=== PATIENT | male | born 1955 | race Caucasian/White ===

== ENCOUNTER 2017-07-19 09:36 | Outpatient (RCR) | payer BC, SELFPAY ==
[2017-07-19 10:11] LABS: Prothrombin Time Fingerstick 30.3 SEC (11.9-14.4)
== END 2017-07-19 09:45 | disposition home or self-care (01) ==
LOC: LAB 09:36
PROVIDERS: Family Provider Family Medicine; PCP Family Medicine; Visit Provider Family Medicine
DX: Z86.718 Personal history of other venous thrombosis and embolism (principal)
CPT/HCPCS: 36416; 85610

== ENCOUNTER 2017-09-06 07:31 | Outpatient (RCR) | payer BC, SELFPAY ==
[2017-09-06 07:56] LABS: Prothrombin Time Fingerstick 32.8 SEC (11.9-14.4)
== END 2017-09-06 15:00 | disposition home or self-care (01) ==
LOC: LAB 07:31
PROVIDERS: Family Provider Family Medicine; PCP Family Medicine; Visit Provider Family Medicine
DX: Z86.718 Personal history of other venous thrombosis and embolism (principal)
CPT/HCPCS: 36416; 85610

== ENCOUNTER 2017-10-18 07:33 | Outpatient (RCR) | payer BC, SELFPAY ==
[2017-10-18 07:46] LABS: Prothrombin Time Fingerstick 30.8 SEC (11.9-14.4)
== END 2017-10-18 08:00 | disposition home or self-care (01) ==
LOC: LAB 07:33
PROVIDERS: Family Provider Family Medicine; PCP Family Medicine; Visit Provider Family Medicine
DX: Z86.718 Personal history of other venous thrombosis and embolism (principal)
CPT/HCPCS: 36416; 85610

== ENCOUNTER → 2017-11-06 08:28 | Outpatient (CLI) | payer BC, SELFPAY ==
[2017-11-06 11:04] LABS: Anion Gap 7 (5-15); BUN 14 mg/dL (7-18); BUN/Creat Ratio 14.5 RATIO (10-20); Calcium,Total 9.1 mg/dL (8.5-10.1); Chloride 102 mmol/L (98-107); Cholesterol 176 mg/dL (200); Creatinine, Serum 0.96 mg/dL (0.70-1.30); EST Glomerular Filtration Rate 83 mL/min (>60); Est Glom Filt Rate - Afr Amer 101 mL/min (>60); Glucose 131 mg/dL (74-106); High Density Lipoprotein 34 mg/dL; Sodium Level 138 mmol/L (136-145); Triglycerides 256 mg/dL; Very Low Density Lipoprotein 51 mg/dL (5-40)
== END ==
PROVIDERS: Family Provider Family Medicine; PCP Family Medicine; Visit Provider Family Medicine
DX: I10 Essential (primary) hypertension (principal)
CPT/HCPCS: 36415; 80048; 80061

== ENCOUNTER 2017-11-15 07:27 | Outpatient (RCR) | payer BC, SELFPAY ==
[2017-11-15 07:50] LABS: Prothrombin Time Fingerstick 32.7 SEC (11.9-14.4)
== END 2017-11-15 08:00 | disposition home or self-care (01) ==
LOC: LAB 07:27
PROVIDERS: Family Provider Family Medicine; PCP Family Medicine; Visit Provider Family Medicine
DX: Z86.718 Personal history of other venous thrombosis and embolism (principal)
CPT/HCPCS: 36416; 85610

== ENCOUNTER 2017-12-13 07:22 | Outpatient (RCR) | payer BC, SELFPAY ==
[2017-12-13 07:45] LABS: Prothrombin Time Fingerstick 30.3 SEC (11.9-14.4)
== END 2017-12-13 08:00 | disposition home or self-care (01) ==
LOC: LAB 07:22
PROVIDERS: Family Provider Family Medicine; PCP Family Medicine; Visit Provider Family Medicine
DX: Z86.718 Personal history of other venous thrombosis and embolism (principal)
CPT/HCPCS: 36416; 85610

== ENCOUNTER 2018-01-09 16:43 | Outpatient (RCR) | payer BC, SELFPAY ==
[2018-01-09 17:01] LABS: Prothrombin Time Fingerstick 25.5 SEC (11.9-14.4)
== END 2018-01-09 17:30 | disposition home or self-care (01) ==
LOC: LAB 16:43
PROVIDERS: Family Provider Family Medicine; PCP Family Medicine; Visit Provider Family Medicine
DX: Z86.718 Personal history of other venous thrombosis and embolism (principal)
CPT/HCPCS: 36416; 85610

== ENCOUNTER 2018-02-21 07:26 | Outpatient (RCR) | payer MEDICARE, OTHER, SELFPAY | END 2018-02-21 09:00 | disposition home or self-care (01) | LOC: LAB 07:26 | PROVIDERS: Family Provider Family Medicine; PCP Family Medicine; Visit Provider Family Medicine | DX: Z86.718 Personal history of other venous thrombosis and embolism (principal) | CPT/HCPCS: 36416; 85610 ==

== ENCOUNTER → 2018-03-14 07:19 | Outpatient (CLI) | payer MEDICARE, OTHER, SELFPAY ==
[2018-03-14 07:51] LABS: Prothrombin Time Fingerstick 32.9 SEC (11.9-14.4)
== END ==
PROVIDERS: Family Provider Family Medicine; PCP Family Medicine; Visit Provider Family Medicine
DX: Z86.718 Personal history of other venous thrombosis and embolism (principal)
CPT/HCPCS: 36416; 85610

== ENCOUNTER 2018-04-11 07:59 | Outpatient (RCR) | payer MEDICARE, OTHER, SELFPAY | END 2018-04-11 09:00 | disposition home or self-care (01) | LOC: LAB 07:59 | PROVIDERS: Family Provider Family Medicine; PCP Family Medicine; Visit Provider Family Medicine | DX: Z86.718 Personal history of other venous thrombosis and embolism (principal) | CPT/HCPCS: 36416; 85610 ==

== ENCOUNTER 2018-04-27 02:42 | Emergency (ER) | payer MEDICARE, OTHER, SELFPAY ==
[2018-04-27 02:43] VITALS: BP 160/87; BP 185/85; PULSE 85; PULSE 95; RESP 16; TEMP 37.2; O2SAT 96; BMI 43.9
[2018-04-27 03:45] LABS: International Normalized Ratio 2.9; Prothrombin Time (Protime)PT. 30.8 SECONDS (11.7-14.9)
--- NOTE | 2018-04-27 03:56 | ED.VIS.GEN ---
History of Present Illness Chief Complaint: Male Pain/Injury Informant: Patient Onset: Hours - 1 Context: Sudden Onset - after shower. no injury. Timing: Continuous Quality: oozing blood Location: scrotum Current Severity: Mild Maximum Severity: Mild Worsened by: nothing Relieved by: nothing Associated Symptoms: none. no pain. Narrative: Takes warfarin for DVT. No recent illnesses. - Past Medical History (1) DVT (deep venous thrombosis) Status: Chronic Past Medical History - Allergies and Home Meds Allergies/Adverse Reactions: Allergies No Known Allergies Allergy (Verified 04/27/18 02:43) Primary Care Physician: Otis Pruett MD [Primary Care Provider] - As Needed Smoking Status: Never smoker Review of Systems General: Denies: Chills, Fever Gastrointestinal: Denies: Abdominal pain, Nausea, Vomiting Genitourinary: Reports: - - scrotal bleeding. no scrotal/testicular pain.. Denies: Dysuria, Hematuria, Frequency Musculoskeletal: Denies: Back pain, Swelling, Extremity Pain Hematologic: Reports: Easy bruising, Easy bleeding Physical Exam Vital Signs/Narrative: Vital Signs Temp Pulse Resp BP Pulse Ox 04/27/18 02:43 99.0 F 85 16 160/87 H 96 Inital Vital Signs reviewed: Yes General: Well nourished, Well developed, Obese Head: Normocephalic, Atraumatic : minor oozing of venous blood from hair follicle mid-anterior scrotum. NT. Skin: Normal color, No rash Neurological: Alert, Oriented x3, Cranial nerves II-XII grossly intact, Normal Strength, Normal Sensation Psychological: Normal affect Diagnostic/Tx/Re-eval Laboratory Tests 04/27/18 Range/Units 03:17 PT 30.8 H (11.7-14.9) SECONDS INR 2.9 - Medical Decision Making INR is 2.9, therapeutic. We placed a dressing over his scrotum with the Gelfoam against the skin, bleeding was well controlled. Advised to leave it on overnight, may use more as needed, this is likely simply a hair that was removed from this area during his shower, as it appears to be coming from a hair follicle. Supportive care advised. ED Disposition - Plan for ED Patient: Disposition: Home or Assisted Living Chief Complaint: Male Pain/Injury Diagnosis: Abrasion of scrotum Instructions: ED Abrasion Referrals: Otis Pruett MD [Primary Care Provider] - As Needed
[2018-04-27 04:13] VITALS: PULSE 95; RESP 16; O2SAT 96
== END 2018-04-27 04:14 | disposition home or self-care (01) ==
PROVIDERS: Emergency Provider Emergency Medicine; Family Provider Family Medicine; PCP Family Medicine
DX: S30.813A Abrasion of scrotum and testes, initial encounter (principal); X58.XXXA Exposure to other specified factors, initial encounter; Y93.9 Activity, unspecified; Y92.9 Unspecified place or not applicable; Y99.9 Unspecified external cause status; E66.9 Obesity, unspecified; Z79.01 Long term (current) use of anticoagulants; Z79.899 Other long term (current) drug therapy; Z86.718 Personal history of other venous thrombosis and embolism
CPT/HCPCS: 85610; 99283

== ENCOUNTER 2018-05-30 07:36 | Outpatient (RCR) | payer MEDICARE, OTHER, SELFPAY ==
[2018-05-30 07:51] LABS: Prothrombin Time Fingerstick 29.8 SEC (11.9-14.4)
== END 2018-06-12 11:30 | disposition home or self-care (01) ==
LOC: LAB 07:36
PROVIDERS: Family Provider Family Medicine; PCP Family Medicine; Referring Provider Family Medicine; Visit Provider Family Medicine
DX: Z86.718 Personal history of other venous thrombosis and embolism (principal)
CPT/HCPCS: 36416; 85610

== ENCOUNTER 2018-06-20 07:05 | Outpatient (RCR) | payer MEDICARE, OTHER, SELFPAY ==
[2018-06-20 08:44] LABS: Anion Gap 7 (5-15); BUN 14 mg/dL (7-18); Calcium,Total 8.8 mg/dL (8.5-10.1); Chloride 103 mmol/L (98-107); Cholesterol 176 mg/dL (200); EST Glomerular Filtration Rate 80 mL/min (>60); Est Glom Filt Rate - Afr Amer 96 mL/min (>60); Glucose 129 mg/dL (74-106); High Density Lipoprotein 35 mg/dL; Potassium 4.3 mmol/L (3.5-5.1); Sodium Level 139 mmol/L (136-145); Triglycerides 175 mg/dL; Very Low Density Lipoprotein 35 mg/dL (5-40)
[2018-06-20 08:56] LABS: International Normalized Ratio 2.4; Prothrombin Time (Protime)PT. 26.4 SECONDS (11.7-14.9)
== END 2018-06-20 08:00 | disposition home or self-care (01) ==
LOC: LAB 07:05
PROVIDERS: Family Provider Family Medicine; PCP Family Medicine; Referring Provider Family Medicine; Visit Provider Family Medicine
DX: I10 Essential (primary) hypertension (principal); Z86.718 Personal history of other venous thrombosis and embolism
CPT/HCPCS: 36415; 80048; 80061; 85610

== ENCOUNTER → 2018-06-27 10:45 | Outpatient (CLI) | payer MEDICARE, OTHER, SELFPAY ==
[2018-06-27 12:02] LABS: Hemoglobin A1c 7.4 % (4.2-6.3)
--- OUTSIDE RECORDS SUMMARY | 2018-09-30 09:51 | XMS RPT_ITS ---
:1955 Author Organization OHIP Support Name Relationship Address Phone ASSET MANAGEMENT Unavailable [address] + [place] [address] JUNE, LUIS Unavailable [address] + [place] [address] ASSET MANAGEMENT Unavailable [address] + [place] [address] JUNE, LUIS Unavailable [address] + [place] [address] ASSET MANAGEMENT Unavailable [address] + [place] [address] JUNEYAMILE COPELANDNE Unavailable [address] + [place] [address] ASSET MANAGEMENT Unavailable [address] + [place] [address] JUNE, LUIS Unavailable [address] + [place] [address] ASSET MANAGEMENT Unavailable [address] + [place] [address] JUNE, LUIS Unavailable [address] + [place] [address] ASSET MNG Unavailable . + [place] [address] JUNE, LUIS Unavailable [address] + [place] [address] ASSET MNG Unavailable . + [place] [address] JNUE, LUIS Unavailable [address] + [place] [address] JUNE, LUIS Unavailable [address] + [place] [address] S Unavailable Unavailable Unavailable LUIS WATKINS Unavailable [address] + [place] [address] S Unavailable Unavailable Unavailable JUNE LUIS Unavailable [address] + [place] [address] S Unavailable Unavailable Unavailable JUNE, LUIS Unavailable [address] + [place] [address] S Unavailable Unavailable Unavailable JUNE, LUIS Unavailable [address] + [place] [address] S Unavailable Unavailable Unavailable JUNE, LUIS Unavailable [address] + [place] [address] S Unavailable Unavailable Unavailable JUNE, LUIS Unavailable [address] + [place] [address] S Unavailable Unavailable Unavailable Care Team Providers Name Role Otis Self Attending Unavailable Pruett, Otis Primary Care Unavailable Pruett, Otis Referring Unavailable Pruett, Otis Attending Unavailable Pruett, Otis Referring Unavailable Pruett, Otis Primary Care Unavailable Pruett, Otis Attending Unavailable Pruett, Otis Referring Unavailable Pruett, Otis Primary Care Unavailable Pruett, Otis Attending Unavailable Pruett, Otis Referring Unavailable Pruett, Otis Primary Care Unavailable Pruett, Otis Attending Unavailable Pruett, Otis Referring Unavailable Pruett, Otis Primary Care Unavailable Pruett, Otis Primary Care Unavailable DYLON LAKHANI Attending Unavailable Pruett, Otis Attending Unavailable Pruett, Otis Referring Unavailable Pruett, Otis Primary Care Unavailable Pruett, Otis Attending Unavailable Pruett, Otis Referring Unavailable Pruett, Otis Primary Care Unavailable Pruett, Otis Attending Unavailable Pruett, Otis Referring Unavailable Pruett, Otis Primary Care Unavailable Pruett, Otis Attending Unavailable Pruett, Otis Referring Unavailable Pruett, Otis Primary Care Unavailable Pruett, Otis Attending Unavailable Pruett, Otis Referring Unavailable Pruett, Otis Primary Care Unavailable Pruett, Otis Attending Unavailable Pruett, Otis Primary Care Unavailable Pruett, Otis Attending Unavailable Pruett, Otis Referring Unavailable Pruett, Otis Primary Care Unavailable Pruett, Otis Attending Unavailable Pruett, Otis Referring Unavailable Pruett, Otis Primary Care Unavailable PROBLEMS PROBLEMS DATE TYPE CONDITION / CODE ATTENDING STATUS SOURCE 07/13/2018 Unknown Z86.718 - Personal Otis Pruett history of other Community venous thrombosis Hospital and embolism / Repository Z86.718(ICD-10) 07/13/2018 Unknown I10 - Essential Otis Pruett (primary) Community hypertension / Hospital I10(ICD-10) Repository PROCEDURES PROCEDURES No Procedure Records FoundRESULTS RESULTS PROTIME W/INR Collected: 07/25/2018 Status: F Source: [place] 7:28 [place] [facility] [place] TYPE CODE TESTS RESULT OUT OF REFERENCE UNITS RANGE LAB L9200.1001 11.9-14.4 SEC High PROTIME ISTAT 29.6 Result Comment: Reference Range 11.9 - 14.4 LAB L9200.2000 Normal INR ISTAT 2.60 Result Comment: Critical Value > 3.5 Performed By: #### L9200.0000 #### [facility] Point of Care [address] [place] [address] HEMOGLOBIN A1C Collected: 06/27/2018 Status: F Source: [place] 11:02 AM [facility] [place] TYPE CODE TESTS RESULT OUT OF RANGE REFERENCE UNITS LAB L501.9985 4.2-6.3 % High HGB A1C 7.4 Performed By: #### L501.9985 #### [facility] [address] [facility] [place], [address] BASIC METABOLIC Collected: 06/20/2018 Status: F Source: [place] PROFILE (BMP) 7:10 AM [facility] [place] TYPE CODE TESTS RESULT OUT OF RANGE REFERENCE UNITS LAB L501.0100 74-106 mg/dL High GLU 129 Result Comment: Fasting Glucose result greater than or equal to 126 mg/dL suggests DIABETES MELLITUS per A.D.A. criteria. Please note revised GLUCOSE reference range effective 2017. LAB L501.1000 7-18 mg/dL Normal BUN 14 LAB L501.1100 0.70-1.30 mg/dL Normal CREAT,SERUM 1.00 Result Comment: The validity of the calculated GFR AND GFRAA in patients over 70 years has not been determined. Clinical correlation is essential. LAB L501.1110 >60 mL/min Normal EST GFR 80 Result Comment: Non- GFR Calc LAB L501.1115 >60 mL/min Normal EST GFR - AA 96 Result Comment: GFR Calc LAB L501.1300 10-20 RATIO Normal BUN/CRE 14.0 LAB L501.2200 8.5-10.1 mg/dL CA Normal 8.8 LAB L501.5300 136-145 mmol/L NA Normal 139 LAB L501.5600 3.5-5.1 mmol/L K Normal 4.3 Result Comment: Slight Hemolysis, Result may be falsely increased. LAB L501.5900 98-107 mmol/L Normal CL 103 LAB L501.6100 21.0-32.0 mmol/L Normal CO2 29.0 LAB L501.6200 5-15 Normal 7 GAP Performed By: #### L500.2500, L500.4100 #### [facility] [address] [place], [place], [address] LIPID PROFILE Collected: 06/20/2018 Status: F Source: [place] 7:10 AM [facility] [place] TYPE CODE TESTS RESULT OUT OF RANGE REFERENCE UNITS LAB L501.4900 200 mg/dL Normal CHOL 176 Result Comment: <200 mg/dL Desirable 200-240 mg/dL Borderline >240 mg/dL High Risk LAB L501.5000 mg/dL Normal TRIG 175 Result Comment: The drugs N-Acetylcysteine and Metamizole may falsely depress this assay. Serum Triglycerides Reference Interval Normal <150 mg/dL Borderline high 150 - 199 mg/dL High 200 - 499 mg/dL Very High > or = 500 mg/dL LAB L501.6400 mg/dL Low HDL 35 Result Comment: The drugs N-Acetylcysteine and Metamizole may falsely depress this assay. Reference Range HDL <40 mg/dL Low HDL Cholesterol HDL >or= 60 mg/dL High HDL Cholesterol LAB L501.6500 0-130 mg/dL Normal LDL 106 LAB L501.6600 5-40 mg/dL Normal VLDL 35 Performed By: #### L500.2500, L500.4100 #### [facility] [address] [place], [place], [address] PROTHROMBIN TIME W/INR Collected: 06/20/2018 Status: F Source: [place] 7:10 AM [facility] [place] TYPE CODE TESTS RESULT OUT OF RANGE REFERENCE UNITS LAB L300.4150 11.7-14.9 SECONDS High PROTIME 26.4 LAB L300.4200 Normal INR 2.4 Performed By: #### L300.3900 #### [facility] [address] [facility] [place], [address] PROTIME W/INR Collected: 05/30/2018 Status: F Source: [place] FINGER[place]ICK 7:47 AM [facility] [place] TYPE CODE TESTS RESULT OUT OF REFERENCE UNITS RANGE LAB L9200.1001 11.9-14.4 SEC High PROTIME ISTAT 29.8 Result Comment: Reference Range 11.9 - 14.4 LAB L9200.2000 Normal INR ISTAT 2.60 Result Comment: Critical Value > 3.5 Performed By: #### L9200.0000 #### [facility] Point of Care [address] [place] [address] EMERGENCY DEPARTMENT Observed: 04/27/2018 Status: F Source: [place] SUMMARY 4:01 AM [facility] [place] [facility] Medical Records Department [address] [facility] [place] [address] Emergency Department Summary 04/27/18 0356 MR#: [id number] Acct: [id number] Name: JOHNATHON WATKINS Rep #: [id number] : 1955 63 From: Dylon Lakhani MD PCP: Otis Pruett MD Status: REG ER History of Present Illness Chief Complaint: Male Pain/Injury Informant: Patient Onset: Hours - 1 Context: Sudden Onset - after shower. no injury. Timing: Continuous Quality: oozing blood Location: scrotum Current Severity: Mild Maximum Severity: Mild Worsened by: nothing Relieved by: nothing Associated Symptoms: none. no pain. Narrative: Takes warfarin for DVT. No recent illnesses. - Past Medical History (1) DVT (deep venous thrombosis) Status: Chronic Past Medical History - Allergies and Home Meds Allergies/Adverse Reactions: Allergies No Known Allergies Allergy (Verified 04/27/18 02:43) Primary Care Physician: Otis Pruett MD [Primary Care Provider] - As Needed Smoking Status: Never smoker Review of Systems General: Denies: Chills, Fever Gastrointestinal: Denies: Abdominal pain, Nausea, Vomiting Genitourinary: Reports: - - scrotal bleeding. no scrotal/testicular pain.. Denies: Dysuria, Hematuria, Frequency Musculoskeletal: Denies: Back pain, Swelling, Extremity Pain Hematologic: Reports: Easy bruising, Easy bleeding Physical Exam Vital Signs/Narrative: Vital Signs 04/27/18 02:43 99.0 F 85 16 160/87 H 96 Inital Vital Signs reviewed: Yes General: Well nourished, Well developed, Obese Head: Normocephalic, Atraumatic : minor oozing of venous blood from hair follicle mid-anterior scrotum. NT. Skin: Normal color, No rash Neurological: Alert, Oriented x3, Cranial nerves II-XII grossly intact, Normal Strength, Normal Sensation Psychological: Normal affect Diagnostic/Tx/Re-eval Laboratory Tests PT 30.8 H (11.7-14.9) SECONDS INR 2.9 - Medical Decision Making INR is 2.9, therapeutic. We placed a dressing over his scrotum with the Gelfoam against the skin, bleeding was well controlled. Advised to leave it on overnight, may use more as needed, this is likely simply a hair that was removed from this area during his shower, as it appears to be coming from a hair follicle. Supportive care advised. ED Disposition - Plan for ED Patient: Disposition: Home or Assisted Living Chief Complaint: Male Pain/Injury Diagnosis: Abrasion of scrotum Instructions: ED Abrasion Referrals: Otis Pruett MD [Primary Care Provider] - As Needed What to do if you have Problems For any increased pain, shortness of breath, bleeding, nausea or vomiting, chest pain, or any unexpected problems, contact your Primary Care Provider. Call [facility] ([phone]) or report to the closest Emergency Room. Call 911 if necessary. 04/27/18 0401 <Electronically signed by Dylon Lakhani MD> Date Dylon Lakhani MD Cosigner Signature (If Indicated): Date CC: Otis Pruett MD PROTHROMBIN TIME W/INR Collected: 04/27/2018 Status: F Source: [place] 3:17 AM [facility] [place] TYPE CODE TESTS RESULT OUT OF RANGE REFERENCE UNITS LAB L300.4150 11.7-14.9 SECONDS High PROTIME 30.8 LAB L300.4200 Normal INR 2.9 Performed By: #### L300.3900 #### [facility] [address] [place], [address] PROTIME W/INR Collected: 04/11/2018 Status: F Source: [place] 8:08 AM [facility] [place] TYPE CODE TESTS RESULT OUT OF REFERENCE UNITS RANGE LAB L9200.1001 11.9-14.4 SEC High PROTIME ISTAT 29.0 Result Comment: Reference Range 11.9 - 14.4 LAB L9200.2000 Normal INR ISTAT 2.50 Result Comment: Critical Value > 3.5 Performed By: #### L9200.0000 #### [facility] Point of Care [address] [place] [address] PROTIME W/INR Collected: 03/14/2018 Status: F Source: [place] 7:45 AM [facility] [place] TYPE CODE TESTS RESULT OUT OF REFERENCE UNITS RANGE LAB L9200.1001 11.9-14.4 SEC High PROTIME ISTAT 32.9 Result Comment: Reference Range 11.9 - 14.4 LAB L9200.2000 Normal INR ISTAT 2.90 Result Comment: Critical Value > 3.5 Performed By: #### L9200.0000 #### [facility] Point of Care [address] [place] [address] PROTIME W/INR Collected: 02/21/2018 Status: F Source: [place] 7:43 AM [facility] [place] TYPE CODE TESTS RESULT OUT OF REFERENCE UNITS RANGE LAB L9200.1001 11.9-14.4 SEC High PROTIME ISTAT 32.0 Result Comment: Reference Range 11.9 - 14.4 LAB L9200.2000 Normal INR ISTAT 2.80 Result Comment: Critical Value > 3.5 Performed By: #### L9200.0000 #### [facility] Point of Care [address] [place] [address] PROTIME W/INR Collected: 01/09/2018 Status: F Source: [place] 4:57 PM [facility] [place] TYPE CODE TESTS RESULT OUT OF REFERENCE UNITS RANGE LAB L9200.1001 11.9-14.4 SEC High PROTIME ISTAT 25.5 Result Comment: Reference Range 11.9 - 14.4 LAB L9200.2000 Normal INR ISTAT 2.20 Result Comment: Critical Value > 3.5 Performed By: #### L9200.0000 #### [facility] Point of Care [address] [place] [address] PROTIME W/INR Collected: 12/13/2017 Status: F Source: [place] 7:39 AM [facility] [place] TYPE CODE TESTS RESULT OUT OF REFERENCE UNITS RANGE LAB L9200.1001 11.9-14.4 SEC High PROTIME ISTAT 30.3 Result Comment: Reference Range 11.9 - 14.4 LAB L9200.2000 Normal INR ISTAT 2.60 Result Comment: Critical Value > 3.5 Performed By: #### L9200.0000 #### [facility] Point of Care [address] [place] [address] PROTIME W/INR Collected: 11/15/2017 Status: F Source: [place] 7:43 AM [facility] [place] TYPE CODE TESTS RESULT OUT OF REFERENCE UNITS RANGE LAB L9200.1001 11.9-14.4 SEC High PROTIME ISTAT 32.7 Result Comment: Reference Range 11.9 - 14.4 LAB L9200.2000 Normal INR ISTAT 2.90 Result Comment: Critical Value > 3.5 Performed By: #### L9200.0000 #### [facility] Point of Care [address] [place] [address] BASIC METABOLIC Collected: 11/06/2017 Status: F Source: [place] PROFILE (BMP) 8:29 AM [facility] [place] TYPE CODE TESTS RESULT OUT OF RANGE REFERENCE UNITS LAB L501.0100 74-106 mg/dL High GLU 131 Result Comment: Fasting Glucose result greater than or equal to 126 mg/dL suggests DIABETES MELLITUS per A.D.A. criteria. Please note revised GLUCOSE reference range effective 2017. LAB L501.1000 7-18 mg/dL Normal BUN 14 LAB L501.1100 0.70-1.30 mg/dL Normal CREAT,SERUM 0.96 Result Comment: The validity of the calculated GFR AND GFRAA in patients over 70 years has not been determined. Clinical correlation is essential. LAB L501.1110 >60 mL/min Normal EST GFR 83 Result Comment: Non- GFR Calc LAB L501.1115 >60 mL/min Normal EST GFR - AA 101 Result Comment: GFR Calc LAB L501.1300 10-20 RATIO Normal BUN/CRE 14.5 LAB L501.2200 8.5-10.1 mg/dL CA Normal 9.1 LAB L501.5300 136-145 mmol/L NA Normal 138 LAB L501.5600 3.5-5.1 mmol/L K Normal 4.0 LAB L501.5900 98-107 mmol/L CL Normal 102 LAB L501.6100 21.0-32.0 mmol/L Normal CO2 29.0 LAB L501.6200 5-15 Normal GAP 7 Performed By: #### L500.2500, L500.4100 #### [facility] [address] [place], [address] LIPID PROFILE Collected: 11/06/2017 Status: F Source: [place] 8:29 AM [facility] [place] TYPE CODE TESTS RESULT OUT OF RANGE REFERENCE UNITS LAB L501.4900 200 mg/dL Normal CHOL 176 Result Comment: <200 mg/dL Desirable 200-240 mg/dL Borderline >240 mg/dL High Risk LAB L501.5000 mg/dL High TRIG 256 Result Comment: The drugs N-Acetylcysteine and Metamizole may falsely depress this assay. Serum Triglycerides Reference Interval Normal <150 mg/dL Borderline high 150 - 199 mg/dL High 200 - 499 mg/dL Very High > or = 500 mg/dL LAB L501.6400 mg/dL Low HDL 34 Result Comment: The drugs N-Acetylcysteine and Metamizole may falsely depress this assay. Reference Range HDL <40 mg/dL Low HDL Cholesterol HDL >or= 60 mg/dL High HDL Cholesterol LAB L501.6500 0-130 mg/dL Normal LDL 91 LAB L501.6600 5-40 mg/dL High VLDL 51 Performed By: #### L500.2500, L500.4100 #### [facility] [address] [place], [address] PROTIME W/INR Collected: 10/18/2017 Status: F Source: [place] 7:40 AM [facility] [place] TYPE CODE TESTS RESULT OUT OF REFERENCE UNITS RANGE LAB L9200.1001 11.9-14.4 SEC High PROTIME ISTAT 30.8 Result Comment: Reference Range 11.9 - 14.4 LAB L9200.2000 Normal INR ISTAT 2.70 Result Comment: Critical Value > 3.5 Performed By: #### L9200.0000 #### [facility] Point of Care [address] [place] [address] PROTIME W/INR Collected: 09/06/2017 Status: F Source: [place] 7:48 AM [facility] [place] TYPE CODE TESTS RESULT OUT OF REFERENCE UNITS RANGE LAB L9200.1001 11.9-14.4 SEC High PROTIME ISTAT 32.8 Result Comment: Reference Range 11.9 - 14.4 LAB L9200.2000 Normal INR ISTAT 2.90 Result Comment: Critical Value > 3.5 Performed By: #### L9200.0000 #### [facility] Point of Care [address] [place] [address] ALLERGIES ALLERGIES DATE TYPE / CODE NAME / CODE REACTION SEVERITY SOURCE 04/27/2018 Drug No Known Unknown [facility] Allergy/4160 Allergies/F00 [facility] 85380(SNOMED 8339780(RXNOR Repository CT) M) ENCOUNTERS ENCOUNTERS ADMIT/DISCHARGE ACCOUNT ADMITTING ENCOUNTER LOCATION SOURCE NUMBER CLASS 07/25/2018 [id number] Ambulatory [place] 3 [facility] ing:LAB Repository 06/27/2018 [id number] Ambulatory [place] 1 [facility] ing:LAB.FUTUR Repository E 06/20/2018/ [id number] [place] 0 [facility] ing:LAB Repository 05/30/2018/ [id number] Ambulatory [place] 4 [facility] ing:LAB Repository 04/27/2018/ [id number] [place] 6 [facility] ing:ED Repository 04/11/2018/ [id number] Ambulatory [place] 8 7 [facility] ing:LAB Repository 03/14/2018 [id number] Ambulatory [place] 2 [facility] ing:LAB Repository 02/21/2018/ [id number] Ambulatory [place] 8 4 [facility] ing:LAB Repository 01/09/2018/ [id number] Ambulatory [place] 8 0 [facility] ing:LAB Repository 12/13/2017/ [id number] Ambulatory [place] 8 7 [facility] ing:LAB Repository 11/15/2017/ [id number] Ambulatory [place] 6 [facility] ing:LAB Repository 11/06/2017 [id number] Ambulatory [place] 4 [facility] ing:MFPLAB Repository 10/18/2017/ [id number] Ambulatory [place] 8 7 [facility] ing:LAB Repository 09/06/2017/ [id number] Ambulatory [place] 8 6 [facility] ing:LAB Repository PAYERS PAYERS ENCOUNTER GUARANTOR PAYER SUBSCRIBER SOURCE 07/25/2018 JOHNATHON R Primary JOHNATHON R [place] [id number] S Insurance:MEDICARE ROBISONDOB: [facility] [id number] Number[place] Repository [address]Omh: [phone] [id number] [phone] () Date:2018-02-21 07/25/2018 Secondary JOHNATHON R [place] Insurance:MEDICAL ROBISONDOB: [facility] [id number] Hospital Number: Repository [id number] Date:[id number] [address]RV: 07/25/2018 Tertiary NOT GIVENUNK [place] Insurance:SELF PAY [facility] Number: Effective Repository Date:2018-07-13 06/27/2018 JOHNATHON R Primary JOHNATHON [place] [id number] S Insurance:MEDICARE ROBISONDOB: [address] Number: Repository [id number]: 330 [id number] [phone] (HP) Date:2018-06-24 06/27/2018 Secondary JOHNATHON Galaviz [place] Insurance:MEDICAL ROBISONDOB: [facility] [id number] Hospital Number: Repository [id number] Date:[id number] [address] [address]NT: 06/27/2018 Tertiary NOT GIVENUNK [place] Insurance:SELF PAY [facility] Number: Effective Repository Date:2018-06-24 06/20/2018 JOHNATHON R Primary JOHNATHON [place] [id number] S Insurance:MEDICARE ROBISONDOB: [facility] [id number] [place] [address] Number: Repository [id number]: 330 [id number] [phone] (HP) Date:2018-02-21 06/20/2018 Secondary JOHNATHON [place] Insurance:MEDICAL ROBISONDOB: [place] [id number] Hospital Number: Repository [id number] Date:2301-26-78YX [address] [address]YF: 06/20/2018 Tertiary NOT GIVENUNK [place] Insurance:SELF PAY [facility] Number: Effective Repository Date:2018-06-15 05/30/2018 JOHNATHON R Primary JOHNATHON [place] [id number] S Insurance:MEDICARE ROBISONDOB: [facility] [id number] [place] [address] Number: Repository [id number]: 330 [id number] [phone] (HP) Date:2018-02-21 05/30/2018 Secondary JOHNATHON R [place] Insurance:MEDICAL ROBISONDOB: [place] [id number] Hospital Number: Repository [id number] Date:8875-21-77ID[address] [address]OS: 05/30/2018 Tertiary NOT GIVENUNK [place] Insurance:SELF PAY [facility] Number: Effective Repository Date:2018-04-15 04/27/2018 JOHNATHON R Primary JOHNATHON [place] [id number] S Insurance:MEDICARE ROBISONDOB: [facility] [id number] Number: Repository [address]Dnj: 330 [id number] [phone] (HP) Date:2018-04-27 04/27/2018 Secondary JOHNATHON R [place] Insurance:MEDICAL ROBISONDOB: [facility] [id number] Hospital Number: Repository [id number] Date:4100-41-85IN[address] [address]EL: 04/27/2018 Tertiary NOT GIVENUNK [place] Insurance:SELF PAY [facility] Number: Effective Repository Date:2018-04-27 04/11/2018 JOHNATHON R Primary JOHNATHON [place] [id number] S Insurance:MEDICARE ROBISONDOB: [facility] [id number] Number: Repository [id number]: 330 [id number] [phone] (HP) Date:2018-02-21 04/11/2018 Secondary JOHNATHON R [place] Insurance:MEDICAL ROBISONDOB: [facility] [id number] Hospital Number: Repository [id number] Date:7146-29-13MN[address] [address]KJ: 04/11/2018 Tertiary NOT GIVENUNK [place] Insurance:SELF PAY [facility] Number: Effective Repository Date:2018-03-17 03/14/2018 JOHNATHON R Primary JOHNATHON [place] [id number] S Insurance:MEDICARE ROBISONDOB: [facility] [id number] Number: Repository [id number]: 330 [id number] [phone] (HP) Date:2018-03-14 03/14/2018 Secondary JOHNATHON R [place] Insurance:MEDICAL ROBISONDOB: [facility] [id number] Hospital Number: Repository [id number] Date:8472-98-48ME[address] [address]AG: 03/14/2018 Tertiary NOT GIVENUNK [place] Insurance:SELF PAY [facility] Number: Effective Repository Date:2018-03-14 02/21/2018 JOHNATHON R Primary JOHNATHON [place] [id number] S Insurance:MEDICARE ROBISONDOB: [facility] CORI PART A [facility] [id number] [place] [address] Number: Repository [id number]: 330 [id number] [phone] () Date:2018-02-21 02/21/2018 Secondary JOHNATHON R [place] Insurance:MEDICAL ROBISONDOB: [facility] [id number] Hospital Number: Repository [id number] Date:[id number] [address]BU: 02/21/2018 Tertiary NOT GIVENUNK [place] Insurance:SELF PAY [facility] Number: Effective Repository Date:2018-02-21 01/09/2018 Johnathon R Primary Johnathon [place] [id number] S Insurance:ANTHEMPolic RobisonDOB: [facility] Cori y Number: [id number] [place] [id number] Repository [phone]: 330) Date:7402-21-66[phone] () [address]87[place]GKUKWBW, [place] [address]MJ: 01/09/2018 Secondary NOT GIVENUNK [place] Insurance:SELF PAY [facility] Number: Effective Repository Date:2018-01-09 12/13/2017 Johnathon R Primary Johnathon [place] [id number] S Insurance:ANTHEMPolic RobisonDOB: [facility] Cori y Number: [id number] [place], [place] [id number] Repository [id number]: ([phone]) Date:1950-84-81PJ [phone] () [id number] MENDENHALL [id number]: 12/13/2017 Secondary NOT GIVENUNK [place] Insurance:SELF PAY [facility] Number: Effective Repository Date:2017-12-11 11/15/2017 Johnathon R Primary Johnathon R [place] [id number] S Insurance:ANTHEMPolic RobisonDOB: [facility] Cori y Number: [id number] [place], [place] [id number] Repository [address]Yao: ([phone]) Date:5707-05-94VF [phone] () [id number], [place] [address]NO: 11/15/2017 Secondary NOT GIVENUNK [place] Insurance:SELF PAY [facility] Number: Effective Repository Date:2017-11-11 11/06/2017 Johnathon R Primary Johnathon R [place] [id number] S Insurance:ANTHEMPolic RobisonDOB: [facility] [place] y Number: [id number] [place] [id number] Repository [address]Aai: ([phone]) Date:1863-24-96LZ [phone] () [id number], [place] [address]QV: 11/06/2017 Secondary NOT GIVENUNK [place] Insurance:SELF PAY [facility] Number: Effective Repository Date:2017-11-06 10/18/2017 Johnathon R Primary Johnathon R [place] [id number] S Insurance:ANTHEMPolic RobisonDOB: [facility] [place] y Number: [id number] [place] [id number] Repository [address]Bdq: ([phone]) Date:1483-65-10QK [phone] () [id number], [place] [address]IL: 10/18/2017 Secondary NOT GIVENUNK [place] Insurance:SELF PAY [facility] Number: Effective Repository Date:2017-09-12 09/06/2017 Johnathon R Primary Johnathon De [place] [id number] S Insurance:ANTHEMPolic RobisonDOB: [facility] Number: [id number] [place] [id number] Repository [address]Qco: [phone]) Date:[id number] [phone] () [id number], [place] [address]KO: 09/06/2017 Secondary NOT GIVENUNK [place] Insurance:SELF PAY [facility] Number: Effective Repository Date:2017-08-15
== END ==
PROVIDERS: Family Provider Family Medicine; PCP Family Medicine; Referring Provider Family Medicine; Visit Provider Family Medicine
DX: E66.9 Obesity, unspecified (principal); R73.09 Other abnormal glucose
CPT/HCPCS: 36415; 83036

== ENCOUNTER 2018-07-25 07:17 | Outpatient (RCR) | payer MEDICARE, OTHER, SELFPAY ==
[2018-07-25 07:35] LABS: Prothrombin Time Fingerstick 29.6 SEC (11.9-14.4)
== END 2018-07-25 08:18 | disposition home or self-care (01) ==
LOC: LAB 07:17
PROVIDERS: Family Provider Family Medicine; PCP Family Medicine; Referring Provider Family Medicine; Visit Provider Family Medicine
DX: I10 Essential (primary) hypertension (principal); Z86.718 Personal history of other venous thrombosis and embolism
CPT/HCPCS: 36416; 85610

== ENCOUNTER 2018-09-04 07:03 | Outpatient (RCR) | payer MEDICARE, OTHER, SELFPAY ==
[2018-09-04 07:25] LABS: Prothrombin Time Fingerstick 29.4 SEC (11.9-14.4)
== END 2018-09-10 14:32 | disposition home or self-care (01) ==
LOC: LAB 07:03
PROVIDERS: Family Provider Family Medicine; PCP Family Medicine; Referring Provider Family Medicine; Visit Provider Family Medicine
DX: Z86.718 Personal history of other venous thrombosis and embolism (principal)
CPT/HCPCS: 36416; 85610

== ENCOUNTER 2018-09-26 07:21 | Outpatient (RCR) | payer MEDICARE, OTHER, SELFPAY ==
[2018-09-26 07:40] LABS: Prothrombin Time Fingerstick 31.4 SEC (11.9-14.4)
== END 2018-09-26 08:21 | disposition home or self-care (01) ==
LOC: LAB 07:21
PROVIDERS: Family Provider Family Medicine; PCP Family Medicine; Referring Provider Family Medicine; Visit Provider Family Medicine
DX: I10 Essential (primary) hypertension (principal); Z86.718 Personal history of other venous thrombosis and embolism
CPT/HCPCS: 36416; 85610

== ENCOUNTER → 2018-10-01 08:34 | Outpatient (CLI) | payer MEDICARE, OTHER, SELFPAY ==
[2018-10-01 10:28] LABS: Cholesterol 181 mg/dL (200); High Density Lipoprotein 37 mg/dL; Triglycerides 176 mg/dL; Very Low Density Lipoprotein 35 mg/dL (5-40)
== END ==
PROVIDERS: Family Provider Family Medicine; PCP Family Medicine; Referring Provider Family Medicine; Visit Provider Family Medicine
DX: E11.9 Type 2 diabetes mellitus without complications (principal)
CPT/HCPCS: 36415; 80061

== ENCOUNTER 2018-10-24 07:14 | Outpatient (RCR) | payer MEDICARE, OTHER, SELFPAY ==
[2018-10-24 07:35] LABS: Prothrombin Time Fingerstick 33.4 SEC (11.9-14.4)
== END 2018-11-10 16:00 | disposition home or self-care (01) ==
LOC: LAB 07:14
PROVIDERS: Family Provider Family Medicine; PCP Family Medicine; Referring Provider Family Medicine; Visit Provider Family Medicine
DX: Z86.718 Personal history of other venous thrombosis and embolism (principal)
CPT/HCPCS: 36416; 85610

== ENCOUNTER → 2018-10-29 07:40 | Outpatient (CLI) | payer MEDICARE, OTHER, SELFPAY ==
--- NOTE | 2018-10-29 07:44 | VDLE_ITS ---
Reason For Study: venous insufficiency, hx DVT RIGHT LEFT CFV is compressible, spontaneous, phasic, CFV is compressible, spontaneous, phasic, competent and demonstrates normal competent, and demonstrates normal augmentation. augmentation. FV is compressible, spontaneous, phasic, FV is compressible, spontaneous, phasic, competent and demonstrates normal competent and demonstrates normal augmentation. augmentation. POP V is compressible, spontaneous, phasic, POP V is compressible, spontaneous, phasic, competent and demonstrates normal competent and demonstrates normal augmentation. augmentation. T/P Trunk is compressible. T/P Trunk is compressible. PTV is compressible. PTV is compressible. RT PerV is compressible. LT PerV is compressible. S-F Junction is competent. S-F Junction is competent. GSV is competent. GSV is competent above the knee, but SSV is competent. incompetent below the knee for greater Procedure than .5 seconds. GSV measures .48 x .51 cm. Exam performed in department. SSV is competent. The exam was diagnostic. Interpretation Summary Deep veins of the lower extremities are bilaterally patent and compressible segmentally. There is no evidence of deep vein thrombosis on either side. Valvular competence appears intact within the proximal deep venous systems bilaterally. The greater saphenous veins appear bilaterally patent and compressible segmentally. Sapheno-femoral junctions are bilaterally competent . The right greater saphenous vein appears segmentally competent. The left greater saphenous vein appears competent above the knee. The left greater saphenous vein appears incompetent below the knee. Small saphenous veins are patent and competent bilaterally. Ordering Physician: Josse Peralta Performed By: Hany Silva RVT
== END ==
PROVIDERS: Family Provider Family Medicine; PCP Family Medicine; Referring Provider Podiatrist; Visit Provider Podiatrist
DX: I87.2 Venous insufficiency (chronic) (peripheral) (principal); R60.0 Localized edema; Z86.718 Personal history of other venous thrombosis and embolism
CPT/HCPCS: 93970

== ENCOUNTER 2018-11-26 16:52 | Outpatient (RCR) | payer MEDICARE, OTHER, SELFPAY ==
[2018-11-26 17:05] LABS: Prothrombin Time Fingerstick 26.9 SEC (11.9-14.4)
== END 2018-11-26 17:52 | disposition home or self-care (01) ==
LOC: LAB 16:52
PROVIDERS: Family Provider Family Medicine; PCP Family Medicine; Referring Provider Family Medicine; Visit Provider Family Medicine
DX: Z86.718 Personal history of other venous thrombosis and embolism (principal)
CPT/HCPCS: 36416; 85610

== ENCOUNTER 2018-12-29 16:23 | Outpatient (RCR) | payer MEDICARE, OTHER, SELFPAY ==
[2018-12-29 16:36] LABS: Prothrombin Time Fingerstick 30.5 SEC (11.9-14.4)
== END 2019-01-10 12:00 | disposition home or self-care (01) ==
LOC: LAB 16:23
PROVIDERS: Family Provider Family Medicine; PCP Family Medicine; Referring Provider Family Medicine; Visit Provider Family Medicine
DX: Z86.718 Personal history of other venous thrombosis and embolism (principal)
CPT/HCPCS: 36416; 85610

== ENCOUNTER 2019-01-28 08:03 | Outpatient (RCR) | payer MEDICARE, OTHER, SELFPAY ==
[2019-01-28 08:16] LABS: Prothrombin Time Fingerstick 27.7 SEC (11.9-14.4)
== END 2019-02-10 16:17 | disposition home or self-care (01) ==
LOC: LAB 08:03
PROVIDERS: Family Provider Family Medicine; PCP Family Medicine; Referring Provider Family Medicine; Visit Provider Family Medicine
DX: Z86.718 Personal history of other venous thrombosis and embolism (principal)
CPT/HCPCS: 36416; 85610

== ENCOUNTER 2019-02-22 08:50 | Outpatient (RCR) | payer MEDICARE, OTHER, SELFPAY ==
[2019-02-23 09:02] LABS: Prothrombin Time Fingerstick 29.7 SEC (11.9-14.4)
== END 2019-02-22 09:50 | disposition home or self-care (01) ==
LOC: LAB 08:50
PROVIDERS: Family Provider Family Medicine; PCP Family Medicine; Referring Provider Family Medicine; Visit Provider Family Medicine
DX: Z86.718 Personal history of other venous thrombosis and embolism (principal)
CPT/HCPCS: 36416; 85610

== ENCOUNTER → 2019-03-25 08:29 | Outpatient (CLI) | payer MEDICARE, OTHER, SELFPAY ==
[2019-03-25 10:41] LABS: Anion Gap 3 (5-15); BUN 13 mg/dL (7-18); BUN/Creat Ratio 13.4 RATIO (10-20); Calcium,Total 8.8 mg/dL (8.5-10.1); Chloride 106 mmol/L (98-107); Cholesterol 166 mg/dL (200); Creatinine, Serum 0.97 mg/dL (0.70-1.30); EST Glomerular Filtration Rate 82 mL/min (>60); Est Glom Filt Rate - Afr Amer 99 mL/min (>60); Glucose 120 mg/dL (74-106); High Density Lipoprotein 36 mg/dL; Potassium 4.6 mmol/L (3.5-5.1); Sodium Level 140 mmol/L (136-145); Triglycerides 220 mg/dL; Very Low Density Lipoprotein 44 mg/dL (5-40)
[2019-03-25 10:58] LABS: International Normalized Ratio 2.8; Prothrombin Time (Protime)PT. 29.9 SECONDS (11.7-14.9)
== END ==
PROVIDERS: Family Provider Family Medicine; PCP Family Medicine; Referring Provider Family Medicine; Visit Provider Family Medicine
DX: E11.9 Type 2 diabetes mellitus without complications (principal); Z86.718 Personal history of other venous thrombosis and embolism
CPT/HCPCS: 36415; 80048; 80061; 85610

== ENCOUNTER 2019-05-01 10:19 | Outpatient (RCR) | payer MEDICARE, OTHER, SELFPAY ==
[2019-05-01 14:17] LABS: Prothrombin Time Fingerstick 29.4 SEC (11.9-14.4)
== END 2019-05-01 18:00 | disposition home or self-care (01) ==
LOC: LAB 10:19
PROVIDERS: Family Provider Family Medicine; PCP Family Medicine; Referring Provider Family Medicine; Visit Provider Family Medicine
DX: Z86.718 Personal history of other venous thrombosis and embolism (principal)
CPT/HCPCS: 36416; 85610

== ENCOUNTER 2019-05-29 07:40 | Outpatient (RCR) | payer MEDICARE, OTHER, SELFPAY ==
[2019-05-29 13:31] LABS: Prothrombin Time Fingerstick 30.1 SEC (11.9-14.4)
== END 2019-05-29 18:00 | disposition home or self-care (01) ==
LOC: LAB 07:40
PROVIDERS: Family Provider Family Medicine; PCP Family Medicine; Referring Provider Family Medicine; Visit Provider Family Medicine
DX: Z86.718 Personal history of other venous thrombosis and embolism (principal)
CPT/HCPCS: 36416; 85610

== ENCOUNTER 2019-06-28 09:12 | Outpatient (RCR) | payer MEDICARE, OTHER, SELFPAY | END 2019-06-28 18:00 | disposition home or self-care (01) | LOC: LAB 09:12 | PROVIDERS: Family Provider Family Medicine; PCP Family Medicine; Referring Provider Family Medicine; Visit Provider Family Medicine | DX: Z86.718 Personal history of other venous thrombosis and embolism (principal) | CPT/HCPCS: 36416; 85610 ==

== ENCOUNTER 2019-07-30 10:44 | Outpatient (RCR) | payer MEDICARE, OTHER, SELFPAY ==
[2019-07-30 11:35] LABS: Prothrombin Time Fingerstick 28.1 SEC (11.9-14.4)
== END 2019-07-30 18:00 | disposition home or self-care (01) ==
LOC: LAB 10:44
PROVIDERS: Family Provider Family Medicine; PCP Family Medicine; Referring Provider Family Medicine; Visit Provider Family Medicine
DX: I82.409 Acute embolism and thrombosis of unspecified deep veins of unspecified lower extremity (principal); Z86.718 Personal history of other venous thrombosis and embolism
CPT/HCPCS: 36416; 85610

== ENCOUNTER 2019-08-30 07:19 | Outpatient (RCR) | payer MEDICARE, OTHER, SELFPAY ==
[2019-08-30 07:31] LABS: Prothrombin Time Fingerstick 28.2 SEC (11.9-14.4)
== END 2019-08-30 18:00 | disposition home or self-care (01) ==
LOC: LAB 07:19
PROVIDERS: Family Provider Family Medicine; PCP Family Medicine; Referring Provider Family Medicine; Visit Provider Family Medicine
DX: Z86.718 Personal history of other venous thrombosis and embolism (principal)
CPT/HCPCS: 36416; 85610

== ENCOUNTER → 2019-09-08 12:18 | Outpatient (CLI) | payer MEDICARE, OTHER, SELFPAY ==
--- NOTE | 2019-09-08 12:22 | RAD_ITS ---
STUDY: X-RAY - LEFT FEMUR REASON FOR STUDY: Male, 64 years old. leg pain, accident 15 yrs ago, femur rodding TECHNIQUE: 4 view(s) of the femur. COMPARISON: None. FINDINGS: An intramedullary randy is noted traversing the length of left femur. There are healed fractures of the proximal and distal femoral shafts. There is soft tissue heterotopic bone adjacent to the fracture sites. RAD/Femur Min 2 Views IMPRESSION: Intramedullary randy noted traversing the length of left femur. There are healed fractures of the proximal and distal femoral shafts with adjacent soft tissue heterotopic bone. Electronically Signed: Abhishek Mcmahon MD at 19:27 EST , Service support ,
--- NOTE | 2019-09-08 12:22 | RAD_ITS ---
STUDY: X-RAY - LEFT KNEE REASON FOR EXAM: Male, 64 years old. leg pain, accident 15 yrs ago, femur rodding TECHNIQUE: 4 view(s) of the knee. COMPARISON: None. FINDINGS: An intramedullary randy is seen in the distal femur stabilizing a healed fracture of the distal femoral shaft. Normal visualized proximal tibia and fibula. Normal proximal tibiofibular articulation. There is mild degenerative arthrosis of the medial femorotibial compartment. There is mild degenerative arthrosis of the lateral femorotibial compartment. There is mild degenerative arthrosis of the patellofemoral articulation. The soft tissue structures are unremarkable. RAD/Knee 4 or More Views IMPRESSION: Mild tricompartmental degenerative changes of the left knee. An intramedullary randy is seen in the visualized distal femur stabilizing an old healed nondisplaced fracture of the distal femoral shaft. Electronically Signed: Abhishek Mcmahon MD at 19:25 EST , Service support ,
[2019-09-08 14:08] LABS: Absolute Lymphocyte Count 1.73 X10^3/uL (0.83-4.51); Absolute Neutrophil Count 4.6 X10^3/uL (2.0-7.7); Basophil# 0.05 X10^3/uL; Basophil% 0.7 % (0-1); Eosinophils% 1.3 % (0-5); Hematocrit 47.5 % (40-54); Hemoglobin 15.8 g/dL (13.0-16.5); Lymphocyte # 1.73 X10^3/ul (4.0); Lymphocyte % 23.3 % (19-41); Mean Corp Hgb Conc 33.3 g/dL (32-36); Mean Corpuscular Volume 81.2 fL (80-94); Mean Platelet Vol. 8.8 fl (6.2-12.0); Monocyte# 0.92 X10^3/uL; Monocyte% 12.4 % (0-10); NRBC Flagged by Analyzer 0 % (0-5); Neutrophil # 4.62 X10^3/uL (2.7-7.7); Platelet Count 334 K/mm3 (150-450); RBC Distribution Width CV 12.9 % (11.6-14.6); RBC Distribution Width SD 38.3 fl (35.1-43.9); Red Blood Count 5.85 M/mm3 (4.6-6.2); White Blood Count 7.4 K/mm3 (4.4-11.0)
[2019-09-08 14:22] LABS: Vitamin D,25 Hydroxy 13.4 ng/mL
[2019-09-08 14:34] LABS: AST(SGOT) 22 U/L (15-37); Alanine Aminotransfer ALT/SGPT 45 U/L (16-61); Albumin, Serum 4.1 g/dL (3.2-5.0); Alkaline Phosphatase 70 U/L (45-117); Anion Gap 5 (5-15); BUN 13 mg/dL (7-18); BUN/Creat Ratio 13.3 RATIO (10-20); Calcium,Total 9.5 mg/dL (8.5-10.1); Chloride 105 mmol/L (98-107); Creatinine, Serum 0.98 mg/dL (0.70-1.30); EST Glomerular Filtration Rate 81 mL/min (>60); Est Glom Filt Rate - Afr Amer 98 mL/min (>60); Glucose 99 mg/dL (74-106); Potassium 3.8 mmol/L (3.5-5.1); Protein, Total 8.1 g/dL (6.4-8.2); Sodium Level 138 mmol/L (136-145); Thyroid Stim Hormone (TSH) 1.32 uIU/mL (0.358-3.74)
== END ==
PROVIDERS: PCP Family Medicine; Referring Provider Family Medicine; Visit Provider Family Medicine
DX: M79.605 Pain in left leg (principal); R25.3 Fasciculation; E55.9 Vitamin D deficiency, unspecified
CPT/HCPCS: 36415; 73552; 73564; 80053; 82306; 84443; 85025

== ENCOUNTER → 2019-09-16 16:46 | Outpatient (CLI) | payer MEDICARE, OTHER, SELFPAY ==
[2019-09-16 18:45] LABS: BUN 19 mg/dL (7-18); Creatinine, Serum 0.98 mg/dL (0.70-1.30); Glucose 99 mg/dL (74-106)
[2019-09-16 18:46] LABS: Anion Gap 5 (5-15); BUN/Creat Ratio 19.5 RATIO (10-20); Calcium,Total 9.2 mg/dL (8.5-10.1); Chloride 106 mmol/L (98-107); Cholesterol 201 mg/dL (200); EST Glomerular Filtration Rate 82 mL/min (>60); Est Glom Filt Rate - Afr Amer 99 mL/min (>60); High Density Lipoprotein 37 mg/dL; Potassium 4.3 mmol/L (3.5-5.1); Sodium Level 138 mmol/L (136-145); Triglycerides 230 mg/dL; Very Low Density Lipoprotein 46 mg/dL (5-40)
[2019-09-16 19:15] LABS: Hemoglobin A1c 7.1 % (4.2-6.3)
== END ==
PROVIDERS: PCP Family Medicine; Referring Provider Family Medicine; Visit Provider Family Medicine
DX: I10 Essential (primary) hypertension (principal); R73.9 Hyperglycemia, unspecified
CPT/HCPCS: 36415; 80048; 80061; 83036

== ENCOUNTER 2019-09-29 09:02 | Outpatient (RCR) | payer MEDICARE, OTHER, SELFPAY ==
[2019-09-29 09:10] LABS: Prothrombin Time Fingerstick 32.3 SEC (11.9-14.4)
== END 2019-09-29 18:00 | disposition home or self-care (01) ==
LOC: LAB 09:02
PROVIDERS: Family Provider Family Medicine; PCP Family Medicine; Referring Provider Family Medicine; Visit Provider Family Medicine
DX: I82.409 Acute embolism and thrombosis of unspecified deep veins of unspecified lower extremity (principal); Z86.718 Personal history of other venous thrombosis and embolism
CPT/HCPCS: 36416; 85610

== ENCOUNTER 2019-10-28 09:41 | Outpatient (RCR) | payer MEDICARE, OTHER, SELFPAY ==
[2019-10-28 09:56] LABS: Prothrombin Time Fingerstick 29.9 SEC (11.9-14.4)
== END 2019-11-11 18:00 | disposition home or self-care (01) ==
LOC: LAB 09:41
PROVIDERS: Family Provider Family Medicine; PCP Family Medicine; Referring Provider Family Medicine; Visit Provider Family Medicine
DX: Z86.718 Personal history of other venous thrombosis and embolism (principal)
CPT/HCPCS: 36416; 85610

== ENCOUNTER 2019-11-29 08:06 | Outpatient (RCR) | payer MEDICARE, OTHER, SELFPAY ==
[2019-11-29 08:26] LABS: Prothrombin Time Fingerstick 33.4 SEC (11.9-14.4)
== END 2019-11-29 18:00 | disposition home or self-care (01) ==
LOC: LAB 08:06
PROVIDERS: Family Provider Family Medicine; PCP Family Medicine; Referring Provider Family Medicine; Visit Provider Family Medicine
DX: Z86.718 Personal history of other venous thrombosis and embolism (principal)
CPT/HCPCS: 36416; 85610

== ENCOUNTER 2019-12-27 11:20 | Outpatient (RCR) | payer MEDICARE, OTHER, SELFPAY ==
[2019-12-27 11:31] LABS: Prothrombin Time Fingerstick 30.7 SEC (11.9-14.4)
== END 2019-12-27 18:00 | disposition home or self-care (01) ==
LOC: LAB 11:20
PROVIDERS: Family Provider Family Medicine; PCP Family Medicine; Referring Provider Family Medicine; Visit Provider Family Medicine
DX: Z86.718 Personal history of other venous thrombosis and embolism (principal)
CPT/HCPCS: 36416; 85610

== ENCOUNTER 2020-01-26 10:55 | Outpatient (RCR) | payer MEDICARE, OTHER, SELFPAY ==
[2020-01-26 11:06] LABS: Prothrombin Time Fingerstick 27.2 SEC (11.9-14.4)
== END 2020-01-26 18:00 | disposition home or self-care (01) ==
LOC: LAB 10:55
PROVIDERS: Family Provider Family Medicine; PCP Family Medicine; Referring Provider Family Medicine; Visit Provider Family Medicine
DX: Z86.718 Personal history of other venous thrombosis and embolism (principal)
CPT/HCPCS: 36416; 85610

== ENCOUNTER 2020-02-25 14:12 | Outpatient (RCR) | payer MEDICARE, OTHER, SELFPAY ==
[2020-02-25 17:05] LABS: Prothrombin Time Fingerstick 31.6 SEC (11.9-14.4)
== END 2020-02-25 18:00 | disposition home or self-care (01) ==
LOC: LAB 14:12
PROVIDERS: Family Provider Family Medicine; PCP Family Medicine; Referring Provider Family Medicine; Visit Provider Family Medicine
DX: Z86.718 Personal history of other venous thrombosis and embolism (principal)
CPT/HCPCS: 36416; 85610

== ENCOUNTER 2020-04-01 08:44 | Outpatient (RCR) | payer MEDICARE, OTHER, SELFPAY ==
[2020-04-01 09:06] LABS: Prothrombin Time Fingerstick 33.3 SEC (11.9-14.4)
== END 2020-04-01 18:00 | disposition home or self-care (01) ==
LOC: LAB 08:44
PROVIDERS: Family Provider Family Medicine; PCP Family Medicine; Referring Provider Family Medicine; Visit Provider Family Medicine
DX: Z86.718 Personal history of other venous thrombosis and embolism (principal)
CPT/HCPCS: 36416; 85610

== ENCOUNTER 2020-04-29 07:17 | Outpatient (RCR) | payer MEDICARE, OTHER, SELFPAY ==
[2020-04-29 08:38] LABS: Prothrombin Time (Protime)PT. 30.4 SECONDS (11.7-14.9)
== END 2020-04-29 18:00 | disposition home or self-care (01) ==
PROVIDERS: Family Provider Family Medicine; PCP Family Medicine; Referring Provider Family Medicine; Visit Provider Family Medicine
DX: Z86.718 Personal history of other venous thrombosis and embolism (principal)
CPT/HCPCS: 36415; 85610

== ENCOUNTER 2020-05-29 08:02 | Outpatient (RCR) | payer MEDICARE, OTHER, SELFPAY ==
[2020-05-29 08:16] LABS: Prothrombin Time Fingerstick 28.3 SEC (11.9-14.4)
== END 2020-05-29 18:00 | disposition home or self-care (01) ==
LOC: LAB 08:02
PROVIDERS: Family Provider Family Medicine; PCP Family Medicine; Referring Provider Family Medicine; Visit Provider Family Medicine
DX: Z86.718 Personal history of other venous thrombosis and embolism (principal)
CPT/HCPCS: 36416; 85610

== ENCOUNTER 2020-06-26 11:27 | Outpatient (RCR) | payer MEDICARE, OTHER, SELFPAY ==
[2020-06-26 11:40] LABS: Prothrombin Time Fingerstick 35.3 SEC (11.9-14.4)
== END 2020-06-26 18:00 | disposition home or self-care (01) ==
LOC: LAB 11:27
PROVIDERS: Family Provider Family Medicine; PCP Family Medicine; Referring Provider Family Medicine; Visit Provider Family Medicine
DX: Z86.718 Personal history of other venous thrombosis and embolism (principal)
CPT/HCPCS: 36416; 85610

== ENCOUNTER 2020-07-29 08:27 | Outpatient (RCR) | payer MEDICARE, OTHER, SELFPAY ==
[2020-07-31 08:55] LABS: Prothrombin Time Fingerstick 33.2 SEC (11.9-14.4)
== END 2020-07-29 18:00 | disposition home or self-care (01) ==
LOC: LAB 08:27
PROVIDERS: Family Provider Family Medicine; PCP Family Medicine; Referring Provider Family Medicine; Visit Provider Family Medicine
DX: Z86.718 Personal history of other venous thrombosis and embolism (principal)
CPT/HCPCS: 36416; 85610

== ENCOUNTER 2020-08-30 10:43 | Outpatient (RCR) | payer MEDICARE, OTHER, SELFPAY ==
[2020-08-30 10:51] LABS: Prothrombin Time Fingerstick 29.7 SEC (11.9-14.4)
== END 2020-08-30 18:00 | disposition home or self-care (01) ==
LOC: LAB 10:43
PROVIDERS: Family Provider Family Medicine; PCP Family Medicine; Referring Provider Family Medicine; Visit Provider Family Medicine
DX: Z86.718 Personal history of other venous thrombosis and embolism (principal)
CPT/HCPCS: 36416; 85610

== ENCOUNTER 2020-09-28 08:54 | Outpatient (RCR) | payer MEDICARE, OTHER, SELFPAY ==
[2020-09-28 13:05] LABS: INR Fingerstick 2.6; Prothrombin Time Fingerstick 29.2 SEC (11.9-14.4)
== END 2020-09-28 18:00 | disposition home or self-care (01) ==
LOC: LAB 08:54
PROVIDERS: Family Provider Family Medicine; PCP Family Medicine; Referring Provider Family Medicine; Visit Provider Family Medicine
DX: Z86.718 Personal history of other venous thrombosis and embolism (principal)
CPT/HCPCS: 36416; 85610

== ENCOUNTER 2020-10-30 08:35 | Outpatient (RCR) | payer MEDICARE, OTHER, SELFPAY ==
[2020-10-30 11:51] LABS: INR Fingerstick 2.7; Prothrombin Time Fingerstick 30.4 SEC (11.9-14.4)
== END 2020-10-30 18:00 | disposition home or self-care (01) ==
LOC: LAB 08:35
PROVIDERS: Family Provider Family Medicine; PCP Family Medicine; Referring Provider Family Medicine; Visit Provider Family Medicine
DX: Z86.718 Personal history of other venous thrombosis and embolism (principal)
CPT/HCPCS: 36416; 85610

== ENCOUNTER 2020-11-28 07:53 | Outpatient (RCR) | payer MEDICARE, OTHER, SELFPAY ==
[2020-11-28 08:05] LABS: INR Fingerstick 2.8; Prothrombin Time Fingerstick 31.1 SEC (11.9-14.4)
== END 2020-11-28 18:00 | disposition home or self-care (01) ==
LOC: LAB 07:53
PROVIDERS: Family Provider Family Medicine; PCP Family Medicine; Referring Provider Family Medicine; Visit Provider Family Medicine
DX: Z86.718 Personal history of other venous thrombosis and embolism (principal)
CPT/HCPCS: 36416; 85610

== ENCOUNTER 2020-12-30 10:19 | Outpatient (RCR) | payer MEDICARE, OTHER, SELFPAY ==
[2020-12-30 10:40] LABS: INR Fingerstick 2.8
== END 2020-12-30 18:00 | disposition home or self-care (01) ==
LOC: LAB 10:19
PROVIDERS: Family Provider Family Medicine; PCP Family Medicine; Referring Provider Family Medicine; Visit Provider Family Medicine
DX: Z86.718 Personal history of other venous thrombosis and embolism (principal)
CPT/HCPCS: 36416; 85610

== ENCOUNTER 2021-01-25 08:17 | Outpatient (RCR) | payer MEDICARE, OTHER, SELFPAY ==
[2021-01-25 08:40] LABS: INR Fingerstick 2.8
== END 2021-01-25 18:00 | disposition home or self-care (01) ==
LOC: LAB 08:17
PROVIDERS: Family Provider Family Medicine; PCP Family Medicine; Referring Provider Family Medicine; Visit Provider Family Medicine
DX: Z86.718 Personal history of other venous thrombosis and embolism (principal)
CPT/HCPCS: 36416; 85610

== ENCOUNTER 2021-02-26 08:55 | Outpatient (RCR) | payer MEDICARE, OTHER, SELFPAY ==
[2021-02-26 14:56] LABS: INR Fingerstick 2.7; Prothrombin Time Fingerstick 29.6 SEC (11.9-14.4)
== END 2021-02-26 18:00 | disposition home or self-care (01) ==
LOC: LAB 08:55
PROVIDERS: Family Provider Family Medicine; PCP Family Medicine; Referring Provider Family Medicine; Visit Provider Family Medicine
DX: Z86.718 Personal history of other venous thrombosis and embolism (principal)
CPT/HCPCS: 36416; 85610

== ENCOUNTER → 2021-04-03 | Outpatient (CLI) | payer MEDICARE, OTHER, SELFPAY | END | disposition home or self-care (01) | LOC: LABSPEC 10:20 | PROVIDERS: PCP Family Medicine; Referring Provider Physician Assistant Surgical; Visit Provider Physician Assistant Surgical | DX: U07.1 COVID-19 (principal); R52 Pain, unspecified | CPT/HCPCS: 87635; U0005; U0003 ==

== ENCOUNTER 2021-05-11 07:33 | Outpatient (RCR) | payer MEDICARE, OTHER, SELFPAY ==
[2021-04-30 11:25] LABS: International Normalized Ratio 3.6; Prothrombin Time (Protime)PT. 35.2 SECONDS (11.7-14.9)
[2021-04-30 11:36] LABS: INR Fingerstick 6.1; Prothrombin Time Fingerstick 63.3 SEC (11.9-14.4)
--- NOTE | 2021-05-01 08:25 | RAD_ITS ---
INDICATION: POST COVID EXAMINATION/TECHNIQUE: X-RAY - XR Chest 2 Views COMPARISON: None. FINDINGS: Patchy bilateral airspace opacities. The cardiomediastinal silhouette is unremarkable. No pleural effusion or pneumothorax. Degenerative changes of the thoracic spine. RAD/Chest PA and Lateral IMPRESSION: Patchy bilateral airspace opacities consistent with Covid pneumonia. Electronically Signed: Epi Voss MD at 23:53 EDT Tel , Service support ,
[2021-05-01 08:51] LABS: International Normalized Ratio 3.5
[2021-05-03 12:17] LABS: International Normalized Ratio 2.8; Prothrombin Time (Protime)PT. 28.5 SECONDS (11.7-14.9)
[2021-05-07 08:53] LABS: International Normalized Ratio 2.3; Prothrombin Time (Protime)PT. 24.4 SECONDS (11.7-14.9)
[2021-05-11 08:05] LABS: International Normalized Ratio 1.9; Prothrombin Time (Protime)PT. 20.7 SECONDS (11.7-14.9)
== END 2021-05-13 18:00 | disposition home or self-care (01) ==
LOC: LAB 07:33
PROVIDERS: Family Provider Family Medicine; PCP Family Medicine; Referring Provider Family Medicine; Visit Provider Family Medicine
DX: Z86.718 Personal history of other venous thrombosis and embolism (principal)
CPT/HCPCS: 36415; 36416; 71046; 85610

== ENCOUNTER 2021-06-11 07:48 | Outpatient (RCR) | payer MEDICARE, OTHER, SELFPAY ==
[2021-05-14 09:03] LABS: International Normalized Ratio 1.9; Prothrombin Time (Protime)PT. 20.6 SECONDS (11.7-14.9)
[2021-05-21 16:55] LABS: INR Fingerstick 2.3; Prothrombin Time Fingerstick 25.6 SEC (11.9-14.4)
[2021-05-29 09:20] LABS: INR Fingerstick 2.2; Prothrombin Time Fingerstick 25.1 SEC (11.9-14.4)
[2021-06-11 09:07] LABS: Absolute Lymphocyte Count 2.69 X10^3/uL (0.83-4.51); Absolute Neutrophil Count 4.6 X10^3/uL (2.0-7.7); Basophil# 0.06 X10^3/uL; Basophil% 0.7 % (0-1); Eosinophil# 0.16 X10^3/uL; Eosinophils% 1.9 % (0-5); Hematocrit 44.3 % (40-54); Hemoglobin 14.8 g/dL (13.0-16.5); Lymphocyte # 2.69 X10^3/ul (0.83-4.51); Mean Corp Hgb Conc 33.4 g/dL (32-36); Mean Corpuscular Hgb 27.5 pg (27.0-32.0); Mean Corpuscular Volume 82.2 fL (80-94); Monocyte% 10.7 % (0-10); NRBC Flagged by Analyzer 0 % (0-5); Neutrophil # 4.57 X10^3/uL (2.7-7.7); Neutrophil % 54.5 % (47-70); Platelet Count 257 K/mm3 (150-450); RBC Distribution Width CV 13.8 % (11.6-14.6); RBC Distribution Width SD 41.4 fl (35.1-43.9); Red Blood Count 5.39 M/mm3 (4.6-6.2); White Blood Count 8.4 K/mm3 (4.4-11.0)
[2021-06-11 09:41] LABS: Hemoglobin A1c 10.5 % (3.8-5.6)
[2021-06-11 09:44] LABS: ALB/GLOB Ratio 0.8 RATIO (0.9-2.4); AST(SGOT) 27 U/L (15-37); Alanine Aminotransfer ALT/SGPT 41 U/L (16-61); Albumin, Serum 3.2 g/dL (3.2-5.0); Alkaline Phosphatase 73 U/L (45-117); Anion Gap 6 (5-15); BUN 13 mg/dL (7-18); BUN/Creat Ratio 13.2 RATIO (10-20); Calcium,Total 8.9 mg/dL (8.5-10.1); Chloride 101 mmol/L (98-107); Cholesterol 179 mg/dL (200); Creatinine, Serum 0.98 mg/dL (0.70-1.30); EST Glomerular Filtration Rate 81 mL/min (>60); Est Glom Filt Rate - Afr Amer 98 mL/min (>60); Globulin 3.9 g/dL (2.2-4.2); Glucose 224 mg/dL (74-106); High Density Lipoprotein 33 mg/dL; PSA,Total - Annual Screen 3.49 ng/mL (0.00-4.00); Protein, Total 7.1 g/dL (6.4-8.2); Sodium Level 135 mmol/L (136-145); Thyroid Stim Hormone (TSH) 1.31 uIU/mL (0.358-3.74); Triglycerides 333 mg/dL; Very Low Density Lipoprotein 67 mg/dL (5-40)
== END 2021-06-12 18:00 | disposition home or self-care (01) ==
LOC: LAB 07:48
PROVIDERS: Family Provider Family Medicine; PCP Internal Medicine; Referring Provider Internal Medicine; Visit Provider Internal Medicine
DX: E11.9 Type 2 diabetes mellitus without complications (principal); E55.9 Vitamin D deficiency, unspecified; I10 Essential (primary) hypertension; Z86.718 Personal history of other venous thrombosis and embolism; Z12.5 Encounter for screening for malignant neoplasm of prostate
CPT/HCPCS: 36415; 36416; 80053; 80061; 82306; 83036; 84153; 84443; 85025; 85610; G0103

== ENCOUNTER 2021-06-14 08:00 | Outpatient (RCR) | payer MEDICARE, OTHER, SELFPAY ==
[2021-06-14 10:51] LABS: INR Fingerstick 2.1; Prothrombin Time Fingerstick 23.5 SEC (11.9-14.4)
== END 2021-07-14 18:00 | disposition home or self-care (01) ==
LOC: LAB 08:00
PROVIDERS: Family Provider Family Medicine; PCP Internal Medicine; Referring Provider Internal Medicine; Visit Provider Internal Medicine
DX: Z86.718 Personal history of other venous thrombosis and embolism (principal)
CPT/HCPCS: 36416; 85610

== ENCOUNTER 2021-07-16 08:44 | Outpatient (RCR) | payer MEDICARE, OTHER, SELFPAY ==
[2021-07-17 09:54] LABS: INR Fingerstick 2.3; Prothrombin Time Fingerstick 26.1 SEC (11.9-14.4)
== END 2021-08-13 18:00 | disposition home or self-care (01) ==
LOC: LAB 08:44
PROVIDERS: Family Provider Family Medicine; PCP Internal Medicine; Referring Provider Internal Medicine; Visit Provider Internal Medicine
DX: Z86.718 Personal history of other venous thrombosis and embolism (principal)
CPT/HCPCS: 36416; 85610

== ENCOUNTER 2021-09-11 08:21 | Outpatient (RCR) | payer MEDICARE, OTHER, SELFPAY ==
[2021-08-14 09:05] LABS: INR Fingerstick 2.3
[2021-09-11 12:39] LABS: Prothrombin Time (Protime)PT. 30.4 SECONDS (11.7-14.9)
[2021-09-11 12:51] LABS: Hemoglobin A1c 9.6 % (3.8-5.6)
[2021-09-11 13:09] LABS: Cholesterol 199 mg/dL (200); High Density Lipoprotein 35 mg/dL; Triglycerides 278 mg/dL; Very Low Density Lipoprotein 56 mg/dL (5-40)
== END 2021-09-11 23:59 ==
LOC: BIMLAB 08:21
PROVIDERS: Family Provider Family Medicine; PCP Internal Medicine; Referring Provider Internal Medicine; Visit Provider Internal Medicine
DX: E66.9 Obesity, unspecified (principal); E11.9 Type 2 diabetes mellitus without complications; E78.5 Hyperlipidemia, unspecified; Z79.01 Long term (current) use of anticoagulants
CPT/HCPCS: 36415; 36416; 80061; 83036; 85610

== ENCOUNTER 2021-10-25 07:13 | Outpatient (CLI) | payer MEDICARE, OTHER, SELFPAY ==
--- NOTE | 2021-10-25 07:14 | CT_ITS ---
STUDY: CT ABDOMEN AND PELVIS WITHOUT CONTRAST REASON FOR EXAM: Male, 66 years old. Enteroclysis -- Special attention to large bowel RADIATION DOSAGE (If Supplied By Facility): CTDIvol = ( 23.05 ) mGy, DLP = ( 2333.36 ) mGycm TECHNIQUE: Transaxial images were obtained from the dome of the diaphragm to the symphysis pubis without oral contrast, and without intravenous contrast. Sagittal and coronal images were reconstructed. Individualized dose optimization techniques were used for this CT. COMPARISON: Comparison is made with prior study dated 04/13/2015. FINDINGS: Minimal degree of increased linear markings at the lung bases suggest some mild scarring. Coronary artery calcification. There is decreased attenuation of the liver consistent with steatosis. Normal gallbladder and extrahepatic biliary system. Normal spleen. Normal pancreas. Normal bilateral adrenal glands. 2 mm nonobstructive calculus in the mid anterior pole of the right kidney. 4.7 mm nonobstructive calculus in the lower pole calyx of the left kidney. Bilateral nonspecific perinephric stranding. Normal visualized stomach. Normal small intestine. Moderate amount of fecal material is seen in the colon. The appendix is visualized and appears normal. There is scattered atherosclerotic calcification of the abdominal aorta, without a demonstrated aneurysm. Normal inferior vena cava. Normal retroperitoneum. Normal urinary bladder. Normal abdominal wall. There are mild degenerative changes of the visualized lumbar spine. CT/Abdomen/Pel W ORAL Cont Only IMPRESSION: Nonspecific mild degree of bilateral perinephric stranding. Small bilateral nonobstructive intrarenal calculi. Moderate amount of fecal material is seen throughout the colon. Electronically Signed: Bryan Sanchez MD at 10:03 EDT ,
== END 2021-10-25 23:59 | disposition home or self-care (01) ==
LOC: CT 07:13
PROVIDERS: PCP Internal Medicine; Referring Provider Surgery; Visit Provider Surgery
DX: R10.9 Unspecified abdominal pain (principal)
CPT/HCPCS: 74176

== ENCOUNTER 2021-10-29 10:24 | Outpatient (CLI) | payer MEDICARE, OTHER, SELFPAY ==
[2021-10-29 10:29] LABS: Bacteria 0 SEEN /hpf (None Seen); Mucous, Urine 0 SEEN /hpf (<or=2+); Red Blood Cells-Urine 0 SEEN /hpf (0-5); White Blood Cells 0 SEEN /hpf (0-5)
[2021-10-29 11:24] LABS: Color, Urine Yellow (Yellow); Glucose, Dipstick 1000 mg/dl (Normal); Ketone-Dipstick 5 mg/dl (Negative); Leukocyte Esterase-Dipstick Negative /ul (Negative); Nitrite-Dipstick Negative (Negative); Occult Blood-Urine Negative /ul (Negative); Protein-Dipstick Negative (Negative); Specific Gravity, Urine 1.015 (1.002-1.030); Urine Bilirubin Dipstick Negative (Negative); Urine Clarity Sl. Cloudy (Clear); Urine Urobilinogen Normal (Normal)
[2021-10-29 11:39] LABS: Squamous Epithelial Cells - UA 0-5 SEEN /hpf (0-5)
== END 2021-10-29 23:59 | disposition home or self-care (01) ==
LOC: LAB 10:26
PROVIDERS: PCP Internal Medicine; Referring Provider Surgery; Visit Provider Surgery
DX: N20.0 Calculus of kidney (principal)
CPT/HCPCS: 81001

== ENCOUNTER 2021-11-05 07:33 | Outpatient (RCR) | payer MEDICARE, OTHER, SELFPAY ==
[2021-10-15 07:45] LABS: INR Fingerstick 3.2; Prothrombin Time Fingerstick 36.2 SEC (11.7-14.9)
[2021-10-22 07:45] LABS: INR Fingerstick 3.3; Prothrombin Time Fingerstick 37.5 SEC (11.7-14.9)
[2021-11-05 07:40] LABS: INR Fingerstick 2.9; Prothrombin Time Fingerstick 32.8 SEC (11.7-14.9)
== END 2021-11-05 18:00 | disposition home or self-care (01) ==
LOC: LAB 07:33
PROVIDERS: Family Provider Family Medicine; PCP Internal Medicine; Referring Provider Internal Medicine; Visit Provider Internal Medicine
DX: Z79.01 Long term (current) use of anticoagulants (principal)
CPT/HCPCS: 36416; 85610

== ENCOUNTER → 2021-11-12 | Outpatient (CLI) | payer MEDICARE, OTHER, SELFPAY ==
[2021-11-12 07:57] LABS: Absolute Lymphocyte Count 2.51 X10^3/uL (0.83-4.51); Absolute Neutrophil Count 3.3 X10^3/uL (2.0-7.7); Basophil# 0.04 X10^3/uL; Basophil% 0.6 % (0-1); Eosinophil# 0.11 X10^3/uL; Eosinophils% 1.6 % (0-5); Hematocrit 46.5 % (40-54); Hemoglobin 15.5 g/dL (13.0-16.5); Lymphocyte # 2.51 X10^3/ul (0.83-4.51); Lymphocyte % 37.1 % (19-41); Mean Corp Hgb Conc 33.3 g/dL (32-36); Mean Corpuscular Hgb 27.2 pg (27.0-32.0); Mean Corpuscular Volume 81.6 fL (80-94); Mean Platelet Vol. 9.6 fl (6.2-12.0); Monocyte# 0.77 X10^3/uL; Monocyte% 11.4 % (0-10); NRBC Flagged by Analyzer 0 % (0-5); Neutrophil # 3.31 X10^3/uL (2.7-7.7); Neutrophil % 48.9 % (47-70); Platelet Count 279 K/mm3 (150-450); RBC Distribution Width CV 13.6 % (11.6-14.6); RBC Distribution Width SD 39.9 fl (35.1-43.9); White Blood Count 6.8 K/mm3 (4.4-11.0)
[2021-11-12 08:17] LABS: Hemoglobin A1c 9.6 % (3.8-5.6)
[2021-11-12 08:40] LABS: ALB/GLOB Ratio 1.1 RATIO (0.9-2.4); AST(SGOT) 17 U/L (15-37); Alanine Aminotransfer ALT/SGPT 30 U/L (16-61); Albumin, Serum 3.7 g/dL (3.2-5.0); Alkaline Phosphatase 69 U/L (45-117); Anion Gap 6 (5-15); BUN 14 mg/dL (7-18); BUN/Creat Ratio 14.2 RATIO (10-20); Calcium,Total 8.7 mg/dL (8.5-10.1); Chloride 101 mmol/L (98-107); Cholesterol 217 mg/dL (200); Creatinine, Serum 0.98 mg/dL (0.70-1.30); EST Glomerular Filtration Rate 80 mL/min (>60); Est Glom Filt Rate - Afr Amer 97 mL/min (>60); Globulin 3.5 g/dL (2.2-4.2); Glucose 212 mg/dL (74-106); High Density Lipoprotein 35 mg/dL; Potassium 3.9 mmol/L (3.5-5.1); Protein, Total 7.2 g/dL (6.4-8.2); Sodium Level 137 mmol/L (136-145); Thyroid Stim Hormone (TSH) 0.77 uIU/mL (0.358-3.74); Triglycerides 329 mg/dL; Very Low Density Lipoprotein 66 mg/dL (5-40)
[2021-11-12 08:50] LABS: Vitamin D,25 Hydroxy 24.3 ng/mL
== END | disposition home or self-care (01) ==
LOC: LAB 07:20
PROVIDERS: PCP Internal Medicine; Referring Provider Internal Medicine; Visit Provider Internal Medicine
DX: I10 Essential (primary) hypertension (principal); E11.9 Type 2 diabetes mellitus without complications; E78.5 Hyperlipidemia, unspecified; E66.9 Obesity, unspecified; E55.9 Vitamin D deficiency, unspecified
CPT/HCPCS: 36415; 80053; 80061; 82306; 83036; 84443; 85025

== ENCOUNTER → 2021-11-14 | Outpatient (CLI) | payer MEDICARE, OTHER, SELFPAY ==
--- NOTE | 2021-11-14 08:37 | MRI_ITS ---
STUDY: MRI LEFT KNEE REASON FOR EXAM: Male, 66 years old. pain entire knee, fall 2 months ago, unable to straighten leg after bending pain -- Patient has orthopedic hardware in left femoral canal TECHNIQUE: Standardized fat and water weighted pulse sequences were obtained in all 3 orthogonal planes. COMPARISON: Left knee x-ray dated September 24, 2021 FINDINGS: The distal tip of a femoral intramedullary randy and interlocking screws is present and resulting in metallic artifact in the surrounding regions. No visualized acute fracture line or displaced fragment. A small to moderate size joint effusion is present with some mild synovitis. Mild subcutaneous edema is also present around the knee joint. Small undersurface and radial tears of the body of the medial meniscus. Moderate intrasubstance signal abnormality and swelling throughout the posterior horn of the medial meniscus. Normal anterior horn. There is diffuse, less than 50% thickness articular cartilage loss of the medial femorotibial compartment. Normal medial tibial plateau. Normal medial collateral ligamentous complex (MCL). Normal distal semimembranosus, gracilis and semitendinosus tendons. 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 Intrasubstance signal abnormality and mild swelling of the posterior horn of lateral meniscus. Chronic mild compression deformity of the lateral tibial plateau, with loss of height and slight concavity. There is diffuse, less than 50% thickness articular cartilage loss of the lateral femorotibial compartment. Normal proximal tibiofibular articulation. Normal lateral collateral (fibular) ligament. Normal popliteus tendon. Normal biceps femoris tendon. Normal anterior cruciate ligament (ACL). Normal posterior cruciate ligament (PCL). Normal congruent patellofemoral articulation. 3.7 mm region of full-thickness cartilage loss over the inferior pole of the median patellar ridge. High-grade fissuring and signal abnormality and moderate thinning of the cartilage of the inferior pole of the medial patellar facet that extends to the junction with the median ridge. Mild to moderate thinning of the cartilage of the trochlear groove. The superior pole cartilage across the medial and lateral patellar facets is preserved. Normal hyaline cartilage of the patellofemoral compartment. Normal medial and lateral patellar retinaculum. Normal quadriceps tendon. There is mild patellar tendinosis with thickening of the tendon. There is linear fibrotic scarring of Hoffa''s fat pad, consistent with postsurgical changes. Small Brown''s cyst noted. The otherwise visualized osseous structures are unremarkable. MRI/Lower Ext Joint Only (Routine) IMPRESSION: 1. 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 Intrasubstance signal abnormality and mild swelling of the posterior horn of lateral meniscus. 2. Chronic mild compression deformity of the lateral tibial plateau, with loss of height and slight concavity. 3. Small undersurface and radial tears of the body of the medial meniscus. Moderate intrasubstance signal abnormality and swelling throughout the posterior horn of the medial meniscus. 4. 3.7 mm region of full-thickness cartilage loss over the inferior pole of the median patellar ridge. High-grade fissuring and signal abnormality and moderate thinning of the cartilage of the inferior pole of the medial patellar facet that extends to the junction with the median ridge. 5. Mild patellar tendinosis. Electronically Signed: Del Humphries MD at 15:07 EDT ,
== END | disposition home or self-care (01) ==
LOC: MRI 08:37
PROVIDERS: PCP Internal Medicine; Referring Provider Physician Assistant; Visit Provider Physician Assistant
DX: M23.92 Unspecified internal derangement of left knee (principal); M25.562 Pain in left knee
CPT/HCPCS: 73721

== ENCOUNTER 2021-12-05 07:06 | Outpatient (RCR) | payer MEDICARE, OTHER, SELFPAY ==
[2021-12-05 07:15] LABS: INR Fingerstick 2.1; Prothrombin Time Fingerstick 24.5 SEC (11.7-14.9)
== END 2021-12-05 18:00 | disposition home or self-care (01) ==
LOC: LAB 07:06
PROVIDERS: Family Provider Family Medicine; PCP Internal Medicine; Referring Provider Internal Medicine; Visit Provider Internal Medicine
DX: Z79.01 Long term (current) use of anticoagulants (principal)
CPT/HCPCS: 36416; 85610

== ENCOUNTER 2021-12-10 11:54 | Emergency (ER) | payer MEDICARE, OTHER, SELFPAY ==
[2021-12-10 11:55] VITALS: BP 195/82; PULSE 102; RESP 18; TEMP 36.6; O2SAT 96; BMI 41.1
--- NOTE | 2021-12-10 12:10 | EX.ED.DYSGE1 ---
HPI History of Present Illness Chief Complaint: Lower Extremity Injury Informant: patient Onset/Context/Timing Onset: Yesterday Current Severity: Mild Maximum Severity: Mild Narrative Narrative: Patient presents secondary to a swollen area on the right lateral proximal calf. Last night he was sitting around a fire pit and thought he felt a pinch. He had a small red area that he thought he may been bitten. Today he noted large area of ecchymosis and swelling. Diameter is approximately 6 to 7 cm. Patient does have a history of DVT and is on Coumadin. His INR was last checked on the and was therapeutic at 2.1. [facility] Medical History Diabetes DVT (deep venous thrombosis) Essential hypertension Fracture, femur History of nephrolithotomy with removal of calculi Hydrocele Hyperlipidemia Obesity (BMI 35.0-39.9 without comorbidity) Home Medications cholecalciferol (vitamin D3) 50 mcg (2,000 unit) capsule 50 mcg PO DAILY 06/06/21 [History Last Taken Unknown] multivitamin 1 tab PO DAILY 06/06/21 [History Last Taken Unknown] warfarin 1 mg tablet 1 mg PO 2XW tab 10/19/21 [History Last Taken Unknown] amlodipine 10 mg tablet 10 mg PO DAILY #90 tab 10/24/21 [Rx Last Taken Unknown] hydrochlorothiazide 25 mg tablet 25 mg PO DAILY #90 tab 10/24/21 [Rx Last Taken Unknown] lisinopril 40 mg tablet 40 mg PO DAILY #90 tab 10/24/21 [Rx Last Taken Unknown] metformin 500 mg tablet 500 mg PO DAILY #90 tab 10/24/21 [Rx Last Taken Unknown] warfarin 2 mg tablet 2 mg PO 5XW #60 tab 10/24/21 [Rx Last Taken Unknown] Allergy/AdvReac Type Severity Reaction Status Date / Time No Known Allergies Allergy Verified 12/10/21 11:57 Family History Other Cancer Hypertension Myocardial infarction Surgical History History of tonsillectomy Previous back surgery Social History Smoking Status: Never smoker alcohol intake: never substance use type: does not use ROS ROS ED Constitutional Constitutional ED: Denies chills or fever(s) Eyes Eyes: Denies change in vision ENT ENT ED: Denies sore throat Cardiovascular Cardiovascular: Denies chest pain Respiratory/Chest Respiratory/Chest: Denies cough or dyspnea Gastrointestinal Gastrointestinal: Denies abdominal pain, nausea or vomiting Genitourinary Genitourinary ED: Denies dysuria Musculoskeletal Musculoskeletal: Denies back pain Integumentary Reports other Details: Swollen ecchymotic lesion on right leg ; Denies rash Neurologic Neurologic: Denies headache(s) or weakness Allergic/Immunologic Allergic/Immunologic ED: Denies urticaria EXAM Physical Exam Const Vital Signs: 12/10/21 11:55 Temperature 98 F Temperature Source Temporal Pulse Rate 102 H Respiratory Rate 18 Blood Pressure 195/82 H Blood Pressure Mean 119 Pulse Ox 96 Oxygen Delivery Method Room Air Positive well nourished and well developed General Appearance ED: well developed HEENT Reports moist mucous membranes Eyes PERRL and EOMs intact bilaterally Neck no lymphadenopathy and supple Chest Wall inspection of chest normal and palpation of chest normal Resp normal respiratory effort and clear to auscultation bilaterally Cardio regular rate and regular rhythm GI non-tender Palpation: soft Extremity Extremity Narrative: Ecchymotic swollen lesion to the lateral proximal right calf consistent with hematoma. No open wound. Calf itself is soft and nontender. Good distal pulses. Good range of motion. Neuro oriented x3 Sensorium / Orientation: alert Psych mental status grossly normal MDM MDM Treatment and Re-Evaluation Narrative: Clinically the patient has evidence of a superficial hematoma. There is no evidence of a DVT and I do not feel he needs a repeat ultrasound. He is already therapeutic on Coumadin. Robert wrap is applied and I did recommend warm compresses. Discharge Plan Triage Chief Complaint: Lower Extremity Injury ED Provider: Radha Valdes Dx/Rx/DC Orders Clinical Impression: Hematoma Instructions: ED Hematoma Prescriptions: No Action cholecalciferol (vitamin D3) 50 mcg (2,000 unit) capsule 50 mcg PO DAILY RF: 0 multivitamin [Daily Multi-Vitamin] Tablet 1 tab PO DAILY RF: 0 warfarin [Jantoven] 1 mg tablet 1 mg PO 2XW RF: 0 amlodipine [Norvasc] 10 mg tablet 10 mg PO DAILY Qty: 90 RF: 3 hydrochlorothiazide 25 mg tablet 25 mg PO DAILY Qty: 90 RF: 3 lisinopril [Zestril] 40 mg tablet 40 mg PO DAILY Qty: 90 RF: 3 metformin 500 mg tablet 500 mg PO DAILY Qty: 90 RF: 3 warfarin [Jantoven] 2 mg tablet 2 mg PO 5XW Qty: 60 RF: 3 Primary Care Provider: Rasheeda Roberto Referrals: Rasheeda Roberto MD [Primary Care Provider] - 1-2 Weeks Disposition Disposition: Home, Self Care
== END 2021-12-10 12:38 | disposition home or self-care (01) ==
LOC: ED 12:22
PROVIDERS: Emergency Provider Emergency Medicine; PCP Internal Medicine; Visit Provider Emergency Medicine
DX: S80.11XA Contusion of right lower leg, initial encounter (principal); Z79.01 Long term (current) use of anticoagulants; X58.XXXA Exposure to other specified factors, initial encounter
CPT/HCPCS: 99282

== ENCOUNTER 2022-01-05 06:56 | Outpatient (RCR) | payer MEDICARE, OTHER, SELFPAY ==
[2022-01-05 07:31] LABS: INR Fingerstick 2.1; Prothrombin Time Fingerstick 25.1 SEC (11.7-14.9)
== END 2022-01-05 23:59 | disposition home or self-care (01) ==
LOC: LAB 06:56
PROVIDERS: Family Provider Family Medicine; PCP Internal Medicine; Referring Provider Internal Medicine; Visit Provider Internal Medicine
DX: Z79.01 Long term (current) use of anticoagulants (principal)
CPT/HCPCS: 36416; 85610

== ENCOUNTER 2022-01-12 14:21 | Emergency (ER) | payer MEDICARE, OTHER, SELFPAY ==
[2022-01-12 14:22] VITALS: BP 164/78; PULSE 91; RESP 14; TEMP 37; O2SAT 96; BMI 40.6
--- NOTE | 2022-01-12 14:49 | CT_ITS ---
STUDY: CT BRAIN WITHOUT CONTRAST REASON FOR EXAM: Male, 66 years old. 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 RADIATION DOSAGE (If Supplied By Facility): CTDIvol = ( 44.99 ) mGy, DLP = ( 846.73 ) mGycm TECHNIQUE: Transaxial CT imaging of the brain was performed without administration of intravenous contrast material. Individualized dose optimization techniques were used for this CT. COMPARISON: No relevant priors. FINDINGS: Normal soft tissue structures. Normal calvarium. There is mild cerebral atrophy with widening of the extra-axial spaces and ventricular dilatation. Normal white matter tracts of the cerebral hemispheres. Normal basal ganglia and thalami. Normal brainstem. Normal cerebellum. There is no intracranial hemorrhage. There are no findings of an acute ischemic infarction. Normal visualized paranasal sinuses. CT/Brain/Head without Contrast IMPRESSION: No evidence of acute intracranial bleed, mass or ischemia. Electronically Signed: Bhavesh Paniagua DO at 15:45 EDT ,
--- NOTE | 2022-01-12 14:49 | CT_ITS ---
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 EXAMINATION: CT IAC TEMPORAL BONES - CT IACs W/O Contrast Injection TECHNIQUE:Routine noncontrast CT protocol was performed of the internal auditory canals and temporal bones. 2-D reformats were performed by the technologist. A radiation dose optimization technique was used for this scan. IV Contrast dosage and agent: None. COMPARISON: None. FINDINGS: RIGHT SIDE: No fracture. SUPERFICIAL SOFT TISSUES: Unremarkable. MASTOID AIR CELLS: Well aerated, unremarkable. EXTERNAL AUDITORY CANALS: Clear. MIDDLE EAR CAVITIES: Well aerated. Ossicles and scutum intact. INTERNAL AUDITORY CANALS: Unremarkable bilateral internal auditory canals. No osseous erosion or widening of the canal. INNER EAR: Unremarkable cochlea, vestibule and semicircular canals. LEFT SIDE: No fracture. SUPERFICIAL SOFT TISSUES: Unremarkable. MASTOID AIR CELLS: Well aerated, unremarkable. EXTERNAL AUDITORY CANALS: Clear. MIDDLE EAR CAVITIES: Well aerated. Ossicles and scutum intact. INTERNAL AUDITORY CANALS: Unremarkable bilateral internal auditory canals. No osseous erosion or widening of the canal. INNER EAR: Unremarkable cochlea, vestibule and semicircular canals. VISUALIZED BRAIN AND POSTERIOR FOSSA: Cerebello-pontine angles are unremarkable. CT/Orb Sella Post Fossa Ear w/o IMPRESSION: Negative CT of the internal auditory canals and temporal bones. Electronically Signed: Bhavesh Paniagua DO at 15:54 EDT ,
--- NOTE | 2022-01-12 14:53 | EX.ED.DYSGE1 ---
HPI History of Present Illness Chief Complaint: Ear Problem Narrative Narrative: He says [id number] male presenting with hearing loss in the left ear. She states this started after a sneezing episode. During progressively was better until yesterday he noticed that he was gone again. He states has a history of this in the right ear in the 80s when he had almost complete hearing loss. He was told by Dr. Cardoso that was likely something viral or he would have had some hearing returned in the right ear. He was placed on some kind of eardrops which helped. He states he is about 40% improvement in the right ear. Patient denies any headache, visual complaints, pain. He states he feels otherwise well. [facility] Medical History (Updated 01/12/22 @ 15:13 by Cristo Rosas) Diabetes DVT (deep venous thrombosis) Essential hypertension Fracture, femur History of nephrolithotomy with removal of calculi Hydrocele Hyperlipidemia Obesity (BMI 35.0-39.9 without comorbidity) Home Medications cholecalciferol (vitamin D3) 50 mcg (2,000 unit) capsule 50 mcg PO DAILY 06/06/21 [History Last Taken Unknown] multivitamin (Daily Multi-Vitamin) 1 tab PO DAILY 06/06/21 [History Last Taken Unknown] warfarin 1 mg tablet (Jantoven) 1 mg PO 2XW 10/19/21 [History Last Taken Unknown] amlodipine 10 mg tablet (Norvasc) 10 mg PO DAILY #90 tabs 10/24/21 [Rx Last Taken Unknown] hydrochlorothiazide 25 mg tablet 25 mg PO DAILY #90 tabs 10/24/21 [Rx Last Taken Unknown] lisinopril 40 mg tablet (Zestril) 40 mg PO DAILY #90 tabs 10/24/21 [Rx Last Taken Unknown] warfarin 2 mg tablet (Jantoven) 2 mg PO 5XW #60 tabs 10/24/21 [Rx Last Taken Unknown] metformin 500 mg tablet 500 mg PO BID #180 tabs 01/11/22 [Rx Last Taken Unknown] pantoprazole 40 mg tablet,delayed release (Protonix) 40 mg PO DAILY #20 tabs 01/12/22 [Rx Last Taken Unknown] prednisone 10 mg tablet 60 mg PO DAILY 5 days #30 tabs 01/12/22 [Rx Last Taken Unknown] Allergy/AdvReac Type Severity Reaction Status Date / Time No Known Allergies Allergy Verified 01/12/22 14:24 Family History Other Cancer Hypertension Myocardial infarction Surgical History History of tonsillectomy Previous back surgery Social History Smoking Status: Never smoker alcohol intake: never substance use type: does not use EXAM Physical Exam Const Vital Signs: 01/12/22 14:22 01/12/22 17:06 Temperature 98.6 F Temperature Source Temporal Pulse Rate 91 89 Respiratory Rate 14 15 Blood Pressure 164/78 H 153/76 H Blood Pressure Mean 106 Pulse Ox 96 97 Oxygen Delivery Method Room Air Positive well nourished General Appearance ED: NAD HEENT Reports moist mucous membranes Eyes PERRL and EOMs intact bilaterally Neck no lymphadenopathy General: Negative for tenderness Chest Wall inspection of chest normal Resp normal respiratory effort and clear to auscultation bilaterally Effort and Inspection: Negative for retractions or pain with movement Cardio regular rate and regular rhythm MDM MDM MDM Narrative Medical decision making narrative: 66-year-old male presenting with acute hearing loss in the left ear. Has a history of this in the right ear distantly and states he was put on some eardrops and recovered 40% of his hearing on the right has chronic tinnitus in the right ear. Is not complaining of tinnitus in the left ear. He is stating that he has no pain. He just has loss of hearing. No headache, visual complaints, paresthesias, speech difficulty. His INR is therapeutic. He has no focal neurologic deficits. I do not believe this is a stroke. I did obtain a CT of the brain as well as the orbit/sella/inner ear. He is negative for acute findings. I discussed the case with Dr. Kin Cardoso who recommended high-dose steroids. I spoke with the patient regarding this as he is a diabetic and did mention that he might have higher blood sugars while he is on steroids. He is also anticoagulated on Coumadin so I did discuss with him the risk of GI bleed. I will put him on a PPI with the prednisone and I recommended that he also take his prednisone with food. Patient will follow up with Dr. Cardoso outpatient. Return precautions discussed. Impression: 1. Acute left-sided hearing Lab Data Attestation: I reviewed the patient's lab results. Labs: Laboratory Results - last 24 hr 01/12/22 15:10 PT 25.5 H INR 2.4 Radiography Diagnostic Testing: Clinical Impression(s) from Imaging Studies Brain CT 01/12/22 14:49 IMPRESSION: No evidence of acute intracranial bleed, mass or ischemia. Electronically Signed: Bhavesh PaniaguaDO at 15:45 EDT , CT Orbit Sella Inner 01/12/22 14:49 IMPRESSION: Negative CT of the internal auditory canals and temporal bones. Electronically Signed: Bhavesh DO Siva at 15:54 EDT , Discharge Plan Triage Chief Complaint: Ear Problem ED Provider: Toni Lowe Dx/Rx/DC Orders Instructions: Signs of Hearing Loss Prescriptions: New prednisone 10 mg tablet 60 mg PO DAILY 5 Days Qty: 30 0RF pantoprazole [Protonix] 40 mg tablet,delayed release (DR/EC) 40 mg PO DAILY Qty: 20 0RF No Action cholecalciferol (vitamin D3) 50 mcg (2,000 unit) capsule 50 mcg PO DAILY multivitamin [Daily Multi-Vitamin] Tablet 1 tab PO DAILY warfarin [Jantoven] 1 mg tablet 1 mg PO 2XW amlodipine [Norvasc] 10 mg tablet 10 mg PO DAILY Qty: 90 3RF hydrochlorothiazide 25 mg tablet 25 mg PO DAILY Qty: 90 3RF lisinopril [Zestril] 40 mg tablet 40 mg PO DAILY Qty: 90 3RF warfarin [Jantoven] 2 mg tablet 2 mg PO 5XW Qty: 60 3RF metformin 500 mg tablet 500 mg PO BID Qty: 180 3RF Primary Care Provider: Rasheeda Roberto Referrals: Pernell Cardoso MD [STAFF PHYSICIAN] - As soon as possible Rasheeda Roberto MD [Primary Care Provider] - Disposition Disposition: Home, Self Care Discharge Date/Time: 01/12/22 17:07
[2022-01-12 15:36] LABS: International Normalized Ratio 2.4; Prothrombin Time (Protime)PT. 25.5 SECONDS (11.7-14.9)
[2022-01-12] MEDS: predniSONE 20 MG Tablet 60 MG PO (16:58)
[2022-01-12 17:06] VITALS: BP 153/76; PULSE 89; RESP 15; O2SAT 97
== END 2022-01-12 17:07 | disposition home or self-care (01) ==
PROVIDERS: Emergency Provider Student in an Organized Health Care Education/Training Program; PCP Internal Medicine; Visit Provider Student in an Organized Health Care Education/Training Program
DX: H91.92 Unspecified hearing loss, left ear (principal); E11.9 Type 2 diabetes mellitus without complications; I10 Essential (primary) hypertension; E78.5 Hyperlipidemia, unspecified; E66.9 Obesity, unspecified; Z79.84 Long term (current) use of oral hypoglycemic drugs; Z79.01 Long term (current) use of anticoagulants; Z79.899 Other long term (current) drug therapy; Z86.718 Personal history of other venous thrombosis and embolism
CPT/HCPCS: 70450; 70480; 85610; 99283; A4216

== ENCOUNTER 2022-02-05 08:25 | Outpatient (RCR) | payer MEDICARE, OTHER, SELFPAY ==
[2022-02-05 08:36] LABS: INR Fingerstick 2.6
== END 2022-02-10 02:54 | disposition home or self-care (01) ==
LOC: LAB 08:25
PROVIDERS: Family Provider Family Medicine; PCP Internal Medicine; Referring Provider Internal Medicine; Visit Provider Internal Medicine
DX: Z79.01 Long term (current) use of anticoagulants (principal)
CPT/HCPCS: 36416; 85610

== ENCOUNTER 2022-03-05 07:34 | Outpatient (RCR) | payer MEDICARE, OTHER, SELFPAY ==
[2022-03-05 07:45] LABS: INR Fingerstick 2.7; Prothrombin Time Fingerstick 31.3 SEC (11.7-14.9)
== END 2022-03-05 18:00 | disposition home or self-care (01) ==
LOC: LAB 07:34
PROVIDERS: Family Provider Family Medicine; PCP Internal Medicine; Referring Provider Internal Medicine; Visit Provider Internal Medicine
DX: Z79.01 Long term (current) use of anticoagulants (principal)
CPT/HCPCS: 36416; 85610

== ENCOUNTER → 2022-03-05 | Outpatient (CLI) | payer MEDICARE, OTHER, SELFPAY ==
--- NOTE | 2022-03-05 07:45 | MRI_ITS ---
STUDY: MRI BRAIN WITH AND WITHOUT CONTRAST (ATTENTION INTERNAL AUDITORY CANALS - I.A.C.''s) REASON FOR EXAM: Male, 67 years old. SUDDEN LEFT HEARING LOSS, TINNITUS TECHNIQUE: Standardized multiplanar fat and water weighted pulse sequences were obtained. IV 25ml Clariscan was administered for the contrast portion of the examination. COMPARISON: None. FINDINGS: Normal bilateral temporal bones. Normal bilateral internal auditory canals. There is no demonstrated intracanalicular or cisternal vestibular schwannoma (acoustic neuroma). There is no enhancement of the bilateral VIIth or VIIIth cranial nerves. Normal bilateral cochlea, vestibules and semicircular canals. Normal size of the ventricles and extra-axial spaces for the patient''s age. Normal white matter tracts of the supratentorial brain. Normal bilateral basal ganglia. Normal thalami. Normal flow voids within the major intracranial circulation suggesting patency by spin echo criteria. Normal venous enhancement. There is no enhancing intra-axial or extra-axial abnormality. There is no extra-axial fluid accumulation. Normal sella turcica, pituitary gland, infundibular stalk, optic chiasm and hypothalamus. Normal tectal plate and pineal gland. Normal midbrain, jyoti and medulla. Normal cerebellum. Normal basal cisterns. No demonstrated orbital abnormality, within the constraints of a routine brain study. Normal visualized paranasal sinuses. Normal calvarium and skull base. Normal visualized soft tissue structures. Normal visualized upper cervical spine. MRI/Brain W/WO Contrast IMPRESSION: Normal unenhanced and enhanced MRI of the brain and bilateral internal auditory canals (I.A.C''s). Electronically Signed: Jonatan Vasquez MD at 10:23 EDT ,
[2022-03-05 08:40] LABS: CREATININE FINGERSTICK < 0.9 mg/dL (0.70-1.30); EGFR FINGERSTICK > 60.0000 mL/min (>60)
== END | disposition home or self-care (01) ==
LOC: MRI 07:37
PROVIDERS: PCP Internal Medicine; Referring Provider Otolaryngology; Visit Provider Otolaryngology
DX: H91.22 Sudden idiopathic hearing loss, left ear (principal); Z79.01 Long term (current) use of anticoagulants
CPT/HCPCS: 36416; 70553; 85610; A9575

== ENCOUNTER 2022-04-08 09:50 | Outpatient (RCR) | payer MEDICARE, OTHER, SELFPAY ==
[2022-04-08 10:00] LABS: INR Fingerstick 2.4; Prothrombin Time Fingerstick 27.6 SEC (11.7-14.9)
== END 2022-04-08 18:00 | disposition home or self-care (01) ==
LOC: LAB 09:50
PROVIDERS: Family Provider Family Medicine; PCP Internal Medicine; Referring Provider Internal Medicine; Visit Provider Internal Medicine
DX: Z79.01 Long term (current) use of anticoagulants (principal)
CPT/HCPCS: 36416; 85610

== ENCOUNTER → 2022-04-12 | Outpatient (CLI) | payer MEDICARE, OTHER, SELFPAY ==
[2022-04-12 12:20] LABS: Hemoglobin A1c 6.7 % (3.8-5.6)
[2022-04-12 12:23] LABS: ALB/GLOB Ratio 1.1 RATIO (0.9-2.4); AST(SGOT) 17 U/L (15-37); Alanine Aminotransfer ALT/SGPT 28 U/L (16-61); Albumin, Serum 3.7 g/dL (3.2-5.0); Alkaline Phosphatase 60 U/L (45-117); Anion Gap 7 (5-15); BUN 13 mg/dL (7-18); BUN/Creat Ratio 13.4 RATIO (10-20); Calcium,Total 9.3 mg/dL (8.5-10.1); Chloride 104 mmol/L (98-107); Creatinine, Serum 0.97 mg/dL (0.70-1.30); EST Glomerular Filtration Rate 81 mL/min (>60); Est Glom Filt Rate - Afr Amer 98 mL/min (>60); Globulin 3.5 g/dL (2.2-4.2); Glucose 160 mg/dL (74-106); Potassium 3.9 mmol/L (3.5-5.1); Protein, Total 7.2 g/dL (6.4-8.2); Sodium Level 138 mmol/L (136-145)
== END | disposition home or self-care (01) ==
LOC: MFPLAB 10:23
PROVIDERS: PCP Physician Assistant; Referring Provider Physician Assistant; Visit Provider Physician Assistant
DX: E11.9 Type 2 diabetes mellitus without complications (principal)
CPT/HCPCS: 36415; 80053; 83036

== ENCOUNTER 2022-05-06 12:38 | Outpatient (RCR) | payer MEDICARE, OTHER, SELFPAY ==
[2022-05-06 12:50] LABS: INR Fingerstick 2.9; Prothrombin Time Fingerstick 33.3 SEC (11.7-14.9)
== END 2022-05-06 18:00 | disposition home or self-care (01) ==
LOC: LAB 12:38
PROVIDERS: Family Provider Family Medicine; PCP Physician Assistant; Referring Provider Internal Medicine; Visit Provider Internal Medicine
DX: Z79.01 Long term (current) use of anticoagulants (principal)
CPT/HCPCS: 36416; 85610

== ENCOUNTER 2022-05-30 07:24 | Outpatient (RCR) | payer MEDICARE, OTHER, SELFPAY ==
[2022-05-30 07:35] LABS: INR Fingerstick 1.4; Prothrombin Time Fingerstick 17.2 SEC (11.7-14.9)
== END 2022-06-12 18:00 | disposition home or self-care (01) ==
LOC: LAB 07:24
PROVIDERS: Family Provider Family Medicine; PCP Internal Medicine; Referring Provider Internal Medicine; Visit Provider Internal Medicine
DX: Z79.01 Long term (current) use of anticoagulants (principal)
CPT/HCPCS: 36416; 85610

== ENCOUNTER 2022-05-31 09:41 | Day surgery (SDC) | payer MEDICARE, OTHER, SELFPAY ==
--- NOTE | 2022-05-28 11:42 | HP.PCM_ITS ---
History and Physical Date of Admission: 05/28/22 [facility] [address] [place] [address] OFFICE VISIT Date of Service:? 05/06/22 MR#: [id number] Acct: [id number] Name:JOHNATHON HUGHES Rep #: [id number] : 1955 ? ? Provider: Dr. Jose Eduardo Lane, DO Age/Sex:? 67/M ? ? Location: [facility] [place] Status: Signed Intake Vital Signs ? 01/24/2211:48 05/06/2211:15 Height 6 ft 6 ft Weight: ? 296 lb BMI ? 40.1 Intake Visit Reasons:?left knee Chief Complaint: left knee Accompanied by: Is patient in pain?: Yes Allergies No Known Allergies Allergy (Verified 04/17/22 13:36) Medications cholecalciferol (vitamin D3) 50 mcg (2,000 unit) capsule 50 mcg PO DAILY 06/06/21 [History Confirmed 05/06/22] multivitamin (Daily Multi-Vitamin tablet) 1 tab PO DAILY 06/06/21 [History Confirmed 05/06/22] warfarin 1 mg tablet (Jantoven) 1 mg PO 2XW 10/19/21 [History Confirmed 05/06/22] amlodipine 10 mg tablet (Norvasc) 10 mg PO DAILY #90 tabs 10/24/21 [Rx Confirmed 05/06/22] hydrochlorothiazide 25 mg tablet 25 mg PO DAILY #90 tabs 10/24/21 [Rx Confirmed 05/06/22] lisinopril 40 mg tablet (Zestril) 40 mg PO DAILY #90 tabs 10/24/21 [Rx Confirmed 05/06/22] warfarin 2 mg tablet (Jantoven) 2 mg PO 5XW #60 tabs 10/24/21 [Rx Confirmed 05/06/22] metformin 500 mg tablet 500 mg PO BID #180 tabs 01/11/22 [Rx Confirmed 05/06/22] pantoprazole 40 mg tablet,delayed release (Protonix) 40 mg PO DAILY #20 tabs 01/12/22 [Rx Confirmed 05/06/22] PFSH Medical History? Diabetes DVT (deep venous thrombosis) Essential hypertension Fracture, femur History of nephrolithotomy with removal of calculi Hydrocele Hyperlipidemia Obesity (BMI 35.0-39.9 without comorbidity) Surgical History? History of tonsillectomy Previous back surgery Family History? Other Cancer Hypertension Myocardial infarction Social History? Smoking Status:? Never smoker alcohol intake:? never substance use type:? does not use HPI left knee Details: Parts of this documentation were recorded by a scribe, this documentation accurately reflects the service provided and the decisions made by me, Dr. Jose Eduardo Lane, DO 05/06/22 1047. JOHNATHON WATKINS is a 67 year old M here today for? left knee continued pain after having aspiration/steroid injection on 04/17/22. He states that this helped with his pain somewhat but he still is having an uncomfortable snapping over the lateral side of the knee. He has increased pain with increased ambulation, standing. He states that the snapping of the left knee is new this year after a fall. He states that the knee will lock up at times. He has a hx of 2 left lower extremity DVTsafter his left femur fracture surgery and therefore is on life long coumadin.? Last DVT was around 2003. Ortho Exam General General: Yes no acute distress Neurologic: Yes alert and Yes oriented x3 Psychologic: Yes reasonable and appropriate Right Knee Patella Translation: 1 Left Knee Skin/Wound: Yes CDI, No ecchymosis, No erythema and No swelling Homans Sign: No Knee ROM: Yes ROM-Extension -20 to 0 and No ROM-Flexion 0-140 (110) Examination: Yes Laquita's Test Stability: NML: Anterior Drawer, NML: Posterior Drawer, NML: Valgus 30 and NML: Varus 30 Patella Translation: 1 Patella Grind: No KNEE: no joint effusion crepitation with patellar grind positive lateral joel Supplemental Info 11/14/2021 MRI left knee: Small undersurface and radial tears of the body of the medial meniscus moderate intrasubstance signal throughout the posterior horn medial meniscus.? There is diffuse less than 50% cartilage loss of the medial compartment.? Discoid lateral meniscus with intrasubstance signal and mixed radial and horizontal tearing of the body and free edge chronic depression deformity of the lateral tibial plateau diffuse less than 50% articular cartilage loss of the lateral femoral compartment.? Full-thickness cartilage loss of the inferior pole of the patella with high-grade fissuring and moderate thinning of the medial patellar facet and trochlear groove. 09/24/2021 x-ray left knee: Similar appearance compared to 09/08/2019 x-rays there may be some further progression of patellofemoral and medial compartment arthrosis. 09/08/2019 x-ray left knee: This post intramedullary rodding of the femur there are 3 distal screws.? The most distal 1 is slightly prominent on the medial side , the fracture extent that is visualized in the distal third of the femur appears to be well-healed.? There is degenerative changes noted particularly of the inferior patella, and lateral tibial plateau.? Suspect? previous depressed fracture of the lateral tibial plateau not acute, seen on both AP and lateral projections. Coding Level of Care Code Off vis,est,level 3 Diagnoses Tear of meniscus of left knee? S83.207A Osteoarthritis of left knee? M17.12 Assessment and Plan Assessment and Plan (1) Tear of meniscus of left knee: ?Status:?Acute (2) Osteoarthritis of left knee: ?Status:?Acute Plan Patient educated that he does have osteoarthritis of the left knee along with medial and lateral meniscus tearing. Educated that the xrays show that he does have remaining joint space of the knee. Treatment options are do nothing or left knee arthroscopic partial meniscectomy which should help to relieve the mechanical knee pain but he may still have pain after surgery depending on his arthritis of the knee. If his pain is still severe after the arthroscopic surgery then his options would be a steroid injection or viscosupplementation or TKA. Reviewed the pre-operative plans with the patient. Risks and benefits of the procedure were fully explained, including but not limited to infection, neurovascular injury, continued pain, arthritis, stiffness, need for further surgery, re-injury, DVT, PE, general risks of anesthesia, and loss of limb or life. The patient understands all the risks and does wish to proceed with written consent for left knee arthroscopic partial medial and lateral meniscectomy, surgery as indicated. Will need medical clearance from Dr. Roberto to stop his blood thinner. He will need his INR below 1.3? day of sugery and should be held at least 5 days, preferably 7 since he is only on in secondary to DVT in past, and then can resume after.? We will tentatively schedule him for May 28, 2022. Follow up 2 weeks post op or sooner if pain, swelling, numbness or associated symptoms, or concerns develop.? All questions answered. Patient in agreement of plan. 05/06/22 1443 <Electronically signed by Jose Eduardo Lane DO> Date Jose Eduardo Lane DO Cosigner Signature: Date (if applicable) ?I have examined the patient and the H&P has been reviewed. There are no clinical changes since date of exam.
[2022-05-28 11:47] VITALS: BP 160/80; PULSE 82; RESP 20; TEMP 37.2; O2SAT 98
[2022-05-28 11:56] LABS: INR Fingerstick 1.8; Prothrombin Time Fingerstick 21.9 SEC (11.7-14.9)
[2022-05-28 12:19] LABS: Prothrombin Time (Protime)PT. 22.1 SECONDS (11.7-14.9)
[2022-05-28 12:45] LABS: Bedside Glucose 122 mg/dL (74-106)
[2022-05-31] VITALS (7 sets, daily range): BP systolic 122–158; BP diastolic 71–81; PULSE 72–90; RESP 16–18; TEMP 36.2–36.9; O2SAT 16–99; BMI 39.2
[2022-05-31] MEDS: Lactated Ringers 1,000 ML 15 ML IV (09:55)
[2022-05-31 10:11] LABS: INR Fingerstick 1.4; Prothrombin Time Fingerstick 17.2 SEC (11.7-14.9)
[2022-05-31 11:30] LABS: Bedside Glucose 137 mg/dL (74-106)
--- NOTE | 2022-05-31 11:30 | HP.PCM_ITS ---
History and Physical Date of Admission: 05/31/22 [facility] [address] [place] [address] OFFICE VISIT Date of Service:? 05/06/22 MR#: [id number] Acct: [id number] Name:JOHNATHON HUGHES Rep #: [id number] : 1955 ? ? Provider: Dr. Jose Eduardo Lane, DO Age/Sex:? 67/M ? ? Location: [facility] [place] Status: Signed Intake Vital Signs ? 01/24/2211:48 05/06/2211:15 Height 6 ft 6 ft Weight: ? 296 lb BMI ? 40.1 Intake Visit Reasons:?left knee Chief Complaint: left knee Accompanied by: Is patient in pain?: Yes Allergies No Known Allergies Allergy (Verified 04/17/22 13:36) Medications cholecalciferol (vitamin D3) 50 mcg (2,000 unit) capsule 50 mcg PO DAILY 06/06/21 [History Confirmed 05/06/22] multivitamin (Daily Multi-Vitamin tablet) 1 tab PO DAILY 06/06/21 [History Confirmed 05/06/22] warfarin 1 mg tablet (Jantoven) 1 mg PO 2XW 10/19/21 [History Confirmed 05/06/22] amlodipine 10 mg tablet (Norvasc) 10 mg PO DAILY #90 tabs 10/24/21 [Rx Confirmed 05/06/22] hydrochlorothiazide 25 mg tablet 25 mg PO DAILY #90 tabs 10/24/21 [Rx Confirmed 05/06/22] lisinopril 40 mg tablet (Zestril) 40 mg PO DAILY #90 tabs 10/24/21 [Rx Confirmed 05/06/22] warfarin 2 mg tablet (Jantoven) 2 mg PO 5XW #60 tabs 10/24/21 [Rx Confirmed 05/06/22] metformin 500 mg tablet 500 mg PO BID #180 tabs 01/11/22 [Rx Confirmed 05/06/22] pantoprazole 40 mg tablet,delayed release (Protonix) 40 mg PO DAILY #20 tabs 01/12/22 [Rx Confirmed 05/06/22] PFSH Medical History? Diabetes DVT (deep venous thrombosis) Essential hypertension Fracture, femur History of nephrolithotomy with removal of calculi Hydrocele Hyperlipidemia Obesity (BMI 35.0-39.9 without comorbidity) Surgical History? History of tonsillectomy Previous back surgery Family History? Other Cancer Hypertension Myocardial infarction Social History? Smoking Status:? Never smoker alcohol intake:? never substance use type:? does not use HPI left knee Details: Parts of this documentation were recorded by a scribe, this documentation accurately reflects the service provided and the decisions made by me, Dr. Jose Eduardo Lane, DO 05/06/22 1047. JOHNATHON WATKINS is a 67 year old M here today for? left knee continued pain after having aspiration/steroid injection on 04/17/22. He states that this helped with his pain somewhat but he still is having an uncomfortable snapping over the lateral side of the knee. He has increased pain with increased ambulation, standing. He states that the snapping of the left knee is new this year after a fall. He states that the knee will lock up at times. He has a hx of 2 left lower extremity DVTsafter his left femur fracture surgery and therefore is on life long coumadin.? Last DVT was around 2003. Ortho Exam General General: Yes no acute distress Neurologic: Yes alert and Yes oriented x3 Psychologic: Yes reasonable and appropriate Right Knee Patella Translation: 1 Left Knee Skin/Wound: Yes CDI, No ecchymosis, No erythema and No swelling Homans Sign: No Knee ROM: Yes ROM-Extension -20 to 0 and No ROM-Flexion 0-140 (110) Examination: Yes Laquita's Test Stability: NML: Anterior Drawer, NML: Posterior Drawer, NML: Valgus 30 and NML: Varus 30 Patella Translation: 1 Patella Grind: No KNEE: no joint effusion crepitation with patellar grind positive lateral joel Supplemental Info 11/14/2021 MRI left knee: Small undersurface and radial tears of the body of the medial meniscus moderate intrasubstance signal throughout the posterior horn medial meniscus.? There is diffuse less than 50% cartilage loss of the medial compartment.? Discoid lateral meniscus with intrasubstance signal and mixed radial and horizontal tearing of the body and free edge chronic depression deformity of the lateral tibial plateau diffuse less than 50% articular cartilage loss of the lateral femoral compartment.? Full-thickness cartilage loss of the inferior pole of the patella with high-grade fissuring and moderate thinning of the medial patellar facet and trochlear groove. 09/24/2021 x-ray left knee: Similar appearance compared to 09/08/2019 x-rays there may be some further progression of patellofemoral and medial compartment arthrosis. 09/08/2019 x-ray left knee: This post intramedullary rodding of the femur there are 3 distal screws.? The most distal 1 is slightly prominent on the medial side , the fracture extent that is visualized in the distal third of the femur appears to be well-healed.? There is degenerative changes noted particularly of the inferior patella, and lateral tibial plateau.? Suspect? previous depressed fracture of the lateral tibial plateau not acute, seen on both AP and lateral projections. Coding Level of Care Code Off vis,est,level 3 Diagnoses Tear of meniscus of left knee? S83.207A Osteoarthritis of left knee? M17.12 Assessment and Plan Assessment and Plan (1) Tear of meniscus of left knee: ?Status:?Acute (2) Osteoarthritis of left knee: ?Status:?Acute Plan Patient educated that he does have osteoarthritis of the left knee along with medial and lateral meniscus tearing. Educated that the xrays show that he does have remaining joint space of the knee. Treatment options are do nothing or left knee arthroscopic partial meniscectomy which should help to relieve the mechanical knee pain but he may still have pain after surgery depending on his arthritis of the knee. If his pain is still severe after the arthroscopic surgery then his options would be a steroid injection or viscosupplementation or TKA. Reviewed the pre-operative plans with the patient. Risks and benefits of the procedure were fully explained, including but not limited to infection, neurovascular injury, continued pain, arthritis, stiffness, need for further surgery, re-injury, DVT, PE, general risks of anesthesia, and loss of limb or life. The patient understands all the risks and does wish to proceed with written consent for left knee arthroscopic partial medial and lateral meniscectomy, surgery as indicated. Will need medical clearance from Dr. Roberto to stop his blood thinner. He will need his INR below 1.3? day of sugery and should be held at least 5 days, preferably 7 since he is only on in secondary to DVT in past, and then can resume after.? We will tentatively schedule him for May 28, 2022. Follow up 2 weeks post op or sooner if pain, swelling, numbness or associated symptoms, or concerns develop.? All questions answered. Patient in agreement of plan. 05/06/22 1443 <Electronically signed by Jose Eduardo Lane DO> Date Jose Eduardo Lane DO Cosigner Signature: Date (if applicable) ? CC: ? ~I have examined the patient the following changes are noted: Patient was previously scheduled for knee arthroscopy 05/28/2022 however his INR was 2.0 surgery subsequently delayed INR taken yesterday 1.4 and again today 1.4 plan to proceed
[2022-05-31] MEDS: Lidocaine 2% /Epi 1:100 (20ml) 20 ML VIAL OPERA.SITE (12:00)
[2022-05-31] MEDS: Epinephrine (1 mg/ml) 1 MG/ML VIAL (12:00)
[2022-05-31] MEDS: Bupivacaine 0.25% 30 ML Vial (12:38)
--- NOTE | 2022-05-31 12:52 | OP.PCM_ITS ---
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 the patient did wish to proceed with an elective arthroscopic surgery to attempt to alleviate the symptoms. Risk benefits and alternatives of the procedure were reviewed including risk of bleeding infection nerve artery tissue damage need for further surgery continued pain and expected postoperative course. Procedure: The patient was met in the preoperative holding area. The operative extremity was identified by both patient and physician and family and marked. Patient was brought back to the operating room on a wheeled cart and transferred to the operating table in the supine position. Anesthesia was started. A well- padded tourniquet was placed on the operative extremity. A lower extremity leg oh was secured to the operative extremity. The contralateral extremity was well-padded and the end of the bed was flexed to 90 degrees. The patient was prepped and draped in the usual sterile fashion. A timeout was called to ensure the proper patient, procedure, and extremity were being contemplated. 0.5% Marcaine with epinephrine was injected into the planned incisional areas under the skin only. An Esmarch was used to exsanguinate the extremity and the tourniquet was inflated. An 11 blade scalpel was used to make a stab incision in the anterior lateral portal. The arthroscope was inserted into the intercondylar notch and inflow and outflow tubes were attached. Arthroscopic visualization began. The medial compartment was entered. An 18-gauge spinal needle was used to establish the placement for anterior medial portal. An 11 blade scalpel was used to make a stab incision. Blunt probe was inserted followed by a meniscal probe. The medial compartment did have complex tearing of the anterior horn body and posterior horn of the medial meniscus there was c grade 3 cartilage wear of the medial femoral condyle with use of arthroscopic biting instruments and a shaver partial medial meniscectomy was performed and gentle chondroplasty of the medial femoral condyle , the ACL did have some partial tearing and degenerative appearance but still had intact fibers and was functioning lateral compartment was entered and was noted to be significant scar tissue in the anterior recess as well as the gutters which required synovectomy for visualization the lateral compartment demonstrated complex tear of discoid lateral meniscus with the use of arthroscopic biting instruments and alec and ArthroCare wand a partial lateral meniscectomy was performed. There is also noted to be grade 3 chondral wear and slight depression of the lateral tibial plateau from prior fracture, the arthroscope was switched to the medial portal to complete the procedure. The medial and lateral gutters were inspected and were free of loose bodies however there was some scar tissue bands noted that were excised in the lateral and medial gutters. The patellofemoral joint was inspected grade 4 chondral wear of the undersurface of the patella and the upper part of the trochlea. There was good patellar tracking. The knee was thoroughly irrigated and drained. An intra-articular injection with 5 cc 0.5% Marcaine plain was injected intra-articularly. The arthroscope was removed the portals were closed with 3-0 nylon arthroscopic stitches. Followed by Xeroform 4 x 4's ABDs web roll and an Robert wrap. The tourniquet was let down and the drapes were removed. All counts were correct. The patient was brought back to the PACU in stable condition. Patient will resume his regular Coumadin dosing and scheduling
--- NOTE | 2022-05-31 12:58 | DCINST_ITS ---
Discharge Instructions Activity Weight Bearing Status: Weight bearing as tolerated Keep extremity elevated above heart level: Operative Extremity Dressing / Incision Call your doctor if you observe: Shortness of breath and Chest pain Additional Dressing/Incision Instructions:: Ice and elevate next 72 hours .keep dressing on clean and dry for 48 hours then may remove begin showering daily but do not submerge in tub or pool. After shower may apply Band-Aids . Encourage knee range of motion weightbearing as tolerated, use crutches until confident in knee then may discontinue. No strenuous activity. When not ambulating keep iced and elevated next 72 hours. Do not mix pain medication with recreational drugs or alcohol only take as prescribed can be addictive and abusive, call with any questions or concerns. Resume preoperative Coumadin dosing and scheduling Follow Up Care Please Follow Up With: Jose Eduardo Lane DO When: 2 weeks Test Results: Test results from this visit will be discussed in further detail at your follow- up appointment, if applicable. Discharge Plan Admission Attending Provider: Jose Eduardo Lane Primary Care Provider: Rasheeda Roberto Discharge Orders/Prescriptions Prescriptions: New oxycodone 5 mg tablet 5 - 10 mg PO Q4H PRN (Reason: pain) 5 Days Qty: 30 0RF Continued cholecalciferol (vitamin D3) 50 mcg (2,000 unit) capsule 50 mcg PO DAILY multivitamin [Daily Multi-Vitamin] Tablet 1 tab PO DAILY warfarin [Jantoven] 1 mg tablet 1 mg PO FR Rx Instructions: WILL STOP ON 05/23 warfarin [Jantoven] 2 mg tablet 2 mg PO SUMOTUWETHSA amlodipine [Norvasc] 10 mg tablet 10 mg PO DAILY Qty: 90 3RF hydrochlorothiazide 25 mg tablet 25 mg PO DAILY Qty: 90 3RF lisinopril [Zestril] 40 mg tablet 40 mg PO DAILY Qty: 90 3RF metformin 500 mg tablet 500 mg PO BID Qty: 180 3RF Referrals / Follow Up: Rasheeda Roberto MD [Primary Care Provider] - Disposition Discharge Orders: Discharge Patient (Routine); Ordered 05/31/22 Ordered By: Dr. Jose Eduardo Lane
[2022-05-31] MEDS: Ketorolac 15 MG/ML Vial IV (13:24)
== END 2022-05-31 16:12 | disposition home or self-care (01) ==
LOC: SDC 09:41 → AC 09:43
PROVIDERS: PCP Internal Medicine; Referring Provider Orthopaedic Surgery; Visit Provider Orthopaedic Surgery
PROC: (CPT 29870; principal; 2022-05-31 11:10)
DX: S83.232A Complex tear of medial meniscus, current injury, left knee, initial encounter (principal); S83.272A Complex tear of lateral meniscus, current injury, left knee, initial encounter; S83.512A Sprain of anterior cruciate ligament of left knee, initial encounter; M17.12 Unilateral primary osteoarthritis, left knee; W19.XXXA Unspecified fall, initial encounter; E11.9 Type 2 diabetes mellitus without complications; I10 Essential (primary) hypertension; E78.5 Hyperlipidemia, unspecified; E66.9 Obesity, unspecified; Z79.01 Long term (current) use of anticoagulants; Z79.84 Long term (current) use of oral hypoglycemic drugs; Z79.899 Other long term (current) drug therapy
CPT/HCPCS: 29880; 36416; 82962; 85610; 97162; J7120; J2405

== ENCOUNTER 2022-07-12 09:35 | Outpatient (RCR) | payer MEDICARE, OTHER, SELFPAY ==
[2022-06-14 08:55] LABS: INR Fingerstick 1.8
[2022-06-14 09:46] LABS: Absolute Lymphocyte Count 2.55 X10^3/uL (0.83-4.51); Absolute Neutrophil Count 5.3 X10^3/uL (2.0-7.7); Basophil# 0.05 X10^3/uL; Basophil% 0.6 % (0-1); Eosinophil# 0.16 X10^3/uL; Eosinophils% 1.8 % (0-5); Hematocrit 46.4 % (40-54); Hemoglobin 15.2 g/dL (13.0-16.5); Lymphocyte # 2.55 X10^3/ul (0.83-4.51); Lymphocyte % 28.5 % (19-41); Mean Corp Hgb Conc 32.8 g/dL (32-36); Mean Corpuscular Hgb 27.1 pg (27.0-32.0); Mean Corpuscular Volume 82.7 fL (80-94); Monocyte# 0.81 X10^3/uL; Monocyte% 9.1 % (0-10); NRBC Flagged by Analyzer 0 % (0-5); Neutrophil # 5.33 X10^3/uL (2.7-7.7); Neutrophil % 59.6 % (47-70); Platelet Count 365 K/mm3 (150-450); RBC Distribution Width CV 13.2 % (11.6-14.6); RBC Distribution Width SD 39.7 fl (35.1-43.9); Red Blood Count 5.61 M/mm3 (4.6-6.2); White Blood Count 8.9 K/mm3 (4.4-11.0)
[2022-06-14 10:15] LABS: Hemoglobin A1c 6.9 % (3.8-5.6)
[2022-06-14 10:18] LABS: ALB/GLOB Ratio 1.1 RATIO (0.9-2.4); AST(SGOT) 17 U/L (15-37); Alanine Aminotransfer ALT/SGPT 28 U/L (16-61); Albumin, Serum 3.8 g/dL (3.2-5.0); Alkaline Phosphatase 68 U/L (45-117); Anion Gap 5 (5-15); BUN 13 mg/dL (7-18); BUN/Creat Ratio 13.6 RATIO (10-20); Calcium,Total 9.6 mg/dL (8.5-10.1); Chloride 102 mmol/L (98-107); Cholesterol 205 mg/dL (200); Creatinine, Serum 0.96 mg/dL (0.70-1.30); EST Glomerular Filtration Rate 83 mL/min (>60); Est Glom Filt Rate - Afr Amer 100 mL/min (>60); Globulin 3.6 g/dL (2.2-4.2); Glucose 140 mg/dL (74-106); High Density Lipoprotein 41 mg/dL; PSA,Total - Annual Screen 5.01 ng/mL (0.00-4.00); Potassium 3.9 mmol/L (3.5-5.1); Protein, Total 7.4 g/dL (6.4-8.2); Sodium Level 136 mmol/L (136-145); Triglycerides 244 mg/dL; Very Low Density Lipoprotein 49 mg/dL (5-40)
[2022-07-01 07:15] LABS: Prothrombin Time Fingerstick 33.7 SEC (11.7-14.9)
[2022-07-12 09:45] LABS: INR Fingerstick 2.8
== END 2022-07-12 18:00 | disposition home or self-care (01) ==
LOC: LAB 09:35
PROVIDERS: Family Provider Family Medicine; PCP Internal Medicine; Referring Provider Internal Medicine; Visit Provider Internal Medicine
DX: Z79.01 Long term (current) use of anticoagulants (principal); E11.9 Type 2 diabetes mellitus without complications; Z12.5 Encounter for screening for malignant neoplasm of prostate; E66.9 Obesity, unspecified; E78.5 Hyperlipidemia, unspecified
CPT/HCPCS: 36415; 36416; 80053; 80061; 83036; 84153; 85025; 85610; G0103

== ENCOUNTER 2022-08-12 10:26 | Outpatient (RCR) | payer MEDICARE, OTHER, SELFPAY ==
[2022-08-12 11:01] LABS: INR Fingerstick 2.4; Prothrombin Time Fingerstick 28.4 SEC (11.7-14.9)
== END 2022-08-12 18:00 | disposition home or self-care (01) ==
LOC: LAB 10:26
PROVIDERS: Family Provider Family Medicine; PCP Internal Medicine; Referring Provider Internal Medicine; Visit Provider Internal Medicine
DX: Z79.01 Long term (current) use of anticoagulants (principal)
CPT/HCPCS: 36416; 85610

== ENCOUNTER 2022-09-02 10:00 | Outpatient (RCR) | payer MEDICARE, OTHER, SELFPAY ==
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
--- NOTE | 2022-09-02 10:26 | HP.PTDCSUM ---
It has been my pleasure to treat JOHNATHON WATKINS referred by KAYY SCOTT, with the diagnosis of equinus contracture l ankle, pain for a total of 7 visit(s). Discharge Date: 09/02/22 Please see the following information for a summary of their discharge status. Subjective: Saw rosa mariatorogalo for L nee pain and may order therapy. OA in knee is painful and he needs to lose 20# to have TKA. Ankle is about the same. 1/10 pain but it swells up alot later in day. 6/10 at times getting out of bed in the am. Knee and back hurt due to OA. L alexandrea Pain Intensity (Out of 10): 1 Lumbar Spine Pain Intensity (Out of 10): 0 L knee Pain Intensity (Out of 10): 2 % Improvement: 0 Objective/Function: Walks without gait deviations today. many c/o back and knee pain and wanting evaluation for his knee from ortho. AROM L ankle DF 3 degrees and PF 50 degrees, inversion 25 and eversion 20. Strength ankle 5/5 in all directions. Pt doing better objectively but frustrated with continued discomfort adn wants to know other options from Dr. reynoso vs trying to work toward I home or continuing in the water. Will continue with home stretches in the meantime. Goal 1:: symmetircal ankle ROM inv/ev without apin Goal Progress: Progressing Goal 2:: Ankle pain 0-1/10 at all times and not limiting function Goal Progress: Not Progressing Goal 3:: pat feel 75% better overall with pain and function Goal Progress: Not Progressing Goal 4:: 30 LEFS to improve function Goal Progress: Not Progressing Plan: d/c Discharge Comments: Pt wishes to contact doctor for other options. If there are questions or concerns regarding this patient's physical therapy, please feel free to call me at [phone]. Thank you for the referral of this patient. Sincerely, Álvaro Monroe, DPT, OCS, CSCS Balance/Gait/Functional tests - Balance/Special Test Scores Lower Extremity Functional Score: 20
== END 2022-09-02 13:11 | disposition home or self-care (01) ==
LOC: PT 10:00
PROVIDERS: PCP Internal Medicine
DX: M24.572 Contracture, left ankle (principal)
CPT/HCPCS: 97110; 97113; 97162; 97164

== ENCOUNTER 2022-09-11 10:44 | Outpatient (RCR) | payer MEDICARE, OTHER, SELFPAY ==
[2022-09-12 06:36] LABS: INR Fingerstick 2.4; Prothrombin Time Fingerstick 27.5 SEC (11.7-14.9)
== END 2022-10-11 23:19 | disposition home or self-care (01) ==
LOC: LAB 10:44
PROVIDERS: Family Provider Family Medicine; PCP Internal Medicine; Referring Provider Internal Medicine; Visit Provider Internal Medicine
DX: Z79.01 Long term (current) use of anticoagulants (principal)
CPT/HCPCS: 36416; 85610

== ENCOUNTER 2022-10-12 07:42 | Outpatient (RCR) | payer MEDICARE, OTHER, SELFPAY ==
[2022-10-12 08:38] LABS: International Normalized Ratio 2.6; Prothrombin Time (Protime)PT. 27.4 SECONDS (11.7-14.9)
== END 2022-11-10 02:10 | disposition home or self-care (01) ==
LOC: LAB 07:42
PROVIDERS: Family Provider Family Medicine; PCP Internal Medicine; Referring Provider Internal Medicine; Visit Provider Internal Medicine
DX: Z79.01 Long term (current) use of anticoagulants (principal); I10 Essential (primary) hypertension; R06.09 Other forms of dyspnea
CPT/HCPCS: 36415; 85610

== ENCOUNTER 2022-11-11 08:25 | Outpatient (RCR) | payer MEDICARE, OTHER, SELFPAY ==
[2022-11-11 08:35] LABS: INR Fingerstick 2.4; Prothrombin Time Fingerstick 26.1 SEC (11.7-14.9)
== END 2022-11-11 09:30 | disposition home or self-care (01) ==
LOC: LAB 08:25
PROVIDERS: Family Provider Family Medicine; PCP Internal Medicine; Referring Provider Internal Medicine; Visit Provider Internal Medicine
DX: Z79.01 Long term (current) use of anticoagulants (principal)
CPT/HCPCS: 36416; 85610

== ENCOUNTER → 2022-12-31 | Outpatient (CLI) | payer MEDICARE, OTHER, SELFPAY ==
[2022-12-31 07:22] LABS: Absolute Lymphocyte Count 2.54 X10^3/uL (0.83-4.51); Absolute Neutrophil Count 3.3 X10^3/uL (2.0-7.7); Basophil# 0.05 X10^3/uL; Basophil% 0.7 % (0-1); Eosinophil# 0.21 X10^3/uL; Eosinophils% 3.1 % (0-5); Hematocrit 44.3 % (40-54); Hemoglobin 14.9 g/dL (13.0-16.5); Lymphocyte # 2.54 X10^3/ul (0.83-4.51); Lymphocyte % 37.5 % (19-41); Mean Corp Hgb Conc 33.6 g/dL (32-36); Mean Corpuscular Hgb 27.5 pg (27.0-32.0); Mean Corpuscular Volume 81.7 fL (80-94); Mean Platelet Vol. 8.9 fl (6.2-12.0); Monocyte% 10.3 % (0-10); NRBC Flagged by Analyzer 0 % (0-5); Neutrophil # 3.25 X10^3/uL (2.7-7.7); Platelet Count 282 K/mm3 (150-450); RBC Distribution Width CV 13.3 % (11.6-14.6); RBC Distribution Width SD 39.5 fl (35.1-43.9); Red Blood Count 5.42 M/mm3 (4.6-6.2); White Blood Count 6.8 K/mm3 (4.4-11.0)
[2022-12-31 08:11] LABS: ALB/GLOB Ratio 1.1 RATIO (0.9-2.4); AST(SGOT) 30 U/L (15-37); Alanine Aminotransfer ALT/SGPT 48 U/L (16-61); Albumin, Serum 3.5 g/dL (3.2-5.0); Alkaline Phosphatase 65 U/L (45-117); Anion Gap 5 (5-15); BUN 15 mg/dL (7-18); BUN/Creat Ratio 15.9 RATIO (10-20); Calcium,Total 8.8 mg/dL (8.5-10.1); Chloride 100 mmol/L (98-107); Cholesterol 206 mg/dL (200); Creatinine, Serum 0.95 mg/dL (0.70-1.30); EST Glomerular Filtration Rate 84 mL/min (>60); Est Glom Filt Rate - Afr Amer 101 mL/min (>60); Globulin 3.2 g/dL (2.2-4.2); Glucose 211 mg/dL (74-106); High Density Lipoprotein 36 mg/dL; Potassium 3.8 mmol/L (3.5-5.1); Protein, Total 6.7 g/dL (6.4-8.2); Sodium Level 134 mmol/L (136-145); Thyroid Stim Hormone (TSH) 1.55 uIU/mL (0.358-3.74); Triglycerides 435 mg/dL
[2022-12-31 08:16] LABS: Vitamin D,25 Hydroxy 35.5 ng/mL
[2022-12-31 08:41] LABS: Hemoglobin A1c 10.3 % (3.8-5.6)
== END | disposition home or self-care (01) ==
LOC: LAB 07:04
PROVIDERS: PCP Internal Medicine; Referring Provider Internal Medicine; Visit Provider Internal Medicine
DX: M79.89 Other specified soft tissue disorders (principal); E11.9 Type 2 diabetes mellitus without complications; E78.5 Hyperlipidemia, unspecified; E66.9 Obesity, unspecified; M17.12 Unilateral primary osteoarthritis, left knee; Z79.01 Long term (current) use of anticoagulants; Z13.220 Encounter for screening for lipoid disorders; N40.0 Benign prostatic hyperplasia without lower urinary tract symptoms; E55.9 Vitamin D deficiency, unspecified
CPT/HCPCS: 36415; 80053; 80061; 82306; 83036; 84153; 84443; 85025

== ENCOUNTER 2023-01-10 15:28 | Outpatient (RCR) | payer MEDICARE, OTHER, SELFPAY ==
[2022-12-13 15:39] LABS: INR Fingerstick 2.3
[2023-01-17 15:47] LABS: INR Fingerstick 2.5; Prothrombin Time Fingerstick 26.8 SEC (11.7-14.9)
== END 2023-01-10 18:00 | disposition home or self-care (01) ==
LOC: LAB 15:28
PROVIDERS: Family Provider Family Medicine; PCP Internal Medicine; Referring Provider Internal Medicine; Visit Provider Internal Medicine
DX: Z79.01 Long term (current) use of anticoagulants (principal)
CPT/HCPCS: 36416; 85610

== ENCOUNTER 2023-02-10 08:05 | Outpatient (RCR) | payer MEDICARE, OTHER, SELFPAY ==
[2023-02-10 08:17] LABS: INR Fingerstick 2.2; Prothrombin Time Fingerstick 24.1 SEC (11.7-14.9)
== END 2023-02-10 18:00 | disposition home or self-care (01) ==
LOC: LAB 08:05
PROVIDERS: Family Provider Family Medicine; PCP Internal Medicine; Referring Provider Internal Medicine; Visit Provider Internal Medicine
DX: Z79.01 Long term (current) use of anticoagulants (principal)
CPT/HCPCS: 36416; 85610

== ENCOUNTER 2023-03-13 18:18 | Emergency (ER) | payer MEDICARE, OTHER, SELFPAY ==
[2023-03-13 18:19] VITALS: BP 162/91; PULSE 97; RESP 16; TEMP 36.6; O2SAT 99; BMI 40.6
--- NOTE | 2023-03-13 20:17 | CT_ITS ---
EXAM: CT LUMBAR SPINE WITHOUT INTRAVENOUS CONTRAST CLINICAL INDICATION: back pain TECHNIQUE: Helically acquired images were obtained of the lumbar spine without intravenous contrast. 2D reformats were reviewed. This CT exam was performed using one or more of the following dose reduction techniques: automated exposure control, adjustment of the mA and/or kV according to patient size, and/or use of iterative reconstruction technique. COMPARISON: No relevant prior studies available. FINDINGS: VERTEBRAE: There are osteophytes anteriorly at L1-2 through L4. There is facet hypertrophy on the right at L3-4 and bilaterally at L4-5. There is minimal anterior listhesis of L5 of 5 mm. No fracture. No discrete lytic or blastic abnormality. DISCS/SPINAL CANAL/NEURAL FORAMINA: See above. VASCULATURE: Visualized abdominal aorta is not dilated. LYMPH NODES: Unremarkable. No retroperitoneal adenopathy. CT/Spine Lumbar without Contrast IMPRESSION: 1. No acute osseous abnormalities. 2. Degenerative changes in the lower lumbar spine with minimal anterior listhesis of L4 on L5 as well as facet hypertrophy. If indicated further evaluation with MRI may be beneficial. Electronically Signed: John Boyle MD at 20:59 EDT ,
[2023-03-13] MEDS: Ondansetron ODT 4 MG Tablet PO (20:26)
[2023-03-13] MEDS: morphine 10 MG/ML Syringe 6 MG IM (20:27)
--- NOTE | 2023-03-13 21:08 | EX.ED.DYSGE1 ---
HPI <LORENE Saavedra - Last Filed: 03/13/23 21:22> History of Present Illness Chief Complaint: Back Narrative Narrative: Patient is a 68-year-old male with history of obesity, hypertension, diabetes who presents to the emergency department after a fall today. Patient fell to his right side. Patient states that he is having difficulty standing straight. Pay states he needs to use his cane because he feels unsteady. He denies any head or neck injury. Patient denies any chest or abdomen trauma. Patient is currently on Coumadin. Patient does have history of chronic back pain as well as back surgery 20 years ago. He denies any fever or chills, bowel or bladder incontinence. PFS <LORENE Saavedra - Last Filed: 03/13/23 21:22> [facility] Medical History Arthritis Back pain CPAP (continuous positive airway pressure) dependence Diabetes DVT (deep venous thrombosis) Essential hypertension Fracture, femur Gastric reflux High cholesterol History of kidney stones History of nephrolithotomy with removal of calculi Hydrocele Hyperlipidemia Non-smoker Obesity (BMI 35.0-39.9 without comorbidity) Sleep apnea Wears glasses Home Medications cholecalciferol (vitamin D3) 50 mcg (2,000 unit) capsule 50 mcg PO DAILY 06/06/21 [History Last Taken 05/31/22] multivitamin (Daily Multi-Vitamin tablet) 1 tab PO DAILY 06/06/21 [History Last Taken Unknown] warfarin 1 mg tablet (Jantoven) 1 mg PO FR #30 tabs 07/17/22 [Rx Last Taken Unknown] hydrochlorothiazide 25 mg tablet 25 mg PO DAILY #90 tabs 10/21/22 [Rx Last Taken Unknown] lisinopril 40 mg tablet (Zestril) 40 mg PO DAILY #90 tabs 10/21/22 [Rx Last Taken Unknown] amlodipine 10 mg tablet (Norvasc) 10 mg PO DAILY #90 tabs 12/23/22 [Rx Last Taken Unknown] metformin 500 mg tablet 500 mg PO BID #180 tabs 12/26/22 [Rx Last Taken Unknown] warfarin 2 mg tablet (Jantoven) 2 mg PO SUMOTUWETHSA #90 tabs 12/26/22 [Rx Last Taken Unknown] empagliflozin 10 mg tablet (Jardiance) 10 mg PO DAILY #90 tabs 01/07/23 [Rx Last Taken Unknown] oxycodone-acetaminophen 5 mg-325 mg tablet (Percocet) 1 tab PO Q8H PRN pain 3 days #10 tabs 03/13/23 [Rx Last Taken Unknown] Allergy/AdvReac Type Severity Reaction Status Date / Time No Known Allergies Allergy Verified 03/13/23 18:19 Family History Other Cancer Hypertension Myocardial infarction Surgical History H/O arthroscopic knee surgery History of tonsillectomy Previous back surgery Social History Smoking Status: Never smoker alcohol intake: never substance use type: does not use ROS <LORENE Saavedra - Last Filed: 03/13/23 21:22> ROS ED ROS Narrative Constitutional: Negative for fever, chills, weight loss, weakness Eyes: Negative for vision loss, vision change, double vision ENT: Negative for any sore throat, ear pain, congestion Cardiovascular: Negative for any chest pain, tightness, palpitations Respiratory: Negative for any cough, sputum production, hemoptysis, dyspnea, dyspnea on exertion, orthopnea Gastrointestinal: Negative for any abdominal pain, nausea, vomiting, diarrhea, constipation, blood in stool, blood in vomit : Negative for any urinary frequency, dysuria, retention, blood in urine Muscle skeletal: Negative for any muscle joint pain, stiffness, myalgias, arthralgias, neck pain. Positive for lower back pain Neurological: Negative for any headache, syncope, numbness or tingling, dizziness Skin: Negative for any rashes, lumps, itching, abrasions, lacerations Psychiatric: Negative for any depression, anxiety, stress, suicidal ideation, homicidal ideation Hematologic: Negative for any easy bruising, excessive bruising, easy bleeding Allergies: Negative for any eczema, hives, rash <Dr. Stephen Costa DO - Last Filed: 03/13/23 23:00> ROS ED ROS Narrative Constitutional: Negative for fever, chills, weight loss, weakness Eyes: Negative for vision loss, vision change, double vision ENT: Negative for any sore throat, ear pain, congestion Cardiovascular: Negative for any chest pain, tightness, palpitations Respiratory: Negative for any cough, sputum production, hemoptysis, dyspnea, dyspnea on exertion, orthopnea Gastrointestinal: Negative for any abdominal pain, nausea, vomiting, diarrhea, constipation, blood in stool, blood in vomit : Negative for any urinary frequency, dysuria, retention, blood in urine Muscle skeletal: Positive for lower back pain Neurological: Negative for any headache, syncope, numbness or tingling, dizziness Skin: Negative for any rashes, lumps, itching, abrasions, lacerations Psychiatric: Negative for any depression, anxiety, stress, suicidal ideation, homicidal ideation Hematologic: Negative for any easy bruising, excessive bruising, easy bleeding Allergies: Negative for any eczema, hives, rash EXAM <LORENE Saavedra - Last Filed: 03/13/23 21:22> Physical Exam Narrative Exam Narrative: Vital signs reviewed. HEET: Head normocephalic atraumatic, TMs clear bilaterally. Posterior pharynx is clear, moist mucous membranes. Nares clear bilaterally. Neck: Supple with no lymphadenopathy or tenderness. No signs of meningismus, negative jolt sign. Cardiac: Regular rate and rhythm no murmurs gallops or rubs, equal peripheral pulses bilaterally. Respiratory: Lungs clear to auscultation bilaterally. No chest tenderness. Abdomen: Soft, nontender, nondistended. No abdominal bruit or pulsatile masses. No hepatosplenomegaly Extremities: No peripheral edema, no signs of gross trauma or deformity. Active full range of motion of all extremities. Equal strength. No neurological focal deficit. No saddle paresthesia. Neuro: Cranial nerves II through XII intact, no focal neurological deficits. Skin: Clean dry and intact with no rash, purpura, petechiae, vesicles or pustules. Backs/flank: No CVA tenderness, no midline spinal tenderness, no deformity. Patient has no pain mid spine in the lower lumbar spine however patient does have pain more towards the lateral aspect. However difficult to reproduce the pain. Patient's pain is mostly worse with movement. Psych: Normal mood and affect. No SI, HI or acute psychosis. Const Vital Signs: 03/13/23 18:19 03/13/23 21:50 Temperature 97.8 F Temperature Source Temporal Pulse Rate 97 81 Respiratory Rate 16 18 Blood Pressure 162/91 H 156/61 H Blood Pressure Mean 114 Pulse Ox 99 Positive well nourished, well developed and obese General Appearance ED: well developed Nutritional Appearance: obese <Dr. Stephen Costa DO - Last Filed: 03/13/23 23:00> Physical Exam Const Vital Signs: 03/13/23 18:19 03/13/23 21:50 Temperature 97.8 F Temperature Source Temporal Pulse Rate 97 81 Respiratory Rate 16 18 Blood Pressure 162/91 H 156/61 H Blood Pressure Mean 114 Pulse Ox 99 MDM <VERONICA SaavedraC - Last Filed: 03/13/23 21:22> MDM Radiography Diagnostic Testing: Clinical Impression(s) from Imaging Studies Lumbar Spine CT 03/13/23 20:17 IMPRESSION: 1. No acute osseous abnormalities. 2. Degenerative changes in the lower lumbar spine with minimal anterior listhesis of L4 on L5 as well as facet hypertrophy. If indicated further evaluation with MRI may be beneficial. Electronically Signed: John Boyle MD at 20:59 EDT , Treatment and Re-Evaluation :: Patient appears to be in no obvious distress, patient vital signs are stable. Patient presents to the emergency department after mechanical fall injuring his lower back. Patient states most of his back on the left lower spine. Secondary to the patient's size as well as history of back surgery as well as trauma, the patient did receive a CT scan of the lower lumbar spine. Patient's physical examination yielded no red flag signs. No evidence of any cauda equina, spinal abscess. All radiologic examinations were read, reviewed by the emergency department attending. From these reads, a plan of care will be put in place. Patient CT scan shows no acute osseous abnormalities. There are some degenerative change of the lower lumbar spine. Patient was given 6 mg of IM morphine as well as Zofran for comfort. On reevaluation, the patient was feeling slight improvement. Patient will be given a prescription for Percocet. He will be given 1 here secondary to pharmacy closing. He will continue to perform gentle stretching, ice and heat. He was given return precautions. Instructed return for any worsening pain, weakness to his lower extremities, bowel or bladder incontinence. Patient is happy the plan of care, patient stable for discharge <Dr. Stephen Costa, DO - Last Filed: 03/13/23 23:00> MDM Radiography Diagnostic Testing: Clinical Impression(s) from Imaging Studies Lumbar Spine CT 03/13/23 20:17 IMPRESSION: 1. No acute osseous abnormalities. 2. Degenerative changes in the lower lumbar spine with minimal anterior listhesis of L4 on L5 as well as facet hypertrophy. If indicated further evaluation with MRI may be beneficial. Electronically Signed: John Boyle MD at 20:59 EDT , Treatment and Re-Evaluation :: Patient appears to be in no obvious distress, patient vital signs are stable. Patient presents to the emergency department after mechanical fall injuring his lower back. Patient states most of his back on the left lower spine. Secondary to the patient's size as well as history of back surgery as well as trauma, the patient did receive a CT scan of the lower lumbar spine. Patient's physical examination yielded no red flag signs. No evidence of any cauda equina, spinal abscess. All radiologic examinations were read, reviewed by the emergency department attending. From these reads, a plan of care will be put in place. Patient CT scan shows no acute osseous abnormalities. There are some degenerative change of the lower lumbar spine. Patient was given 6 mg of IM morphine as well as Zofran for comfort. On reevaluation, the patient was feeling slight improvement. Patient will be given a prescription for Percocet. He will be given 1 here secondary to pharmacy closing. He will continue to perform gentle stretching, ice and heat. He was given return precautions. Instructed return for any worsening pain, weakness to his lower extremities, bowel or bladder incontinence. Patient is happy the plan of care, patient stable for discharge ED attending note: I evaluated the patient in conjunction with the MADELAINE. I agree with his/her statements and above findings. I have personally performed a face to face assessment of the patient and have reviewed the MADELAINE Note. I performed a substantive portion of the visit including all aspects of the following. I personally saw the patient performed chart review, physical exam, reviewed labs, imaging (if obtained), and formulated a treatment and management plan. Brief history: 68-year-old male here for back pain after mechanical fall. Patient denies any saddle anesthesia, urinary retension, bowel or bladder incontinence, lower extremity weakness, fever or IV drug use, no recent spinal manipulation or surgery, no recent urinary catheterization. Exam: Nursing triage notes reviewed, Vital signs reviewed Constitutional: please see mdm HENT: MMM Eyes: Pupils equal round and reactive to light, Extraocular muscles intact Neck: No stridor, no JVD, full neck ROM Lungs: Clear to auscultation, No wheezing or rales. No increased work of breathing, no conversational dyspnea, no accessory muscle use, no nasal flaring. No respiratory distress noted Heart: Regular rate and rhythm, No murmurs, No rubs and No gallops, 2+ distal pulses (radial, femoral, posterior tibial) in all extremities Abdomen: Soft, there is no tenderness, rigidity, rebound or guarding, no obvious peritoneal signs, no palpable pulsatile abdominal masses, no auscultated abdominal bruit : No CVAT Extremities: No edema Back: TTP over left paraspinal muscles Neuro: Intact sensation L1-S1 dermatomal distributions. Intact 5/5 strength in hip flexion (T12-L3). Knee extension (L2-L4). Ankle dorsiflexion (L4-L5). Ankle plantar flexion (S1). Great toe extension (L5). 2+ patellar and Achilles DTRs. Skin: No rash or lesions noted MDM/plan: Chief Complaint: Back pain External records reviewed: Recent MRIs noted of the lumbar spine Factors affecting care: History of type 2 diabetes MDM narrative: Patient was hemodynamically stable, afebrile, nontoxic-appearing. No focal neurologic deficits noted. Obtained a CT scan of the lumbar spine was obtained to rule out bony abnormalities. CT scan was negative. Patient appropriate discharge home with strict return precautions and follow-up instructions. Shared decision making: I will have a discussion with the patient and or visitors regarding risk/benefits of further testing or admission. They will be made aware of of the risk/benefits inherent in this decision they will be given the opportunity to voice understanding. Consults: None Discharge Plan Triage Chief Complaint: Back ED Midlevel Provider: Otis Bhardwaj ED Provider: Stephen Costa Dx/Rx/DC Orders Clinical Impression: Lumbar contusion, Fall, Acute lumbar myofascial strain Instructions: Bruises (Contusions), ED Back Sprain/Strain Prescriptions: New oxycodone-acetaminophen [Percocet] 5-325 mg tablet 1 tab PO Q8H PRN (Reason: pain) 3 Days Qty: 10 0RF No Action cholecalciferol (vitamin D3) 50 mcg (2,000 unit) capsule 50 mcg PO DAILY multivitamin [Daily Multi-Vitamin] Tablet 1 tab PO DAILY warfarin [Jantoven] 1 mg tablet 1 mg PO FR Qty: 30 1RF Rx Instructions: WILL STOP ON 05/23 hydrochlorothiazide 25 mg tablet 25 mg PO DAILY Qty: 90 3RF lisinopril [Zestril] 40 mg tablet 40 mg PO DAILY Qty: 90 3RF amlodipine [Norvasc] 10 mg tablet 10 mg PO DAILY Qty: 90 3RF metformin 500 mg tablet 500 mg PO BID Qty: 180 3RF warfarin [Jantoven] 2 mg tablet 2 mg PO SUMOTUWETHSA Qty: 90 3RF Jardiance 10 mg tablet 10 mg PO DAILY Qty: 90 3RF Primary Care Provider: Rasheeda Roberto Referrals: Rasheeda Roberto MD [Primary Care Provider] - Activity Restrictions/Additional Instructions: Please ensure that you perform gentle stretching, ice and heat. Use the Percocet for severe pain. Please use your walker more often until your pain has decreased. Disposition Disposition: Home, Self Care Discharge Date/Time: 03/13/23 21:51
[2023-03-13] MEDS: Oxycodone/Apap 5/325 Tablet PO (21:27)
[2023-03-13 21:50] VITALS: BP 156/61; PULSE 81; RESP 18
== END 2023-03-13 21:51 | disposition home or self-care (01) ==
PROVIDERS: Emergency Provider Emergency Medicine; PCP Internal Medicine; Visit Provider Emergency Medicine
DX: S39.012A Strain of muscle, fascia and tendon of lower back, initial encounter (principal); E11.9 Type 2 diabetes mellitus without complications; S30.0XXA Contusion of lower back and pelvis, initial encounter; E78.00 Pure hypercholesterolemia, unspecified; E66.9 Obesity, unspecified; I10 Essential (primary) hypertension; K21.9 Gastro-esophageal reflux disease without esophagitis; W19.XXXA Unspecified fall, initial encounter; Z86.718 Personal history of other venous thrombosis and embolism; Z79.01 Long term (current) use of anticoagulants; G89.29 Other chronic pain; Z79.899 Other long term (current) drug therapy
CPT/HCPCS: 72131; 96372; 99283

== ENCOUNTER 2023-03-15 10:22 | Outpatient (RCR) | payer MEDICARE, OTHER, SELFPAY ==
[2023-03-15 10:44] LABS: INR Fingerstick 2.5; Prothrombin Time Fingerstick 27.2 SEC (11.7-14.9)
== END 2023-03-15 18:00 | disposition home or self-care (01) ==
LOC: LAB 10:22
PROVIDERS: Family Provider Family Medicine; PCP Internal Medicine; Referring Provider Internal Medicine; Visit Provider Internal Medicine
DX: Z79.01 Long term (current) use of anticoagulants (principal)
CPT/HCPCS: 36416; 85610

== ENCOUNTER 2023-04-14 10:45 | Outpatient (RCR) | payer MEDICARE, OTHER, SELFPAY ==
[2023-04-14 12:23] LABS: INR Fingerstick 2.5; Prothrombin Time Fingerstick 27.2 SEC (11.7-14.9)
== END 2023-04-14 18:00 | disposition home or self-care (01) ==
LOC: LAB 10:45
PROVIDERS: Family Provider Family Medicine; PCP Internal Medicine; Referring Provider Internal Medicine; Visit Provider Internal Medicine
DX: Z79.01 Long term (current) use of anticoagulants (principal)
CPT/HCPCS: 36416; 85610

== ENCOUNTER → 2023-05-01 | Outpatient (CLI) | payer MEDICARE, OTHER, SELFPAY ==
[2023-05-01 09:26] LABS: AST(SGOT) 17 U/L (15-37); Alanine Aminotransfer ALT/SGPT 34 U/L (16-61); Albumin, Serum 3.5 g/dL (3.2-5.0); Alkaline Phosphatase 59 U/L (45-117); Anion Gap 4 (5-15); BUN 16 mg/dL (7-18); BUN/Creat Ratio 12.8 RATIO (10-20); Calcium,Total 9.1 mg/dL (8.5-10.1); Chloride 105 mmol/L (98-107); Cholesterol 183 mg/dL (200); Creatinine, Serum 1.25 mg/dL (0.70-1.30); EST Glomerular Filtration Rate 61 mL/min (>60); Est Glom Filt Rate - Afr Amer 73 mL/min (>60); Globulin 3.4 g/dL (2.2-4.2); Glucose 163 mg/dL (74-106); High Density Lipoprotein 36 mg/dL; Protein, Total 6.9 g/dL (6.4-8.2); Sodium Level 139 mmol/L (136-145); Triglycerides 277 mg/dL; Very Low Density Lipoprotein 55 mg/dL (5-40)
[2023-05-01 20:48] LABS: Hemoglobin A1c 7.5 % (3.8-5.6)
== END | disposition home or self-care (01) ==
PROVIDERS: PCP Internal Medicine; Visit Provider Internal Medicine
DX: E78.5 Hyperlipidemia, unspecified (principal); E11.9 Type 2 diabetes mellitus without complications; E66.9 Obesity, unspecified; Z13.220 Encounter for screening for lipoid disorders
CPT/HCPCS: 36415; 80053; 80061; 83036

== ENCOUNTER 2023-05-14 13:16 | Outpatient (RCR) | payer MEDICARE, OTHER, SELFPAY ==
[2023-05-14 13:24] LABS: INR Fingerstick 3.1; Prothrombin Time Fingerstick 33.6 SEC (11.7-14.9)
== END 2023-06-12 18:00 | disposition home or self-care (01) ==
LOC: LAB 13:16
PROVIDERS: Family Provider Family Medicine; PCP Internal Medicine; Referring Provider Internal Medicine; Visit Provider Internal Medicine
DX: Z79.01 Long term (current) use of anticoagulants (principal)
CPT/HCPCS: 36416; 85610

== ENCOUNTER → 2023-05-15 | Outpatient (CLI) | payer MEDICARE, OTHER, SELFPAY ==
--- NOTE | 2023-05-15 18:06 | MRI_ITS ---
EXAM: MR LUMBAR SPINE WITHOUT INTRAVENOUS CONTRAST CLINICAL INDICATION: pain -- Spinal stenosis L4-L5, and L3-L4 TECHNIQUE: Multiplanar and multisequence MR images of the lumbar spine without intravenous contrast. COMPARISON: X-ray 04/25/2023. FINDINGS: VERTEBRAE: Unremarkable. Vertebral body heights are preserved. Normal vertebral bodies and posterior elements. Normal alignment. No spondylolisthesis. There is preservation of the normal lumbar lordosis. SPINAL CORD: Unremarkable. Normal position and signal intensity of the conus medullaris. SOFT TISSUES: Unremarkable. DISCS/SPINAL CANAL/NEURAL FORAMINA: T12-L1: Normal disc height and morphology. Normal bilateral facet joints. Normal central canal. Normal bilateral lateral recesses. Normal intervertebral neural foramina. L1-2: Normal disc height and morphology. Normal bilateral facet joints. Normal central canal. Normal bilateral lateral recesses. Normal intervertebral neural foramina. L2-3: Normal disc height and morphology. Facet hypertrophy. Normal central canal. Normal bilateral lateral recesses. Normal intervertebral neural foramina. L3-4: Disc dehydration and mild disc space narrowing. Severe concentric canal stenosis due to mild spondylotic bar, moderate facet and ligamentous hypertrophy. Severe right foraminal stenosis due to spurring and facet hypertrophy. L4-5: Mild disc space narrowing. 5 mm anterolisthesis. Marked facet hypertrophy. Normal central canal. Normal bilateral lateral recesses. Mild foraminal encroachment due to spurring and facet hypertrophy. L5-S1: Disc dehydration. Mild facet hypertrophy. No canal or foraminal stenosis. Moderate left foraminal stenosis due to spurring. MRI/Spine Lumbar (Routine) IMPRESSION: Severe L3-4 canal stenosis. Foraminal stenosis at L3-4 and L5-S1. Electronically Signed: Louann Conway MD at 23:25 EDT Reading Location ID and State: [id number] / Tel , Service support ,
== END | disposition home or self-care (01) ==
LOC: MRI 17:48
PROVIDERS: PCP Internal Medicine; Visit Provider Orthopaedic Surgery
DX: M48.061 Spinal stenosis, lumbar region without neurogenic claudication (principal); R52 Pain, unspecified
CPT/HCPCS: 72148

== ENCOUNTER 2023-06-14 07:22 | Outpatient (RCR) | payer MEDICARE, OTHER, SELFPAY ==
[2023-06-14 07:32] LABS: INR Fingerstick 2.3; Prothrombin Time Fingerstick 25.2 SEC (11.7-14.9)
== END 2023-07-13 18:00 | disposition home or self-care (01) ==
LOC: LAB 07:22
PROVIDERS: Family Provider Family Medicine; PCP Internal Medicine; Referring Provider Internal Medicine; Visit Provider Internal Medicine
DX: Z79.01 Long term (current) use of anticoagulants (principal)
CPT/HCPCS: 36416; 85610

== ENCOUNTER 2023-07-15 07:44 | Outpatient (RCR) | payer MEDICARE, OTHER, SELFPAY ==
[2023-07-15 07:56] LABS: Prothrombin Time Fingerstick 32.3 SEC (11.7-14.9)
== END 2023-07-15 18:00 | disposition home or self-care (01) ==
LOC: LAB 07:44
PROVIDERS: Family Provider Family Medicine; PCP Internal Medicine; Referring Provider Internal Medicine; Visit Provider Internal Medicine
DX: Z79.01 Long term (current) use of anticoagulants (principal)
CPT/HCPCS: 36416; 85610

== ENCOUNTER 2023-08-14 07:32 | Outpatient (RCR) | payer MEDICARE, OTHER, SELFPAY ==
[2023-08-14 07:40] LABS: INR Fingerstick 2.5; Prothrombin Time Fingerstick 25.9 SEC (11.7-14.9)
== END 2023-09-11 18:00 | disposition home or self-care (01) ==
LOC: LAB 07:32
PROVIDERS: Family Provider Family Medicine; PCP Internal Medicine; Referring Provider Internal Medicine; Visit Provider Internal Medicine
DX: Z79.01 Long term (current) use of anticoagulants (principal)
CPT/HCPCS: 36416; 85610

== ENCOUNTER 2023-09-12 08:12 | Outpatient (RCR) | payer MEDICARE, OTHER, SELFPAY ==
[2023-09-12 08:18] LABS: INR Fingerstick 2.7; Prothrombin Time Fingerstick 27.3 SEC (11.7-14.9)
== END 2023-10-12 01:07 | disposition home or self-care (01) ==
LOC: LAB 08:12
PROVIDERS: Family Provider Family Medicine; PCP Internal Medicine; Referring Provider Internal Medicine; Visit Provider Internal Medicine
DX: Z79.01 Long term (current) use of anticoagulants (principal)
CPT/HCPCS: 36416; 85610

== ENCOUNTER → 2023-09-26 | Outpatient (CLI) | payer MEDICARE, OTHER, SELFPAY ==
[2023-09-26 07:43] LABS: Absolute Lymphocyte Count 2.12 X10^3/uL (0.83-4.51); Absolute Neutrophil Count 3.5 X10^3/uL (2.0-7.7); Basophil# 0.05 X10^3/uL; Basophil% 0.8 % (0-1); Eosinophil# 0.18 X10^3/uL; Eosinophils% 2.7 % (0-5); Hematocrit 44.9 % (40-54); Lymphocyte # 2.12 X10^3/ul (0.83-4.51); Lymphocyte % 32.3 % (19-41); Mean Corp Hgb Conc 33.4 g/dL (32-36); Mean Corpuscular Hgb 27.6 pg (27.0-32.0); Mean Corpuscular Volume 82.5 fL (80-94); Mean Platelet Vol. 8.9 fl (6.2-12.0); Monocyte# 0.73 X10^3/uL; Monocyte% 11.1 % (0-10); NRBC Flagged by Analyzer 0 % (0-5); Neutrophil # 3.47 X10^3/uL (2.7-7.7); Neutrophil % 52.8 % (47-70); Platelet Count 306 K/mm3 (150-450); RBC Distribution Width CV 13.4 % (11.6-14.6); RBC Distribution Width SD 40.1 fl (35.1-43.9); Red Blood Count 5.44 M/mm3 (4.6-6.2); White Blood Count 6.6 K/mm3 (4.4-11.0)
[2023-09-26 08:22] LABS: ALB/GLOB Ratio 1.2 RATIO (0.9-2.4); AST(SGOT) 21 U/L (15-37); Alanine Aminotransfer ALT/SGPT 34 U/L (16-61); Albumin, Serum 3.8 g/dL (3.2-5.0); Alkaline Phosphatase 63 U/L (45-117); Anion Gap 6 (5-15); BUN 17 mg/dL (7-18); Chloride 103 mmol/L (98-107); Cholesterol 208 mg/dL (200); Creatinine, Serum 1.06 mg/dL (0.70-1.30); EST Glomerular Filtration Rate 73 mL/min (>60); Est Glom Filt Rate - Afr Amer 89 mL/min (>60); Globulin 3.3 g/dL (2.2-4.2); Glucose 180 mg/dL (74-106); High Density Lipoprotein 37 mg/dL; PSA,Total - Annual Screen 4.55 ng/mL (0.00-4.00); Potassium 3.8 mmol/L (3.5-5.1); Protein, Total 7.1 g/dL (6.4-8.2); Sodium Level 138 mmol/L (136-145); Thyroid Stim Hormone (TSH) 0.88 uIU/mL (0.358-3.74); Triglycerides 385 mg/dL; Very Low Density Lipoprotein 77 mg/dL (5-40)
[2023-09-26 08:23] LABS: Hemoglobin A1c 8.1 % (3.8-5.6); Vitamin D,25 Hydroxy 26.6 ng/mL
== END | disposition home or self-care (01) ==
LOC: LAB 07:00
PROVIDERS: PCP Internal Medicine; Referring Provider Internal Medicine; Visit Provider Internal Medicine
DX: Z13.220 Encounter for screening for lipoid disorders (principal); E11.9 Type 2 diabetes mellitus without complications; Z12.5 Encounter for screening for malignant neoplasm of prostate; E78.5 Hyperlipidemia, unspecified; E55.9 Vitamin D deficiency, unspecified; E66.9 Obesity, unspecified; M48.061 Spinal stenosis, lumbar region without neurogenic claudication; M17.12 Unilateral primary osteoarthritis, left knee
CPT/HCPCS: 36415; 80053; 80061; 82306; 83036; 84153; 84443; 85025; G0103

== ENCOUNTER 2023-10-13 14:49 | Outpatient (RCR) | payer MEDICARE, OTHER, SELFPAY ==
[2023-10-13 16:16] LABS: International Normalized Ratio 2.8; Prothrombin Time (Protime)PT. 29.4 SECONDS (11.7-14.9)
== END 2023-11-11 23:42 | disposition home or self-care (01) ==
LOC: LAB 14:49
PROVIDERS: Family Provider Family Medicine; PCP Internal Medicine; Referring Provider Internal Medicine; Visit Provider Internal Medicine
DX: Z79.01 Long term (current) use of anticoagulants (principal)
CPT/HCPCS: 36415; 85610

== ENCOUNTER 2023-11-26 07:49 | Outpatient (RCR) | payer MEDICARE, OTHER, SELFPAY ==
[2023-11-26 08:45] LABS: Absolute Lymphocyte Count 1.69 X10^3/uL (0.83-4.51); Absolute Neutrophil Count 5.2 X10^3/uL (2.0-7.7); Basophil# 0.04 X10^3/uL; Basophil% 0.5 % (0-1); Eosinophil# 0.09 X10^3/uL; Eosinophils% 1.2 % (0-5); Hematocrit 40.8 % (40-54); Lymphocyte # 1.69 X10^3/ul (0.83-4.51); Lymphocyte % 21.7 % (19-41); Mean Corp Hgb Conc 31.9 g/dL (32-36); Mean Corpuscular Hgb 26.8 pg (27.0-32.0); Mean Corpuscular Volume 84.1 fL (80-94); Mean Platelet Vol. 8.6 fl (6.2-12.0); NRBC Flagged by Analyzer 0 % (0-5); Neutrophil # 5.23 X10^3/uL (2.7-7.7); Platelet Count 460 K/mm3 (150-450); RBC Distribution Width CV 13.9 % (11.6-14.6); RBC Distribution Width SD 42.4 fl (35.1-43.9); Red Blood Count 4.85 M/mm3 (4.6-6.2); White Blood Count 7.8 K/mm3 (4.4-11.0)
[2023-11-26 09:11] LABS: Hemoglobin A1c 6.7 % (3.8-5.6)
[2023-11-26 09:18] LABS: AST(SGOT) 17 U/L (15-37); Alanine Aminotransfer ALT/SGPT 26 U/L (16-61); Albumin, Serum 3.5 g/dL (3.2-5.0); Alkaline Phosphatase 68 U/L (45-117); Anion Gap 5 (5-15); BUN 16 mg/dL (7-18); BUN/Creat Ratio 13.8 RATIO (10-20); Calcium,Total 9.1 mg/dL (8.5-10.1); Chloride 103 mmol/L (98-107); Cholesterol 175 mg/dL (200); Creatinine, Serum 1.16 mg/dL (0.70-1.30); EST Glomerular Filtration Rate 66 mL/min (>60); Est Glom Filt Rate - Afr Amer 80 mL/min (>60); Globulin 3.5 g/dL (2.2-4.2); Glucose 193 mg/dL (74-106); High Density Lipoprotein 37 mg/dL; Potassium 3.7 mmol/L (3.5-5.1); Sodium Level 135 mmol/L (136-145); Triglycerides 258 mg/dL; Very Low Density Lipoprotein 52 mg/dL (5-40)
[2023-11-26 11:18] LABS: International Normalized Ratio 2.1; Prothrombin Time (Protime)PT. 23.6 SECONDS (11.7-14.9)
== END 2023-12-09 18:00 | disposition home or self-care (01) ==
LOC: LAB 07:49
PROVIDERS: Family Provider Family Medicine; PCP Internal Medicine; Referring Provider Internal Medicine; Visit Provider Internal Medicine
DX: Z79.01 Long term (current) use of anticoagulants (principal); E11.9 Type 2 diabetes mellitus without complications; Z13.220 Encounter for screening for lipoid disorders; Z09 Encounter for follow-up examination after completed treatment for conditions other than malignant neoplasm; R73.9 Hyperglycemia, unspecified
CPT/HCPCS: 36415; 80053; 80061; 83036; 85025; 85610

== ENCOUNTER 2023-12-25 16:24 | Outpatient (RCR) | payer MEDICARE, OTHER, SELFPAY ==
[2023-12-25 17:31] LABS: International Normalized Ratio 2.5; Prothrombin Time (Protime)PT. 26.8 SECONDS (11.7-14.9)
== END 2023-12-25 18:00 | disposition home or self-care (01) ==
LOC: LAB 16:24
PROVIDERS: Family Provider Family Medicine; PCP Internal Medicine; Referring Provider Internal Medicine; Visit Provider Internal Medicine
DX: Z79.01 Long term (current) use of anticoagulants (principal)
CPT/HCPCS: 36415; 85610

== ENCOUNTER 2024-01-23 12:42 | Outpatient (RCR) | payer MEDICARE, OTHER, SELFPAY ==
[2024-01-23 12:56] LABS: INR Fingerstick 1.7; Prothrombin Time Fingerstick 18.2 SEC (11.7-14.9)
== END 2024-02-11 18:00 | disposition home or self-care (01) ==
LOC: LAB 12:42
PROVIDERS: Family Provider Family Medicine; PCP Internal Medicine; Referring Provider Internal Medicine; Visit Provider Internal Medicine
DX: Z79.01 Long term (current) use of anticoagulants (principal)
CPT/HCPCS: 36416; 85610

== ENCOUNTER 2024-02-24 08:23 | Outpatient (RCR) | payer MEDICARE, OTHER, SELFPAY ==
[2024-02-24 09:46] LABS: International Normalized Ratio 2.2; Prothrombin Time (Protime)PT. 24.1 SECONDS (11.7-14.9)
== END 2024-02-24 18:00 | disposition home or self-care (01) ==
LOC: LAB 08:23
PROVIDERS: Family Provider Family Medicine; PCP Internal Medicine; Referring Provider Internal Medicine; Visit Provider Internal Medicine
DX: Z79.01 Long term (current) use of anticoagulants (principal)
CPT/HCPCS: 36415; 85610

== ENCOUNTER 2024-03-30 15:19 | Outpatient (RCR) | payer MEDICARE, OTHER, SELFPAY ==
[2024-03-30 15:37] LABS: INR Fingerstick 1.4; Prothrombin Time Fingerstick 15.2 SEC (11.7-14.9)
[2024-03-30 16:06] LABS: International Normalized Ratio 2.2; Prothrombin Time (Protime)PT. 24.1 SECONDS (11.7-14.9)
== END 2024-03-30 18:00 | disposition home or self-care (01) ==
LOC: LAB 15:19
PROVIDERS: Family Provider Family Medicine; PCP Internal Medicine; Referring Provider Internal Medicine; Visit Provider Internal Medicine
DX: Z79.01 Long term (current) use of anticoagulants (principal)
CPT/HCPCS: 36415; 36416; 85610

== ENCOUNTER 2024-04-12 07:07 | Outpatient (CLI) | payer MEDICARE, OTHER, SELFPAY ==
[2024-04-12 07:47] LABS: International Normalized Ratio 2.3; Prothrombin Time (Protime)PT. 24.8 SECONDS (11.7-14.9)
== END 2024-04-12 23:59 | disposition home or self-care (01) ==
LOC: LAB 07:10
PROVIDERS: PCP Internal Medicine; Referring Provider Ophthalmology; Visit Provider Ophthalmology
DX: Z01.812 Encounter for preprocedural laboratory examination (principal); Z79.899 Other long term (current) drug therapy; Z79.01 Long term (current) use of anticoagulants
CPT/HCPCS: 36415; 85610

== ENCOUNTER 2024-04-23 07:04 | Outpatient (RCR) | payer MEDICARE, OTHER, SELFPAY ==
[2024-04-23 07:36] LABS: Absolute Lymphocyte Count 2.06 X10^3/uL (0.83-4.51); Absolute Neutrophil Count 2.9 X10^3/uL (2.0-7.7); Basophil# 0.05 X10^3/uL; Basophil% 0.8 % (0-1); Eosinophil# 0.17 X10^3/uL; Eosinophils% 2.8 % (0-5); Hemoglobin 14.8 g/dL (13.0-16.5); Lymphocyte # 2.06 X10^3/ul (0.83-4.51); Lymphocyte % 34.4 % (19-41); Mean Corp Hgb Conc 31.5 g/dL (32-36); Mean Corpuscular Volume 82.6 fL (80-94); Mean Platelet Vol. 9.4 fl (6.2-12.0); Monocyte# 0.75 X10^3/uL; Monocyte% 12.5 % (0-10); NRBC Flagged by Analyzer 0 % (0-5); Neutrophil # 2.93 X10^3/uL (2.7-7.7); Neutrophil % 49.2 % (47-70); Platelet Count 290 K/mm3 (150-450); RBC Distribution Width CV 14.9 % (11.6-14.6); Red Blood Count 5.69 M/mm3 (4.6-6.2)
[2024-04-23 07:59] LABS: International Normalized Ratio 2.1; Prothrombin Time (Protime)PT. 23.6 SECONDS (11.7-14.9)
[2024-04-23 08:01] LABS: ALB/GLOB Ratio 1.1 RATIO (0.9-2.4); AST(SGOT) 23 U/L (15-37); Alanine Aminotransfer ALT/SGPT 26 U/L (16-61); Albumin, Serum 3.6 g/dL (3.2-5.0); Alkaline Phosphatase 61 U/L (45-117); Anion Gap 6 (5-15); BUN 20 mg/dL (7-18); BUN/Creat Ratio 15.9 RATIO (10-20); Calcium,Total 9.3 mg/dL (8.5-10.1); Chloride 106 mmol/L (98-107); Cholesterol 189 mg/dL (200); Creatinine, Serum 1.26 mg/dL (0.70-1.30); EST Glomerular Filtration Rate 60 mL/min (>60); Est Glom Filt Rate - Afr Amer 73 mL/min (>60); Globulin 3.3 g/dL (2.2-4.2); Glucose 139 mg/dL (74-106); High Density Lipoprotein 39 mg/dL; Potassium 3.8 mmol/L (3.5-5.1); Protein, Total 6.9 g/dL (6.4-8.2); Sodium Level 139 mmol/L (136-145); Triglycerides 208 mg/dL; Very Low Density Lipoprotein 42 mg/dL (5-40)
[2024-04-23 08:37] LABS: Vitamin D,25 Hydroxy 31.3 ng/mL
[2024-04-23 09:06] LABS: Hemoglobin A1c 6.9 % (3.8-5.6)
== END 2024-04-23 18:00 | disposition home or self-care (01) ==
LOC: LAB 07:04
PROVIDERS: Family Provider Family Medicine; PCP Internal Medicine; Referring Provider Internal Medicine; Visit Provider Internal Medicine
DX: Z79.01 Long term (current) use of anticoagulants (principal); E78.5 Hyperlipidemia, unspecified; E66.9 Obesity, unspecified; M17.12 Unilateral primary osteoarthritis, left knee; E11.9 Type 2 diabetes mellitus without complications; R73.9 Hyperglycemia, unspecified; Z13.220 Encounter for screening for lipoid disorders; E55.9 Vitamin D deficiency, unspecified
CPT/HCPCS: 36415; 80053; 80061; 82306; 83036; 85025; 85610

== ENCOUNTER 2024-05-28 09:30 | Outpatient (RCR) | payer MEDICARE, OTHER, SELFPAY ==
[2024-05-28 09:39] LABS: INR Fingerstick 2.5; Prothrombin Time Fingerstick 26.9 SEC (11.7-14.9)
== END 2024-06-12 18:00 | disposition home or self-care (01) ==
LOC: LAB 09:30
PROVIDERS: Family Provider Family Medicine; PCP Internal Medicine; Referring Provider Internal Medicine; Visit Provider Internal Medicine
DX: Z79.01 Long term (current) use of anticoagulants (principal)

== ENCOUNTER 2024-06-28 09:11 | Outpatient (RCR) | payer MEDICARE, OTHER, SELFPAY ==
[2024-06-28 09:45] LABS: INR Fingerstick 3.4; Prothrombin Time Fingerstick 34.6 SEC (11.7-14.9)
== END 2024-06-28 18:00 | disposition home or self-care (01) ==
LOC: LAB 09:11
PROVIDERS: Family Provider Family Medicine; PCP Internal Medicine; Referring Provider Internal Medicine; Visit Provider Internal Medicine
DX: Z79.01 Long term (current) use of anticoagulants (principal)

== ENCOUNTER 2024-07-27 10:06 | Outpatient (RCR) | payer MEDICARE, OTHER, SELFPAY ==
[2024-07-27 10:17] LABS: INR Fingerstick 2.7; Prothrombin Time Fingerstick 28.5 SEC (11.7-14.9)
== END 2024-07-27 18:00 | disposition home or self-care (01) ==
LOC: LAB 10:06
PROVIDERS: Family Provider Family Medicine; PCP Internal Medicine; Referring Provider Internal Medicine; Visit Provider Internal Medicine
DX: Z79.01 Long term (current) use of anticoagulants (principal)
CPT/HCPCS: 36416; 85610

== ENCOUNTER 2024-08-27 10:40 | Outpatient (RCR) | payer MEDICARE, OTHER, SELFPAY ==
[2024-09-02 16:39] LABS: INR Fingerstick 2.7; Prothrombin Time Fingerstick 27.3 SEC (11.7-14.9)
== END 2024-09-10 18:00 | disposition home or self-care (01) ==
LOC: LAB 10:40
PROVIDERS: Family Provider Family Medicine; PCP Internal Medicine; Referring Provider Internal Medicine; Visit Provider Internal Medicine
DX: Z79.01 Long term (current) use of anticoagulants (principal)
CPT/HCPCS: 36416; 85610

== ENCOUNTER → 2024-10-07 | Outpatient (CLI) | payer MEDICARE, OTHER, SELFPAY ==
[2024-10-07 07:08] LABS: Absolute Lymphocyte Count 2.25 X10^3/uL (0.83-4.51); Absolute Neutrophil Count 3.5 X10^3/uL (2.0-7.7); Basophil# 0.04 X10^3/uL; Basophil% 0.6 % (0-1); Eosinophil# 0.16 X10^3/uL; Eosinophils% 2.3 % (0-5); Hematocrit 47.1 % (40-54); Hemoglobin 15.4 g/dL (13.0-16.5); Lymphocyte # 2.25 X10^3/ul (0.83-4.51); Lymphocyte % 32.9 % (19-41); Mean Corp Hgb Conc 32.7 g/dL (32-36); Mean Corpuscular Hgb 26.9 pg (27.0-32.0); Mean Corpuscular Volume 82.3 fL (80-94); Monocyte# 0.82 X10^3/uL; NRBC Flagged by Analyzer 0 % (0-5); Neutrophil # 3.54 X10^3/uL (2.7-7.7); Neutrophil % 51.9 % (47-70); Platelet Count 299 K/mm3 (150-450); RBC Distribution Width CV 13.9 % (11.6-14.6); RBC Distribution Width SD 41.5 fl (35.1-43.9); Red Blood Count 5.72 M/mm3 (4.6-6.2); White Blood Count 6.8 K/mm3 (4.4-11.0)
[2024-10-07 07:48] LABS: Cholesterol 221 mg/dL (<=200); High Density Lipoprotein 41 mg/dL; Low Density Lipoprotein Calc. 120 mg/dL; PSA,Total - Annual Screen 4.61 ng/mL (0.02-4.00); Triglycerides 300 mg/dL; Very Low Density Lipoprotein 60 mg/dL (5-40); Vitamin B12 756 pg/mL (180-914); Vitamin D,25 Hydroxy 28.5 ng/mL (30-100)
[2024-10-07 07:52] LABS: ALB/GLOB Ratio 1.7 RATIO (0.9-2.4); AST(SGOT) 21 U/L (<=37); Alanine Aminotransfer ALT/SGPT 23 U/L (<=46); Albumin, Serum 4.3 g/dL (3.4-4.8); Alkaline Phosphatase 64 U/L (40-129); Anion Gap 12 (5-15); BUN 19 mg/dL (4-19); BUN/Creat Ratio 16.3 RATIO (10-20); Calcium,Total 9.5 mg/dL (7.6-11.0); Carbon Dioxide 25.5 mmol/L (21.0-32.0); Chloride 101 mmol/L (98-108); Creatinine, Serum 1.17 mg/dL (0.70-1.20); EST Glomerular Filtration Rate 67 (>60); Globulin 2.5 g/dL (2.2-4.2); Glucose 151 mg/dL (70-99); Potassium 4.1 mmol/L (3.3-5.1); Protein, Total 6.8 g/dL (5.9-8.4); Sodium Level 138 mmol/L (133-145); Total Bilirubin 0.39 mg/dL (0.00-1.30)
[2024-10-07 08:06] LABS: Hemoglobin A1c 7.9 % (<=5.6)
== END | disposition home or self-care (01) ==
LOC: LAB 06:11
PROVIDERS: PCP Internal Medicine; Referring Provider Internal Medicine; Visit Provider Internal Medicine
DX: E11.65 Type 2 diabetes mellitus with hyperglycemia (principal); E66.9 Obesity, unspecified; E78.5 Hyperlipidemia, unspecified; E55.9 Vitamin D deficiency, unspecified; Z79.01 Long term (current) use of anticoagulants; Z12.5 Encounter for screening for malignant neoplasm of prostate
CPT/HCPCS: 36415; 80053; 80061; 82306; 82607; 83036; 84153; 84443; 85025; G0103

== ENCOUNTER 2024-10-26 09:03 | Outpatient (RCR) | payer MEDICARE, OTHER, SELFPAY ==
[2024-10-26 09:28] LABS: INR Fingerstick 2.3; Prothrombin Time Fingerstick 24.8 SEC (11.7-14.9)
== END 2024-11-10 18:00 | disposition home or self-care (01) ==
LOC: LAB 09:03
PROVIDERS: Family Provider Family Medicine; PCP Internal Medicine; Referring Provider Internal Medicine; Visit Provider Internal Medicine
DX: Z79.01 Long term (current) use of anticoagulants (principal)
CPT/HCPCS: 36416; 85610

== ENCOUNTER 2024-11-25 07:32 | Outpatient (RCR) | payer MEDICARE, OTHER, SELFPAY ==
[2024-11-25 08:00] LABS: Prothrombin Time Fingerstick 22.1 SEC (11.7-14.9)
== END 2024-11-25 18:00 | disposition home or self-care (01) ==
LOC: LAB 07:32
PROVIDERS: Family Provider Family Medicine; PCP Internal Medicine; Referring Provider Internal Medicine; Visit Provider Internal Medicine
DX: Z79.01 Long term (current) use of anticoagulants (principal)
CPT/HCPCS: 36416; 85610

== ENCOUNTER 2024-12-23 06:14 | Outpatient (RCR) | payer MEDICARE, OTHER, SELFPAY ==
[2024-12-23 06:26] LABS: INR Fingerstick 2.3; Prothrombin Time Fingerstick 25.3 SEC (11.7-14.9)
== END 2024-12-23 18:00 | disposition home or self-care (01) ==
LOC: LAB 06:14
PROVIDERS: Family Provider Family Medicine; PCP Internal Medicine; Referring Provider Internal Medicine; Visit Provider Internal Medicine
DX: Z79.01 Long term (current) use of anticoagulants (principal)
CPT/HCPCS: 36416; 85610

== ENCOUNTER 2025-01-25 08:57 | Outpatient (RCR) | payer MEDICARE, OTHER, SELFPAY ==
[2025-01-25 09:04] LABS: INR Fingerstick 2.3
== END 2025-02-10 21:26 | disposition home or self-care (01) ==
LOC: LAB 08:57
PROVIDERS: Family Provider Family Medicine; PCP Internal Medicine; Referring Provider Internal Medicine; Visit Provider Internal Medicine
DX: Z79.01 Long term (current) use of anticoagulants (principal)
CPT/HCPCS: 36416; 85610

== ENCOUNTER 2025-02-24 12:30 | Outpatient (RCR) | payer MEDICARE, OTHER, SELFPAY ==
[2025-02-24 12:39] LABS: INR Fingerstick 2.3
== END 2025-02-24 18:00 | disposition home or self-care (01) ==
LOC: LAB 12:30
PROVIDERS: Family Provider Family Medicine; PCP Internal Medicine; Referring Provider Internal Medicine; Visit Provider Internal Medicine
DX: Z79.01 Long term (current) use of anticoagulants (principal)
CPT/HCPCS: 36416; 85610

== ENCOUNTER → 2025-02-24 | Outpatient (CLI) | payer MEDICARE, OTHER, SELFPAY ==
--- NOTE | 2025-02-24 12:43 | VDLE_ITS ---
Reason For Study Reason For Study: Pain RIGHT LEFT CFV is compressible, spontaneous, phasic, competent GSV is normal. and demonstrates normal augmentation. CFV is compressible, spontaneous, phasic, competent, Procedure and demonstrates normal augmentation. This is a venous duplex using B-mode, color flow and FV is compressible, spontaneous, phasic, competent spectral Doppler. and demonstrates normal augmentation. Exam performed in department. POP V is compressible, spontaneous, phasic, competent and demonstrates normal augmentation. T/P Trunk is compressible. PTV is compressible. LT PerV is compressible. VL/Venous Duplex US, Unilateral Interpretation Summary Deep veins of the left lower extremity are patent and compressible segmentally. There is no evidence of left lower extremity deep vein thrombosis. The left great saphenous vein appears patent an d compressible segmentally. Ordering Physician: Rasheeda Roberto Referring Physician: Rasheeda Roberto Performed By: Viky Mendiola RVT
== END | disposition home or self-care (01) ==
LOC: CVS 12:29
PROVIDERS: PCP Internal Medicine; Referring Provider Internal Medicine; Visit Provider Internal Medicine
DX: M79.89 Other specified soft tissue disorders (principal); I82.409 Acute embolism and thrombosis of unspecified deep veins of unspecified lower extremity; I70.92 Chronic total occlusion of artery of the extremities
CPT/HCPCS: 93971

== ENCOUNTER 2025-04-01 07:09 | Outpatient (RCR) | payer MEDICARE, OTHER, SELFPAY ==
[2025-04-01 07:17] LABS: INR Fingerstick 2.4
== END 2025-04-12 18:00 | disposition home or self-care (01) ==
LOC: LAB 07:09
PROVIDERS: Family Provider Family Medicine; PCP Internal Medicine; Referring Provider Internal Medicine; Visit Provider Internal Medicine
DX: Z79.01 Long term (current) use of anticoagulants (principal)
CPT/HCPCS: 36416; 85610

== ENCOUNTER → 2025-04-08 | Outpatient (CLI) | payer MEDICARE, OTHER, SELFPAY ==
--- OUTSIDE RECORDS SUMMARY | 2025-04-08 06:16 | XMS RPT_ITS | CCD ---
Author Organization [facility] Care Team Providers Care Travel Agency Manager Name Role Phone Dr. Genesis Damon Primary Care Provider Dr. Genesis Damon Attending Provider [phone] Dr. Genesis Damon Referring Provider [phone] WATSON Morales Attending Provider [phone] Dr. Omid Ahumada Attending Provider Dr. Demetrio Boles Attending Provider Dr. Otis Pruett Referring Provider Dr. Genesis Damon Primary Care Provider Dr. Genesis Damon Referring Provider [phone] Dr. Genesis Damon Attending Provider [phone] Dr. Genesis Damon Primary Care Provider Dr. Genesis Damon Referring Provider [phone] WATSON Morales Attending Provider [phone] Dr. Genesis Damon Attending Provider [phone] Dr. Genesis Damon Primary Care Provider Dr. Genesis Damon Referring Provider [phone] WATSON Morales Attending Provider [phone] Dr. Genesis Damon Primary Care Provider Dr. Genesis Damon Attending Provider [phone] Dr. Genesis Damon Referring Provider [phone] WATSON Morales Attending Provider [phone] Dr. Genesis Damon Primary Care Provider Dr. Genesis Damon Attending Provider [phone] Dr. Genesis Damon Referring Provider [phone] Wayt PA, PA Satish Primary Care Provider Wayt PA, PA Satish Referring Provider [phone] Dr[address] Attending Provider [phone] Dr. Genesis Damon Primary Care Provider Dr. Genesis Damon Referring Provider [phone] Wayt PA, PA Satish Attending Provider [phone] Wayt PA, PA Satish Primary Care Provider Wayt PA, PA Satish Referring Provider [phone] Attending Provider [phone] Referring Provider [phone] Other Provider [phone] Dr. Genesis Damon Attending Provider [phone] Wayt PA, PA Satish Primary Care Provider Wayt PA, PA Satish Referring Provider [phone] Dr. Jose Eduardo Lane Attending Provider [phone] Dr. Genesis Damon Primary Care Provider Wayt PA, PA Satish Attending Provider [phone] Dr. Genesis Damon Referring Provider [phone] Dr. Genesis Damon Primary Care Provider Dr. Genesis Damon Referring Provider [phone] Dr. Jose Eduardo Lane Attending Provider [phone] Dr. Genesis Damon Primary Care Provider Dr. Genesis Damon Attending Provider Dr. Genesis Damon Referring Provider Dr. Jose Eduardo Lane Attending Provider [phone] WATSON Morales Attending Provider Dr. Omid Ahumada Attending Provider Dr. Genesis Damon Primary Care Provider Dr. Genesis Damon Attending Provider Dr. Cesario Perez Attending Provider Dr. Genesis Damon Primary Care Provider Dr. Genesis Damon Referring Provider Dr. Jose Eduardo Lane Attending Provider WATSON Morales Attending Provider Dr. Omid Ahumada Attending Provider [phone] Genesis Damon Attending Provider Dr. Cesario Perez Attending Provider Dr. Genesis Damon Primary Care Provider Dr. Genesis Damon Referring Provider Dr. Genesis Damon Primary Care Provider Dr. Genesis Damon Referring Provider Dr. Cesario Perez Attending Provider Dr. Genesis Damon Attending Provider Dr. Genesis Damon Primary Care Provider Dr. Genesis Damon Attending Provider Dr. Genesis Damon Primary Care Provider Dr. Genesis Damon Attending Provider Seble GARCIA, Dr. Berg Family Provider Felisa GARCIA, Dr. Vanessa Primary Care Provider Felisa GARCIA, Dr. Vanessa Attending Provider Felisa GARCIA, Dr. Vanessa Referring Provider Gab GARCIA, Dr. Bower Other Provider Genesis Damon MD Primary Care Provider FELISA, GENESIS M Referring Unavailable GENESIS DAMON Primary Care Unavailable GENESIS DAMON Admitting Unavailable INDERDORYSE Attending Unavail able GENESIS DAMON Primary Care Unavailable SYSTEM, PROVIDER NOT IN Referring Unavaila ble SYSTEM, PROVIDER NOT IN Attending Unavaila ble Seble GARCIA, Dr. Berg Family Provider Felisa GARCIA, Dr. Vanessa Primary Care Provider Felisa GARCIA, Dr. Vanessa Attending Provider Felisa GARCIA, Dr. Vanessa Referring Provider Gab GARCIA, Dr. Bower Other Provider Brandyn GARCIA, Dr. Anne Attending Provider Seble GARCIA, Dr. Berg Family Provider Felisa GARCIA, Dr. Vanessa Primary Care Provider Felisa GARCIA, Dr. Vanessa Attending Provider Felisa GARCIA, Dr. Vanessa Referring Provider Gab GARCIA, Dr. Bower Other Provider Felisa GARCIA, Dr. Vanessa Primary Care Provider Felisa GARCIA, Dr. Vanessa Attending Provider Seble GARCIA, Dr. Berg Family Provider Felisa GARCIA, Dr. Vanessa Referring Provider Gab GARCIA, Dr. Bower Other Provider Seble GARCIA, Dr. Berg Family Provider Felisa GARCIA, Dr. Vanessa Primary Care Provider Felisa GARCIA, Dr. Vanessa Attending Provider Felisa GARCIA, Dr. Vanessa Referring Provider Gab GARCIA, Dr. Bower Other Provider Maliha GARCIA, Dr. Rea Attending Provider [phone] Genesis Damon Attending Unavailable Felisa, Genesis Primary Care Unavailable Felisa, Genesis Referring Unavailable Sir De Guzmaneesha Consulting Unavailable Felisa, Genesis Attending Unavailable Felisa, Genesis Referring Unavailable Felisa, Genesis Primary Care Unavailable Gab, Cheli Consulting Unavailable Felisa, Genesis Referring Unavailable Felisa, Genesis Primary Care Unavailable Gab, Cheli Consulting Unavailable Felisa, Genesis Attending Unavailable Felisa, Genesis Attending Unavailable Felisa, Genesis Primary Care Unavailable Felisa, Genesis Referring Unavailable Gab, Cheli Consulting Unavailable Felisa, Genesis Primary Care Unavailable Felisa, Genesis Referring Unavailable Felisa, Genesis Attending Unavailable Felisa, Genesis Referring Unavailable Felisa, Genesis Primary Care Unavailable Gab, Cheli Consulting Unavailable Felisa, Genesis Attending Unavailable Felisa, Genesis Attending Unavailable Felisa, Genesis Referring Unavailable Felisa, Genesis Primary Care Unavailable Gab, Cheli Consulting Unavailable Felisa, Genesis Attending Unavailable Felisa, Genesis Referring Unavailable Felisa, Genesis Primary Care Unavailable Sir De Guzmaneesha Consulting Unavailable Felisa, Genesis Referring Unavailable Felisa, Genesis Primary Care Unavailable Felisa, Genesis Attending Unavailable Gab, Cheli Consulting Unavailable Felisa, Genesis Primary Care Unavailable Felisa, Genesis Attending Unavailable Felisa, Genesis Primary Care Unavailable Gab, Cheli Referring Unavailable Gab, Cheli Attending Unavailable Felisa, Genesis Primary Care Unavailable Felisa, Genesis Referring Unavailable Felisa, Genesis Attending Unavailable Sir De Guzmaneesha Consulting Unavailable Felisa, Genesis Attending Unavailable Felisa, Genesis Referring Unavailable Felisa, Genesis Primary Care Unavailable Felisa, Genesis Primary Care Unavailable Felisa, Genesis Referring Unavailable Felisa, Genesis Attending Unavailable Gab, Cheli Consulting Unavailable Felisa, Genesis Primary Care Unavailable Felisa, Genesis Referring Unavailable Felisa, Genesis Attending Unavailable Gab Cheli Consulting Unavailable Álvaro Jett Attending Unavailable Felisa, Genesis Primary Care Unavailable Felisa, Genesis Referring Unavailable Felisa, Genesis Primary Care Unavailable Felisa, Genesis Attending Unavailable Felisa, Genesis Primary Care Unavailable Omid Ahumada Attending Unavailable Felisa, Genesis Primary Care Unavailable Felisa, Genesis Referring Unavailable Genesis Damon Attending Unavailable Cheli De Guzman Consulting Unavailable Medications Current Medications Medication Drug Class(es) Dates Sig (Normalized) Sig (Original) cholecalciferol 0.05 mg oral capsule (20 sources) Vitamin D Start: 06-06-2021 take 1 capsule by mouth once daily Cholecalciferol (Vitamin D3) 50 mcg (2,000 unit) capsule Active 50 ug PO DAILY June 06, 2021 1:00am cholecalciferol, vitamin D3, (Vitamin D3) 50 mcg (2,000 unit) Tab Vitamin D3 Active dapagliflozin 5 mg oral tablet (18 sources) Sodium-Glucose Cotransporter 2 Inhibitor Start: 09-24-2023 End: 09-23-2024 take 1 tablet by mouth once daily Dapagliflozin Propanediol (Farxiga) 5 mg tablet Active 5 mg PO DAILY 90 3 September 23, 2024 3:55pm metFORMIN hydrochloride 500 mg oral tablet (20 sources) Biguanide Start: 06-26-2023 End: 06-21-2024 Metformin 500 mg tablet Active 500 mg PO .COMPLEX 270 3 June 21, 2024 11:39am 1000 mg oral each morning and 500 mg at supper. Start: 06-26-2023 Metformin Acti ve 500 MG PO .COMPLEX 270 June 26, 2023 12:51pm 1000 mg oral each morning and 500 mg at supper. Start: 01-11-2022 End: 06-26-2023 take 1 tablet by mouth twice daily Metformin 500 mg tablet Discontinued 500 mg PO TWICE A DAY 180 3 December 26, 2022 9:31am June 26, 2023 12:52pm Start: 06-06-2021 End: 01-11-2022 take 1 tablet by mouth once daily Metformin 500 mg tablet Discontinued 500 mg PO DAILY 90 October 24, 2021 3:11pm January 11, 2022 3:57pm Multivitamin (Daily Multi-Vitamin) tablet (20 sources) Start: 06-06-2021 take 1 tablet by mouth once daily Multivitamin (Daily Multi-Vitamin) tablet Active 1 TABLET PO DAILY June 06, 2021 11:51am Start: 06-06-2021 Multivitamin ( Daily Multi-Vitamin) tablet Active 1 {tbl} PO DAILY June 06, 2021 1:00am Start: 06-06-2021 take 1 tablet by cristian th once daily Multivitamin (Daily Multi-Vitamin) tablet Active 1 TABLET PO DAILY June 06, 2021 12:00am Start: 06-06-2021 take 1 tablet by cristian th once daily Multivitamin (Daily Multi-Vitamin) tablet Active 1 TABLET PO DAILY June 06, 2021 1:00am pantoprazole 40 mg delayed release oral tablet (5 sources) Proton Pump Inhibitor Start: 01-12-2022 take 1 tablet by mouth once daily Pantoprazole (Protonix) 40 mg tablet,delayed release (DR/EC) Active 40 MG PO DAILY January 12, 2022 12:00am warfarin sodium 2 mg oral tablet (20 sources) Vitamin K Antagonist Start: 09-23-2024 Warfarin (Jantoven) 1 mg tablet Active 1 mg PO FR 30 September 23, 2024 3:55pm Start: 10-19-2021 End: 09-23-2024 Warfarin (Jantoven) 1 mg tab let Discontinued 1 mg PO FR 30 July 17, 2022 1:18pm June 26, 2023 1:06pm WILL STOP ON 05/23 Start: 04-27-2018 End: 10-19-2021 Warfarin (Jantoven) 1 mg tab let Discontinued 1 mg PO [facility] June 06, 2021 11:51am October 19, 2021 1:31pm Start: 04-27-2018 End: 02-15-2025 Warfarin (Jantoven) 2 mg tab let Discontinued 2 mg PO SUMOTUWETHSA 90 3 January 06, 2024 12:03pm February 15, 2025 11:54am take 1 tablet by mouth once warf heidi (COUMADIN) 2 MG tablet Take one tablet by mouth every friday, friday, friday, friday, and friday Active Completed/Discontinued Medications Medication Drug Class(es) Dates Sig (Normalized) Sig (Original) acetaminophen 325 mg / oxyCODONE hydrochloride 5 mg oral tablet (17 sources) Opioid Agonist Start: 03-13-20 End: 04-03-20 Oxycodone-Acetaminophe n (Percocet) 5-325 mg tablet Discontinued 1 {tbl} PO Q8H as needed for pain 10 3 0 March 13, 2023 April 03, 2023 1:52pm Acute myofascial strain of lumbar region Strain of muscle, fascia and tendon of lower back, initial encounter amLODIPine 10 mg oral tablet (20 sources) Dihydropyridine Calcium Channel Neris Start: 04-27-20 End: 12-11-19 take 1 tablet by mouth once daily Amlodipine (Norvasc) 10 mg tablet Discontinued 10 mg PO DAILY December 09, 2023 4:35pm December 10, 2024 11:14am empagliflozin 10 mg oral tablet (18 sources) Sodium-Glucose Cotransporter 2 Inhibitor Start: 01-08-20 End: 04-03-20 23 take 1 tablet by mouth once daily Empagliflozin (Jardiance) 10 mg tablet Discontinued 10 mg PO DAILY January 07, 2023 12:00am April 03, 2023 1:52pm hydroCHLOROthiazide 25 mg oral tablet (20 sources) Thiazide Diuretic Start: 04-27-20 End: 10-15-19 take 1 tablet by mouth once daily Hydrochlorothiazide 25 mg tablet Discontinued 25 mg PO DAILY October 14, 2023 3:10pm October 14, 2024 12:12pm latanoprost 0.05 mg/ml ophthalmic solution (12 sources) Prostaglandin Analog Start: 06-26-20 End: 10-15-19 Latanoprost 0.005 % drops Discontinued 1 NMA OPHTHALMIC EVERY EVENING June 26, 2023 1:00am October 14, 2024 9:57am lisinopril 40 mg oral tablet (20 sources) Angiotensin Converting Enzyme Inhibitor Start: 04-27-20 End: 10-15-19 take 1 tablet by mouth once daily Lisinopril (Zestril) 40 mg tablet Discontinued 40 mg PO DAILY October 14, 2023 3:10pm October 14, 2024 12:12pm methylPREDNISolone 4 mg oral tablet (20 sources) Corticosteroid Start: 10-12-19 End: 10-26-19 take 1 tablet by mouth once daily Methylprednisolone (Medrol (Jalen)) 4 mg tablets,dose pack Discontinued 4 mg PO DAILY October 11, 2021 12:00am October 25, 2021 1:26pm one tab PO as directed. oxyCODONE hydrochloride 5 mg oral tablet (20 sources) Opioid Agonist Start: 05-31-20 End: 12-02-20 22 take 5-10 mg by mouth every four hours as needed for pain Oxycodone 5 mg tablet Discontinued 5 - 10 mg PO Q4H as needed for pain 30 5 0 May 31, 2022 June 14, 2022 11:08am Other acute postprocedural pain Other acute postprocedural pain predniSONE 10 mg oral tablet (20 sources) Start: 01-13-20 End: 05-06-20 Prednisone 10 mg tablet Discontinued 60 mg PO DAILY 30 5 0 January 12, 2022 12:00am May 06, 2022 11:16am Start: 01-12-2022 End: 05-06-2022 take 60 mg by mouth once daily Prednisone Discontinued 60 MG PO DAILY 30 5 January 12, 2022 12:00am May 06, 2022 11:16am Problems Active Problems Problem Classification Problem Date Documented Da te Episodic/Chronic Abdominal pain (20 sources) Abdominal pain; Translations: [Unspecified abdominal pain] Episodic Comment on above: October 22, 2021I now have a copy from a colonoscopy performed by Dr. Reji Keys August 24, 2015. This was an incomplete colonoscopy. States that Dr Keys was able to get the scope across the transverse colon. Because of redundancy of the left colon the scope could not be advanced past the hepatic flexure. That would suggest that the hepatic flexure and entire ascending colon was not visualized.As noted in my documentation we will be awaiting a CT scan.Demetrio Boles M.D., F.A.C.S. Calculus of urinary tract (20 sources) Kidney stone; Translations: [Calculus of kidney] 10-29-2021 Episodic Crushing injury or internal injury (20 sources) Injury of greater saphenous vein at lower leg level; Translations: [Unspecified injury of greater saphenous vein at lower leg level, left leg, initial encounter] 06-06-2021 Episodic Diabetes mellitus without complication (20 sources) Diabetes mellitus; Translations: [Type 2 diabetes mellitus without complications] Onset: 10-12-2024 Chronic Comment on above: type 2 Disorders of lipid metabolism (20 sources) Hyperlipidemia; Translations: [Hyperlipidemia, unspecified] Onset: 05-13-2024 Chronic E Codes: Fall (17 sources) Fall; Translations: [Unspecified fall, initial encounter] 03-13-2023 Episodic Essential hypertension (20 sources) Essential hypertension; Translations: [Essential (primary) hypertension] 12-10-2021 Chronic Immunizations and screening for infectious disease (20 sources) Contact with and (suspected) exposure to other viral communicable diseases; Translations: [Contact with or suspected exposure to other viral communicable disease] 04-03-2021 Episodic Joint disorders and dislocations; trauma-related (20 sources) Derangement of left knee; Translations: [Unspecified internal derangement of left knee] Onset: 10-14-2024 Chronic Joint disorders and dislocations; trauma-related (20 sources) Tear of meniscus of knee; Translations: [Unspecified tear of unspecified meniscus, current injury, left knee, initial encounter] Episodic Nutritional deficiencies (1 source) Vitamin D deficiency, unspecified; Translations: [Vitamin D deficiency, unspecified] Onset: 05-13-2024 Chronic Osteoarthritis (20 sources) Osteoarthritis of left knee joint; Translations: [Unilateral primary osteoarthritis, left knee] Onset: 05-13-2024 Chronic Other aftercare (20 sources) Long-term current use of anticoagulant; 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] 12-20-2021 Episodic Other aftercare (20 sources) Follow-up status; Translations: [Encounter for other orthopedic aftercare] 07-12-2022 Episodic Other aftercare (20 sources) Surgical follow-up; Translations: [Encounter for follow-up examination after completed treatment for conditions other than malignant neoplasm] 06-14-2022 Episodic Other aftercare (2 sources) Encounter for follow-up examination after completed treatment for conditions other than malignant neoplasm; Translations: [Follow-up examination, following surgery, unspecified] Episodic Other aftercare (2 sources) Encounter for other orthopedic aftercare; Translations: [Unspecified orthopedic aftercare] Episodic Other and unspecified benign neoplasm (20 sources) History of polyp of colon; Translations: [Personal history of colonic polyps] 06-18-2021 Episodic Other connective tissue disease (1 source) Presence of left artificial knee joint; Translations: [Presence of left artificial knee joint] Onset: 10-14-2024 Chronic Other connective tissue disease (20 sources) Swelling of left lower limb; Translations: [Other specified soft tissue disorders] 06-06-2021 Episodic Other connective tissue disease (20 sources) Iliotibial band friction syndrome; Translations: [Iliotibial band syndrome, unspecified leg] 10-10-2021 Episodic Other connective tissue disease (8 sources) Iliotibial band syndrome, unspecified leg; Translations: [Other disorders of muscle, ligament, and fascia] Episodic Other connective tissue disease (1 source) Other specified soft tissue disorders; Translations: [Other specified soft tissue disorders] Onset: 03-03-2025 Episodic Other ear and sense organ disorders (20 sources) Sudden hearing loss; Translations: [Unspecified hearing loss, left ear] 01-24-2022 Chronic Other ear and sense organ disorders (5 sources) Unspecified hearing loss, left ear; Translations: [Unspecified hearing loss] Chronic Other injuries and conditions due to external causes (20 sources) Injury of knee; Translations: [Unspecified injury of left lower leg, initial encounter] 10-26-2021 Episodic Other injuries and conditions due to external causes (9 sources) Unspecified injury of left lower leg, initial encounter; Translations: [Knee, leg, ankle, and foot injury] Episodic Other injuries and conditions due to external causes (20 sources) Hematoma; Translations: [Other injury of unspecified body region, initial encounter] 12-18-2021 Episodic Other injuries and conditions due to external causes (15 sources) Injury of left knee; Translations: [Unspecified injury of left lower leg, initial encounter] 10-26-2021 Episodic Other male genital disorders (10 sources) Adult hydrocele; Translations: [Hydrocele, unspecified] 09-24-2023 Episodic Other male genital disorders (3 sources) Hydrocele, unspecified; Translations: [Hydrocele, unspecified] 09-24-2023 Episodic Other nervous system disorders (20 sources) Acute postoperative pain; Translations: [Other acute postprocedural pain] 05-31-2022 Episodic Other non-traumatic joint disorders (16 sources) Hip pain; Translations: [Pain in left hip] 04-03-2023 Episodic Other non-traumatic joint disorders (2 sources) Knee pain Episodic Other nutritional; endocrine; and metabolic disorders (20 sources) Body mass index 30+ - obesity; Translations: [Obesity, unspecified] 06-12-2022 Chronic Other nutritional; endocrine; and metabolic disorders (20 sources) Obesity, unspecified; Translations: [Obesity, unspecified] Onset: 05-13-2024 Chronic Phlebitis; thrombophlebitis and thromboembolism (20 sources) Deep venous thrombosis; Translations: [Acute embolism and thrombosis of unspecified deep veins of unspecified lower extremity] Episodic Comment on above: history of-on coumad in Residual codes; unclassified (20 sources) Generalized aches and pains; Translations: [Pain, unspecified] 04-03-2021 Episodic Spondylosis; intervertebral disc disorders; other back problems (20 sources) Sacroiliac disorder; Translations: [Sacrococcygeal disorders, not elsewhere classified] 04-03-2023 Episodic Sprains and strains (17 sources) Lower back injury; Translations: [Strain of muscle, fascia and tendon of lower back, initial encounter] 03-13-2023 Episodic Superficial injury; contusion (20 sources) Abrasion of genitalia; Translations: [Abrasion of scrotum and testes, initial encounter] Episodic Unclassified (1 source) Left knee pain, unspecified chronicity 10-18-2024 Unclassified (3 sources) M25.562 - Pain in left knee,M23.92 - Unspecified internal derangement of left knee,Z98.890 - Other specified postprocedural states,Z96.652 - Presence of left artificial knee joint Unclassified (2 sources) History of arthroscopic knee surgery Unclassified (2 sources) History of left knee replacement Varicose veins of lower extremity (2 sources) Asymptomatic varicose veins of left lower extremity; Translations: [Varicose veins of left calf] 02-28-2025 Episodic Past or Other Problems Problem Classification Problem Date Documented Date Episodic/Chronic Diabetes mellitus without complication (1 source) Hyperglycemia, unspecified; Translations: [Hyperglycemia, unspecified] Onset: 05-13-2024 Episodic Other aftercare (20 sources) retirement (current) use of anticoagulants; Translations: [Long-term (current) use of anticoagulants] Onset: 05-13-2024 Episodic Other non-traumatic joint disorders (20 sources) Pain in left knee; Translations: [Pain in lateral portion of left knee] Onset: 10-15-2024 Episodic Other screening for suspected conditions (not mental disorders or infectious disease) (20 sources) Patient encounter status; Translations: [Encounter for screening for malignant neoplasm of colon] Onset: 10-31-2024 11-30-2022 Episodic Residual codes; unclassified (1 source) Other specified postprocedural states; Translations: [Other specified postprocedural states] Onset: 10-14-2024 Episodic Results Test Name Value Interpretation Reference Range Facility Protime w/INR Fingerstickon 04-01-2025 INR Coag (PPP) [Relative time] 2.4 {INR} Normal [facility] Comment on above: Result Comment: Crit ical Value > 4.0 Performed By: #### L [id number] #### [facility] [address] [place], [place], [id number] Protime [place] 25.5 SEC High 11.7-14.9 [facility] Comment on above: Performed By: #### [id number] #### [facility] [address] [place], [place], [id number] International normalized rat io (INR) measurement by fingerstickOrdered By: Genesis Damon on 02-24-2025 INR Coag (BldC) [Relative time] 2.3 [facility] Comment on above: Critical Value > 4.0 Protime w/INR Fingerstickon 02-24-2025 INR Coag (PPP) [Relative time] 2.3 {INR} Normal [facility] Comment on above: Result Comment: Crit ical Value > 4.0 Performed By: #### [id number] #### [facility] [address] [place], [place], [id number] Protime [place] 24.5 SEC High 11.7-14.9 [facility] Comment on above: Performed By: #### [id number] #### [facility] [address] [place], [address] Venous Duplex US, Unilateral on 02-24-2025 Venous Duplex US, Unilateral [facility] [address] [place] [address] Venous Duplex US, Unilateral 02/24/25 1255 MR#: [id number] Acct: [id number] Name: YARIEL WATKINS Rep #: [id number] : [id number] From: Álvaro Jett MD Attending Dr: Dr. Genesis Damon MD Status: RE G CLI Ordering Dr: Genesis Damon MD Date: 02/24/25 Location: [facility] Sex: M C Admitted: Reason For Study Reason For Study: Pain RIGHT LEFT CFV is compressible, spontaneous, phasic, competent GSV is normal. and demonstrates normal augmentation. CFV is compressible, spontaneous, phasic, competent, Procedure and demonstrates normal augmentation. This is a venous duplex using B-mode, color flow and FV is compressible, spontaneous, phasic, competent spectral Doppler. and demonstrates normal augmentation. Exam performed in department. POP V is compressible, spontaneous, phasic, competent and demonstrates normal augmentation. T/P Trunk is compressible. PTV is compressible. LT PerV is compressible. VL/Venous Duplex US, Unilateral Interpretation Summary Deep veins of the left lower extremity are patent and compressible segmentally. There is no evidence of left lower extremity deep vein thrombosis. The left great saphenous vein appears patent and compressible segmentally. __ Ordering Physician: Genesis Damon Referring Physician: Genesis Damon Performed By: Viky Mendiola, [place] 02/24/25 1604 Date Álvaro Jett MD CC: Dr. Genesis Damon MD Date Dictated: 02/24/25 1255 Date Transcribed: 02/24/25 1604 Fishing Hand: Signed Normal [facility] Venous duplex ultrasound rep ortOrdered By: Álvaro Jett on 02-24-2025 US Vein [facility] [address] [place] [address] Venous Duplex US, Unilateral 02/24/25 1255 MR#: [id number] Acct: [id number] Name: YARIEL WATKINS Rep #:[id number] : 1955 70 From: Álvaro Pacheco Attending Dr: Dr. Genesis Damon MD Status: REG CLI Ordering Dr: Geneiss Damon MD Date: 02/24/25 Location: CVS Sex: M C Admitted: Reason For Study Reason For Study: Pain RIGHT LEFT CFV is compressible, spontaneous, phasic, competent GSV is normal. and demonstrates normal augmentation. CFV is compressible, spontaneous, phasic, competent, Procedure and demonstrates normal augmentation. This is a venous duplex using B-mode, color flow and FV is compressible, spontaneous, phasic, competent spectral Doppler. and demonstrates normal augmentation. Exam performed in department. POP V is compressible, spontaneous, phasic, competent and demonstrates normal augmentation. T/P Trunk is compressible. PTV is compressible. LT PerV is compressible. VL/Venous Duplex US, Unilateral Interpretation Summary Deep veins of the left lower extremity are patent and compressible segmentally. There is no evidence of left lower extremity deep vein thrombosis. The left great saphenous vein appears patent andcompressible segmentally. __ Ordering Physician: Genesis Damon Referring Physician: Genesis Damon Performed By: Viky Mendiola, MAXINE 02/24/25 1604 Date _ Álvaro Jett MD CC: Dr. Genesis Damon MD ~ Date Dictated: 02/24/25 1255 Date Transcribed: 02/24/25 1604 Fishing Hand: Signed [facility] Work Phone: Whole blood prothrombin time Ordered By: Genesis Damon on 02-24-2025 PT Coag (Bld) [Time] 24.5 s High 11.7-14.9 [facility] International normalized rat io (INR) measurement by fingerstickOrdered By: Genesis Damon on 01-25-2025 INR Coag (BldC) [Relative time] 2.3 [facility] Comment on above: Critical Value > 4.0 Protime w/INR Fingerstickon 01-25-2025 INR Coag (PPP) [Relative time] 2.3 {INR} Normal [facility] Comment on above: Result Comment: Crit ical Value > 4.0 Performed By: #### L 9200.0000 #### [facility] Laboratory [address] [place], [place], [id number] Protime Coagsen 24.4 SEC High 11.7-14.9 [facility] Comment on above: Performed By: #### L 9200.0000 #### [facility] Laboratory [address] [place], [place], [phone] Whole blood prothrombin time Ordered By: Genesis Damon on 01-25-2025 PT Coag (Bld) [Time] 24.4 s High 11.7-14.9 [facility] normalized rat io (INR) measurement by fingerstickOrdered By: Genesis Damon on 12-23-2024 INR Coag (BldC) [Relative time] 2.3 [facility] Comment on above: Critical Value > 4.0 Prothrombin Time w/INRon INR Normal [facility] Comment on above: Order Comment: Comme nts: Standing Order Result Comment: AALIYAH AMBROCIO Performed By: #### L 9200.0000 #### [facility] Laboratory [address] [place], [address] PROTIME Normal 11.7-14.9 [facility] Comment on above: Order Comment: Comme nts: Standing Order Result Comment: AALIYAH AMBROCIO Performed By: #### L 9200.0000 #### [facility] Laboratory [address] [place], [place], [phone] (160) Protime w/INR Fingerstickon 12-23-2024 INR Coag (PPP) [Relative time] 2.3 {INR} Normal [facility] Comment on above: Result Comment: Crit ical Value > 4.0 Performed By: #### L 9200.0000 #### [facility] Laboratory [address] [place], [place], [phone] ([address] Protime Coagsen 25.3 SEC High 11.7-14.9 [facility] Comment on above: Performed By: #### L 9200.0000 #### [facility] Laboratory [address] [place], [address] (306 Whole blood prothrombin time Ordered By: Genesis Damon on 12-23-2024 PT Coag (Bld) [Time] 25.3 s High 11.7-14.9 [facility] normalized rat io (INR) measurement by fingerstickOrdered By: Genesis Damon on 11-25-2024 INR Coag (BldC) [Relative time] 2.0 [facility] Comment on above: Critical Value > 4.0 Protime w/INR Fingerstickon 11-25-2024 INR Coag (PPP) [Relative time] 2.0 {INR} Normal [facility] Comment on above: Result Comment: Crit ical Value > 4.0 Performed By: #### L 9200.0000 #### [facility] Laboratory [address] [place], [place], [phone] ([address] Protime Coagsen 22.1 SEC High 11.7-14.9 [facility] Comment on above: Performed By: #### L 9200.0000 #### [facility] Laboratory [address] [place], [address] Whole blood prothrombin time Ordered By: Genesis Damon on 11-25-2024 PT Coag (Bld) [Time] 22.1 s High 11.7-14.9 [facility] normalized rat io (INR) measurement by fingerstickOrdered By: Genesis Damon on 10-26-2024 INR Coag (BldC) [Relative time] 2.3 [facility] Comment on above: Critical Value > 4.0 Protime w/INR Fingerstickon 10-26-2024 INR Coag (PPP) [Relative time] 2.3 {INR} Normal [facility] Comment on above: Result Comment: Crit ical Value > 4.0 Performed By: #### L 9200.0000 #### [facility] Laboratory [address] [facility] [facility] [phone] Protime Coagsen 24.8 SEC High 11.7-14.9 [facility] Comment on above: Performed By: #### L 9200.0000 #### [facility] Laboratory [address] [facility] [place], [place], [phone] Whole blood prothrombin time Ordered By: Genesis Damon on 10-26-2024 PT Coag (Bld) [Time] 24.8 s High 11.7-14.9 [facility] Knee 4 or More Viewson 10-15 Knee 4 or More Views [facility] Imaging Services [address] [place], [place] [address] Knee 4 or More Views MR#: [id number] Acct: [id number] Name: YARIEL WATKINS Rep #: [id number] : 1955 M 69 From: Cristo Nicole i DO PCP: Dr. Genesis Damon MD Status: DEP AMB Study: Knee 4 or More Views Date of Exam: 10/15/24 Exam# [id number] Ordering Dr: Genesis Damon MD PROCEDURE: Left knee radiographs, four views 10/15/2024 REASON FOR EXAM: LEFT LATERAL KNEE PAIN, EFT KNEE TKR 11/05, PRIOR FEM MILLY TECHNIQUE: 4 views of the left knee were obtained. COMPARISON: None available FINDINGS: Four views of the left knee were obtained. The bones are osteopenic. Grossly intact left total knee arthroplasty. 3 intact fixation screws project over the distal left femoral metaphysis. There is also a partially included grossly intact left femoral intramedullary milly in the distal left femur. No acute fracture or dislocation of the left knee. Mild prepatellar soft tissue swelling and small suprapatellar effusion. Chronic appearing fracture deformity distal left femoral metaphysis. RAD/Knee 4 or More Views IMPRESSION: Osteopenia. No acute bony abnormality of the left knee. Chronic appearing deformity distal left femoral metaphysis. Mild prepatellar soft tissue swelling and small suprapatellar effusion. Reading Location: [facility] CC: Dr. Genesis Damon MD Fishing Hand: Signed Normal [facility] MR/BMS.Bon 10-14-2024 MR/BMS.B [facility] [address] [facility] [address] [place] [address] OFFICE VISIT Date of Service: 10/14/24 MR#: [id number] Acct: [id number] Name: YARIEL WATKINS Rep #: [id number] : 1955 Provider: Dr. Genesis triplett MD Age/Sex: 69/M Location: [facility] Status: Signed Intake Vital Signs 04/29/24 10:26 10/14/24 10:00 Height 5 ft 11 in 5 ft 11 in Weight: 296 lb 6 oz BMI 41.3 BP 139/78 H Blood Pressure Location Rt brachial Position Sitting Respiration 16 Pulse 84 Pulse Source Monitor Temp 99.6 F H Temp Source Temporal Pulse Oximetry (%) 95 Oxygen Delivery Method room air Intake Visit Reasons: 6 M FU Chief Complaint: 6 M FU [employer] Required: No Accompanied by: Self Is patient in pain?: No Allergies No Known Allergies Allergy (Verified 10/14/24 09:54) Medications ???Medication ???Instructions ???Recorded ???Confirmed ???Type cholecalciferol (vitamin D3) 50 50 mcg PO DAILY 06/06/21 10/14/24 History mcg (2,000 unit) capsule multivitamin (Daily Multi-Vitamin 1 tab PO DAILY 06/06/21 10/14/24 History tablet) amlodipine 10 mg tablet (Norvasc) 10 mg PO DAILY #90 tabs 12/09/23 10/14/24 Rx warfarin 2 mg tablet (Jantoven) 2 mg PO SUMOTUWETHSA #90 tabs 12/1310/14/24 Rx metformin 500 mg tablet 500 mg PO .COMPLEX #270 tabs 06/2110/14/24 Rx dapagliflozin propanediol 5 mg 5 mg PO DAILY #90 tabs 09/23/24 Rx tablet (Farxiga) warfarin 1 mg tablet (Jantoven) 1 mg PO FR #30 tabs 09/23/2410/14 Rx hydrochlorothiazide 25 mg tablet 25 mg PO DAILY #90 tabs 10/14/24 Rx lisinopril 40 mg tablet (Zestril) 40 mg PO DAILY #90 tabs 10/14/24 Rx Have you fallen in the past year?: No PFSH Medical History (Updated 10/14/24 @ 10:[address] Genesis Damon MD) Left knee pain Cataract Preop exam for internal medicine Wears glasses Arthritis High cholesterol Back pain Gastric reflux Non-smoker CPAP (continuous positive airway pressure) dependence Sleep apnea History of kidney stones Hyperlipidemia Obesity (BMI 35.0-39.9 without comorbidity) Fracture, femur Diabetes Hydrocele History of nephrolithotomy with removal of calculi Essential hypertension DVT (deep venous thrombosis) Surgical History (Updated 10/14/24 @ 10:[address] Genesis Damon MD) History of left knee replacement H/O arthroscopic knee surgery Previous back surgery History of tonsillectomy Family History Other Cancer Hypertension Myocardial infarction Social History Smoking Status: Never smoker alcohol intake: never substance use type: does not use HPI HPI Chief Complaint: 6 M FU Details: YARIEL WATKINS, is a 69 M who presents to the office today for 6-month follow-up. He is status post knee replacement last year, Dr. Kevin, at [facility]. Unfortunately overall, patient continues to have knee pain on the left side. Does not necessarily feel any better overall than he did prior to the knee replacement he feels. He does note that because of ongoing discomfort he returned to the surgeon and they arranged for a manipulation under anesthesia which they completed. After that he did physical therapy at [facility]. He relates that right after the manipulation did not feel too bad but he states on his second day of physical therapy postmanipulation, he states the therapist he saw, whom he only saw once, was flexing the knee when the patient felt a pop sensation in the knee accompanied by severe pain. He described the pain that he was experiencing to the tach he states as well as ultimately the surgeon. He states that he did complete the course of therapy that was recommended there but in follow-up he states the surgeon did not x-ray the knee and basically stated he has scar tissue, and basically no further follow-up was recommended. He is interested in having another opinion about the knee pain. He would like to see Dr. Jim, at [facility] who practices in [facility] as well as [place]. He provided us with the information, phone numbers and consult was placed for another opinion. In addition he has type 2 diabetes. He brings in blood sugar readings. Over the last 10 days, probably averages around 145 the 150. Occasional readings to low 100s, with a high of 185. Tends to always have elevated morning sugars, with some blood sugars actually looking good, in the 100-1 teen range after supper but also some high ones there. I.e. more variability seemingly in the afternoon versus the a.m. For diabetes is on Farxiga 5 mg daily and metformin. 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 In addition he has (more content not included)... Normal [facility] Absolute lymphocyte countOrd ered By: Genesis Damon on 10-07-2024 Lymphocytes Auto (Unsp spec) [#/Vol] 2.25 10*3/uL 0.83-4.51 [facility] Absolute neutrophil countOrd ered By: Genesis Damon on 10-07-2024 Neutrophils (Bld) [#/Vol] 3.5 10*3/uL 2.0-7.7 [facility] Anion gap in Serum or Plasma Ordered By: Genesis Damon on 10-07-2024 Anion gap [Moles/Vol] 12 mmol/L 5-15 [facility] Automated lymphocyte count a s percentage of total leukocytesOrdered By: Genesis Damon on 10-07-2024 Lymphocytes/100 WBC Auto (Unsp spec) 32.9 % 19- [facility] BUN/creatinine ratioOrdered By: Genesis Damon on 10-07-2024 Urea nitrogen/Creatinine [Mass ratio] 16.3 mg/mg 10-20 [facility] Basophil percentageOrdered B y: Genesis Damon on 10-07-2024 Basophils/100 WBC (Bld) 0.6 % 0-1 [facility] Bilirubin, totalOrdered By: Genesis Damon on 10-07-2024 Bilirubin [Mass/Vol] 0.39 mg/dL 0.00-1.30 [facility] CBC W/Diff, Automatedon 09-12 Absolute Lymph 2.25 X10 3/uL Normal 0.83-4.51 [facility] Comment on above: Performed By: #### L 9200.0000 #### [facility] Laboratory [address] [place], [address] Absolute Neut 3.5 X10 3/uL Normal 2.0-7.7 [facility] Comment on above: Performed By: #### L 9200.0000 #### [facility] Laboratory [address] [place], [address] Basophils/100 WBC (Bld) 0.6 % Normal 0-1 [facility] Comment on above: Performed By: #### L 9200.0000 #### [facility] [address] [place], [address] Eosinophils/100 WBC (Bld) 2.3 % Normal 0-5 [facility] Comment on above: Performed By: #### L 9200.0000 #### [facility] [address] [place], [address] Erythrocyte distribution width (RBC) [Ratio] 13.9 % Normal 11.6-14.6 [facility] Comment on above: Performed By: #### L 9200.0000 #### [facility] Laboratory [address] [place], [address] Hematocrit (Bld) [Volume fraction] 47.1 % Normal 40-54 [facility] Comment on above: Performed By: #### L 9200.0000 #### [facility] Laboratory [address] [place], [address] Hemoglobin (Bld) [Mass/Vol] 15.4 g/dL Normal 13.0-16.5 [facility] Comment on above: Performed By: #### L 9200.0000 #### [facility] Laboratory [address] [place], [address] IG% 0.300 Normal 0.0-0.9 [facility] Comment on above: Result Comment: IG% - Immature Granulocytes (promyelocytes, myelocytes and metamyelocytes) > 1% indicates that a LEFT SHIFT is Present. Performed By: #### L 9200.0000 #### [facility] [address] [place], [address] Lymphocytes/100 WBC (Bld) 32.9 % Normal 19-41 [facility] Comment on above: Performed By: #### L 9200.0000 #### [facility] Laboratory [address] [place], [address] MCH (RBC) [Entitic mass] 26.9 pg Low 27.0-32.0 [facility] Comment on above: Performed By: #### L 9200.0000 #### [facility] Laboratory [address] [place], [address] MCHC (RBC) [Mass/Vol] 32.7 g/dL Normal 32-36 [facility] Comment on above: Performed By: #### L 9200.0000 #### [facility] [address] [place], [address] MCV (RBC) [Entitic vol] 82.3 fL Normal 80-94 [facility] Comment on above: Performed By: #### L 9200.0000 #### [facility] [address] [place], [address] Monocytes/100 WBC (Bld) 12.0 % High 0-10 [facility] Comment on above: Performed By: #### L 9200.0000 #### [facility] [address] [place], [address] Neutrophils/100 WBC (Bld) 51.9 % Normal 47-70 [facility] Comment on above: Performed By: #### L 9200.0000 #### [facility] Laboratory [address] [place], [address] Nucleated RBC (Bld) [#/Vol] 0 10*3/uL Normal 0-5 [facility] Comment on above: Performed By: #### L 9200.0000 #### [facility] Laboratory [address] [place], [address] Platelet mean volume (Bld) [Entitic vol] 9.0 fL Normal 6.2-12.0 [facility] Comment on above: Performed By: #### L 9200.0000 #### [facility] [address] [place], [address] Platelets (Bld) [#/Vol] 299 10*3/uL Normal 150-450 [facility] Comment on above: Performed By: #### L 9200.0000 #### [facility] [address] [place], [address] RBC (Bld) [#/Vol] 5.72 10*6/uL Normal 4.6-6.2 [facility] Comment on above: Performed By: #### L 9200.0000 #### [facility] [address] [place], [address] RDW SD 41.5 fl Normal 35.1-43.9 [facility] Comment on above: Performed By: #### L 9200.0000 #### [facility] Laboratory [address] [place], [place], [id number] WBC (Bld) [#/Vol] 6.8 10*3/uL Normal 4.4-11.0 [facility] Comment on above: Performed By: #### L 9200.0000 #### [facility] Laboratory [address] [place], [place], [id number] Calculated very low density lipoprotein (VLDL) cholesterol measurementOrdered By: Genesis Damon on 10-07-2024 Calculated very low density lipoprotein (VLDL) cholesterol measurement 60 mg/dL High 5-40 [facility] VLDL Cholesterol 60 mg/dL High 5-40 [facility] Carbon dioxide, total [Moles /volume] in Central venous bloodOrdered By: Genesis Damon on 10-07-2024 CO2 [Moles/Vol] 25.5 mmol/L 21.0-32.0 [facility] Chloride assayOrdered By: Mindy Damon on 10-07-2024 Chloride [Moles/Vol] 101 mmol/L 98-108 [facility] Comprehensive Metabolic Prof ilon 10-07-2024 Albumin [Mass/Vol] 4.3 g/dL Normal 3.4-4.8 [facility] Comment on above: Performed By: #### L 9200.0000 #### [facility] Laboratory [address] [place], [place], [id number] Albumin/Globulin [Mass ratio] 1.7 {ratio} Normal 0.9-2.4 [facility] Comment on above: Performed By: #### L 9200.0000 #### [facility] Laboratory [address] [place], [place], [id number] ALK PHOS 64 U/L Normal 40-129 [facility] Comment on above: Performed By: #### L 9200.0000 #### [facility] Laboratory [address] [place], [address] ALT [Catalytic activity/Vol] 23 U/L Normal <=46 [facility] Comment on above: Performed By: #### L 9200.0000 #### [facility] Laboratory [address] [place], [address] AST [Catalytic activity/Vol] 21 U/L Normal <=37 [facility] Comment on above: Performed By: #### L 9200.0000 #### [facility] Laboratory [address] [place], [address] Bilirubin [Mass/Vol] 0.39 mg/dL Normal 0.00-1.30 [facility] Comment on above: Performed By: #### L 9200.0000 #### [facility] Laboratory [address] [place], [address] BUN/CRE 16.3 RATIO Normal 10-20 [facility] Comment on above: Performed By: #### L 9200.0000 #### [facility] Laboratory [address] [place], [address] Calcium [Mass/Vol] 9.5 mg/dL Normal 7.6-11.0 [facility] Comment on above: Performed By: #### L 9200.0000 #### [facility] [address] [place], [address] Chloride [Moles/Vol] 101 mmol/L Normal 98-108 [facility] Comment on above: Performed By: #### L 9200.0000 #### [facility] [address] [place], [address] CO2 [Moles/Vol] 25.5 mmol/L Normal 21.0-32.0 [facility] Comment on above: Performed By: #### L 9200.0000 #### [facility] Laboratory [address] [place], [address] Creatinine [Mass/Vol] 1.17 mg/dL Normal 0.70-1.20 [facility] Comment on above: Performed By: #### L 9200.0000 #### [facility] [address] [place], [address] GAP 12 Normal 5-15 [facility] Comment on above: Performed By: #### L 9200.0000 #### [facility] Laboratory [address] [place], [address] GFR/1.73 sq M.predicted among non-blacks MDRD (S/P/Bld) [Vol rate/Area] 67 mL/min/{1.73_m2} Normal >60 [facility] Comment on above: Result Comment: mL/m in/1.73m2 CKD-EPI Creatinine Equation (2020) Performed By: #### L 9200.0000 #### [facility] [address] [place], [address] Globulin (S) [Mass/Vol] 2.5 g/dL Normal 2.2-4.[address] [facility] Comment on above: Performed By: #### L 9200.0000 #### [facility] [address] [place], [address] Glucose [Mass/Vol] 151 mg/dL High 70-99 [facility] Comment on above: Performed By: #### L 9200.0000 #### [facility] [address] [place], [address] Potassium [Moles/Vol] 4.1 mmol/L Normal 3.3-5.1 [facility] Comment on above: Performed By: #### L 9200.0000 #### [facility] [address] [place], [address] Sodium [Moles/Vol] 138 mmol/L Normal 133-145 [facility] Comment on above: Performed By: #### L 9200.0000 #### [facility] [address] [place], [address] T PROT 6.8 g/dL Normal 5.9-8.4 [facility] Comment on above: Performed By: #### L 9200.0000 #### [facility] [address] [place], [place], [id number] Urea nitrogen [Mass/Vol] 19 mg/dL Normal 4-19 [facility] Comment on above: Performed By: #### L 9200.0000 #### [facility] Laboratory [address] [place], [place], [id number] Eosinophil percentageOrdered By: Genesis Damon on 10-07-2024 Eosinophils/100 WBC (Bld) 2.3 % 0-5 [facility] Erythrocyte distribution wid th ratioOrdered By: Genesis Damon on 10-07-2024 Erythrocyte distribution width (RBC) [Ratio] 13.9 % 11.6-14.6 [facility] Erythrocyte distribution wid th standard deviationOrdered By: Genesis Damon on 10-07-2024 Erythrocyte distribution width (RBC) [Entitic vol] 41.5 fL 35.1-43.9 [facility] Erythrocyte distribution width (RBC) [Ratio] 41.5 fl 35.1-43.9 [facility] GFR/1.73 sq M.predicted ayse g non-blacks MDRD (S/P/Bld) [Vol rate/Area]Ordered By: Genesis Damon on 10-07-2024 Estimated GFR (MDRD) Non-Af Amer 67 >60 [facility] Comment on above: mL/min/1.73m2 CKD-EP I Creatinine Equation (2020) Glomerular filtration rate ( GFR) estimation/1.73 sq m using serum, plasma, or whole bOrdered By: Genesis Damon on 10-07-2024 GFR/1.73 sq M.predicted among non-blacks MDRD (S/P/Bld) [Vol rate/Area] 67 mL/min/{1.73_m2} >60 [facility] Comment on above: mL/min/1.73m2 CKD-EP I Creatinine Equation (2020) Hematocrit Auto (Bld) [Volum e fraction]Ordered By: Genesis Damon on 10-07-2024 Hematocrit (Bld) [Volume fraction] 47.1 % 40-54 [facility] Hemoglobin A1con 10-07-2024 HbA1c (Bld) [Mass fraction] 7.9 % Normal <=5.6 [facility] Comment on above: Performed By: #### L 9200.0000 #### [facility] [address] [place], [address] Hemoglobin A1c percentageOrd ered By: Genesis Damon on 10-07-2024 HbA1c (Bld) [Mass fraction] 7.9 % >5.7 [facility] Hemoglobin measurementOrdere d By: Genesis Damon on 10-07-2024 Hemoglobin (Bld) [Mass/Vol] 15.4 g/dL 13.0-16.5 [facility] Immature granulocytes/100 WB C Auto (Bld)Ordered By: Genesis Damon on 10-07-2024 Immature granulocytes/100 WBC (Bld) 0.300 % 0.0-0.9 [facility] Comment on above: IG% - Immature Granu locytes (promyelocytes, myelocytes and metamyelocytes) > 1% indicates that a LEFT SHIFT is Present. L503.0106on 10-07-2024 Cobalamin (Vitamin B12) [Mass/Vol] 756 pg/mL Normal 180-914 [facility] Comment on above: Performed By: #### L 9200.0000 #### [facility] [address] [place], [address] L506.1001on 10-07-2024 Vitamin D 25-OH 28.5 ng/mL Low 30-100 [facility] Comment on above: Result Comment: Jayla min D Status Deficiency: <20 ng/mL (50nmol/L) Insufficiency: 20-30 ng/mL (50-75 nmol/L) Sufficiency: 30-100 ng/mL (75-250 nmol/L) Toxicity: >100 ng/mL (>250 nmol/L) Performed By: #### L 9200.0000 #### [facility] [address] [place], [place], [id number] LDL calc ser/plasOrdered By: Genesis Damon on 10-07-2024 Cholesterol in LDL [Mass/Vol] 120 mg/dL [facility] Comment on above: Ceefypqhsa=103-530 m g/dL & Higher Qqlp=376 mg/dL or greater LDL Cholesterol, Calculated 120 mg/dL [facility] Comment on above: Mpyrhbslwy=236-568 m g/dL & Higher Mjpu=172 mg/dL or greater Laboratory - Chemistry and C hemistry - challengeOrdered By: Genesis Damon on 10-07-2024 AST [Catalytic activity/Vol] 21 U/L <38 [facility] Lipid Profileon 10-07-2024 CHOL:HDL 5.40 Normal [facility] Comment on above: Performed By: #### L 9200.0000 #### [facility] [address] [facility] [phone] ([phone] Cholesterol [Mass/Vol] 221 mg/dL High <=200 [facility] Comment on above: Result Comment: Chol esterol level, Desirable <200 mg/dL Borderline high cholesterol 200-239 mg/dL High cholesterol >=240 mg/dL Recommendations of the NCEP Adult Treatment Panel for the following risk-cutoff thresholds for the [place] population. Performed By: #### L 9200.0000 #### [facility] [address] [place], [place], [id number] Cholesterol in HDL [Mass/Vol] 41 mg/dL Normal [facility] Comment on above: Result Comment: Anjelica onal Cholesterol Education Program (NCEP) guidelines: <40 mg/dL: Low HDL-cholesterol (major risk factor for CHD) >= 60 mg/dL: High HDL-cholesterol (negative risk factor for CHD) HDL-cholesterol is affected by a number of factors, e.g. smoking, exercise, hormones, sex and age. Performed By: #### L 9200.0000 #### [facility] [address] [place], [place], [phone] (498) Cholesterol in LDL [Mass/Vol] 120 mg/dL Normal [facility] Comment on above: Result Comment: Bord imfith=382-267 mg/dL Higher Suof=969 mg/dL or greater Performed By: #### L 9200.0000 #### [facility] [address] [place], [place], [id number] Cholesterol in VLDL [Mass/Vol] 60 mg/dL High 5-40 [facility] Comment on above: Performed By: #### L 9200.0000 #### [facility] [address] [place], [address] Triglyceride [Mass/Vol] 300 mg/dL High [facility] Comment on above: Result Comment: The drugs N-Acetylcysteine and Metamizole may falsely depress this assay. Normal range: <150 mg/dL Borderline High: 150-199 mg/dL High: 200-499 mg/dL Very High: >500 mg/dL Performed By: #### L 9200.0000 #### [facility] [address] [place], [place], [id number] Lymphocytes Auto (Unsp spec) [#/Vol]Ordered By: Genesis Damon on 10-07-2024 Lymphocytes (Bld) [#/Vol] 2.25 10*3/uL 0.83-4.5 1 [facility] Lymphocytes/100 WBC Auto (Un sp spec)Ordered By: Genesis Damon on 10-07-2024 Lymphocytes/100 WBC (Bld) 32.9 % 19-41 [facility] MCV (mean corpuscular volume ) determinationOrdered By: Genesis Damon on 10-07-2024 MCV (RBC) [Entitic vol] 82.3 fL 80-94 [facility] Mean corpuscular hemoglobin (MCH) determinationOrdered By: Genesis Damon on 10-07-2024 MCH (RBC) [Entitic mass] 26.9 pg Low 27.0-32.0 [facility] Mean corpuscular hemoglobin concentration (MCHC) determinationOrdered By: Genesis Damon on 03-27-2025 MCHC (RBC) [Mass/Vol] 32.7 g/dL 32-36 [facility] Mean platelet volume determi nationOrdered By: Genesis Damon on 10-07-2024 Platelet mean volume (Bld) [Entitic vol] 9.0 fL 6.2-12.0 [facility] Monocyte percentageOrdered B y: Genesis Damon on 10-07-2024 Monocytes/100 WBC (Bld) 12.0 % High 0-10 [facility] Neutrophil percentageOrdered By: Genesis Damon on 10-07-2024 Neutrophils/100 WBC (Bld) 51.9 % 47-70 [facility] Nucleated red blood cell per centageOrdered By: Genesis Damon on 10-07-2024 Nucleated RBC/100 WBC (Bld) [Ratio] 0 % 0-5 [facility] PSA, total screeningOrdered By: Genesis Damon on 10-07-2024 Prostate Specific Antigen Screen 4.61 ng/mL High 0.02-4.00 [facility] Comment on above: This test was perfor med using the [employer] tPSA method. Measured values of a patient sample can vary depending on the testing procedure used. PSA values determined on patient samples by different testing procedures cannot be used interchangeably. If there is a change in PSA assays while monitoring therapy, sequential testing should be performed to confirm baseline values. PSA,Total - Annual Screenon 10-07-2024 PSA,TOT SCREEN 4.61 ng/mL High 0.02-4.00 [facility] Comment on above: Result Comment: This test was performed using the [employer] tPSA method. Measured values of a patient??sample can vary depending on the testing procedure used. PSA values determined on patient samples by different testing procedures cannot be used interchangeably. If there is a change in PSA assays while monitoring therapy, sequential testing should be performed to confirm baseline values. Performed By: #### L 9200.0000 #### [facility] [address] [place], [address] Platelet countOrdered By: Mindy Damon on 10-07-2024 Platelets (Bld) [#/Vol] 299 10*3/uL 150-450 [facility] Potassium (Unsp spec) [Mass/ Vol]Ordered By: Genesis Damon on 10-07-2024 Potassium [Moles/Vol] 4.1 mmol/L 3.3-5.1 [facility] Potassium measurement (mass/ volume)Ordered By: Genesis Damon on 10-07-2024 Potassium (Unsp spec) [Mass/Vol] 4.1 mmol/L 3.3-5.1 [facility] RBC Auto (Bld) [#/Vol]Ordere d By: Genesis Damon on 10-07-2024 RBC (Bld) [#/Vol] 5.72 10*6/uL 4.6-6.2 [facility] Screening total cholesterol/ high density lipoprotein (HDL) cholesterol ratioOrdered By: Genesis Damon on 10-07-2024 Cholesterol.total/Cholest herbie in HDL [Mass ratio] 5.40 {ratio} [facility] Serum creatinine measurement (mass/volume)Ordered By: Genesis Damon on 10-07-2024 Creatinine [Mass/Vol] 1.17 mg/dL 0.70-1.20 [facility] Serum globulin measurementOr dered By: Genesis Damon on 10-07-2024 Globulin (S) [Mass/Vol] 2.5 g/dL 2.2-4.2 [facility] Serum glucose measurement (m ass/volume)Ordered By: Genesis Damon on 10-07-2024 Glucose [Mass/Vol] 151 mg/dL High 70-99 [facility] Serum or plasma alanine bacon otransferase (ALT) measurementOrdered By: Genesis Damon on 10-07-2024 ALT [Catalytic activity/Vol] 23 U/L <47 [facility] Serum or plasma albumin stephan urement (mass/volume)Ordered By: Genesis Damon on 10-07-2024 Albumin [Mass/Vol] 4.3 g/dL 3.4-4.8 [facility] Serum or plasma albumin/glob ulin mass ratioOrdered By: Genesis Damon on 10-07-2024 Albumin/Globulin [Mass ratio] 1.7 {ratio} 0.9-2.4 [facility] Serum or plasma alkaline pancho sphatase measurementOrdered By: Genesis Damon on 10-07-2024 ALP [Catalytic activity/Vol] 64 U/L 40-129 [facility] Serum or plasma calcium stephan urement (mass/volume)Ordered By: Genesis Damon on 10-07-2024 Calcium [Mass/Vol] 9.5 mg/dL 7.6-11.0 [facility] Serum or plasma cholesterol in HDL measurement (mass/volume)Ordered By: Genesis Damon on 10-07-2024 Cholesterol in HDL [Mass/Vol] 41 mg/dL >40 [facility] Comment on above: National Cholesterol Education Program (NCEP) guidelines:<40 mg/dL: Low HDL-cholesterol (major risk factor for CHD)>= 60 mg/dL: High HDL-cholesterol (negative risk factor for CHD)HDL-cholesterol is affected by a number of factors, e.g. smoking, exercise, hormones, sex and age. Serum or plasma cholesterol measurement (mass/volume)Ordered By: Genesis Damon on 10-07-2024 Cholesterol [Mass/Vol] 221 mg/dL High <201 [facility] Comment on above: Cholesterol level, D esirable <200 mg/dLBorderline high cholesterol 200-239 mg/dLHigh cholesterol >=240 mg/dLRecommendations of the NCEP Adult Treatment Panel for the following risk-cutoff thresholds for the [place] population. Serum or plasma urea nitroge n measurement (mass/volume)Ordered By: Genesis Damon on 10-07-2024 Urea nitrogen [Mass/Vol] 19 mg/dL 4-19 [facility] Sodium levelOrdered By: Yadira Damon on 10-07-2024 Sodium [Moles/Vol] 138 mmol/L 133-145 [facility] TSH DL <= 0.005 mIU/L QnOrde red By: Genesis Damon on 10-07-2024 Thyroid Stimulating Hormone (TSH) 1.510 uIU/mL 0.300-4.200 [facility] TSH Qn 1.510 uIU/mL 0.300-4.200 [facility] Thyroid Stim Hormone (TSH)on 10-07-2024 TSH 1.510 uIU/mL Normal 0.300-4.200 [facility] Comment on above: Performed By: #### L 9200.0000 #### [facility] [address] [place], [address] Total proteinOrdered By: Viola Damon on 10-07-2024 Protein [Mass/Vol] 6.8 g/dL 5.9-8.4 [facility] Triglycerides measurementOrd ered By: Genesis Damon on 10-07-2024 Triglyceride [Mass/Vol] 300 mg/dL High <199 [facility] Comment on above: The drugs N-Acetylcy steine and Metamizole may falsely depress this assay. Normal range: <150 mg/dLBorderline High: 150-199 mg/dLHigh: 200-499 mg/dLVery High: >500 mg/dL Vitamin B12 ser/plasOrdered By: Genesis Damon on 10-07-2024 Cobalamin (Vitamin B12) [Mass/Vol] 756 pg/mL 180-914 [facility] Vitamin D, 25-hydroxyOrdered By: Genesis Damon on 10-07-2024 Vitamin D 25-Hydroxy 28.5 ng/mL Low 30-100 [facility] Comment on above: Vitamin D StatusDefi ciency: <20 ng/mL (50nmol/L)Insufficiency: 20-30 ng/mL (50-75 nmol/L)Sufficiency: 30-100 ng/mL (75-250 nmol/L)Toxicity: >100 ng/mL (>250 nmol/L) White blood cell (WBC) count Ordered By: Genesis Damon on 10-07-2024 WBC (Bld) [#/Vol] 6.8 10*3/uL 4.4-11.0 [facility] INR Coag (BldC) [Relative ti me]Ordered By: Genesis Damon on 09-24-2024 INR Coag (Bld) [Relative time] 2.4 {INR} [facility] Comment on above: Critical Value > 4.0 International normalized rat io (INR) measurement by fingerstickOrdered By: Genesis Damon on 09-24-2024 INR Coag (BldC) [Relative time] 2.4 [facility] Comment on above: Critical Value > 4.0 PT Coag (Bld) [Time]Ordered By: Genesis Damon on 09-24-2024 Bedside Prothrombin Time 26.0 SEC High 11.7-14.9 [facility] Protime w/INR Fingerstickon 09-24-2024 INR Coag (PPP) [Relative time] 2.4 {INR} Normal [facility] Comment on above: Result Comment: Crit ical Value > 4.0 Performed By: #### L 9200.0000 #### [facility] [address] [place], [place], [id number] Protime Coagsen 26.0 SEC High 11.7-14.9 [facility] Comment on above: Performed By: #### L 9200.0000 #### [facility] [address] [place], [address] Whole blood prothrombin time Ordered By: Genesis Damon on 09-24-2024 PT Coag (Bld) [Time] 26.0 s High 11.7-14.9 [facility] Protime w/INR Fingerstickon 09-02-2024 INR Coag (PPP) [Relative time] 2.7 {INR} Normal [facility] Comment on above: Result Comment: Crit ical Value > 4.0 Performed By: #### L 9200.0000 #### [facility] [address] [place], [address] Protime Coagsen 27.3 SEC High 11.7-14.9 [facility] Comment on above: Performed By: #### L 9200.0000 #### [facility] [address] [place], [address] INR Coag (BldC) [Relative ti me]Ordered By: Genesis Damon on 08-27-2024 INR Coag (Bld) [Relative time] 2.7 {INR} [facility] Comment on above: Critical Value > 4.0 International normalized rat io (INR) measurement by fingerstickOrdered By: Genesis Damon on 08-27-2024 INR Coag (BldC) [Relative time] 2.7 [facility] Comment on above: Critical Value > 4.0 PT Coag (Bld) [Time]Ordered By: Genesis Damon on 08-27-2024 Bedside Prothrombin Time 27.3 SEC High 11.7-14.9 [facility] Prothrombin Time w/INRon INR Normal [facility] Comment on above: Result Comment: ROSALIE ERSTICK Performed By: #### L 9200.0000 #### [facility] [address] [place], [place], [id number] PROTIME Normal 11.7-14.9 [facility] Comment on above: Result Comment: ROSALIE ERSTICK Performed By: #### L 9200.0000 #### [facility] [address] [place], [place], [id number] Whole blood prothrombin time Ordered By: Genesis Damon on 08-27-2024 PT Coag (Bld) [Time] 27.3 s High 11.7-14.9 [facility] INR Coag (BldC) [Relative ti me]Ordered By: Genesis Damon on 07-27-2024 INR Coag (Bld) [Relative time] 2.7 {INR} [facility] Comment on above: Critical Value > 4.0 PT Coag (Bld) [Time]Ordered By: Genesis Damon on 07-27-2024 Bedside Prothrombin Time 28.5 SEC High 11.7-14.9 [facility] Protime w/INR Fingerstickon 07-27-2024 INR Coag (PPP) [Relative time] 2.7 {INR} Normal [facility] Comment on above: Result Comment: Crit ical Value > 4.0 Performed By: #### L 9200.0000 #### [facility] [address] [place], [address] Protime Coagsen 28.5 SEC High 11.7-14.9 [facility] Comment on above: Performed By: #### L 9200.0000 #### [facility] [address] [place], [address] INR Coag (BldC) [Relative ti me]Ordered By: Genesis Damon on 06-28-2024 INR Coag (Bld) [Relative time] 3.4 {INR} [facility] Comment on above: Critical Value > 4.0 PT Coag (Bld) [Time]Ordered By: Genesis Damon on 06-28-2024 Bedside Prothrombin Time 34.6 SEC High 11.7-14.9 [facility] Protime w/INR Fingerstickon 06-28-2024 INR Coag (PPP) [Relative time] 3.4 {INR} Normal [facility] Comment on above: Result Comment: Crit ical Value > 4.0 Performed By: #### L 9200.0000 #### [facility] [address] [place], [address] Protime Coagsen 34.6 SEC High 11.7-14.9 [facility] Comment on above: Performed By: #### L 9200.0000 #### [facility] [address] [place], [address] Protime w/INR Fingerstickon 05-28-2024 INR Coag (PPP) [Relative time] 2.5 {INR} Normal [facility] Comment on above: Result Comment: Crit ical Value > 4.0 Performed By: #### L 9200.0000 #### [facility] [address] [place], [address] Protime Coagsen 26.9 SEC High 11.7-14.9 [facility] Comment on above: Performed By: #### L 9200.0000 #### [facility] [address] [place], [address] MR/Reji 04-29-2024 MR/BEATRIZ.NAFISA [facility] [address] [place] [address] OFFICE VISIT Date of Service: 04/29/24 MR#: [id number] Acct: [id number] Name: YARIEL WATKINS Rep #: [id number] : 1955 Provider: Dr. Genesis triplett MD Age/Sex: 69/M Location: [facility].[facility] Status: Signed Intake Vital Signs 12/31/23 11:11 04/29/24 10:26 Height 5 ft 11 in 5 ft 11 in Weight: 299 lb BMI 41.7 BP 157/80 H Blood Pressure Location Lt brachial Position Sitting Respiration 16 Pulse 73 Pulse Source Monitor Temp 98.7 F Temp Source Temporal Pulse Oximetry (%) 96 Oxygen Delivery Method room air Intake Visit Reasons: 4 M FU Chief Complaint: 4 m fu [employer] Required: No Accompanied by: Self Is patient in pain?: No Allergies No Known Allergies Allergy (Verified 04/29/24 10:22) Medications ???Medication ???Instructions ???Recorded ???Confirmed ???Type cholecalciferol (vitamin D3) 50 50 mcg PO DAILY 06/06/21 04/29/24 History mcg (2,000 unit) capsule multivitamin (Daily Multi-Vitamin 1 tab PO DAILY 06/06/21 04/29/24 History tablet) latanoprost 0.005 % eye drops 1 drp ophthalmic (eye) QPM 06/26/23 04/29/24 History metformin 500 mg tablet 500 mg PO .COMPLEX #270 tabs 06/26/23 04/29/24 Rx warfarin 1 mg tablet (Jantoven) 1 mg PO FR #30 tabs 06/26/23 04/29/24 Rx dapagliflozin propanediol 5 mg 5 mg PO DAILY #90 tabs 09/24/23 04/29/24 Rx tablet (Farxiga) hydrochlorothiazide 25 mg tablet 25 mg PO DAILY #90 tabs 10/14/23 04/29/24 Rx lisinopril 40 mg tablet (Zestril) 40 mg PO DAILY #90 tabs 10/14/23 04/29/24 Rx amlodipine 10 mg tablet (Norvasc) 10 mg PO DAILY #90 tabs 12/09/23 04/29/24 Rx warfarin 2 mg tablet (Jantoven) 2 mg PO SUMOTUWETHSA #90 tabs 01/06/24 04/29/24 Rx Have you fallen in the past year?: No PFSH Medical History (Updated 04/29/24 @ 10:26 by Mason De La Torre RN) Cataract Preop exam for internal medicine Wears glasses Arthritis High cholesterol Back pain Gastric reflux Non-smoker CPAP (continuous positive airway pressure) dependence Sleep apnea History of kidney stones Hyperlipidemia Obesity (BMI 35.0-39.9 without comorbidity) Fracture, femur Diabetes Hydrocele History of nephrolithotomy with removal of calculi Essential hypertension DVT (deep venous thrombosis) Surgical History History of left knee replacement H/O arthroscopic knee surgery Previous back surgery History of tonsillectomy Family History Other Cancer Hypertension Myocardial infarction Social History Smoking Status: Never smoker alcohol intake: never substance use type: does not use HPI HPI Chief Complaint: 4 m fu Details: YARIEL WATKINS, is a 69 M who presents to the office today for 4-month follow-up. 69-year-old male has a history of hypertension on amlodipine, hydrochlorothiazide , Zestril. He is also on metformin and Farxiga for type 2 diabetes. 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 Status post knee replacement earlier this year. Still not the full par with that. He has mild limited range of motion in terms of knee flexion at this point. He does bring in blood sugar readings. Overall seem reasonable. Based on the readings he presents with, I would not make any specific changes in his regimen. Labs were recently completed. His A1c is 6.9. Review of systems per chart. Had bilateral cataract surgeries recently. Also had stents placed for glaucoma. Doing well from that standpoint. He will be continuing follow-up with ophthalmology and is still on drops at this point. Physical exam. Vital signs on chart. PERRLA. Sclera are clear. TMs are unremarkable with normal light reflexes. Canals are unremarkable. Posterior pharynx is unremarkable. Good dentition. No cervical or supraclavicular lymph nodes enlarged or tender. No clear thyromegaly. No thyroid nodules readily palpable. Lungs are without wheeze, rhonchi, rales. No E/A changes are heard. Heart is regular. Not tachycardic. No clear murmur, rub, or gallop is identified. The abdomen is soft. Bowel sounds are present. No significant leg edema. Cranial nerve examination 2 through 12 are grossly unremarkable nonlateralizing. Deep tendon reflexes are 2/4 and symmetric at the bicep, tricep, Achilles, patella. No ankle clonus. No obvious rashes. ROS Const Constitutional: No body ache, chills, excessive sweating, fatigue, fever(s), frequent falls, headache(s), snoring, weakness or change in appetite Eyes Eyes: No blurry vision, change in vision, eye pain or Light sensitivity ENT ENT: No abnormal hea (more content not included)... Normal [facility] CBC W/Diff, Automatedon 10- Absolute Lymph 2.06 X10 3/uL Normal 0.83-4.51 [facility] Comment on above: Performed By: #### L 506.1000, L500.4050, L300.3900, L501.9985, L500.4100, L100.0100 #### [facility] [address] [place], [address] Absolute Neut 2.9 X10 3/uL Normal 2.0-7.7 [facility] Comment on above: Performed By: #### L 506.1000, L500.4050, L300.3900, L501.9985, L500.4100, L100.0100 #### [facility] [address] [place], [address] Basophils/100 WBC (Bld) 0.8 % Normal 0-1 [facility] Comment on above: Performed By: #### L 506.1000, L500.4050, L300.3900, L501.9985, L500.4100, L100.0100 #### [facility] [address] [place], [address] Eosinophils/100 WBC (Bld) 2.8 % Normal 0-5 [facility] Comment on above: Performed By: #### L 506.1000, L500.4050, L300.3900, L501.9985, L500.4100, L100.0100 #### [facility] [address] [place], [address] Erythrocyte distribution width (RBC) [Ratio] 14.9 % High 11.6-14.6 [facility] Comment on above: Performed By: #### L 506.1000, L500.4050, L300.3900, L501.9985, L500.4100, L100.0100 #### [facility] [address] [place], [address] Hematocrit (Bld) [Volume fraction] 47.0 % Normal 40-54 [facility] Comment on above: Performed By: #### L 506.1000, L500.4050, L300.3900, L501.9985, L500.4100, L100.0100 #### [facility] [address] [place], [address] Hemoglobin (Bld) [Mass/Vol] 14.8 g/dL Normal 13.0-16.5 [facility] Comment on above: Performed By: #### L 506.1000, L500.4050, L300.3900, L501.9985, L500.4100, L100.0100 #### [facility] [address] [place], [address] IG% 0.300 Normal 0.0-0.9 [facility] Comment on above: Result Comment: IG% - Immature Granulocytes (promyelocytes, myelocytes and metamyelocytes) > 1% indicates that a LEFT SHIFT is Present. Performed By: #### L 506.1000, L500.4050, L300.3900, L501.9985, L500.4100, L100.0100 #### [facility] [address] [place], [address] Lymphocytes/100 WBC (Bld) 34.4 % Normal 19-41 [facility] Comment on above: Performed By: #### L 506.1000, L500.4050, L300.3900, L501.9985, L500.4100, L100.0100 #### [facility] [address] [place], [address] MCH (RBC) [Entitic mass] 26.0 pg Low 27.0-32.0 [facility] Comment on above: Performed By: #### L 506.1000, L500.4050, L300.3900, L501.9985, L500.4100, L100.0100 #### [facility] [address] [place], [address] MCHC (RBC) [Mass/Vol] 31.5 g/dL Low 32-36 [facility] Comment on above: Performed By: #### L 506.1000, L500.4050, L300.3900, L501.9985, L500.4100, L100.0100 #### [facility] [address] [place], [address] MCV (RBC) [Entitic vol] 82.6 fL Normal 80-94 [facility] Comment on above: Performed By: #### L 506.1000, L500.4050, L300.3900, L501.9985, L500.4100, L100.0100 #### [facility] [address] [place], [address] Monocytes/100 WBC (Bld) 12.5 % High 0-10 [facility] Comment on above: Performed By: #### L 506.1000, L500.4050, L300.3900, L501.9985, L500.4100, L100.0100 #### [facility] [address] [place], [address] Neutrophils/100 WBC (Bld) 49.2 % Normal 47-70 [facility] Comment on above: Performed By: #### L 506.1000, L500.4050, L300.3900, L501.9985, L500.4100, L100.0100 #### [facility] [address] [place], [address] Nucleated RBC (Bld) [#/Vol] 0 10*3/uL Normal 0-5 [facility] Comment on above: Performed By: #### L 506.1000, L500.4050, L300.3900, L501.9985, L500.4100, L100.0100 #### [facility] [address] [place], [address] Platelet mean volume (Bld) [Entitic vol] 9.4 fL Normal 6.2-12.0 [facility] Comment on above: Performed By: #### L 506.1000, L500.4050, L300.3900, L501.9985, L500.4100, L100.0100 #### [facility] [address] [place], [address] Platelets (Bld) [#/Vol] 290 10*3/uL Normal 150-450 [facility] Comment on above: Performed By: #### L 506.1000, L500.4050, L300.3900, L501.9985, L500.4100, L100.0100 #### [facility] [address] [place], [address] RBC (Bld) [#/Vol] 5.69 10*6/uL Normal 4.6-6.2 [facility] Comment on above: Performed By: #### L 506.1000, L500.4050, L300.3900, L501.9985, L500.4100, L100.0100 #### [facility] [address] [place], [address] RDW SD 45.0 fl High 35.1-43.9 [facility] Comment on above: Performed By: #### L 506.1000, L500.4050, L300.3900, L501.9985, L500.4100, L100.0100 #### [facility] [address] [place], [address] WBC (Bld) [#/Vol] 6.0 10*3/uL Normal 4.4-11.0 [facility] Comment on above: Performed By: #### L 506.1000, L500.4050, L300.3900, L501.9985, L500.4100, L100.0100 #### [facility] [address] [place], [address] Comprehensive Metabolic Prof [facility] 04-23-2024 Albumin [Mass/Vol] 3.6 g/dL Normal 3.2-5.0 [facility] Comment on above: Performed By: #### L 506.1000, L500.4050, L300.3900, L501.9985, L500.4100, L100.0100 #### [facility] [address] [place], [address] Albumin/Globulin [Mass ratio] 1.1 {ratio} Normal 0.9-2.4 [facility] Comment on above: Performed By: #### L 506.1000, L500.4050, L300.3900, L501.9985, L500.4100, L100.0100 #### [facility] [address] [place], [address] ALK P 61 U/L Normal 45-117 [facility] Comment on above: Performed By: #### L 506.1000, L500.4050, L300.3900, L501.9985, L500.4100, L100.0100 #### [facility] [address] [place], [address] ALT [Catalytic activity/Vol] 26 U/L Normal 16-61 [facility] Comment on above: Performed By: #### L 506.1000, L500.4050, L300.3900, L501.9985, L500.4100, L100.0100 #### [facility] [address] [place], [address] AST [Catalytic activity/Vol] 23 U/L Normal 15-37 [facility] Comment on above: Performed By: #### L 506.1000, L500.4050, L300.3900, L501.9985, L500.4100, L100.0100 #### [facility] [address] [place], [address] Bilirubin [Mass/Vol] 0.70 mg/dL Normal 0.20-1.00 [facility] Comment on above: Result Comment: For patients on eltrombopag therapy, use of Dimension Patterson TBIL is not recommended. Performed By: #### L 506.1000, L500.4050, L300.3900, L501.9985, L500.4100, L100.0100 #### [facility] [address] [place], [address] BUN/CRE 15.9 RATIO Normal 10-20 [facility] Comment on above: Performed By: #### L 506.1000, L500.4050, L300.3900, L501.9985, L500.4100, L100.0100 #### [facility] [address] [place], [address] CA,Total 9.3 mg/dL Normal 8.5-10.1 [facility] Comment on above: Performed By: #### L 506.1000, L500.4050, L300.3900, L501.9985, L500.4100, L100.0100 #### [facility] [address] [place], [address] Chloride [Moles/Vol] 106 mmol/L Normal 98-107 [facility] Comment on above: Performed By: #### L 506.1000, L500.4050, L300.3900, L501.9985, L500.4100, L100.0100 #### [facility] [address] [place], [address] CO2 [Moles/Vol] 27.0 mmol/L Normal 21.0-32.0 [facility] Comment on above: Performed By: #### L 506.1000, L500.4050, L300.3900, L501.9985, L500.4100, L100.0100 #### [facility] [address] [place], [address] Creatinine [Mass/Vol] 1.26 mg/dL Normal 0.70-1.30 [facility] Comment on above: Result Comment: The validity of the calculated GFR GFRAA in patients over 70 years has not been determined. Clinical correlation is essential. Performed By: #### L 506.1000, L500.4050, L300.3900, L501.9985, L500.4100, L100.0100 #### [facility] [address] [place], [address] EST GFR - AA 73 mL/min Normal >60 [facility] Comment on above: Result Comment: Afri can [place] GFR Calc Performed By: #### L 506.1000, L500.4050, L300.3900, L501.9985, L500.4100, L100.0100 #### [facility] [address] [place], [address] GAP 6 Normal 5-15 [facility] Comment on above: Performed By: #### L 506.1000, L500.4050, L300.3900, L501.9985, L500.4100, L100.0100 #### [facility] [address] [place], [address] GFR/1.73 sq M.predicted among non-blacks MDRD (S/P/Bld) [Vol rate/Area] 60 mL/min/{1.73_m2} Normal >60 [facility] Comment on above: Result Comment: Non- GFR Calc Performed By: #### L 506.1000, L500.4050, L300.3900, L501.9985, L500.4100, L100.0100 #### [facility] [address] [place], [address] Globulin (S) [Mass/Vol] 3.3 g/dL Normal 2.2-4.[address] [facility] Comment on above: Performed By: #### L 506.1000, L500.4050, L300.3900, L501.9985, L500.4100, L100.0100 #### [facility] [address] [place], [address] Glucose [Mass/Vol] 139 mg/dL High 74-106 [facility] Comment on above: Result Comment: Fast ing Glucose result greater than or equal to 126 mg/dL suggests DIABETES MELLITUS per A.D.A. criteria. Performed By: #### L 506.1000, L500.4050, L300.3900, L501.9985, L500.4100, L100.0100 #### [facility] [address] [place], [address] Potassium [Moles/Vol] 3.8 mmol/L Normal 3.5-5.1 [facility] Comment on above: Performed By: #### L 506.1000, L500.4050, L300.3900, L501.9985, L500.4100, L100.0100 #### [facility] [address] [place], [address] Sodium [Moles/Vol] 139 mmol/L Normal 136-145 [facility] Comment on above: Performed By: #### L 506.1000, L500.4050, L300.3900, L501.9985, L500.4100, L100.0100 #### [facility] [address] [place], [address] T PROT 6.9 g/dL Normal 6.4-8.2 [facility] Comment on above: Performed By: #### L 506.1000, L500.4050, L300.3900, L501.9985, L500.4100, L100.0100 #### [facility] [address] [place], [address] Urea nitrogen [Mass/Vol] 20 mg/dL High 7-18 [facility] Comment on above: Performed By: #### L 506.1000, L500.4050, L300.3900, L501.9985, L500.4100, L100.0100 #### [facility] [address] [place], [address] Hemoglobin A1con 04-23-2024 HbA1c (Bld) [Mass fraction] 6.9 % High 3.8-5.6 [facility] Comment on above: Result Comment: Norm al < 5.7 % Prediabetic 5.7 - 6.4 % Diabetic >or= 6.5 % Please note range changes. Performed By: #### L 506.1000, L500.4050, L300.3900, L501.9985, L500.4100, L100.0100 #### [facility] [address] [place], [address] Lipid Profileon 04-23-2024 Cholesterol [Mass/Vol] 189 mg/dL Normal 200 [facility] Comment on above: Result Comment: <200 mg/dL Desirable 200-240 mg/dL Borderline >240 mg/dL High Risk Performed By: #### L 506.1000, L500.4050, L300.3900, L501.9985, L500.4100, L100.0100 #### [facility] [address] [place], [address] Cholesterol in HDL [Mass/Vol] 39 mg/dL Low [facility] Comment on above: Result Comment: The drugs N-Acetylcysteine and Metamizole may falsely depress this assay. Reference Range HDL <40 mg/dL Low HDL Cholesterol HDL >or= 60 mg/dL High HDL Cholesterol Performed By: #### L 506.1000, L500.4050, L300.3900, L501.9985, L500.4100, L100.0100 #### [facility] [address] [place], [address] Cholesterol in LDL [Mass/Vol] 108 mg/dL Normal 0-130 [facility] Comment on above: Performed By: #### L 506.1000, L500.4050, L300.3900, L501.9985, L500.4100, L100.0100 #### [facility] [address] [place], [address] Cholesterol in VLDL [Mass/Vol] 42 mg/dL High 5-40 [facility] Comment on above: Performed By: #### L 506.1000, L500.4050, L300.3900, L501.9985, L500.4100, L100.0100 #### [facility] [address] [place], [address] Triglyceride [Mass/Vol] 208 mg/dL High [facility] Comment on above: Result Comment: The drugs N-Acetylcysteine and Metamizole may falsely depress this assay. Serum Triglycerides Reference Interval Normal <150 mg/dL Borderline high 150 - 199 mg/dL High 200 - 499 mg/dL Very High > or = 500 mg/dL Performed By: #### L 506.1000, L500.4050, L300.3900, L501.9985, L500.4100, L100.0100 #### [facility] [address] [place], [address] Prothrombin Time w/INRon INR Coag (PPP) [Relative time] 2.1 {INR} Normal [facility] Comment on above: Order Comment: Comme nts: Patient is to have fingerstick INR. Performed By: #### L 506.1000, L500.4050, L300.3900, L501.9985, L500.4100, L100.0100 #### [facility] [address] [place], [address] PT Coag (PPP) [Time] 23.6 s High 11.7-14.9 [facility] Comment on above: Order Comment: Comme nts: Patient is to have fingerstick INR. Performed By: #### L 506.1000, L500.4050, L300.3900, L501.9985, L500.4100, L100.0100 #### [facility] [address] [place], [address] Vitamin D,25 Hydroxyon 04-23 Vitamin D 25-OH 31.3 ng/mL Normal [facility] Comment on above: Result Comment: Jayla min D 25(OH) Status Range Deficiency <20 ng/mL (50nmol/L) Insufficiency 20 - 30 ng/mL (50 - 75 nmol/L) Sufficiency 30 - 100 ng/mL (75 - 250 nmol/L) Toxicity >100 ng/mL (>250 nmol/L) Performed By: #### L 506.1000, L500.4050, L300.3900, L501.9985, L500.4100, L100.0100 #### [facility] [address] [place], [address] Prothrombin Time w/INRon INR Coag (PPP) [Relative time] 2.3 {INR} Normal [facility] Comment on above: Order Comment: PER P T-JUST THIS ORDER Performed By: #### L 300.3900 #### [facility] [address] [place], [place], [id number] PT Coag (PPP) [Time] 24.8 s High 11.7-14.9 [facility] Comment on above: Order Comment: PER P T-JUST THIS ORDER Performed By: #### L 300.3900 #### [facility] [address] [place], [place], [id number] Laboratory - CoagulationOrde red By: Genesis Damon on 10-13-2023 INR Coag (Bld) [Relative time] 2.8 {INR} [facility] PT Coag (PPP) [Time] 29.4 s 11.7-14.9 [facility] Absolute lymphocyte countOrd ered By: Genesis Damon on 09-26-2023 Lymphocytes Auto (Unsp spec) [#/Vol] 2.12 10*3/uL 0.83-4.51 [facility] Automated lymphocyte count a s percentage of total leukocytesOrdered By: Genesis Damon on 09-26-2023 Lymphocytes/100 WBC Auto (Unsp spec) 32.3 % 19-41 [facility] Basophil percentageOrdered B y: Genesis Damon on 09-26-2023 Basophils/100 WBC (Bld) 0.8 % 0-[address] [facility] Bilirubin [Mass/Vol] 0.50 mg/dL 0.20-1.00 [facility] Comment on above: For patients on eltr ombopag therapy, use of Dimension [place] TBIL is not recommended. Chloride [Moles/Vol] 103 mmol/L 98-107 [facility] Cholesterol [Mass/Vol] 208 mg/dL <200 [facility] Comment on above: <200 mg/dL Desirable 200-240 mg/dL Borderline >240 mg/dL High Risk Eosinophils/100 WBC (Bld) 2.7 % 0-5 [facility] Glucose [Mass/Vol] 180 mg/dL 74-106 [facility] Comment on above: Fasting Glucose resu lt greater than or equal to 126 mg/dL suggests DIABETES MELLITUS per A.D.A. criteria. Hemoglobin (Bld) [Mass/Vol] 15.0 g/dL 13.0-16.5 [facility] Monocytes/100 WBC (Bld) 11.1 % 0-10 [facility] Neutrophils (Bld) [#/Vol] 3.5 10*3/uL 2.0-7.7 [facility] Neutrophils/100 WBC (Bld) 52.8 % 47-70 [facility] Potassium [Moles/Vol] 3.8 mmol/L 3.5-5.1 [facility] Protein [Mass/Vol] 7.1 g/dL 6.4-8.2 [facility] Sodium [Moles/Vol] 138 mmol/L 136-145 [facility] Triglyceride [Mass/Vol] 385 mg/dL <199 [facility] Comment on above: The drugs N-Acetylcy steine and Metamizole may falsely depress this assay.Serum Triglycerides Reference Interval Normal <150 mg/dL Borderline high 150 - 199 mg/dL High 200 - 499 mg/dL Very High > or = 500 mg/dL WBC (Bld) [#/Vol] 6.6 10*3/uL 4.4-11.0 [facility] Determination of erythrocyte mean corpuscular volume (MCV)Ordered By: Genesis Damon on 09-26-2023 MCV (RBC) [Entitic vol] 82.5 fL 80-94 [facility] Erythrocyte distribution wid th ratioOrdered By: Genesis Damon on 09-26-2023 Erythrocyte distribution width (RBC) [Ratio] 13.4 % 11.6-14.6 [facility] Erythrocyte distribution wid th standard deviationOrdered By: Genesis Damon on 09-26-2023 Erythrocyte distribution width (RBC) [Entitic vol] 40.1 fL 35.1-43.9 [facility] Hematocrit Auto (Bld) [Volum e fraction]Ordered By: Genesis Damon on 09-26-2023 Hematocrit (Bld) [Volume fraction] 44.9 % 40-54 [facility] Immature granulocytes/100 WB C Auto (Bld)Ordered By: Genesis Damon on 09-26-2023 Immature granulocytes/100 WBC (Bld) 0.300 % 0.0-0.9 [facility] Comment on above: IG% - Immature Granu locytes (promyelocytes, myelocytes and metamyelocytes) > 1% indicates that a LEFT SHIFT is Present. Laboratory - Chemistry and C hemistry - challengeOrdered By: Genesis Damon on 09-26-2023 Albumin/Globulin [Mass ratio] 1.2 {ratio} 0.9-2.4 [facility] ALP [Catalytic activity/Vol] 63 U/L 45-117 [facility] ALT [Catalytic activity/Vol] 34 U/L 16-61 [facility] Cholesterol in HDL [Mass/Vol] 37 mg/dL >40 [facility] Comment on above: The drugs N-Acetylcy steine and Metamizole may falsely depress this assay. Reference Range HDL <40 mg/dL Low HDL Cholesterol HDL >or= 60 mg/dL High HDL Cholesterol Cholesterol in LDL [Mass/Vol] 94 mg/dL 0-130 [facility] CO2 [Moles/Vol] 29.0 mmol/L 21.0-32.0 [facility] Globulin (S) [Mass/Vol] 3.3 g/dL 2.2-4.2 [facility] Urea nitrogen/Creatinine [Mass ratio] 16.0 mg/mg 10-20 [facility] Laboratory - Hematology and Cell countsOrdered By: Genesis Damon on 09-26-2023 MCH (RBC) [Entitic mass] 27.6 pg 27.0-32.0 [facility] MCHC (RBC) [Mass/Vol] 33.4 g/dL 32-36 [facility] Nucleated RBC/100 WBC (Bld) [Ratio] 0 % 0-5 [facility] Platelet mean volume (Bld) [Entitic vol] 8.9 fL 6.2-12.0 [facility] Platelets (Bld) [#/Vol] 306 10*3/uL 150-450 [facility] No Panel InformationOrdered By: Genesis Damon on 09-26-2023 Estimated GFR (MDRD) Amer 89 mL/min >60 [facility] Comment on above: GFR Calc Estimated GFR (MDRD) Non-Af Amer 73 mL/min >60 [facility] Comment on above: Non- GFR Calc Prostate Specific Antigen Screen 4.55 ng/mL 0.00-4.00 [facility] Comment on above: This test was perfor med using the TPSA assay method for [employer] chemistry system. Values obtained with differentassay methods cannot be used interchangably.When changing PSA assays in the course of monitoring apatient, additional sequential testing should be carriedout to confirm baseline values. Vitamin D 25-Hydroxy 26.6 ng/mL [facility] Comment on above: Vitamin D 25(OH) Sta tus Range Deficiency <20 ng/mL (50nmol/L) Insufficiency 20 - 30 ng/mL (50 - 75 nmol/L) Sufficiency 30 - 100 ng/mL (75 - 250 nmol/L) Toxicity >100 ng/mL (>250 nmol/L) VLDL Cholesterol 77 mg/dL 5-40 [facility] RBC Auto (Bld) [#/Vol]Ordere d By: Genesis Damon on 09-26-2023 RBC (Bld) [#/Vol] 5.44 10*6/uL 4.6-6.2 [facility] Serum or plasma calcium stephan urement (mass/volume)Ordered By: Genesis Damon on 09-26-2023 Calcium [Mass/Vol] 9.0 mg/dL 8.5-10.1 [facility] Serum or plasma creatinine m easurement (mass/volume)Ordered By: Genesis Damon on 09-26-2023 Creatinine [Mass/Vol] 1.06 mg/dL 0.70-1.30 [facility] Comment on above: The validity of the calculated GFR & GFRAA in patients over 70 years has not been determined. Clinical correlation is essential. Serum or plasma thyroid stim ulating hormone (TSH) measurement (units/volume)Ordered By: Genesis Damon on 09-26-2023 TSH Qn 0.88 uIU/mL 0.358-3.74 [facility] Serum or plasma urea nitroge n measurement (mass/volume)Ordered By: Genesis Damon on 09-26-2023 Urea nitrogen [Mass/Vol] 17 mg/dL 7-18 [facility] Thin prep Papanicolaou smear with manual screeningOrdered By: Genesis Damon on 09-26-2023 Thin prep Papanicolaou smear with manual screening 3.8 g/dL 3.2-5.0 [facility] Thin prep Papanicolaou smear with manual screening 21 U/L 1537 [facility] Thin prep Papanicolaou smear with manual screening 6 5-15 [facility] Whole blood hemoglobin A1c/t otal hemoglobin ratio (mass fraction)Ordered By: Genesis Damon on 09-26-2023 HbA1c (Bld) [Mass fraction] 8.1 % 3.8-5.6 [facility] Comment on above: Normal < 5.7 % Predi abetic 5.7 - 6.4 % Diabetic >or= 6.5 % Please note range changes. Capillary blood internationa l normalized ratio (INR)Ordered By: Genesis Damon on 09-12-2023 INR Coag (BldC) [Relative time] 2.7 [facility] Comment on above: Critical Value > 4.0 Whole blood prothrombin time Ordered By: Genesis Damon on 09-12-2023 PT Coag (Bld) [Time] 27.3 s 11.7-14.9 [facility] Capillary blood internationa l normalized ratio (INR)Ordered By: Genesis Damon on 08-14-2023 INR Coag (BldC) [Relative time] 2.5 [facility] Comment on above: Critical Value > 4.0 Whole blood prothrombin time Ordered By: Genesis Damon on 08-14-2023 PT Coag (Bld) [Time] 25.9 s 11.7-14.9 [facility] Laboratory - CoagulationOrde red By: Genesis Damon on 07-15-2023 INR Coag (Bld) [Relative time] 3.0 {INR} [facility] Comment on above: Critical Value > 4.0 Whole blood prothrombin time Ordered By: Genesis Damon on 07-15-2023 PT Coag (Bld) [Time] 32.3 s 11.7-14.9 [facility] Laboratory - CoagulationOrde red By: Genesis Damon on 06-14-2023 INR Coag (Bld) [Relative time] 2.3 {INR} [facility] Comment on above: Critical Value > 4.0 Whole blood prothrombin time Ordered By: Genesis Damon on 06-14-2023 PT Coag (Bld) [Time] 25.2 s 11.7-14.9 [facility] Laboratory - CoagulationOrde red By: Genesis Damon on 05-14-2023 INR Coag (Bld) [Relative time] 3.1 {INR} [facility] Comment on above: Critical Value > 4.0 Whole blood prothrombin time Ordered By: Genesis Damon on 05-14-2023 PT Coag (Bld) [Time] 33.6 s 11.7-14.9 [facility] Basophil percentageOrdered B y: Genesis Damon on 05-01-2023 Bilirubin [Mass/Vol] 0.40 mg/dL 0.20-1.00 [facility] Comment on above: For patients on eltr ombopag therapy, use of Dimension [place] TBIL is not recommended. Chloride [Moles/Vol] 105 mmol/L 98-107 [facility] Cholesterol [Mass/Vol] 183 mg/dL <200 [facility] Comment on above: <200 mg/dL Desirable 200-240 mg/dL Borderline >240 mg/dL High Risk Glucose [Mass/Vol] 163 mg/dL 74-106 [facility] Comment on above: Fasting Glucose resu lt greater than or equal to 126 mg/dL suggests DIABETES MELLITUS per A.D.A. criteria. Potassium [Moles/Vol] 4.0 mmol/L 3.5-5.1 [facility] Protein [Mass/Vol] 6.9 g/dL 6.4-8.2 [facility] Sodium [Moles/Vol] 139 mmol/L 136-145 [facility] Triglyceride [Mass/Vol] 277 mg/dL <199 [facility] Comment on above: The drugs N-Acetylcy steine and Metamizole may falsely depress this assay.Serum Triglycerides Reference Interval Normal <150 mg/dL Borderline high 150 - 199 mg/dL High 200 - 499 mg/dL Very High > or = 500 mg/dL Laboratory - Chemistry and C hemistry - challengeOrdered By: Genesis Damon on 05-01-2023 ALP [Catalytic activity/Vol] 59 U/L 45-117 [facility] ALT [Catalytic activity/Vol] 34 U/L 16-61 [facility] CO2 [Moles/Vol] 30.0 mmol/L 21.0-32.0 [facility] Globulin (S) [Mass/Vol] 3.4 g/dL 2.2-4.2 [facility] Urea nitrogen/Creatinine [Mass ratio] 12.8 mg/mg 10-20 [facility] No Panel InformationOrdered By: Genesis Damon on 05-01-2023 Estimated GFR (MDRD) Amer 73 mL/min >60 [facility] [facility] Comment on above: GFR Calc Estimated GFR (MDRD) Non-Af Amer 61 mL/min >60 [facility] Comment on above: Non- GFR Calc Serum or plasma albumin stephan urement (mass/volume)Ordered By: Genesis Damon on 05-01-2023 Albumin [Mass/Vol] 3.5 g/dL 3.2-5.0 [facility] Serum or plasma albumin/glob ulin mass ratioOrdered By: Genesis Damon on 05-01-2023 Albumin/Globulin [Mass ratio] 1.0 {ratio} 0.9-2.4 [facility] Serum or plasma calcium stephan urement (mass/volume)Ordered By: Genesis Damon on 05-01-2023 Calcium [Mass/Vol] 9.1 mg/dL 8.5-10.1 [facility] Serum or plasma cholesterol in HDL measurement (mass/volume)Ordered By: Genesis Damon on 05-01-2023 Cholesterol in HDL [Mass/Vol] 36 mg/dL >40 [facility] Comment on above: The drugs N-Acetylcy steine and Metamizole may falsely depress this assay. Reference Range HDL <40 mg/dL Low HDL Cholesterol HDL >or= 60 mg/dL High HDL Cholesterol Serum or plasma cholesterol in VLDL measurement (mass/volume)Ordered By: Genesis Damon on 05-01-2023 Cholesterol in VLDL [Mass/Vol] 55 mg/dL 5-40 [facility] Serum or plasma creatinine m easurement (mass/volume)Ordered By: Genesis Damon on 05-01-2023 Creatinine [Mass/Vol] 1.25 mg/dL 0.70-1.30 [facility] Comment on above: The validity of the calculated GFR & GFRAA in patients over 70 years has not been determined. Clinical correlation is essential. Serum or plasma low density lipoprotein (LDL) cholesterol measurement (mass/volume)Ordered By: Genesis Damon on 05-01-2023 Cholesterol in LDL [Mass/Vol] 92 mg/dL 0-130 [facility] Serum or plasma urea nitroge n measurement (mass/volume)Ordered By: Genesis Damon on 05-01-2023 Urea nitrogen [Mass/Vol] 16 mg/dL 7-18 [facility] Thin prep Papanicolaou smear with manual screeningOrdered By: Genesis Damon on 05-01-2023 Thin prep Papanicolaou smear with manual screening 17 U/L 15-37 [facility] Thin prep Papanicolaou smear with manual screening 4 5-15 [facility] Whole blood hemoglobin A1c/t otal hemoglobin ratio (mass fraction)Ordered By: Genesis Damon on 05-01-2023 HbA1c (Bld) [Mass fraction] 7.5 % 3.8-5.6 [facility] Comment on above: Normal < 5.7 % Predi abetic 5.7 - 6.4 % Diabetic >or= 6.5 % Please note range changes. Laboratory - CoagulationOrde red By: Genesis Damon on 04-14-2023 INR Coag (Bld) [Relative time] 2.5 {INR} [facility] Comment on above: Critical Value > 4.0 Whole blood prothrombin time Ordered By: Genesis Damon on 04-14-2023 PT Coag (Bld) [Time] 27.2 s 11.7-14.9 [facility] Laboratory - CoagulationOrde red By: Genesis Damon on 03-15-2023 INR Coag (Bld) [Relative time] 2.5 {INR} [facility] Comment on above: Critical Value > 4.0 Whole blood prothrombin time Ordered By: Genesis Damon on 03-15-2023 PT Coag (Bld) [Time] 27.2 s 11.7-14.9 [facility] Laboratory - CoagulationOrde red By: Genesis Damon on 02-10-2023 INR Coag (Bld) [Relative time] 2.2 {INR} [facility] Comment on above: Critical Value > 4.0 Whole blood prothrombin time Ordered By: Genesis Damon on 02-10-2023 PT Coag (Bld) [Time] 24.1 s 11.7-14.9 [facility] Laboratory - CoagulationOrde red By: Genesis Damon on 01-10-2023 INR Coag (Bld) [Relative time] 2.5 {INR} [facility] Comment on above: Critical Value > 4.0 Whole blood prothrombin time Ordered By: Genesis Damon on 01-10-2023 PT Coag (Bld) [Time] 26.8 s 11.7-14.9 [facility] Absolute lymphocyte countOrd ered By: Dr. Damon on 12-31-2022 Lymphocytes Auto (Unsp spec) [#/Vol] 2.54 10*3/uL 0.83-4.51 [facility] Basophil percentageOrdered B y: Dr. Damon on 12-31-2022 Basophils/100 WBC (Bld) 0.7 % 0-[address] [facility] Bilirubin [Mass/Vol] 0.50 mg/dL 0.20-1.00 [facility] Comment on above: For patients on eltr ombopag therapy, use of Dimension [place] TBIL is not recommended. Chloride [Moles/Vol] 100 mmol/L 98-107 [facility] Cholesterol [Mass/Vol] 206 mg/dL <200 [facility] Comment on above: <200 mg/dL Desirable 200-240 mg/dL Borderline >240 mg/dL High Risk Eosinophils/100 WBC (Bld) 3.1 % 0-5 [facility] Glucose [Mass/Vol] 211 mg/dL 74-106 [facility] Comment on above: Glucose result great er than or equal to 200 mg/dLsuggests DIABETES MELLITUS per A.D.A. criteria. Neutrophils (Bld) [#/Vol] 3.3 10*3/uL 2.0-7.7 [facility] Neutrophils/100 WBC (Bld) 48.0 % 47-70 [facility] Potassium [Moles/Vol] 3.8 mmol/L 3.5-5.1 [facility] Protein [Mass/Vol] 6.7 g/dL 6.4-8.2 [facility] Sodium [Moles/Vol] 134 mmol/L 136-145 [facility] Triglyceride [Mass/Vol] 435 mg/dL <199 [facility] Comment on above: The drugs N-Acetylcy steine and Metamizole may falsely depress this assay. TRIGLYCERIDE IS GREATER THAN 400 mg/dL. LDL RESULT IS INVALID AND WILL NOT BE REPORTED.Serum Triglycerides Reference Interval Normal <150 mg/dL Borderline high 150 - 199 mg/dL High 200 - 499 mg/dL Very High > or = 500 mg/dL WBC (Bld) [#/Vol] 6.8 10*3/uL 4.4-11.0 [facility] Blood erythrocytes count (nu mber/volume)Ordered By: Dr. Damon on 12-31-2022 RBC (Bld) [#/Vol] 5.42 10*6/uL 4.6-6.2 [facility] Blood hemoglobin measurement (mass/volume)Ordered By: Dr. Damon on 12-31-2022 Hemoglobin (Bld) [Mass/Vol] 14.9 g/dL 13.0-16.5 [facility] Blood lymphocytes/100 leukoc ytesOrdered By: Dr. Damon on 12-31-2022 Lymphocytes/100 WBC (Bld) 37.5 % 19-41 [facility] Blood monocytes/100 leukocyt esOrdered By: Dr. Damon on 12-31-2022 Monocytes/100 WBC (Bld) 10.3 % 0-10 [facility] Blood platelet mean volumeOr dered By: Dr. Damon on 12-31-2022 Platelet mean volume (Bld) [Entitic vol] 8.9 fL 6.2-12.0 [facility] Determination of erythrocyte mean corpuscular volume (MCV)Ordered By: Dr. Damon on 12-31-2022 MCV (RBC) [Entitic vol] 81.7 fL 80-94 [facility] Hematocrit Auto (Bld) [Volum e fraction]Ordered By: Dr. Damon on 12-31-2022 Hematocrit (Bld) [Volume fraction] 44.3 % 40-54 [facility] Laboratory - Chemistry and C hemistry - challengeOrdered By: Dr. Damon on 12-31-2022 ALP [Catalytic activity/Vol] 65 U/L 45-117 [facility] ALT [Catalytic activity/Vol] 48 U/L 16-61 [facility] CO2 [Moles/Vol] 29.0 mmol/L 21.0-32.0 [facility] Globulin (S) [Mass/Vol] 3.2 g/dL 2.2-4.2 [facility] Urea nitrogen/Creatinine [Mass ratio] 15.9 mg/mg 10-20 [facility] Laboratory - Hematology and Cell countsOrdered By: Dr. Damon on 12-31-2022 Erythrocyte distribution width (RBC) [Entitic vol] 39.5 fL 35.1-43.9 [facility] Erythrocyte distribution width (RBC) [Ratio] 13.3 % 11.6-14.6 [facility] Immature granulocytes/100 WBC (Bld) 0.400 % 0.0-0.9 [facility] Comment on above: IG% - Immature Granu locytes (promyelocytes, myelocytes and metamyelocytes) > 1% indicates that a LEFT SHIFT is Present. MCH (RBC) [Entitic mass] 27.5 pg 27.0-32.0 [facility] Nucleated RBC/100 WBC (Bld) [Ratio] 0 % 0-5 [facility] MCHC Auto (RBC) [Mass/Vol]Or dered By: Dr. Damon on 12-31-2022 MCHC (RBC) [Mass/Vol] 33.6 g/dL 32-36 [facility] No Panel InformationOrdered By: Dr. Damon on 12-31-2022 Estimated GFR (MDRD) Amer 101 mL/min >60 [facility] Comment on above: GFR Calc Estimated GFR (MDRD) Non-Af Amer 84 mL/min >60 [facility] Comment on above: Non- GFR Calc Prostate Specific Antigen Total 4.60 ng/mL 0.0-4.0 [facility] Comment on above: This test was perfor med using the TPSA assay method for the[employer] chemistry system. Values obtained with differentassay methods cannot be used interchangably.When changing PSA assays in the course of monitoring apatient, additional sequential testing should be carriedout to confirm baseline values. Thyroid Stimulating Hormone (TSH) 1.55 uIU/mL 0.358-3.74 [facility] Vitamin D 25-Hydroxy 35.5 ng/mL [facility] Comment on above: Vitamin D 25(OH) Sta tus Range Deficiency <20 ng/mL (50nmol/L) Insufficiency 20 - 30 ng/mL (50 - 75 nmol/L) Sufficiency 30 - 100 ng/mL (75 - 250 nmol/L) Toxicity >100 ng/mL (>250 nmol/L) Platelets bldOrdered By: Dr. Damon on 12-31-2022 Platelets (Bld) [#/Vol] 282 10*3/uL 150-450 [facility] Serum or plasma albumin stephan urement (mass/volume)Ordered By: Dr. Damon on 12-31-2022 Albumin [Mass/Vol] 3.5 g/dL 3.2-5.0 [facility] Serum or plasma albumin/glob ulin mass ratioOrdered By: Dr. Damon on 12-31-2022 Albumin/Globulin [Mass ratio] 1.1 {ratio} 0.9-2.4 [facility] Serum or plasma calcium stephan urement (mass/volume)Ordered By: Dr. Damon on 12-31-2022 Calcium [Mass/Vol] 8.8 mg/dL 8.5-10.1 [facility] Serum or plasma cholesterol in HDL measurement (mass/volume)Ordered By: Dr. Damon on 12-31-2022 Cholesterol in HDL [Mass/Vol] 36 mg/dL >40 [facility] Comment on above: The drugs N-Acetylcy steine and Metamizole may falsely depress this assay. Reference Range HDL <40 mg/dL Low HDL Cholesterol HDL >or= 60 mg/dL High HDL Cholesterol Serum or plasma cholesterol in VLDL measurement (mass/volume)Ordered By: Dr. Damon on 12-31-2022 Cholesterol in VLDL [Mass/Vol] TNP [facility] Comment on above: Test not performed Serum or plasma creatinine m easurement (mass/volume)Ordered By: Dr. Damon on 12-31-2022 Creatinine [Mass/Vol] 0.95 mg/dL 0.70-1.30 [facility] Comment on above: The validity of the calculated GFR & GFRAA in patients over 70 years has not been determined. Clinical correlation is essential. Serum or plasma low density lipoprotein (LDL) cholesterol measurement (mass/volume)Ordered By: Dr. Damon on 12-31-2022 Cholesterol in LDL [Mass/Vol] TNP [facility] Comment on above: Test not performed Serum or plasma urea nitroge n measurement (mass/volume)Ordered By: Dr. Damon on 12-31-2022 Urea nitrogen [Mass/Vol] 15 mg/dL 7-18 [facility] Thin prep Papanicolaou smear with manual screeningOrdered By: Dr. Damon on 12-31-2022 Thin prep Papanicolaou smear with manual screening 30 U/L 15-37 [facility] Thin prep Papanicolaou smear with manual screening 5 5-15 [facility] Whole blood hemoglobin A1c/t otal hemoglobin ratio (mass fraction)Ordered By: Dr. Damon on 12-31-2022 HbA1c (Bld) [Mass fraction] 10.3 % 3.8-5.6 [facility] Comment on above: Normal < 5.7 % Predi abetic 5.7 - 6.4 % Diabetic >or= 6.5 % Please note range changes. Laboratory - CoagulationOrde red By: Dr. Damon on 12-12-2022 INR Coag (Bld) [Relative time] 2.3 {INR} [facility] Comment on above: Critical Value > 4.0 Whole blood prothrombin time Ordered By: Dr. Damon on 12-12-2022 PT Coag (Bld) [Time] 25.0 s 11.7-14.9 [facility] Laboratory - CoagulationOrde red By: Dr. Damon on 11-11-2022 INR Coag (Bld) [Relative time] 2.4 {INR} [facility] Comment on above: Critical Value > 4.0 Whole blood prothrombin time Ordered By: Dr. Damon on 11-11-2022 PT Coag (Bld) [Time] 26.1 s 11.7-14.9 [facility] INR in Blood by Coagulation assayOrdered By: Dr. Damon on 10-12-2022 INR Coag (Bld) [Relative time] 2.6 {INR} [facility] Laboratory - CoagulationOrde red By: Dr. Damon on 10-12-2022 PT Coag (PPP) [Time] 27.4 s 11.7-14.9 [facility] Laboratory - CoagulationOrde red By: Dr. Damon on 09-11-2022 INR Coag (Bld) [Relative time] 2.4 {INR} [facility] Comment on above: Critical Value > 4.0 Whole blood prothrombin time Ordered By: Dr. Damon on 09-11-2022 PT Coag (Bld) [Time] 27.5 s 11.7-14.9 [facility] Laboratory - CoagulationOrde red By: Dr. Damon on 08-12-2022 INR Coag (Bld) [Relative time] 2.4 {INR} [facility] Comment on above: Critical Value > 4.0 Whole blood prothrombin time Ordered By: Dr. Damon on 08-12-2022 PT Coag (Bld) [Time] 28.4 s 11.7-14.9 [facility] Laboratory - CoagulationOrde red By: Dr. Damon on 07-12-2022 INR Coag (Bld) [Relative time] 2.8 {INR} [facility] Comment on above: Critical Value > 4.0 Whole blood prothrombin time Ordered By: Dr. Damon on 07-12-2022 PT Coag (Bld) [Time] 32.0 s 11.7-14.9 [facility] Absolute lymphocyte countOrd ered By: Dr. Damon on 06-14-2022 Lymphocytes Auto (Unsp spec) [#/Vol] 2.55 10*3/uL 0.83-4.51 [facility] Basophil percentageOrdered B y: Dr. Damon on 06-14-2022 Basophils/100 WBC (Bld) 0.6 % 0-1 [facility] Bilirubin [Mass/Vol] 0.50 mg/dL 0.20-1.00 [facility] Comment on above: For patients on eltr ombopag therapy, use of Dimension [place] TBIL is not recommended. Chloride [Moles/Vol] 102 mmol/L 98-107 [facility] Cholesterol [Mass/Vol] 205 mg/dL <200 [facility] Comment on above: <200 mg/dL Desirable 200-240 mg/dL Borderline >240 mg/dL High Risk Eosinophils/100 WBC (Bld) 1.8 % 0-5 [facility] Glucose [Mass/Vol] 140 mg/dL 74-106 [facility] Comment on above: Fasting Glucose resu lt greater than or equal to 126 mg/dL suggests DIABETES MELLITUS per A.D.A. criteria. Neutrophils (Bld) [#/Vol] 5.3 10*3/uL 2.0-7.7 [facility] Neutrophils/100 WBC (Bld) 59.6 % 47-70 [facility] Potassium [Moles/Vol] 3.9 mmol/L 3.5-5.1 [facility] Protein [Mass/Vol] 7.4 g/dL 6.4-8.2 [facility] Sodium [Moles/Vol] 136 mmol/L 136-145 [facility] Triglyceride [Mass/Vol] 244 mg/dL <199 [facility] Comment on above: The drugs N-Acetylcy steine and Metamizole may falsely depress this assay.Serum Triglycerides Reference Interval Normal <150 mg/dL Borderline high 150 - 199 mg/dL High 200 - 499 mg/dL Very High > or = 500 mg/dL WBC (Bld) [#/Vol] 8.9 10*3/uL 4.4-11.0 [facility] Blood erythrocytes count (nu mber/volume)Ordered By: Dr. Damon on 06-14-2022 RBC (Bld) [#/Vol] 5.61 10*6/uL 4.6-6.2 [facility] Blood hemoglobin measurement (mass/volume)Ordered By: Dr. Damon on 06-14-2022 Hemoglobin (Bld) [Mass/Vol] 15.2 g/dL 13.0-16.5 [facility] Blood lymphocytes/100 leukoc ytesOrdered By: Dr. Damon on 06-14-2022 Lymphocytes/100 WBC (Bld) 28.5 % 19-41 [facility] Blood monocytes/100 leukocyt esOrdered By: Dr. Damon on 06-14-2022 Monocytes/100 WBC (Bld) 9.1 % 0-10 [facility] Blood platelet mean volumeOr dered By: Dr. Damon on 06-14-2022 Platelet mean volume (Bld) [Entitic vol] 9.0 fL 6.2-12.0 [facility] Determination of erythrocyte mean corpuscular volume (MCV)Ordered By: Dr. Damon on 06-14-2022 MCV (RBC) [Entitic vol] 82.7 fL 80-94 [facility] Hematocrit Auto (Bld) [Volum e fraction]Ordered By: Dr. Damon on 06-14-2022 Hematocrit (Bld) [Volume fraction] 46.4 % 40-54 [facility] Laboratory - Chemistry and C hemistry - challengeOrdered By: Dr. Damon on 06-14-2022 ALP [Catalytic activity/Vol] 68 U/L 45-117 [facility] ALT [Catalytic activity/Vol] 28 U/L 16-61 [facility] CO2 [Moles/Vol] 29.0 mmol/L 21.0-32.0 [facility] Globulin (S) [Mass/Vol] 3.6 g/dL 2.2-4.[address] [facility] Urea nitrogen/Creatinine [Mass ratio] 13.6 mg/mg 10-20 [facility] Laboratory - Hematology and Cell countsOrdered By: Dr. Damon on 06-14-2022 Erythrocyte distribution width (RBC) [Entitic vol] 39.7 fL 35.1-43.9 [facility] Erythrocyte distribution width (RBC) [Ratio] 13.2 % 11.6-14.6 [facility] Immature granulocytes/100 WBC (Bld) 0.400 % 0.0-0.9 [facility] Comment on above: IG% - Immature Granu locytes (promyelocytes, myelocytes and metamyelocytes) > 1% indicates that a LEFT SHIFT is Present. MCH (RBC) [Entitic mass] 27.1 pg 27.0-32.0 [facility] Nucleated RBC/100 WBC (Bld) [Ratio] 0 % 0-5 [facility] Auto (RBC) [Mass/Vol]Or dered By: Dr. Damon on 06-14-2022 MCHC (RBC) [Mass/Vol] 32.8 g/dL 32-36 [facility] No Panel InformationOrdered By: Dr. Damon on 06-14-2022 Estimated GFR (MDRD) Amer 100 mL/min >60 [facility] Comment on above: GFR Calc Estimated GFR (MDRD) Non-Af Amer 83 mL/min >60 [facility] Comment on above: Non- GFR Calc Prostate Specific Antigen Screen 5.01 ng/mL 0.00-4.00 [facility] Comment on above: This test was perfor med using the TPSA assay method for the[employer] chemistry system. Values obtained with differentassay methods cannot be used interchangably.When changing PSA assays in the course of monitoring apatient, additional sequential testing should be carriedout to confirm baseline values. Platelets bldOrdered By: Dr. Damon on 06-14-2022 Platelets (Bld) [#/Vol] 365 10*3/uL 150-450 [facility] Serum or plasma albumin stephan urement (mass/volume)Ordered By: Dr. Damon on 06-14-2022 Albumin [Mass/Vol] 3.8 g/dL 3.2-5.0 [facility] Serum or plasma albumin/glob ulin mass ratioOrdered By: Dr. Damon on 06-14-2022 Albumin/Globulin [Mass ratio] 1.1 {ratio} 0.9-2.4 [facility] Serum or plasma calcium stephan urement (mass/volume)Ordered By: Dr. Damon on 06-14-2022 Calcium [Mass/Vol] 9.6 mg/dL 8.5-10.1 [facility] Serum or plasma cholesterol in HDL measurement (mass/volume)Ordered By: Dr. Damon on 06-14-2022 Cholesterol in HDL [Mass/Vol] 41 mg/dL >40 [facility] Comment on above: The drugs N-Acetylcy steine and Metamizole may falsely depress this assay. Reference Range HDL <40 mg/dL Low HDL Cholesterol HDL >or= 60 mg/dL High HDL Cholesterol Serum or plasma cholesterol in VLDL measurement (mass/volume)Ordered By: Dr. Damon on 06-14-2022 Cholesterol in VLDL [Mass/Vol] 49 mg/dL 5-40 [facility] Serum or plasma creatinine m easurement (mass/volume)Ordered By: Dr. Damon on 06-14-2022 Creatinine [Mass/Vol] 0.96 mg/dL 0.70-1.30 [facility] Comment on above: The validity of the calculated GFR & GFRAA in patients over 70 years has not been determined. Clinical correlation is essential. Serum or plasma low density lipoprotein (LDL) cholesterol measurement (mass/volume)Ordered By: Dr. Damon on 06-14-2022 Cholesterol in LDL [Mass/Vol] 115 mg/dL 0-130 [facility] Serum or plasma urea nitroge n measurement (mass/volume)Ordered By: Dr. Damon on 06-14-2022 Urea nitrogen [Mass/Vol] 13 mg/dL 7-18 [facility] Thin prep Papanicolaou smear with manual screeningOrdered By: Dr. Damon on 06-14-2022 Thin prep Papanicolaou smear with manual screening 17 U/L 15-37 [facility] Thin prep Papanicolaou smear with manual screening 5 5-15 [facility] Whole blood hemoglobin A1c/t otal hemoglobin ratio (mass fraction)Ordered By: Dr. Damon on 06-14-2022 HbA1c (Bld) [Mass fraction] 6.9 % 3.8-5.6 [facility] Comment on above: Normal < 5.7 % Predi abetic 5.7 - 6.4 % Diabetic >or= 6.5 % Please note range changes. Glucose Glucometer (BldC) [M ass/Vol]Ordered By: Dr. Lane on 05-31-2022 Glucose [Mass/Vol] 137 mg/dL 74-106 [facility] Comment on above: MANAGEMENT OF PATIEN T CARE PER NURSING PROTOCOL Laboratory - CoagulationOrde red By: Dr. Lane on 05-31-2022 INR Coag (Bld) [Relative time] 1.4 {INR} [facility] Comment on above: Critical Value > 4.0 Whole blood prothrombin time Ordered By: Dr. Lane on 05-31-2022 PT Coag (Bld) [Time] 17.2 s 11.7-14.9 [facility] Laboratory - CoagulationOrde red By: Dr. Damon on 05-30-2022 INR Coag (Bld) [Relative time] 1.4 {INR} [facility] Comment on above: Critical Value > 4.0 Whole blood prothrombin time Ordered By: Dr. Damon on 05-30-2022 PT Coag (Bld) [Time] 17.2 s 11.7-14.9 [facility] Laboratory - CoagulationOrde red By: Dr. Lane on 05-28-2022 PT Coag (PPP) [Time] 22.1 s 11.7-14.9 [facility] Laboratory - CoagulationOrde red By: Dr. Damon on 05-06-2022 INR Coag (Bld) [Relative time] 2.9 {INR} [facility] Comment on above: Critical Value > 4.0 Whole blood prothrombin time Ordered By: Dr. Damon on 05-06-2022 PT Coag (Bld) [Time] 33.3 s 11.7-14.9 [facility] Basophil percentageon 2021 Bilirubin [Mass/Vol] 0.40 mg/dL 0.20-1.00 [facility] Work Phone: Comment on above: For patients on eltr ombopag therapy, use of Dimension [place] TBIL is not recommended. Chloride [Moles/Vol] 104 mmol/L 98-107 [facility] Work Phone: Glucose [Mass/Vol] 160 mg/dL 74-106 [facility] Work Phone: Comment on above: Fasting Glucose resu lt greater than or equal to 126 mg/dL suggests DIABETES MELLITUS per A.D.A. criteria. Potassium [Moles/Vol] 3.9 mmol/L 3.5-5.1 [facility] Work Phone: Protein [Mass/Vol] 7.2 g/dL 6.4-8.2 [facility] Work Phone: Sodium [Moles/Vol] 138 mmol/L 136-145 [facility] Work Phone: Laboratory - Chemistry and C hemistry - challengeon 04-12-2022 ALP [Catalytic activity/Vol] 60 U/L 45-117 [facility] Work Phone: ALT [Catalytic activity/Vol] 28 U/L 16-61 [facility] Work Phone: CO2 [Moles/Vol] 27.0 mmol/L 21.0-32.0 [facility] Work Phone: Globulin (S) [Mass/Vol] 3.5 g/dL 2.2-4.2 [facility] Work Phone: Urea nitrogen/Creatinine [Mass ratio] 13.4 mg/mg 10-20 [facility] Work Phone: No Panel Informationon 04-12 Estimated GFR (MDRD) Amer 98 mL/min >60 [facility] Work Phone: Comment on above: GFR Calc Estimated GFR (MDRD) Non-Af Amer 81 mL/min >60 [facility] Work Phone: Comment on above: Non- GFR Calc Serum or plasma albumin stephan urement (mass/volume)on 04-12-2022 Albumin [Mass/Vol] 3.7 g/dL 3.2-5.0 [facility] Work Phone: Serum or plasma albumin/glob ulin mass ratioon 04-12-2022 Albumin/Globulin [Mass ratio] 1.1 {ratio} 0.9-2.4 [facility] Work Phone: Serum or plasma calcium stephan urement (mass/volume)on 04-12-2022 Calcium [Mass/Vol] 9.3 mg/dL 8.5-10.1 [facility] Work Phone: Serum or plasma creatinine m easurement (mass/volume)on 04-12-2022 Creatinine [Mass/Vol] 0.97 mg/dL 0.70-1.30 [facility] Work Phone: Comment on above: The validity of the calculated GFR & GFRAA in patients over 70 years has not been determined. Clinical correlation is essential. Serum or plasma urea nitroge n measurement (mass/volume)on 04-12-2022 Urea nitrogen [Mass/Vol] 13 mg/dL 7-18 [facility] Work Phone: Thin prep Papanicolaou smear with manual screeningon 04-12-2022 Thin prep Papanicolaou smear with manual screening 17 U/L 15-37 [facility] Work Phone: Thin prep Papanicolaou smear with manual screening 7 5-15 [facility] Work Phone: Whole blood hemoglobin A1c/t otal hemoglobin ratio (mass fraction)on 04-12-2022 HbA1c (Bld) [Mass fraction] 6.7 % 3.8-5.6 [facility] Work Phone: Comment on above: Normal < 5.7 % Predi abetic 5.7 - 6.4 % Diabetic >or= 6.5 % Please note range changes. Laboratory - Coagulationon 0 04-08-2022 INR Coag (Bld) [Relative time] 2.4 {INR} [facility] Work Phone: Comment on above: Critical Value > 4.0 Whole blood prothrombin time on 04-08-2022 PT Coag (Bld) [Time] 27.6 s 11.7-14.9 [facility] Work Phone: Basophil percentageon 2021 Basophil percentage < 0.9 mg/dL 0.70-1.30 [facility] Work Phone: Laboratory - Coagulationon 0 03-05-2022 INR Coag (Bld) [Relative time] 2.7 {INR} [facility] Work Phone: Comment on above: Critical Value > 4.0 No Panel Informationon 03-05 Bedside Estimated GFR (eGFR) > 60.0000 mL/min >60 [facility] Work Phone: Whole blood prothrombin time on 03-05-2022 PT Coag (Bld) [Time] 31.3 s 11.7-14.9 [facility] Work Phone: Laboratory - Coagulationon 0 02-05-2022 INR Coag (Bld) [Relative time] 2.6 {INR} [facility] Work Phone: Comment on above: Critical Value > 4.0 Whole blood prothrombin time on 02-05-2022 PT Coag (Bld) [Time] 30.0 s 11.7-14.9 [facility] Work Phone: INR in Blood by Coagulation assayon 01-12-2022 INR Coag (Bld) [Relative time] 2.4 {INR} [facility] Work Phone: Laboratory - Coagulationon 0 01-12-2022 PT Coag (PPP) [Time] 25.5 s 11.7-14.9 [facility] Work Phone: Laboratory - Coagulationon 0 01-05-2022 INR Coag (Bld) [Relative time] 2.1 {INR} [facility] Work Phone: Comment on above: Critical Value > 4.0 Whole blood prothrombin time on 01-05-2022 PT Coag (Bld) [Time] 25.1 s 11.7-14.9 [facility] Work Phone: Laboratory - Coagulationon 0 12-05-2021 INR Coag (Bld) [Relative time] 2.1 {INR} [facility] Work Phone: Comment on above: Critical Value > 4.0 Whole blood prothrombin time on 12-05-2021 PT Coag (Bld) [Time] 24.5 s 11.7-14.9 [facility] Work Phone: Absolute lymphocyte counton 11-12-2021 Lymphocytes Auto (Unsp spec) [#/Vol] 2.51 10*3/uL 0.83-4.51 [facility] Work Phone: Basophil percentageon 2021 Basophils/100 WBC (Bld) 0.6 % 0-1 [facility] Work Phone: Bilirubin [Mass/Vol] 0.60 mg/dL 0.20-1.00 [facility] Work Phone: Comment on above: For patients on eltr ombopag therapy, use of Dimension [place] TBIL is not recommended. Chloride [Moles/Vol] 101 mmol/L 98-107 [facility] Work Phone: Cholesterol [Mass/Vol] 217 mg/dL <200 [facility] Work Phone: Comment on above: <200 mg/dL Desirable 200-240 mg/dL Borderline >240 mg/dL High Risk Eosinophils/100 WBC (Bld) 1.6 % 0-5 [facility] Work Phone: Glucose [Mass/Vol] 212 mg/dL 74-106 [facility] Work Phone: Comment on above: Glucose result great er than or equal to 200 mg/dLsuggests DIABETES MELLITUS per A.D.A. criteria. Neutrophils (Bld) [#/Vol] 3.3 10*3/uL 2.0-7.7 [facility] Work Phone: Neutrophils/100 WBC (Bld) 48.9 % 47-70 [facility] Work Phone: Potassium [Moles/Vol] 3.9 mmol/L 3.5-5.1 [facility] Work Phone: Protein [Mass/Vol] 7.2 g/dL 6.4-8.2 [facility] Work Phone: Sodium [Moles/Vol] 137 mmol/L 136-145 [facility] Work Phone: Triglyceride [Mass/Vol] 329 mg/dL <199 [facility] Work Phone: Comment on above: The drugs N-Acetylcy steine and Metamizole may falsely depress this assay.Serum Triglycerides Reference Interval Normal <150 mg/dL Borderline high 150 - 199 mg/dL High 200 - 499 mg/dL Very High > or = 500 mg/dL WBC (Bld) [#/Vol] 6.8 10*3/uL 4.4-11.0 [facility] Work Phone: Blood erythrocytes count (nu mber/volume)on 11-12-2021 RBC (Bld) [#/Vol] 5.70 10*6/uL 4.6-6.2 [facility] Work Phone: Blood hemoglobin measurement (mass/volume)on 11-12-2021 Hemoglobin (Bld) [Mass/Vol] 15.5 g/dL 13.0-16.5 [facility] Work Phone: Blood lymphocytes/100 leukoc yteson 11-12-2021 Lymphocytes/100 WBC (Bld) 37.1 % 19-41 [facility] Work Phone: Blood monocytes/100 leukocyt eson 11-12-2021 Monocytes/100 WBC (Bld) 11.4 % 0-10 [facility] Work Phone: Blood platelet mean volumeon 11-12-2021 Platelet mean volume (Bld) [Entitic vol] 9.6 fL 6.2-12.0 [facility] Work Phone: Determination of erythrocyte mean corpuscular volume (MCV)on 11-12-2021 MCV (RBC) [Entitic vol] 81.6 fL 80-94 [facility] Work Phone: Hematocrit Auto (Bld) [Volum e fraction]on 11-12-2021 Hematocrit (Bld) [Volume fraction] 46.5 % 40-54 [facility] Work Phone: Laboratory - Chemistry and C hemistry - challengeon 11-12-2021 ALP [Catalytic activity/Vol] 69 U/L 45-117 [facility] Work Phone: ALT [Catalytic activity/Vol] 30 U/L 16-61 [facility] Work Phone: CO2 [Moles/Vol] 30.0 mmol/L 21.0-32.0 [facility] Work Phone: Globulin (S) [Mass/Vol] 3.5 g/dL 2.2-4.2 [facility] Work Phone: Urea nitrogen/Creatinine [Mass ratio] 14.2 mg/mg 10-20 [facility] Work Phone: Laboratory - Hematology and Cell countson 11-12-2021 Erythrocyte distribution width (RBC) [Entitic vol] 39.9 fL 35.1-43.9 [facility] Work Phone: Erythrocyte distribution width (RBC) [Ratio] 13.6 % 11.6-14.6 [facility] Work Phone: Immature granulocytes/100 WBC (Bld) 0.400 % 0.0-0.9 [facility] Work Phone: Comment on above: IG% - Immature Granu locytes (promyelocytes, myelocytes and metamyelocytes) > 1% indicates that a LEFT SHIFT is Present. MCH (RBC) [Entitic mass] 27.2 pg 27.0-32.0 [facility] Work Phone: Nucleated RBC/100 WBC (Bld) [Ratio] 0 % 0-5 [facility] Work Phone: MCHC Auto (RBC) [Mass/Vol]on 11-12-2021 MCHC (RBC) [Mass/Vol] 33.3 g/dL 32-36 [facility] Work Phone: No Panel Informationon 11-12 Estimated GFR (MDRD) Amer 97 mL/min >60 [facility] Work Phone: Comment on above: GFR Calc Estimated GFR (MDRD) Non-Af Amer 80 mL/min >60 [facility] Work Phone: Comment on above: Non- GFR Calc Thyroid Stimulating Hormone (TSH) 0.77 uIU/mL 0.358-3.74 [facility] Work Phone: Vitamin D 25-Hydroxy 24.3 ng/mL [facility] Work Phone: Comment on above: Vitamin D 25(OH) Sta tus Range Deficiency <20 ng/mL (50nmol/L) Insufficiency 20 - 30 ng/mL (50 - 75 nmol/L) Sufficiency 30 - 100 ng/mL (75 - 250 nmol/L) Toxicity >100 ng/mL (>250 nmol/L) Platelets bldon 11-12-2021 Platelets (Bld) [#/Vol] 279 10*3/uL 150-450 [facility] Work Phone: Serum or plasma albumin stephan urement (mass/volume)on 11-12-2021 Albumin [Mass/Vol] 3.7 g/dL 3.2-5.0 [facility] Work Phone: Serum or plasma albumin/glob ulin mass ratioon 11-12-2021 Albumin/Globulin [Mass ratio] 1.1 {ratio} 0.9-2.4 [facility] Work Phone: Serum or plasma calcium stephan urement (mass/volume)on 11-12-2021 Calcium [Mass/Vol] 8.7 mg/dL 8.5-10.1 [facility] Work Phone: Serum or plasma cholesterol in HDL measurement (mass/volume)on 11-12-2021 Cholesterol in HDL [Mass/Vol] 35 mg/dL >40 [facility] Work Phone: Comment on above: The drugs N-Acetylcy steine and Metamizole may falsely depress this assay. Reference Range HDL <40 mg/dL Low HDL Cholesterol HDL >or= 60 mg/dL High HDL Cholesterol Serum or plasma cholesterol in VLDL measurement (mass/volume)on 11-12-2021 Cholesterol in VLDL [Mass/Vol] 66 mg/dL 5-40 [facility] Work Phone: Serum or plasma creatinine m easurement (mass/volume)on 11-12-2021 Creatinine [Mass/Vol] 0.98 mg/dL 0.70-1.30 [facility] Work Phone: Comment on above: The validity of the calculated GFR & GFRAA in patients over 70 years has not been determined. Clinical correlation is essential. Serum or plasma low density lipoprotein (LDL) cholesterol measurement (mass/volume)on 11-12-2021 Cholesterol in LDL [Mass/Vol] 116 mg/dL 0-130 [facility] Work Phone: Serum or plasma urea nitroge n measurement (mass/volume)on 11-12-2021 Urea nitrogen [Mass/Vol] 14 mg/dL 7-18 [facility] Work Phone: Thin prep Papanicolaou smear with manual screeningon 11-12-2021 Thin prep Papanicolaou smear with manual screening 17 U/L 15-37 [facility] Work Phone: Thin prep Papanicolaou smear with manual screening 6 5-15 [facility] Work Phone: Whole blood hemoglobin A1c/t otal hemoglobin ratio (mass fraction)on 11-12-2021 HbA1c (Bld) [Mass fraction] 9.6 % 3.8-5.6 [facility] Work Phone: Comment on above: Normal < 5.7 % Predi abetic 5.7 - 6.4 % Diabetic >or= 6.5 % Please note range changes. Laboratory - Coagulationon 0 11-05-2021 INR Coag (Bld) [Relative time] 2.9 {INR} [facility] Work Phone: Comment on above: Critical Value > 4.0 Whole blood prothrombin time on 11-05-2021 PT Coag (Bld) [Time] 32.8 s 11.7-14.9 [facility] Work Phone: Basophil percentageon 2021 Basophil percentage 0 SEEN /hpf 0-5 [facility] Work Phone: Bilirubin Test strip Ql (U)o n 10-29-2021 Bilirubin Ql (U) Negative Negative [facility] Work Phone: Ketones Test strip Ql (U)on 10-29-2021 Ketones Ql (U) 5 mg/dl Negative [facility] Work Phone: Mucus LM Ql (Urine sed)on Mucus Ql (Urine sed) 0 SEEN /hpf [facility] Work Phone: Nitrite Test strip Ql (U)on 10-29-2021 Nitrite Ql (U) Negative Negative [facility] Work Phone: Protein Test strip Ql (U)on 10-29-2021 Protein Ql (U) Negative Negative [facility] Work Phone: Squamous epithelial cells de tection in urine sediment by light microscopyon 10-29-2021 Epithelial cells.squamous LM Ql (Urine sed) 0-5 SEEN /hpf 0-5 [facility] Work Phone: Urine blood detectionon 10-12 RBC Ql (U) Negative Negative [facility] Work Phone: RBC Ql (U) 0 SEEN /hpf 0-5 [facility] Work Phone: Urine clarityon 10-29-2021 Clarity (U) Sl. Cloudy Clear [facility] Work Phone: Urine color determinationon 10-29-2021 Color (U) Yellow Yellow [facility] Work Phone: Urine glucose detectionon Glucose Ql (U) 1000 mg/dl Normal [facility] Work Phone: Urine leukocyte esterase det ection by dipstickon 10-29-2021 Leukocyte esterase Test strip Ql (U) Negative Negative [facility] Work Phone: Urine pHon 10-29-2021 pH (U) 5.0 [pH] 5.0 - 8.0 [facility] Work Phone: Urine sediment bacteria coun t by microscopy (number/high power field)on 10-29-2021 Bacteria LM.HPF (Urine sed) [#/Area] 0 /[HPF] None Seen [facility] Work Phone: Urine specific gravity measu rementon 10-29-2021 Specific gravity (U) [Rel density] 1.015 1.002-1.030 [facility] Work Phone: Urobilinogen Auto test strip Ql (U)on 10-29-2021 Urobilinogen Ql (U) Normal mg/dl Normal [facility] Work Phone: Laboratory - Coagulationon 0 10-22-2021 INR Coag (Bld) [Relative time] 3.3 {INR} [facility] Work Phone: Comment on above: Critical Value > 4.0 Whole blood prothrombin time on 10-22-2021 PT Coag (Bld) [Time] 37.5 s 11.7-14.9 [facility] Work Phone: Basophil percentageon 2021 Cholesterol [Mass/Vol] 199 mg/dL <200 [facility] Work Phone: Comment on above: <200 mg/dL Desirable 200-240 mg/dL Borderline >240 mg/dL High Risk Triglyceride [Mass/Vol] 278 mg/dL [facility] Work Phone: Comment on above: The drugs N-Acetylcy steine and Metamizole may falsely depress this assay.Serum Triglycerides Reference Interval Normal <150 mg/dL Borderline high 150 - 199 mg/dL High 200 - 499 mg/dL Very High > or = 500 mg/dL INR in Blood by Coagulation assayon 09-11-2021 INR Coag (Bld) [Relative time] 3.0 {INR} [facility] Work Phone: Laboratory - Coagulationon 0 09-11-2021 PT Coag (PPP) [Time] 30.4 s 11.7-14.9 [facility] Work Phone: Serum or plasma cholesterol in HDL measurement (mass/volume)on 09-11-2021 Cholesterol in HDL [Mass/Vol] 35 mg/dL [facility] Work Phone: Comment on above: The drugs N-Acetylcy steine and Metamizole may falsely depress this assay. Reference Range HDL <40 mg/dL Low HDL Cholesterol HDL >or= 60 mg/dL High HDL Cholesterol Serum or plasma cholesterol in VLDL measurement (mass/volume)on 09-11-2021 Cholesterol in VLDL [Mass/Vol] 56 mg/dL 5-40 [facility] Work Phone: Serum or plasma low density lipoprotein (LDL) cholesterol measurement (mass/volume)on 09-11-2021 Cholesterol in LDL [Mass/Vol] 108 mg/dL 0-130 [facility] Work Phone: Whole blood hemoglobin A1c/t otal hemoglobin ratio (mass fraction)on 09-11-2021 HbA1c (Bld) [Mass fraction] 9.6 % 3.8-5.6 [facility] Work Phone: Comment on above: Normal < 5.7 % Predi abetic 5.7 - 6.4 % Diabetic >or= 6.5 % Please note range changes. Whole blood prothrombin time on 08-14-2021 PT Coag (Bld) [Time] 27.0 s 11.9-14.4 [facility] Work Phone: Laboratory - Coagulationon 0 07-16-2021 INR Coag (Bld) [Relative time] 2.3 {INR} [facility] Work Phone: Comment on above: Critical Value > 4.0 Whole blood prothrombin time on 07-16-2021 PT Coag (Bld) [Time] 26.1 s 11.9-14.4 [facility] Work Phone: Vital Signs Date Time Vital Sign Value Performing Clinician Rolanda hester 10-15-2024 10:33-0400 Body height 180.[address] Otis Pruett MD Work Phone: [facility] 10-14-2024 10:00-0400 Body mass index (BMI) [Ratio] 41.3 kg/m2 Dr. Otis Pruett MD Work Phone: [facility] 10-14-2024 10:00-0400 Body temperature 99.6 [degF] Dr. Otis Pruett MD Work Phone: [facility] 10-14-2024 10:00-0400 Body weight 134.[address] Otis Pruett MD Work Phone: [facility] 10-14-2024 10:00-0400 Diastolic blood pressure 78 mm[Hg] Dr. Otis Pruett MD Work Phone: [facility] 10-14-2024 10:00-0400 Heart rate 84 /min Dr. Otis Pruett MD Work Phone: [facility] 10-14-2024 10:00-0400 Respiratory rate 16 /min Dr. Otis Pruett MD Work Phone: [facility] 10-14-2024 10:00-0400 SaO2% (BldA) [Mass fraction] 95 % Dr. Otis Pruett MD Work Phone: [facility] 10-14-2024 10:00-0400 Systolic blood pressure 139 mm[Hg] Dr. Otis Pruett MD Work Phone: [facility] 09-24-2023 09:29-0400 Body height 180.[address] Genesis Damon Work Phone: [facility] 09-24-2023 09:29-0400 Body mass index (BMI) [Ratio] 42.9 kg/m2 Dr. Genesis Damon Work Phone: [facility] 09-24-2023 09:29-0400 Body temperature 98.7 [degF] Dr. Genesis Damon Work Phone: [facility] 09-24-2023 09:29-0400 Body weight 139.[address] Genesis Damon Work Phone: [facility] 09-24-2023 09:29-0400 Diastolic blood pressure 76 mm[Hg] Dr. Genesis Damon Work Phone: [facility] 09-24-2023 09:29-0400 Heart rate 96 /min Dr. Genesis Damon Work Phone: [facility] 09-24-2023 09:29-0400 Respiratory rate 16 /min Dr. Genesis Damon Work Phone: [facility] 09-24-2023 09:29-0400 SaO2% (BldA) [Mass fraction] 93 % Dr. Genesis Damon Work Phone: [facility] 09-24-2023 09:29-0400 Systolic blood pressure 144 mm[Hg] Dr. Genesis Damon Work Phone: [facility] 06-26-2023 11:23-0500 Body height 180.[address] Genesis Damon Work Phone: [facility] 06-26-2023 11:23-0500 Body mass index (BMI) [Ratio] 41.1 kg/m2 Dr. Genesis Damon Work Phone: [facility] 06-26-2023 11:23-0500 Body temperature 98.4 [degF] Dr. Genesis Damon Work Phone: [facility] 06-26-2023 11:23-0500 Body weight 133.[address] Genesis Damon Work Phone: [facility] 06-26-2023 11:23-0500 Diastolic blood pressure 76 mm[Hg] Dr. Genesis Damon Work Phone: [facility] 06-26-2023 11:23-0500 Heart rate 80 /min Dr. Genesis Damon Work Phone: [facility] 06-26-2023 11:23-0500 SaO2% (BldA) [Mass fraction] 94 % Dr. Genesis Damon Work Phone: [facility] 06-26-2023 11:23-0500 Systolic blood pressure 163 mm[Hg] Dr. Genesis Damon Work Phone: [facility] 04-07-2023 14:53-0400 Body height 180.[address] Genesis Damon Work Phone: [facility] 04-07-2023 14:53-0400 Body mass index (BMI) [Ratio] 41.7 kg/m2 Dr. Genesis Damon Work Phone: [facility] 04-07-2023 14:53-0400 Body temperature 98.9 [degF] Dr. Genesis Damon Work Phone: [facility] 04-07-2023 14:53-0400 Body weight 135.[address] Genesis Damon Work Phone: [facility] 04-07-2023 14:53-0400 Diastolic blood pressure 74 mm[Hg] Dr. Genesis Damon Work Phone: [facility] 04-07-2023 14:53-0400 Heart rate 89 /min Dr. Genesis Damon Work Phone: [facility] 04-07-2023 14:53-0400 Respiratory rate 18 /min Dr. Genesis Damon Work Phone: [facility] 04-07-2023 14:53-0400 SaO2% (BldA) [Mass fraction] 94 % Dr. Genesis Damon Work Phone: [facility] 04-07-2023 14:53-0400 Systolic blood pressure 160 mm[Hg] Dr. Genesis Damon Work Phone: [facility] 03-13-2023 21:50-0400 Diastolic blood pressure 61 mm[Hg] Dr. Genesis Damon Work Phone: [facility] 03-13-2023 21:50-0400 Heart rate 81 /min Dr. Genesis Damon Work Phone: [facility] 03-13-2023 21:50-0400 Respiratory rate 18 /min Dr. Genesis Damon Work Phone: [facility] 03-13-2023 21:50-0400 Systolic blood pressure 156 mm[Hg] Dr. Genesis Damon Work Phone: [facility] 03-13-2023 18:19-0400 Body height 180.[address] Genesis Damon Work Phone: [facility] 03-13-2023 18:19-0400 Body mass index (BMI) [Ratio] 40.6 kg/m2 Dr. Genesis Damon Work Phone: [facility] 03-13-2023 18:19-0400 Body temperature 97.8 [degF] Dr. Genesis Damon Work Phone: [facility] 03-13-2023 18:19-0400 Body weight 132.[address] Genesis Damon Work Phone: [facility] 03-13-2023 18:19-0400 SaO2% (BldA) [Mass fraction] 99 % Dr. Genesis Damon Work Phone: [facility] 01-20-2023 10:25-0400 Body mass index (BMI) [Ratio] 41.5 kg/m2 Dr. Genesis Damon Work Phone: [facility] 01-20-2023 10:25-0400 Body weight 136.[address] Genessi Damon Work Phone: [facility] 12-26-2022 09:22-0400 Body height 181.[address] Genesis Damon Work Phone: [facility] 12-26-2022 09:22-0400 Body mass index (BMI) [Ratio] 42.6 kg/m2 Dr. Genesis Damon Work Phone: [facility] 12-26-2022 09:22-0400 Body temperature 98.6 [degF] Dr. Genesis Damon Work Phone: [facility] 12-26-2022 09:22-0400 Body weight 140.[address] Genesis Damon Work Phone: [facility] 12-26-2022 09:22-0400 Diastolic blood pressure 82 mm[Hg] Dr. Genesis Damon Work Phone: [facility] 12-26-2022 09:22-0400 Heart rate 90 /min Dr. Genesis Damon Work Phone: [facility] 12-26-2022 09:22-0400 Respiratory rate 18 /min Dr. Genesis Damon Work Phone: [facility] 12-26-2022 09:22-0400 SaO2% (BldA) [Mass fraction] 94 % Dr. Genesis Damon Work Phone: [facility] 12-26-2022 09:22-0400 Systolic blood pressure 156 mm[Hg] Dr. Genesis Damon Work Phone: [facility] 08-23-2022 11:45-0500 Body height 181.61 cm PA Satish Palomino PA Work Phone: [facility] 08-23-2022 11:45-0500 Body mass index (BMI) [Ratio] 42.7 kg/m2 PA Satish Palomino PA Work Phone: [facility] 08-23-2022 11:45-0500 Body weight 141.06 kg PA Satish Palomino PA Work Phone: [facility] 06-20-2022 10:00-0500 Body temperature 98.3 [degF] Dr. Genesis Damon Work Phone: [facility] 06-20-2022 10:00-0500 Body weight 133.[address] Genesis Damon Work Phone: [facility] 06-20-2022 10:00-0500 Diastolic blood pressure 84 mm[Hg] Dr. Genesis Damon Work Phone: [facility] 06-20-2022 10:00-0500 Heart rate 94 /min Dr. Genesis Damon Work Phone: [facility] 06-20-2022 10:00-0500 Respiratory rate 18 /min Dr. Genesis Damon Work Phone: [facility] 06-20-2022 10:00-0500 SaO2% (BldA) [Mass fraction] 95 % Dr. Genesis Damon Work Phone: [facility] 06-20-2022 10:00-0500 Systolic blood pressure 160 mm[Hg] Dr. Genesis Damon Work Phone: [facility] 05-31-2022 16:00-0500 Body temperature 98.4 [degF] Dr. Genesis Damon Work Phone: [facility] 05-31-2022 16:00-0500 Diastolic blood pressure 71 mm[Hg] Dr. Genesis Damon Work Phone: [facility] 05-31-2022 16:00-0500 Heart rate 90 /min Dr. Genesis Damon Work Phone: [facility] 05-31-2022 16:00-0500 Respiratory rate 16 /min Dr. Genesis Damon Work Phone: [facility] 05-31-2022 16:00-0500 SaO2% (BldA) [Mass fraction] 97 % Dr. Genesis Damon Work Phone: [facility] 05-31-2022 16:00-0500 Systolic blood pressure 158 mm[Hg] Dr. Genesis Damon Work Phone: [facility] 05-31-2022 10:03-0500 Body height 182.[address] Genesis Damon Work Phone: [facility] Work Phone: 05-31-2022 10:03-0500 Body mass index (BMI) [Ratio] 39.2 kg/m2 Dr. Genesis Damon Work Phone: [facility] 05-31-2022 10:03-0500 Body weight 131.[address] Genesis Damon Work Phone: [facility] 05-06-2022 11:15-0400 Body height 182.[address] Genesis Damon Work Phone: [facility] Work Phone: 05-06-2022 11:15-0400 Body mass index (BMI) [Ratio] 40.1 kg/m2 Dr. Genesis Damon Work Phone: [facility] 05-06-2022 11:15-0400 Body weight 134.[address] Genesis Damon Work Phone: [facility] 01-24-2022 11:48-0400 Body height 182.[address] Genesis Damon Work Phone: [facility] Work Phone: 01-24-2022 11:48-0400 Body mass index (BMI) [Ratio] 38.5 kg/m2 Dr. Genesis Damon Work Phone: [facility] Work Phone: 01-24-2022 11:48-0400 Body temperature 97.4 [degF] Dr. Genesis Damon Work Phone: [facility] Work Phone: 01-24-2022 11:48-0400 Body weight 128.[address] Genesis Damon Work Phone: [facility] Work Phone: 01-24-2022 11:48-0400 Diastolic blood pressure 84 mm[Hg] Dr. Genesis Damon Work Phone: [facility] Work Phone: 01-24-2022 11:48-0400 Heart rate 77 /min Dr. Genesis Damon Work Phone: [facility] Work Phone: 01-24-2022 11:48-0400 Respiratory rate 16 /min Dr. Genesis Damon Work Phone: [facility] Work Phone: 01-24-2022 11:48-0400 SaO2% (BldA) [Mass fraction] 98 % Dr. Genesis Damon Work Phone: [facility] Work Phone: 01-24-2022 11:48-0400 Systolic blood pressure 140 mm[Hg] Dr. Genesis Damon Work Phone: [facility] Work Phone: 01-12-2022 17:06-0400 Diastolic blood pressure 76 mm[Hg] Dr. Genesis Damon Work Phone: [facility] Work Phone: 01-12-2022 17:06-0400 Heart rate 89 /min Dr. Genesis Damon Work Phone: [facility] Work Phone: 01-12-2022 17:06-0400 Respiratory rate 15 /min Dr. Genesis Damon Work Phone: [facility] Work Phone: 01-12-2022 17:06-0400 SaO2% (BldA) [Mass fraction] 97 % Dr. Genesis Damon Work Phone: [facility] Work Phone: 01-12-2022 17:06-0400 Systolic blood pressure 153 mm[Hg] Dr. Genesis Damon Work Phone: [facility] Work Phone: 01-12-2022 14:22-0400 Body mass index (BMI) [Ratio] 40.6 kg/m2 Dr. Genesis Damon Work Phone: [facility] Work Phone: 01-12-2022 14:22-0400 Body temperature 98.6 [degF] Dr. Genesis Damon Work Phone: [facility] Work Phone: 01-12-2022 14:22-0400 Body weight 136.[address] Genesis Damon Work Phone: [facility] Work Phone: 12-20-2021 14:21-0400 Body height 180.[address] Genesis Damon Work Phone: [facility] Work Phone: 12-20-2021 14:21-0400 Body mass index (BMI) [Ratio] 41.4 kg/m2 Dr. Genesis Damon Work Phone: [facility] Work Phone: 12-20-2021 14:21-0400 Body temperature 97.5 [degF] Dr. Genesis Damon Work Phone: [facility] Work Phone: 12-20-2021 14:21-0400 Body weight 134.[address] Genesis Damon Work Phone: [facility] Work Phone: 12-20-2021 14:21-0400 Diastolic blood pressure 76 mm[Hg] Dr. Genesis Damon Work Phone: [facility] Work Phone: 12-20-2021 14:21-0400 Heart rate 76 /min Dr. Genesis Damon Work Phone: [facility] Work Phone: 12-20-2021 14:21-0400 Respiratory rate 16 /min Dr. Genesis Damon Work Phone: [facility] Work Phone: 12-20-2021 14:21-0400 SaO2% (BldA) [Mass fraction] 97 % Dr. Genesis Damon Work Phone: [facility] Work Phone: 12-20-2021 14:21-0400 Systolic blood pressure 132 mm[Hg] Dr. Genesis Damon Work Phone: [facility] Work Phone: 12-10-2021 11:55-0400 Body height 180.[address] Genesis Damon Work Phone: [facility] Work Phone: 12-10-2021 11:55-0400 Body mass index (BMI) [Ratio] 41.1 kg/m2 Dr. Genesis Damon Work Phone: [facility] Work Phone: 12-10-2021 11:55-0400 Body temperature 98 [degF] Dr. Genesis Damon Work Phone: [facility] Work Phone: 12-10-2021 11:55-0400 Body weight 133.[address] Genesis Damon Work Phone: [facility] Work Phone: 12-10-2021 11:55-0400 Diastolic blood pressure 82 mm[Hg] Dr. Genesis Damon Work Phone: [facility] Work Phone: 12-10-2021 11:55-0400 Heart rate 102 /min Dr. Genesis Damon Work Phone: [facility] Work Phone: 12-10-2021 11:55-0400 Respiratory rate 18 /min Dr. Genesis Damon Work Phone: [facility] Work Phone: 12-10-2021 11:55-0400 SaO2% (BldA) [Mass fraction] 96 % Dr. Genesis Damon Work Phone: [facility] Work Phone: 12-10-2021 11:55-0400 Systolic blood pressure 195 mm[Hg] Dr. Genesis Daomn Work Phone: [facility] Work Phone: 12-05-2021 08:09-0400 Body mass index (BMI) [Ratio] 40.6 kg/m2 Dr. Genesis Damon Work Phone: [facility] Work Phone: 12-05-2021 08:09-0400 Body temperature 97.6 [degF] Dr. Genesis Damon Work Phone: [facility] Work Phone: 12-05-2021 08:09-0400 Body weight 132.[address] Genesis Damon Work Phone: [facility] Work Phone: 12-05-2021 08:09-0400 Diastolic blood pressure 74 mm[Hg] Dr. Genesis Damon Work Phone: [facility] Work Phone: 12-05-2021 08:09-0400 Heart rate 74 /min Dr. Genesis Damon Work Phone: [facility] Work Phone: 12-05-2021 08:09-0400 Respiratory rate 18 /min Dr. Genesis Damon Work Phone: [facility] Work Phone: 12-05-2021 08:09-0400 SaO2% (BldA) [Mass fraction] 97 % Dr. Genesis Damon Work Phone: [facility] Work Phone: 12-05-2021 08:09-0400 Systolic blood pressure 140 mm[Hg] Dr. Genesis Damon Work Phone: [facility] Work Phone: 12-05-2021 08:09-0400 Body mass index (BMI) [Ratio] 40.6 kg/m2 Dr. Genesis Damon Work Phone: [facility] Work Phone: 12-05-2021 08:09-0400 Body temperature 97.6 [degF] Dr. Genesis Damon Work Phone: [facility] Work Phone: 12-05-2021 08:09-0400 Body weight 132.[address] Genesis Damon Work Phone: [facility] Work Phone: 12-05-2021 08:09-0400 Diastolic blood pressure 74 mm[Hg] Dr. Genesis Damon Work Phone: [facility] Work Phone: 12-05-2021 08:09-0400 Heart rate 74 /min Dr. Genesis Damon Work Phone: [facility] Work Phone: 12-05-2021 08:09-0400 Respiratory rate 18 /min Dr. Genesis Damon Work Phone: [facility] Work Phone: 12-05-2021 08:09-0400 SaO2% (BldA) [Mass fraction] 97 % Dr. Genesis Damon Work Phone: [facility] Work Phone: 12-05-2021 08:09-0400 Systolic blood pressure 140 mm[Hg] Dr. Genesis Damon Work Phone: [facility] Work Phone: 10-19-2021 13:24-0400 Body mass index (BMI) [Ratio] 41.4 kg/m2 Dr. Genesis Damon Work Phone: [facility] Work Phone: 10-19-2021 13:24-0400 Body temperature 98 [degF] Dr. Genesis Damon Work Phone: [facility] Work Phone: 10-19-2021 13:24-0400 Body weight 134.[address] Genesis Damon Work Phone: [facility] Work Phone: 10-19-2021 13:24-0400 Diastolic blood pressure 79 mm[Hg] Dr. Genesis Damon Work Phone: [facility] Work Phone: 10-19-2021 13:24-0400 Heart rate 91 /min Dr. Genesis Damon Work Phone: [facility] Work Phone: 10-19-2021 13:24-0400 Respiratory rate 17 /min Dr. Genesis Damon Work Phone: [facility] Work Phone: 10-19-2021 13:24-0400 SaO2% (BldA) [Mass fraction] 96 % Dr. Genesis Damon Work Phone: [facility] Work Phone: 10-19-2021 13:24-0400 Systolic blood pressure 168 mm[Hg] Dr. Genesis Damon Work Phone: [facility] Work Phone: 10-19-2021 13:24-0400 Body height 180.[address] Genesis Damon Work Phone: [facility] Work Phone: 10-19-2021 13:24-0400 Body mass index (BMI) [Ratio] 41.4 kg/m2 Dr. Genesis Damon Work Phone: [facility] Work Phone: 10-19-2021 13:24-0400 Body temperature 98 [degF] Dr. Genesis Damon Work Phone: [facility] Work Phone: 10-19-2021 13:24-0400 Body weight 134.[address] Genesis Damon Work Phone: [facility] Work Phone: 10-19-2021 13:24-0400 Diastolic blood pressure 79 mm[Hg] Dr. Genesis Damon Work Phone: [facility] Work Phone: 10-19-2021 13:24-0400 Heart rate 91 /min Dr. Genesis Damon Work Phone: [facility] Work Phone: 10-19-2021 13:24-0400 Respiratory rate 17 /min Dr. Genesis Damon Work Phone: [facility] Work Phone: 10-19-2021 13:24-0400 SaO2% (BldA) [Mass fraction] 96 % Dr. Genesis Damon Work Phone: [facility] Work Phone: 10-19-2021 13:24-0400 Systolic blood pressure 168 mm[Hg] Dr. Genesis Damon Work Phone: [facility] Work Phone: 09-24-2021 09:31-0400 Body mass index (BMI) [Ratio] 42.1 kg/m2 Dr. Genesis Damon Work Phone: [facility] Work Phone: 09-24-2021 09:31-0400 Body weight 136.[address] Genesis Damon Work Phone: [facility] Work Phone: 09-24-2021 09:31-0400 Body mass index (BMI) [Ratio] 42.1 kg/m2 Dr. Genesis Damon Work Phone: [facility] Work Phone: 09-24-2021 09:31-0400 Body weight 136.[address] Genesis Damon Work Phone: [facility] Work Phone: 09-12-2021 07:30-0500 Body mass index (BMI) [Ratio] 42 kg/m2 Dr. Genesis Damon Work Phone: [facility] Work Phone: 09-12-2021 07:30-0500 Body temperature 97.1 [degF] Dr. Genesis Damon Work Phone: [facility] Work Phone: 09-12-2021 07:30-0500 Body weight 136.[address] Genesis Damon Work Phone: [facility] Work Phone: 09-12-2021 07:30-0500 Diastolic blood pressure 82 mm[Hg] Dr. Genesis Damon Work Phone: [facility] Work Phone: 09-12-2021 07:30-0500 Heart rate 94 /min Dr. Genesis Damon Work Phone: [facility] Work Phone: 09-12-2021 07:30-0500 Respiratory rate 14 /min Dr. Genesis Damon Work Phone: [facility] Work Phone: 09-12-2021 07:30-0500 SaO2% (BldA) [Mass fraction] 98 % Dr. Genesis Damon Work Phone: [facility] Work Phone: 09-12-2021 07:30-0500 Systolic blood pressure 146 mm[Hg] Dr. Genesis Damon Work Phone: [facility] Work Phone: Encounters Encounter Date Encounter Type Care Provider Facility Start: 04-01-2025 ambulatory [facility] Facility :[facility] Start: 02-24-2025 Non-patient / Non-visit Dr. Álvaro pascual MD [facility] Start: 02-24-2025 End: 02-24-[address] Genesis Damon MD -Laboratory Work Phone: Start: 02-24-[address] Genesis mkceon MD -Laboratory Work Phone: Start: 02-24-2025 End: 02-24-[address] Otis Pruett MD Work Phone: -Cardiovascular Services Start: 02-24-2025 End: 02-24-[address] Genesis Damon MD -Cardiovascular Services Work Phone: Start: 02-24-2025 End: 02-24-2025 ambulatory Genesis Damon Facility:[facility] Start: 01-25-2025 End: 02-10-[address] Genesis Damon MD -Laboratory Work Phone: Start: 01-25-2025 End: 02-10-[address] Genesis Damon MD Work Phone: -Laboratory Start: 12-23-2024 End: 12-23-[address] Genesis Damon MD -Laboratory Work Phone: Start: 12-23-2024 End: 12-23-[address] Otis Pruett MD Work Phone: -Laboratory Start: 11-25-2024 End: 11-25-[address] Genesis Damon MD -Laboratory Work Phone: Start: 11-25-2024 End: 11-25-[address] Otis Pruett MD Work Phone: [facility] Work Phone: Start: 11-18-2024 End: 11-18-2024 ambulatory GENESIS DAMON [facility] Start: 11-18-2024 End: 11-18-2024 Office outpatient new 30 minutes Genesis Damon MD Work Phone: [facility] Comment on above: Left knee pain, unsp ecified chronicity Start: 10-26-2024 End: 11-10-[address] Genesis Damon MD -Laboratory Work Phone: Start: 10-26-2024 End: 11-10-2024 ambulatory Genesis Damon Facility:[facility] Start: 10-18-2024 End: 10-18-2024 Transcribe Orders [facility] Comment on above: Left knee pain, unsp ecified chronicity (Primary Dx) Start: 10-15-2024 End: 10-15-[address] Omid Ahumada MD -[facility] Start: 10-15-2024 End: 10-15-2024 ambulatory [facility] Facility:[facility] Start: 10-14-2024 End: 10-14-[address] Genesis Damon MD -[facility] Work Phone: Start: 10-14-2024 End: 10-14-2024 ambulatory Genesis Damon Facility:[facility] Start: 10-07-2024 End: 10-07-[address] Otis Pruett MD Work Phone: [facility] Work Phone: Start: 10-07-2024 End: 10-07-[address] Genesis Damon MD -Laboratory Work Phone: Start: 10-07-2024 End: 10-07-2024 ambulatory Genesisamy Damon Facility:[facility] Start: 09-24-2024 End: 09-24-[address] Genesis Damon MD -Laboratory Work Phone: Start: 09-24-2024 End: 09-24-[address] Otis Pruett MD Work Phone: [facility] Work Phone: Start: 08-27-2024 End: 09-10-[address] Genesis Damon MD -Laboratory Work Phone: Start: 08-27-2024 End: 09-10-2024 ambulatory Genesis Damon Facility:[facility] Start: 07-27-2024 End: 07-27-[address] Genesis Damon MD -Laboratory Work Phone: Start: 07-27-2024 End: 07-27-2024 ambulatory Genesis Damon Facility:[facility] Start: 06-28-2024 End: 06-28-[address] Genesis Damon MD -Laboratory Work Phone: Start: 06-28-2024 End: 06-28-2024 ambulatory Genesis Damon Facility:[facility] Start: 05-28-2024 End: 06-12-2024 ambulatory Genesisamy Damon Facility:[facility] Start: 05-13-2024 Encounter for preprocedural laboratory examination Cheli De Guzman [facility] Start: 04-29-2024 End: 04-29-2024 ambulatory Genesis Damon Facility:[facility] Start: 04-23-2024 End: 04-23-2024 ambulatory Genesisamy Damon Facility:[facility] Start: 04-12-2024 End: 04-12-2024 ambulatory Genesis Damon Facility:[facility] Start: 10-13-2023 End: 11-11-[address] Genesis Damon Work Phone: [facility] Work Phone: Start: 10-13-2023 End: 11-11-[address] Genesis Damon Work Phone: [facility] Work Phone: Start: 09-26-2023 End: 09-26-[address] Genesis Damon Work Phone: [facility] Work Phone: Start: 09-26-2023 End: 09-26-[address] [facility] Start: 09-24-[address] Ning Damon Work Phone: [facility] Start: 09-24-2023 End: 09-24-2023 Emergency department patient visit Dr. Genesis Damon Work Phone: [facility] Start: 09-24-2023 End: 09-24-[address] Genesis Damon Work Phone: [facility] Work Phone: Start: 09-12-2023 End: 10-12-[address] Genesis Damon Work Phone: [facility] Work Phone: Start: 09-12-2023 End: 10-12-[address] [facility] Start: 09-12-[address] [facility] Start: 08-14-2023 End: 09-11-[address] Genesis Damon Work Phone: [facility] Work Phone: Start: 08-14-2023 End: 09-11-[address] [facility] Start: 07-15-2023 End: 07-15-[address] [facility] Start: 06-26-2023 End: 06-26-[address] Genesis Damon Work Phone: [facility] Work Phone: Start: 06-14-2023 End: 07-13-[address] Genesis Damon Work Phone: [facility] Work Phone: Start: 06-14-2023 End: 07-13-[address] Genesis Damon Work Phone: [facility] Work Phone: Start: 05-22-2023 End: 05-22-[address] Genesis Damon Work Phone: [facility] Work Phone: Start: 05-15-2023 End: 05-15-[address] Genesis Damon Work Phone: [facility] Work Phone: Start: 05-15-2023 End: 05-15-[address] Genesis Damon Work Phone: [facility] Work Phone: Start: 05-14-2023 End: 06-12-[address] Genesis Damon Work Phone: [facility] Work Phone: Start: 05-14-2023 End: 06-12-[address] Genesis Damon Work Phone: [facility] Work Phone: Start: 05-14-[address] Genesis Damon Work Phone: [facility] Work Phone: Start: 05-01-2023 End: 05-01-[address] Genesis Damon Work Phone: [facility] Work Phone: Start: 05-01-2023 End: 05-01-[address] [facility] Start: 04-25-2023 End: 04-25-[address] Genesis Damon Work Phone: [facility] Work Phone: Start: 04-14-2023 End: 04-14-[address] [facility] Start: 04-14-[address] [facility] Start: 04-07-2023 End: 04-07-[address] Genesis Damon Work Phone: [facility] Work Phone: Start: 04-03-2023 End: 04-03-[address] Genesis Damon Work Phone: [facility] Work Phone: Start: 03-15-2023 End: 03-15-[address] Genesis Damon Work Phone: [facility] Work Phone: Start: 03-15-2023 End: 03-15-[address] [facility] Start: 03-13-2023 End: 03-13-2023 Emergency department patient visit Dr. Genesis Damon Work Phone: [facility] Work Phone: Start: 02-10-2023 End: 02-10-[address] Genesis Dam[facility] Start: 01-20-2023 End: 01-20-[address] Genesis Damon Work Phone: [facility] Work Phone: Start: 01-10-2023 End: 01-10-[address] Genesis Damon Work Phone: [facility] Work Phone: Start: 01-10-2023 End: 01-10-[address] [facility] Start: 12-31-2022 End: 12-31-[address] Genesis Damon Work Phone: [facility] Work Phone: Start: 12-31-2022 End: 12-31-[address] [facility] Start: 12-26-2022 End: 12-26-[address] Genesis Damon Work Phone: [facility] Start: 12-12-[address] Genesis Dam[facility] Start: 11-11-2022 End: 11-11-[address] Genesis Damon Work Phone: [facility] Work Phone: Start: 11-11-2022 End: 11-11-[address] [facility] Start: 10-12-2022 End: 11-10-[address] Genesis Damon Work Phone: [facility] Work Phone: Start: 10-12-2022 End: 11-10-[address] [facility] Start: 09-11-2022 End: 10-11-[address] [facility] Start: 09-02-2022 End: 09-02-2022 ambulatory PA Satish CHAUDHARI Work Phone: [facility] Work Phone: Start: 09-02-2022 End: 09-02-2022 Discharged Recurring PA Satish CHAUDHARI Work Phone: [facility]Physical Therapy Start: 08-23-2022 End: 08-23-2022 Patient encounter procedure PA Satish CHAUDHARI Work Phone: [facility] Start: 08-12-2022 End: 08-12-2022 Discharged Recurring PA Satish CHAUDHARI [facility] Start: 07-12-2022 End: 07-12-[address] Genesis Damon Work Phone: [facility] Start: 07-12-2022 End: 07-12-[address] Genesis Damon Work Phone: [facility] Work Phone: Start: 07-12-2022 End: 07-12-[address] [facility] Start: 06-20-2022 End: 06-20-[address] Genesis Damon Work Phone: [facility] Start: 06-14-2022 End: 06-14-[address] Genesis Damon Work Phone: [facility] Start: 05-31-2022 Non-patient / Non-visit Dr. Mindy Damon Work Phone: [facility] Start: 05-31-2022 End: 05-31-2022 Admission to same day surgery center Dr[facility] Genesis Dam[facility] Start: 05-31-2022 End: 05-31-[address] Genesis Damon Work Phone: [facility] Work Phone: Start: 05-30-2022 End: 06-12-[address] Genesis Damon Work Phone: [facility] Start: 05-30-[address] Genesis Damon Work Phone: [facility] Start: 05-28-2022 Non-patient / Non-visit Dr. Mindy Damon Work Phone: [facility] Start: 05-06-2022 End: 05-06-[address] Genesis Damon Work Phone: [facility] Work Phone: Start: 05-06-2022 End: 05-06-[address] Genesis Damon Work Phone: [facility] Start: 05-06-2022 End: 05-06-[address] Genesis Damon Work Phone: [facility] Start: 04-17-2022 End: 04-17-[address] Genesis Damon Work Phone: [facility] Start: 04-12-2022 End: 04-12-[address] Genesis Damon Work Phone: [facility] Work Phone: Start: 04-12-2022 End: 04-12-[address] Genesis Damon Work Phone: [facility]-Laboratory, [facility] Start: 04-12-2022 End: 04-12-[address] Genesis Damon Work Phone: [facility] Start: 04-08-2022 End: 04-08-[address] Genesis Damon Work Phone: [facility] Start: 03-05-2022 End: 03-05-[address] Genesis Damon Work Phone: [facility] Start: 03-05-2022 End: 03-05-[address] Genesis Damon Work Phone: [facility] Work Phone: Start: 03-05-2022 End: 03-05-[address] Genesis Damon Work Phone: [facility] Start: 03-05-[address] Genesis Damon Work Phone: [facility] Start: 02-05-2022 End: 02-10-[address] Genesis Damon Work Phone: [facility] Start: 01-24-2022 End: 01-24-[address] Genesis Damon Work Phone: [facility] Start: 01-12-2022 End: 01-12-2022 Emergency department patient visit Dr. Genesis Damon Work Phone: [facility] Start: 01-05-2022 End: 01-05-[address] Genesis Damon Work Phone: [facility] Start: 12-20-2021 End: 12-20-[address] Genesis Damon Work Phone: [facility] Start: 12-10-2021 End: 12-10-2021 Emergency department patient visit Dr. Genesis Damon Work Phone: [facility] Start: 12-05-2021 End: 12-05-[address] Genesis Damon Work Phone: [facility] Start: 12-05-2021 End: 12-05-[address] [facility] Start: 12-05-[address] Genseis Damon [facility] Start: 11-16-2021 End: 11-16-[address] Genesis Damon Work Phone: [facility] Start: 11-14-2021 End: 11-14-[address] Genesis Damon Work Phone: [facility] Start: 11-12-2021 End: 11-12-[address] Genesis Damon Work Phone: [facility] Start: 11-05-2021 End: 11-05-[address] [facility] Start: 10-29-2021 End: 10-29-[address] [facility] Dam[facility] Start: 10-25-2021 End: 10-25-[address] Genesis Damon Work Phone: [facility] Start: 10-25-2021 End: 10-25-[address] Genesis Damon Work Phone: [facility] Start: 10-22-[address] Genesis Damon Work Phone: [facility] Start: 10-19-2021 End: 10-19-[address] Genesis Damon Work Phone: [facility] Start: 09-24-2021 End: 09-24-[address] Genesis Damon Work Phone: [facility] Start: 09-12-2021 End: 09-12-[address] Genesis Damon Work Phone: [facility] Start: 09-11-2021 End: 09-11-[address] Genesis Damon Work Phone: [facility] Start: 07-16-2021 End: 08-13-[address] Genesis Damon Work Phone: [facility] Procedures Date Procedure Procedure Detail Performing Clinician Start: 10-15-2024 X-ray of knee, four or more views Dr. Otis Pruett MD Work Phone: Start: 10-07-2024 Prostate specific antigen measurement Dr. Otis Pruett MD Work Phone: Comment on above: This test was perfor med using the [employer] tPSA method. Measured values of a patient sample can vary depending on the testing procedure used. PSA values determined on patient samples by different testing procedures cannot be used interchangeably. If there is a change in PSA assays while monitoring therapy, sequential testing should be performed to confirm baseline values. Start: 10-07-2024 Vitamin D, 25-hydrox y measurement Dr. Otis Pruett MD Work Phone: Comment on above: Vitamin D StatusDefi ciency: <20 ng/mL (50nmol/L)Insufficiency: 20-30 ng/mL (50-75 nmol/L)Sufficiency: 30-100 ng/mL (75-250 nmol/L)Toxicity: >100 ng/mL (>250 nmol/L) Start: 05-15-2023 MRI of lumbar spine Dr. Genesis Damon Work Phone: Start: 04-25-2023 X-ray of lumbar spin e, two or three views Dr. Genesis Damon Work Phone: Start: 04-03-2023 Plain x-ray of pelvi s and lower extremity Dr. Genesis Damon Work Phone: Start: 03-13-2023 CT of lumbar spine Dr. Genesis Damon Work Phone: Start: 05-31-[address] Genesis Damon Work Phone: Start: 03-05-2022 MRI of brain with contrast Dr. Genesis Damon Work Phone: Start: 01-12-2022 CT of head without contrast Dr. Genesis Damon Work Phone: Start: 11-14-2021 MRI of joint of lowe r extremity Dr. Genesis Damon Work Phone: Start: 10-25-2021 CT of abdomen and pelvis with oral contrast Dr. Genesis Damon Work Phone: Start: 09-24-2021 Radiologic examinati on of knee Dr. Genesis Damon Work Phone: History of operative procedure on knee History of left knee replacement Dr. Otis Pruett MD Work Phone: Comment on above: 2023, Dr. Horne History of operative procedure on knee History of left knee replacement Dr. Genesis Damon MD History of operative procedure on knee H/O arthroscopic knee surgery Dr. Otis Pruett MD Work Phone: Comment on above: 05/31/22 Plan of Treatment Date Care Activity Detail Author Start: 01-16-2028 Respiratory Syncytial Virus Immunization: Risk, 60-74 Risk, or 75+ (1 - 1-dose 75+ series) Respiratory Syncytial Virus Immunization: Risk, 60-74 Risk, or 75+ (1 - 1-dose 75+ series) [facility] Start: 03-14-2025 Influenza vaccination Influenza Vaccine (Season Ended) [facility] Start: 10-14-2024 Patient referral [facility] Work Phone: Start: 03-14-2024 COVID-19 Vaccine ( season) COVID-19 Vaccine ( season) [facility] Start: 09-24-2023 Patient referral [facility] Work Phone: Start: 09-24-2023 Evaluation of diagnostic study results [facility] Start: 05-22-2023 Patient referral [facility] Work Phone: Start: 04-07-2023 Patient referral [facility] Work Phone: Start: 08-23-2022 Patient referral [facility] Work Phone: Start: 05-31-2022 Anes open/surg arthroscopic proc knee joint nos ANESTH KNEE JOINT SURGERY [facility] Start: 05-31-2022 Arthrs knee w/meniscectomy med&lat w/shaving KNEE ARTHROSCOPY/SURGERY [facility] Start: 05-31-2022 Referral to service [facility] Start: 05-31-2022 Patient discharge [facility] Start: 05-31-2022 Application of ice collar, cap or bag [facility] Start: 05-31-2022 Elevation of affected extremity [facility] Start: 05-31-2022 Gait training procedure [facility] Start: 05-31-2022 Catheterization of vein [facility] Start: 05-31-2022 Following clinical pathway protocol [facility] Start: 05-31-2022 Procedure discontinued [facility] Start: 05-31-2022 Taking patient vital signs [facility] Start: 05-31-2022 Vital signs measurements [facility] Start: 05-31-2022 End: 05-31-2022 [facility] Start: 05-31-2022 Medication education [facility] Start: 05-28-2022 Arthroscopy of knee Arthroscopy, Knee (Left) [facility] Work Phone: Start: 09-12-2021 Patient referral [facility] Work Phone: Start: 05-01-2019 Tetanus vaccination Tetanus: Every 10yrs [facility] Start: 2018 Fall risk assessment Falls Risk Assessment [facility] Start: 2003 Administration of herpes zoster vaccine Zoster Vaccines (1 of 2) [facility] Start: 2003 Pneumococcal Vaccine: Age 50+ (1 of 1 - PCV) Pneumococcal Vaccine: Age 50+ (1 of 1 - PCV) [facility] Start: 2003 Screening for malignant neoplasm of colon Flexible sigmoidoscopy [facility] Start: 1971 Hepatitis C screening Hepatitis C Screening [facility] Start: 1965 Depression screening using PHQ-9 (Patient Health Questionnaire 9) score Depression Screening/Follow-Up (PHQ-2/9) [facility] Start: 01-16-1956 Medicare Wellness Visit Medicare Wellness Visit [facility] Start: 1953 Prostate specific antigen measurement PSA Level [facility] Start: 1955 Screening for malignant neoplasm of colon [facility] MR Lumbar spine [facility] Patient Education [facility] Work Phone: Patient referral [facility] Work Phone: Payers Date Payer Category Payer Self-pay [id number] 2022 Managed Care (unspecified) [facility] TRADITIONAL [id number] 2022 Unknown [id number] 2018 Medicare MEDICARE PART A & B [id number] 2018 Medicare [id number] 2016 Unknown [id number] 1953 Unknown [id number]. 903 1953 Unknown [id number] .0.1.438524.3.579.2. 900 Unknown [id number] 2.0.1.333672.3.579.2. 462 Unknown [id number] .0.1.669975.3.579.2. 462 Unknown [id number] 2.0.1.266379.3.579.2. 462 Unknown [id number] 2.0.1.845644.3.579.2. 462 Unknown [id number] 2.0.1.568275.3.579.2. 462 Unknown [id number] 2.0.1.271377.3.579.2. 462 Unknown [id number] 2.16.840.1.350240.3.579.2. 462 Unknown [id number] 2.16.840.1.338544.3.579.2. 462 Unknown [id number] 2.16.840.1.059905.3.579.2. 462 Unknown [id number] 2.16.840.1.343139.3.579.2. 462 Unknown [id number] 2.16.840.1.009740.3.579.2. 462 Unknown [id number] 2.16.840.1.026492.3.579.2. 462 Unknown [id number] 2.16.840.1.861769.3.579.2. 462 Unknown [id number] 2.16.840.1.329942.3.579.2. 462 Unknown [id number] 2.16.840.1.443705.3.579.2. 462 Unknown [id number] 2.16.840.1.367067.3.579.2. 462 Unknown [id number] 2.16.840.1.862115.3.579.2. 462 Unknown [id number] 2.16.840.1.386824.3.579.2. 462 Unknown [id number] 2.16.840.1.798123.3.579.2. 462 Social History Date Type Detail Facility Start: 10-25-2021 End: 09-24-2023 Tobacco smoking status VAIS Unknown if ever smoked [facility] Start: 1955 Sex Assigned At Male [facility] Start: 09-24-2023 End: 10-15-2024 Tobacco smoking status NHIS Never smoked tobacco (finding) [facility] Start: 10-11-2024 End: 10-12-2024 Sex Male (finding) [facility] Start: 1955 Sex assigned at Not on file [facility] Start: 11-18-2024 Gender identity Not on file [facility] Start: 11-18-2024 Tobacco use and exposure Smokeless tobacco non-user [facility] Start: 11-18-2024 Alcoholic beverage intake Lifetime non-drinker (finding) [facility] Start: 11-18-2024 History of Social function [facility] Goals Date Patient Goal Desired Activity /State Mental Status Date Assessment Result Facility 05-31-2022 Cognitive function Voice/Name Moises Monsivais [facility] Work Phone: Clinical Notes 09-02-2022 to 11-18-2024 Note Date & Type Note Facility 11-18-2024 Note Mr. Orellana present s today for an initial visit. He is here for a 2nd opinion on his left knee replacement. He states that he had his knee replaced, November 11, 2023, by Dr. Kevin with the [facility]. He states, prior to having his knee replacement, he had a left femur fracture around 2003 that had a femoral milly placed. He also had a left knee meniscal repair and in May of 2023, and states that at best his range of motion was full extension with flexion to about 115 degrees. He states that after his surgery, he has had significant pain. He did have limited range of motion and ended up going for a manipulation under anesthesia in January of 2024, and is now getting about 112 to 115 degrees of flexion. He has pain and a snapping sensation on the outside part of his knee and has done significant rounds of physical therapy. He does not recall having any blood work done looking for any signs of infection. Has had recent x-rays. He states that his previous surgeon has not offered any further options for him for pain control, and his biggest problem is pain today. He is not as concerned about his range of motion. PAST MEDICAL HISTORY Reviewed and is up-to-date on the chart. REVIEW OF SYSTEMS Positive for kidney stones, high blood pressure, high cholesterol, weakness in his legs, tinnitus, diabetes, broken bones, back pain. PHYSICAL EXAM General: He is awake, alert, in no apparent distress. Ambulates without an assistive device. His left knee does have good extension. He does have flexion to about 115 degrees with forced flexion. He has mild snapping felt over the lateral aspect of the distal femur with no specific joint line tenderness. He has normal varus and valgus straining. Negative anterior drawer today. IMAGING X-ray was reviewed by myself and Dr. Jim that does show an intact PCL sacrificing joint replacement in good alignment with no signs of loosening. He does have the femoral milly in place with 3 screws in the distal femur, which do protrude somewhat from the bone, but no signs of loosening and his previously healing distal femur fracture. ASSESSMENT/PLAN Left knee pain, history of joint replacement. History of arthrofibrosis with possible painful hardware. We discussed with the patient that what we would suggest has next steps moving forward would be, lab testing to rule out any chronic infection. If lab testing is normal, would have him come in for hardware removal of the 3 screws at the distal femur with a radiofrequency cryoablation for pain control and if that does not effectively control his pain, could discuss further options at that time. At this point, it sounds like he is undergoing issues from a chronic back problem and was not certain he wants to move forward, so he is going to give us a call, if he would like to move forward with a 2nd opinion and workup prior to hardware removal and cryo frequency radio ablation. AUTHENTICATED BY DORYS MAHMOOD, ON 11/18/2024 22:52:19 [facility] 10-14-2024 Evaluation note Diagnosis Onset Date Resolution Arthritis acute October 14 9:54am Chronic anticoagulation acute A pri2024 9:54am Diabetes mellitus type II, non insulin dependent acute October 14, 2024 9:54am H/O arthroscopic knee surgery acute October 14, 2024 9:54am History of left knee replacement acute October 14, 2024 9:54am Hyperlipidemia acute October 14, 2024 9:54am Left knee pain acute October 14, 2024 9:54am Obesity (BMI 35.0-39.9 without comorbidity) acute October 14, 2024 9:54am [facility] Work Phone: 1(870) 142-144002-20-2023 Discharge summary Author Álvaro Monroe [facility] September 02, 2022 10:26am Note Date/Time September 02, 2022 10:26am [facility] Physical Therapy [facility] [address] [place] [address] [address] [place] [address] / REHABILITATION SERVICES DISCHARGE SUMMARY MR#: [id number] Acct: [id number] Name: JUNEYARIEL AMINATA Rep #: [id number] : 1955 67 From: Álvaro Monroe DPT, OCS, CSCS Referring DrLiberty: Status: REG RCR Insurance: MEDICARE PART A B [facility] It has been my pleasure to treat YARIEL WATKINS referred by KAYY SCOTT, with the diagnosis of equinus contracture l ankle, pain for a total of 7 visit(s). Discharge Date: 09/02/22 Please see the following information for a summary of their discharge status. Subjective: Saw tobya for L nee pain and may order therapy. OA in knee is painful and he needs to lose 20# to have TKA. Ankle is about the same. 1/10 pain but it swells up alot later in day. 6/10 at times getting out of bed in the am. Knee and back hurt due to OA. L alexandrea Pain Intensity (Out of 10): 1 Lumbar Spine Pain Intensity (Out of 10): 0 L knee Pain Intensity (Out of 10): 2 % Improvement: 0 Objective/Function: Walks without gait deviations today. many c/o back and kneepain and wanting evaluation for his knee from ortho. AROM L ankle DF 3 degrees and PF 50 degrees, inversion 25 and eversion 20. Strength ankle 5/5 in all directions. Pt doing better objectively but frustrated with continued discomfort adn wants to know other options from Dr. reynoso vs trying to work toward I home or continuing in the water. Will continue with home stretches in the meantime. Goal 1:: symmetircal ankle ROM inv/ev without apin Goal Progress: Progressing Goal 2:: Ankle pain 0-1/10 at all times and not limiting function Goal Progress: Not Progressing Goal 3:: pat feel 75% better overall with pain and function Goal Progress: Not Progressing Goal 4:: 30 LEFS to improve function Goal Progress: Not Progressing Plan: d/c Discharge Comments: Pt wishes to contact doctor for other options. If there are questions or concerns regarding this patient's physical therapy, please feel free to call me at [phone]. Thank you for the referral of thispatient. Sincerely, Álvaro Monroe DPT, OCS, CSCS Balance/Gait/Functional tests - Balance/Special Test Scores Lower Extremity Functional Score: 20 <Electronically signed by Álvaro Fer DPT, OCS, CSCS> 09/02/22 1026 CC: Dr. Genesis Damon MD; KAYY EXTEN ~ EBG Signed [facility] Work Phone: Evaluation note* Diagnosis Onset Date Resolution Status Hyperlipidemia acute Left lateral knee pain acute Obesity (BMI 35.0-39.9 without comorbidity) acute DVT (deep venous thrombosis) chronic IT band syndrome acute Left lateral knee pain acute Abdominal pain acute Internal derangement of left knee acute Left knee injury acute Left lateral knee pain acute [facility] Work Phone: Evaluation note* Diagnosis Onset Date Resolution Status Hyperlipidemia acute Left lateral knee pain acute Obesity (BMI 35.0-39.9 without comorbidity) acute DVT (deep venous thrombosis) chronic IT band syndrome acute Left lateral knee pain acute Abdominal pain acute Internal derangement of left knee acute Left knee injury acute Left lateral knee pain acute Internal derangement of left knee acute Osteoarthritis of left knee acute Tear of meniscus of left knee acute [facility] Work Phone: Evaluation note* Diagnosis Onset Date Resolution Status Left lateral knee pain acute IT band syndrome acute Left lateral knee pain acute Abdominal pain acute Internal derangement of left knee acute Left knee injury acute Left lateral knee pain acute Internal derangement of left knee acute Osteoarthritis of left knee acute Tear of meniscus of left knee acute Osteoarthritis of left knee acute Tear of meniscus of left knee acute [facility] Work Phone: Evaluation note* Diagnosis Onset Date Resolution Status IT band syndrome acute Left lateral knee pain acute Abdominal pain acute Internal derangement of left knee acute Left knee injury acute Left lateral knee pain acute Internal derangement of left knee acute Osteoarthritis of left knee acute Tear of meniscus of left knee acute Osteoarthritis of left knee acute Tear of meniscus of left knee acute Chronic anticoagulation acut e Hematoma of right lower leg acute [facility] Work Phone: Evaluation note* Diagnosis Onset Date Resolution Status Abdominal pain acute Internal derangement of left knee acute Left knee injury acute Left lateral knee pain acute Internal derangement of left knee acute Osteoarthritis of left knee acute Tear of meniscus of left knee acute Osteoarthritis of left knee acute Tear of meniscus of left knee acute Chronic anticoagulation acut e Hematoma of right lower leg acute Acute hearing loss of left ear acute Chronic anticoagulation acut e Hematoma of lower leg acute [facility] Work Phone: Evaluation note* Diagnosis Onset Date Resolution Status Internal derangement of left knee acute Osteoarthritis of left knee acute Tear of meniscus of left knee acute Osteoarthritis of left knee acute Tear of meniscus of left knee acute Chronic anticoagulation acut e Hematoma of right lower leg acute Acute hearing loss of left ear acute Chronic anticoagulation acut e Hematoma of lower leg acute [facility] Work Phone: Evaluation note* Diagnosis Onset Date Resolution Status Chronic anticoagulation acut e Hematoma of right lower leg acute Acute hearing loss of left ear acute Chronic anticoagulation acut e Hematoma of lower leg acute Diabetes mellitus type II, non insulin dependent acute Osteoarthritis of left knee acute Tear of meniscus of left knee acute [facility] Work Phone: Evaluation note* Diagnosis Onset Date Resolution Status Acute hearing loss of left ear acute Chronic anticoagulation acut e Hematoma of lower leg acute Diabetes mellitus type II, non insulin dependent acute Osteoarthritis of left knee acute Tear of meniscus of left knee acute Internal derangement of left knee acute Osteoarthritis of left knee acute Tear of meniscus of left knee acute [facility] Work Phone: Evaluation note* Diagnosis Onset Date Resolution Status Diabetes mellitus type II, non insulin dependent acute Osteoarthritis of left knee acute Tear of meniscus of left knee acute Internal derangement of left knee acute Osteoarthritis of left knee acute Tear of meniscus of left knee acute [facility] Work Phone: Evaluation note* Diagnosis Onset Date Resolution Status Diabetes mellitus type II, non insulin dependent acute Osteoarthritis of left knee acute Tear of meniscus of left knee acute Internal derangement of left knee acute Osteoarthritis of left knee acute Tear of meniscus of left knee acute Postop check acute Chronic anticoagulation acut e Diabetes mellitus type II, non insulin dependent acute Hyperlipidemia acute Internal derangement of left knee acute Obesity (BMI 35.0-39.9 without comorbidity) acute Osteoarthritis of left knee acute Tear of meniscus of left knee acute Orthopedic aftercare acute [facility] Work Phone: Evaluation note* Diagnosis Onset Date Resolution Status Osteoarthritis of left knee acute Tear of meniscus of left knee acute Postop check acute Chronic anticoagulation acut e Diabetes mellitus type II, non insulin dependent acute Hyperlipidemia acute Internal derangement of left knee acute Obesity (BMI 35.0-39.9 without comorbidity) acute Osteoarthritis of left knee acute Tear of meniscus of left knee acute Orthopedic aftercare acute Osteoarthritis of left knee acute [facility] Work Phone: Evaluation note* Diagnosis Onset Date Resolution Status Osteoarthritis of left knee acute [facility] Work Phone: Evaluation note* Diagnosis Onset Date Resolution Status Arthritis acute Chronic anticoagulation acut e Diabetes mellitus type II, non insulin dependent acute Hyperlipidemia acute Obesity (BMI 35.0-39.9 without comorbidity) acute Osteoarthritis of left knee acute [facility] Work Phone: Evaluation note* Diagnosis Onset Date Resolution Status Arthritis acute Chronic anticoagulation acut e Diabetes mellitus type II, non insulin dependent acute Hyperlipidemia acute Obesity (BMI 35.0-39.9 without comorbidity) acute Osteoarthritis of left knee acute Osteoarthritis of left knee acute [facility] Work Phone: Evaluation note* Diagnosis Onset Date Resolution Status Arthritis acute Chronic anticoagulation acut e Diabetes mellitus type II, non insulin dependent acute Hyperlipidemia acute Obesity (BMI 35.0-39.9 without comorbidity) acute Osteoarthritis of left knee acute Osteoarthritis of left knee acute Sacroiliac dysfunction acute Diabetes mellitus type II, non insulin dependent acute Left low back pain acute Obesity (BMI 35.0-39.9 without comorbidity) acute [facility] Work Phone: Evaluation note* Diagnosis Onset Date Resolution Status Osteoarthritis of left knee acute Sacroiliac dysfunction acute Diabetes mellitus type II, non insulin dependent acute Left low back pain acute Obesity (BMI 35.0-39.9 without comorbidity) acute Spinal stenosis at L4-L5 level acute [facility] Work Phone: Evaluation note* Diagnosis Onset Date Resolution Status Sacroiliac dysfunction acute Diabetes mellitus type II, non insulin dependent acute Left low back pain acute Obesity (BMI 35.0-39.9 without comorbidity) acute Spinal stenosis at L4-L5 level acute Spinal stenosis at L4-L5 level acute Spinal stenosis of lumbar region at multiple levels acute [facility] Work Phone: Evaluation note* Diagnosis Onset Date Resolution Status Sacroiliac dysfunction acute Diabetes mellitus type II, non insulin dependent acute Left low back pain acute Obesity (BMI 35.0-39.9 without comorbidity) acute Spinal stenosis at L4-L5 level acute Spinal stenosis at L4-L5 level acute Spinal stenosis of lumbar region at multiple levels acute Chronic anticoagulation acut e Diabetes mellitus type II, non insulin dependent acute Hyperlipidemia acute Obesity (BMI 35.0-39.9 without comorbidity) acute Spinal stenosis of lumbar region at multiple levels acute [facility] Work Phone: Evaluation note* Diagnosis Onset Date Resolution Status Spinal stenosis at L4-L5 level acute Spinal stenosis of lumbar region at multiple levels acute Chronic anticoagulation acut e Diabetes mellitus type II, non insulin dependent acute Hyperlipidemia acute Obesity (BMI 35.0-39.9 without comorbidity) acute Spinal stenosis of lumbar region at multiple levels acute [facility] Work Phone: Evaluation note* Diagnosis Onset Date Resolution Status Chronic anticoagulation acut e Diabetes mellitus type II, non insulin dependent acute Hyperlipidemia acute Obesity (BMI 35.0-39.9 without comorbidity) acute Spinal stenosis of lumbar region at multiple levels acute Diabetes mellitus type II, non insulin dependent acute Hydrocele in adult acute Hyperlipidemia acute Obesity (BMI 35.0-39.9 without comorbidity) acute Osteoarthritis of left knee acute Preop exam for internal medicine acute [facility] Work Phone: Evaluation note* Diagnosis Onset Date Resolution Status Diabetes mellitus type II, non insulin dependent acute Hydrocele in adult acute Hyperlipidemia acute Obesity (BMI 35.0-39.9 without comorbidity) acute Osteoarthritis of left knee acute Preop exam for internal medicine acute [facility] Work Phone: Evaluation noteNo assessment information available [facility] Work Phone: Evaluation note* Diagnosis Left knee pain, unspecified chronicity- [facility], unspecified [facility]ity [facility] Additional Instructions Please ensure that you perform gentle stretching, ice and heat. Use the Percocet for severe pain. Please use your walker more often until your pain has decreased.[facility] Work Phone: Hospital Discharge instructionsAmbulatory Orders* Orthopedics Location: None Selected [facility] Work Phone: Hospital Discharge instructionsAmbulatory Orders* Pain Management Location: None Selected [facility] Work Phone: Reason for referral (narrative)No reason for referral [facility]: Chief Complaint and Reason for Visit Chief Complaint S/O S/O FALL KNEE ISSUES LEFT KNEE xray C-Scope Consult per OA S/O ATTN TO LARGE BOWEL - ENTEROCYLSIS, ABDOMINAL PAIN Follow up on left knee E ORDER Reason for Visit Hyperlipidemia Left lateral knee pain Obesity (BMI 35.0-39.9 without comorbidity) DVT (deep venous thrombosis) IT band syndrome Left lateral knee pain Abdominal pain Internal derangement of left knee Left knee injury Left lateral knee pain Chief Complaint S/O S/O FALL KNEE ISSUES LEFT KNEE xray C-Scope Consult per OA ATTN TO LARGE BOWEL - ENTEROCYLSIS, ABDOMINAL PAIN Follow up on left knee E ORDER S/O Reason for Visit Hyperlipidemia Left lateral knee pain Obesity (BMI 35.0-39.9 without comorbidity) DVT (deep venous thrombosis) IT band syndrome Left lateral knee pain Abdominal pain Internal derangement of left knee Left knee injury Left lateral knee pain Chief Complaint S/O FALL KNEE ISSUES LEFT KNEE xray C-Scope Consult per OA ATTN TO LARGE BOWEL - ENTEROCYLSIS, ABDOMINAL PAIN Follow up on left knee E ORDER S/O E ORDERS LEFT KNEE PAIN Reason for Visit Hyperlipidemia Left lateral knee pain Obesity (BMI 35.0-39.9 without comorbidity) DVT (deep venous thrombosis) IT band syndrome Left lateral knee pain Abdominal pain Internal derangement of left knee Left knee injury Left lateral knee pain Chief Complaint S/O FALL KNEE ISSUES LEFT KNEE xray C-Scope Consult per OA ATTN TO LARGE BOWEL - ENTEROCYLSIS, ABDOMINAL PAIN Follow up on left knee E ORDER S/O E ORDERS LEFT KNEE PAIN left knee Reason for Visit Hyperlipidemia Left lateral knee pain Obesity (BMI 35.0-39.9 without comorbidity) DVT (deep venous thrombosis) IT band syndrome Left lateral knee pain Abdominal pain Internal derangement of left knee Left knee injury Left lateral knee pain Internal derangement of left knee Osteoarthritis of left knee Tear of meniscus of left knee Chief Complaint S/O FALL KNEE ISSUES LEFT KNEE xray C-Scope Consult per OA ATTN TO LARGE BOWEL - ENTEROCYLSIS, ABDOMINAL PAIN Follow up on left knee E ORDER S/O E ORDERS LEFT KNEE PAIN left knee S/O 6 M FU LEG Reason for Visit Left lateral knee pa in IT band syndrome Left lateral knee pain Abdominal pain Internal derangement of left knee Left knee injury Left lateral knee pain Internal derangement of left knee Osteoarthritis of left knee Tear of meniscus of left knee Osteoarthritis of left knee Tear of meniscus of left knee Chief Complaint LEFT KNEE xray C-Scope Consult per OA ATTN TO LARGE BOWEL - ENTEROCYLSIS, ABDOMINAL PAIN Follow up on left knee E ORDER S/O E ORDERS LEFT KNEE PAIN left knee S/O 6 M FU LEG [facility] FU HEMATOMA - [facility] ER S/O Reason for Visit IT band syndrome Left lateral knee pain Abdominal pain Internal derangement of left knee Left knee injury Left lateral knee pain Internal derangement of left knee Osteoarthritis of left knee Tear of meniscus of left knee Osteoarthritis of left knee Tear of meniscus of left knee Chronic anticoagulation Hematoma of right lower leg Chief Complaint C-Scope Consult per OA ATTN TO LARGE BOWEL - ENTEROCYLSIS, ABDOMINAL PAIN Follow up on left knee E ORDER S/O E ORDERS LEFT KNEE PAIN left knee S/O 6 M FU LEG [facility] FU HEMATOMA - [facility] ER S/O hearing loss [facility] ER FU S/O Reason for Visit Abdominal pain Internal derangement of left knee Left knee injury Left lateral knee pain Internal derangement of left knee Osteoarthritis of left knee Tear of meniscus of left knee Osteoarthritis of left knee Tear of meniscus of left knee Chronic anticoagulation Hematoma of right lower leg Acute hearing loss of left ear Chronic anticoagulation Hematoma of lower leg Chief Complaint E ORDERS LEFT KNEE PAIN left knee S/O 6 M FU LEG [facility]ITAL FU HEMATOMA - [facility] ER S/O hearing loss [facility] ER FU S/O S/O LT EAR HEARING LOSS *ATTN IAC* Reason for Visit Internal derangement of left knee Osteoarthritis of left knee Tear of meniscus of left knee Osteoarthritis of left knee Tear of meniscus of left knee Chronic anticoagulation Hematoma of right lower leg Acute hearing loss of left ear Chronic anticoagulation Hematoma of lower leg Chief Complaint LEFT KNEE PAIN left knee S/O 6 M FU LEG [facility]OSPITAL FU HEMATOMA - [facility] ER S/O hearing loss [facility] ER FU S/O S/O LT EAR HEARING LOSS *ATTN IAC* Reason for Visit Internal derangement of left knee Osteoarthritis of left knee Tear of meniscus of left knee Osteoarthritis of left knee Tear of meniscus of left knee Chronic anticoagulation Hematoma of right lower leg Acute hearing loss of left ear Chronic anticoagulation Hematoma of lower leg Chief Complaint HOSPITAL FU HEMATOMA - [facility] ER S/O hearing loss [facility] ER FU S/O S/O LT EAR HEARING LOSS *ATTN IAC* S/O LEFT KNEE Reason for Visit Chronic anticoagulat ion Hematoma of right lower leg Acute hearing loss of left ear Chronic anticoagulation Hematoma of lower leg Diabetes mellitus type II, non insulin dependent Osteoarthritis of left knee Tear of meniscus of left knee Chief Complaint [facility] ER FU S/O S/O LT EAR HEARING LOSS *ATTN IAC* S/O LEFT KNEE LEFT KNEE left knee S/O Reason for Visit Acute hearing loss o f left ear Chronic anticoagulation Hematoma of lower leg Diabetes mellitus type II, non insulin dependent Osteoarthritis of left knee Tear of meniscus of left knee Internal derangement of left knee Osteoarthritis of left knee Tear of meniscus of left knee Chief Complaint S/O S/O LT EAR HEARING LOSS *ATTN IAC* S/O LEFT KNEE LEFT KNEE left knee S/O LT KNEE ARTHROSCOPY S/O LT KNEE ARTHROSCOPY LT KNEE ARTHROSCOPY Reason for Visit Diabetes mellitus ty pe II, non insulin dependent Osteoarthritis of left knee Tear of meniscus of left knee Internal derangement of left knee Osteoarthritis of left knee Tear of meniscus of left knee Chief Complaint S/O LEFT KNEE LEFT KNEE left knee S/O LT KNEE ARTHROSCOPY S/O LT KNEE ARTHROSCOPY LT KNEE ARTHROSCOPY left knee 6 M FU S/O LEFT KNEE Reason for Visit Diabetes mellitus ty pe II, non insulin dependent Osteoarthritis of left knee Tear of meniscus of left knee Internal derangement of left knee Osteoarthritis of left knee Tear of meniscus of left knee Postop check Chronic anticoagulation Diabetes mellitus type II, non insulin dependent Hyperlipidemia Internal derangement of left knee Obesity (BMI 35.0-39.9 without comorbidity) Osteoarthritis of left knee Tear of meniscus of left knee Orthopedic aftercare Chief Complaint left knee S/O LT KNEE ARTHROSCOPY S/O LT KNEE ARTHROSCOPY LT KNEE ARTHROSCOPY left knee 6 M FU S/O LEFT KNEE S/O 6 wk FU L ANKLE CONTRACTURE/RX HERE Reason for Visit Osteoarthritis of le ft knee Tear of meniscus of left knee Postop check Chronic anticoagulation Diabetes mellitus type II, non insulin dependent Hyperlipidemia Internal derangement of left knee Obesity (BMI 35.0-39.9 without comorbidity) Osteoarthritis of left knee Tear of meniscus of left knee Orthopedic aftercare Osteoarthritis of left knee Chief Complaint S/O 6 wk FU L ANKLE CONTRACTURE/RX HERE S/O S/O Reason for Visit Osteoarthritis of le ft knee Chief Complaint 6 wk FU L ANKLE CONTRACTURE/RX HERE S/O S/O S/O Reason for Visit Osteoarthritis of le ft knee Chief Complaint S/O S/O S/O S/O 6 M FU INT LABS Reason for Visit Arthritis Chronic anticoagulation Diabetes mellitus type II, non insulin dependent Hyperlipidemia Obesity (BMI 35.0-39.9 without comorbidity) Osteoarthritis of left knee Chief Complaint S/O S/O 6 M FU INT LABS S/O Reason for Visit Arthritis Chronic anticoagulation Diabetes mellitus type II, non insulin dependent Hyperlipidemia Obesity (BMI 35.0-39.9 without comorbidity) Osteoarthritis of left knee Chief Complaint 6 M FU INT LABS S/O LEFT KNEE S/O BACK PAIN Reason for Visit Arthritis Chronic anticoagulation Diabetes mellitus type II, non insulin dependent Hyperlipidemia Obesity (BMI 35.0-39.9 without comorbidity) Osteoarthritis of left knee Osteoarthritis of left knee Chief Complaint 6 M FU INT LABS S/O LEFT KNEE S/O BACK PAIN S/O LEFT HIP Room 4 [facility] ER FU Reason for Visit Arthritis Chronic anticoagulation Diabetes mellitus type II, non insulin dependent Hyperlipidemia Obesity (BMI 35.0-39.9 without comorbidity) Osteoarthritis of left knee Osteoarthritis of left knee Sacroiliac dysfunction Diabetes mellitus type II, non insulin dependent Left low back pain Obesity (BMI 35.0-39.9 without comorbidity) Chief Complaint S/O LEFT KNEE S/O BACK PAIN S/O LEFT HIP Room 4 [facility] ER FU S/O LUMBAR SPINE Room 3 Reason for Visit Osteoarthritis of le ft knee Sacroiliac dysfunction Diabetes mellitus type II, non insulin dependent Left low back pain Obesity (BMI 35.0-39.9 without comorbidity) Spinal stenosis at L4-L5 level Chief Complaint LEFT KNEE S/O BACK PAIN S/O LEFT HIP Room 4 [facility] ER FU S/O LUMBAR SPINE Room 3 S/O M48.061 Reason for Visit Osteoarthritis of le ft knee Sacroiliac dysfunction Diabetes mellitus type II, non insulin dependent Left low back pain Obesity (BMI 35.0-39.9 without comorbidity) Spinal stenosis at L4-L5 level Chief Complaint BACK PAIN S/O LEFT HIP Room 4 [facility] ER FU S/O LUMBAR SPINE Room 3 S/O M48.061 LUMBAR SPINE Reason for Visit Sacroiliac dysfuncti on Diabetes mellitus type II, non insulin dependent Left low back pain Obesity (BMI 35.0-39.9 without comorbidity) Spinal stenosis at L4-L5 level Spinal stenosis at L4-L5 level Spinal stenosis of lumbar region at multiple levels Chief Complaint S/O LEFT HIP Room 4 [facility] ER FU S/O LUMBAR SPINE Room 3 S/O M48.061 LUMBAR SPINE S/O 6 M FU Reason for Visit Sacroiliac dysfuncti on Diabetes mellitus type II, non insulin dependent Left low back pain Obesity (BMI 35.0-39.9 without comorbidity) Spinal stenosis at L4-L5 level Spinal stenosis at L4-L5 level Spinal stenosis of lumbar region at multiple levels Chronic anticoagulation Diabetes mellitus type II, non insulin dependent Hyperlipidemia Obesity (BMI 35.0-39.9 without comorbidity) Spinal stenosis of lumbar region at multiple levels Chief Complaint M48.061 LUMBAR SPINE S/O 6 M FU S/O [id number] Reason for Visit Spinal stenosis at L 4-L5 level Spinal stenosis of lumbar region at multiple levels Chronic anticoagulation Diabetes mellitus type II, non insulin dependent Hyperlipidemia Obesity (BMI 35.0-39.9 without comorbidity) Spinal stenosis of lumbar region at multiple levels Chief Complaint S/O 6 M FU S/O [id number] Testicle Swelling/Pain INT LABS Reason for Visit Chronic anticoagulat ion Diabetes mellitus type II, non insulin dependent Hyperlipidemia Obesity (BMI 35.0-39.9 without comorbidity) Spinal stenosis of lumbar region at multiple levels Diabetes mellitus type II, non insulin dependent Hydrocele in adult Hyperlipidemia Obesity (BMI 35.0-39.9 without comorbidity) Osteoarthritis of left knee Preop exam for internal medicine Chief Complaint S/O [id number] Testicle Swelling/Pain INT LABS [id number] Reason for Visit Diabetes mellitus ty pe II, non insulin dependent Hydrocele in adult Hyperlipidemia Obesity (BMI 35.0-39.9 without comorbidity) Osteoarthritis of left knee Preop exam for internal medicine Chief Complaint Admit Date S/O INR June 28, 2024 9:11am S/O INR July 27, 2024 1 0:06am S/O INR August 27, 2024 10:40am S/O INR September 24, 2024 10: 53am E ORDERS October 07, 2024 6:0 8am Chief Complaint Admit Date S/O INR August 27, 2024 10:40am S/O INR September 24, 2024 10: 53am E ORDERS October 07, 2024 6:0 8am 6 M FU October 14, 2024 9:54 am xray October 15, 2024 10:3 4am S/O INR October 26, 2024 9:0 3am S/O INR November 25, 2024 7:32a m Reason for Visit Admit Date Arthritis October 14, 2024 9:54 am Chronic anticoagulation October 14, 2024 9:54am Diabetes mellitus type II, non insulin d ependent October 14, 2024 9:54am H/O arthroscopic knee surgery October 14, 2024 9:54am History of left knee replacement October 142024 9:54am Hyperlipidemia October 14, 2024 9:54 am Left knee pain October 14, 2024 9:54 am Obesity (BMI 35.0-39.9 without comorbidi ty) October 14, 2024 9:54am Chief Complaint Admit Date S/O INR September 24, 2024 10: 53am E ORDERS October 07, 2024 6:0 8am 6 M FU October 14, 2024 9:54 am xray October 15, 2024 10:3 4am S/O INR October 26, 2024 9:0 3am S/O INR November 25, 2024 7:32a m S/O INR December 23, 2024 6:14 am Chief Complaint Admit Date 6 M FU October 14, 2024 9:54 am xray October 15, 2024 10:3 4am S/O INR October 26, 2024 9:0 3am S/O INR November 25, 2024 7:32a m S/O INR December 23, 2024 6:14 am S/O INR January 25, 2025 8:57 am Chief Complaint Admit Date S/O INR November 25, 2024 7:32a m S/O INR December 23, 2024 6:14 am S/O INR January 25, 2025 8:57 am 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 February 24, 2025 12:28pm S/O INR February 24, 2025 12 :30pm Family History No Family History Records Found Relationship Condition Age at Onset Recorded Date/T tanja Not Specified Myocardial infarction Unknown Malignant neoplasm Unknown Hypertension Unknown Advance Directives No Advanced Directives Records Found Advance Directive Response Recorded Date/ Time Living Will No April 27 2:52am Power of Tool Crib Attendant No April 27, 2018 2:52am Advance Directive Response Recorded Date/ Time Living Will Yes December 10, 2021 1 1:59am Power of Tool Crib Attendant Yes December 10, 2021 11:59am Advance Directive Response Recorded Date/ Time Name of Medical Power of Tool Crib Attendant December 10, 2021 11:59am Living Will Yes December 10, 2021 1 1:59am Power of Tool Crib Attendant Yes December 10, 2021 11:59am Advance Directive Response Recorded Date/ Time Name of Medical Power of Tool Crib Attendant December 10, 2021 11:59am Name of Medical Power of Tool Crib Attendant ryan orellana January 12, 2022 3:12pm Living Will Yes January 12, 2022 3 :12pm Power of Tool Crib Attendant Yes January 12, 2022 3:12pm Advance Directive Response Recorded Date/ Time Name of Medical Power of Tool Crib Attendant ryan orellana January 12, 2022 3:12pm Living Will Yes January 12, 2022 3 :12pm Power of Tool Crib Attendant Yes January 12, 2022 3:12pm Advance Directive Response Recorded Date/ Time Living Will Yes January 12, 2022 3 :12pm Power of Tool Crib Attendant Yes January 12, 2022 3:12pm Advance Directive Response Recorded Date/ Time Living Will No May 21 1:24pm Power of Tool Crib Attendant No May 21, 2022 1:24pm Advance Directive Response Recorded Date/ Time Living Will No May 21 2:24pm Power of Tool Crib Attendant No May 21, 2022 2:24pm Advance Directive Response Recorded Date/ Time Name of Medical Power of Tool Crib Attendant March 13, 2023 8:12pm Living Will Yes March 13 8:12pm Power of Tool Crib Attendant Yes March 13, 023 8:12pm Advance Directive Response Recorded Date/ Time Living Will Yes April 02, 2023 9:46am Power of Tool Crib Attendant Yes March 9:46am Name of Medical Power of Tool Crib Attendant March 13, 2023 8:12pm Advance Directive Response Recorded Date/ Time Living Will Yes April 02, 2023 8:46am Power of Tool Crib Attendant Yes March 8:46am Name of Medical Power of Tool Crib Attendant March 13, 2023 7:12pm Advance Directive Response Recorded Date/ Time Living Will Yes April 02, 2023 8:46am Power of Tool Crib Attendant Yes March 8:46am Advance Directive Response Recorded Date/ Time Living Will Yes April 02, 2023 9:46am Power of Tool Crib Attendant Yes March 9:46am Advance Directive Response Recorded Date/ Time Living Will Yes June 13 2:10am Do you have a Healthcare Power of Tool Crib Attendant? Yes June 13, 2024 2:10am Living Will Yes July 14 5:40am Do you have a Healthcare Power of Tool Crib Attendant? Yes July 14, 2024 5:40am Living Will Yes August 14 4:00am Do you have a Healthcare Power of Tool Crib Attendant? Yes August 14, 2024 4:00am Living Will Yes September 11, 2024 8:20am Do you have a Healthcare Power of Tool Crib Attendant? Yes September 11, 2024 8:20am Advance Directive Response Recorded Date/ Time Living Will Yes April 02, 2023 9:46am Do you have a Healthcare Power of Tool Crib Attendant? Yes April 02, 2023 9:46am Living Will Yes August 14 4:00am Do you have a Healthcare Power of Tool Crib Attendant? Yes August 14, 2024 4:00am Living Will Yes November 10, 2024 9:54pm Do you have a Healthcare Power of Tool Crib Attendant? Yes November 10, 2024 9:54pm Living Will Yes September 11, 2024 8:20am Do you have a Healthcare Power of Tool Crib Attendant? Yes September 11, 2024 8:20am Living Will Yes October 11, 2024 10:38pm Do you have a Healthcare Power of Tool Crib Attendant? Yes October 11, 2024 10:38pm Advance Directive Response Recorded Date/ Time Living Will Yes April 02, 2023 9:46am Do you have a Healthcare Power of Tool Crib Attendant? Yes April 02, 2023 9:46am Living Will Yes November 10, 2024 9:54pm Do you have a Healthcare Power of Tool Crib Attendant? Yes November 10, 2024 9:54pm Living Will Yes September 11, 2024 8:20am Do you have a Healthcare Power of Tool Crib Attendant? Yes September 11, 2024 8:20am Living Will Yes October 11, 2024 10:38pm Do you have a Healthcare Power of Tool Crib Attendant? Yes October 11, 2024 10:38pm Living Will Yes December 12, 2024 7 :05pm Do you have a Healthcare Power of Tool Crib Attendant? Yes December 12, 2024 7:05pm Advance Directive Response Recorded Date/ Time Living Will Yes April 02, 2023 9:46am Do you have a Healthcare Power of Tool Crib Attendant? Yes April 02, 2023 9:46am Living Will Yes November 10, 2024 9:54pm Do you have a Healthcare Power of Tool Crib Attendant? Yes November 10, 2024 9:54pm Living Will Yes October 11, 2024 10:38pm Do you have a Healthcare Power of Tool Crib Attendant? Yes October 11, 2024 10:38pm Living Will Yes December 12, 2024 7 :05pm Do you have a Healthcare Power of Tool Crib Attendant? Yes December 12, 2024 7:05pm Advance Directive Response Recorded Date/ Time Living Will Yes November 10, 2024 9:54pm Do you have a Healthcare Power of Tool Crib Attendant? Yes November 10, 2024 9:54pm Living Will Yes December 12, 2024 7 :05pm Do you have a Healthcare Power of Tool Crib Attendant? Yes December 12, 2024 7:05pm Summary Purpose Additional Source Comments Goals (unrecognized section and content) Goals may be documented in a n alternate sectionGoals may be documented in an alternate sectionGoals may be documented in an alternate sectionGoals may be documented in an alternate sectionGoals may be documented in an alternate sectionGoals may be documented in an alternate sectionGoals may be documented in an alternate sectionGoals may be documented in an alternate sectionGoals may be documented in an alternate sectionGoals may be documented in an alternate sectionGoals may be documented in an alternate sectionGoals may be documented in an alternate sectionGoals may be documented in an alternate sectionGoals may be documented in an alternate sectionGoals may be documented in an alternate sectionGoals may be documented in an alternate sectionGoals may be documented in an alternate sectionGoals may be documented in an alternate sectionGoals may be documented in an alternate sectionGoals may be documented in an alternate sectionGoals may be documented in an alternate sectionGoals may be documented in an alternate sectionGoals may be documented in an alternate sectionGoals may be documented in an alternate sectionGoals may be documented in an alternate sectionGoals may be documented in an alternate sectionGoals may be documented in an alternate sectionGoals may be documented in an alternate sectionGoals may be documented in an alternate sectionGoals may be documented in an alternate sectionGoals may be documented in an alternate sectionGoals may be documented in an alternate sectionGoals may be documented in an alternate section Care Teams (unrecognized sec tion and content) Team Status: Active Member Role Status Dates Dr. Otis Pruett MD Family Provider Active Dr. Genesis Damon MD Primary Care Provider Active Team Status: Inactive Member Role Status Dates Dr. Genesis Damon MD Primary Care Pro vider, Attending Provider, Referring Provider Active Team Status: Inactive Member Role Status Dates WATSON Jaquez Primary Care Provider, Referring P rovider Active Dr. Jose Eduardo Lane DO Attending Provider Active Team Status: Inactive Member Role Status Dates WATSON Jaquez Attending Provider, Referring Prov ider Active Dr. Genesis Damon MD Primary Care Provider Active Team Status: Active Member Role Status Dates Dr. Jose Eduardo Lane DO Attending Provid er, Referring Provider, Other Provider Active Dr. Genesis Damon MD Primary Care Provider Active Team Status: Inactive Member Role Status Dates Dr. Genesis Damon MD Primary Care Provider, Referri ng Provider Active Dr. Jose Eduardo Lane DO Attending Provider Active Team Status: Inactive Member Role Status Dates Dr. Otis Pruett MD Family Provider, Other Provider Active Vicki Tolentino AUTHOR'S AGENT, AUTHOR'S AGENT-C Other Provider Active Dr. Genesis Damon MD Attending Provider, Referring Provider Active WATSON Jaquez Primary Care Provider Active Team Status: Inactive Member Role Status Dates Dr. Jose Eduardo Lane DO Attending Provider, Referring Provider Active Dr. Genesis Damon MD Primary Care Provider Active Team Status: Inactive Member Role Status Dates Dr. Otis Pruett MD Family Provider Active Dr. Genesis Damon MD Primary Care Pro vider, Attending Provider, Referring Provider Active Team Status: Inactive Member Role Status Dates Dr. Genesis Damon MD Primary Care Provider Active TYLER SULTANA Attending Provider, Referring Provider Ac tive Team Status: Inactive Member Role Status Dates Dr. Genesis Damon MD Primary Care Provider, Attendi ng Provider Active Team Status: Active Member Role Status Dates Dr. Otis Pruett MD Family Provider Active Dr. Genesis Damon MD Primary Care Pro vider, Attending Provider, Referring Provider Active Team Status: Inactive Member Role Status Dates Dr. Genesis Damon MD Primary Care Provider Active Dr. Stephen Costa DO Emergency Provider Active Team Status: Inactive Member Role Status Dates Dr. Genesis Damon MD Primary Care Provider, Referri ng Provider Active Satish CHAUDHARI PA Attending Provider Active Team Status: Inactive Member Role Status Dates Dr. Genesis Damon MD Primary Care Provider Active Dr. Omid Ahumada MD Attending Provider Active Team Status: Inactive Member Role Status Dates Dr. Genesis Damon MD Primary Care Provider Active Dr. Stephen Costa DO Attending Provider, Emergency P rovider Active Team Status: Inactive Member Role Status Dates Dr. Genesis Damon MD Primary Care Provider, Referri ng Provider Active Dr. Cesario Perez DO Attending Provider Active Team Status: Inactive Member Role Status Dates Dr. Genesis Damon MD Primary Care Provider Active Dr. Cesario Perez DO Attending Provider Active Team Status: Inactive Member Role Status Dates Dr. Otis Pruett MD Family Provider Active Sta rt: June 28, 2024 End: June 28, 2024 Dr. Genesis Damon MD Primary Care Provider Active Start: June 28, 2024 End: June 28, 2024 Dr. Genesis Damon MD Attending Provider Active Start: June 28, 2024 End: June 28, 2024 Dr. Genesis Damon MD Referring Provider Active Start: June 28, 2024 End: June 28, 2024 Dr. Cheli De Guzman MD Other Provider Active St art: June 28, 2024 End: June 28, 2024 Team Status: Inactive Member Role Status Dates Dr. Otis Pruett MD Family Provider Active Sta rt: July 27, 2024 End: July 27, 2024 Dr. Genesis Damon MD Primary Care Provider Active Start: July 27, 2024 End: July 27, 2024 Dr. Genesis Damon MD Attending Provider Active Start: July 27, 2024 End: July 27, 2024 Dr. Genesis Damon MD Referring Provider Active Start: July 27, 2024 End: July 27, 2024 Dr. Cheli De Guzman MD Other Provider Active St art: July 27, 2024 End: July 27, 2024 Team Status: Inactive Member Role Status Dates Dr. Otis Pruett MD Family Provider Active Sta rt: August 27, 2024 End: September 10, 2024 Dr. Genesis Damon MD Primary Care Provider Active Start: August 27, 2024 End: September 10, 2024 Dr. Genesis Damon MD Attending Provider Active Start: August 27, 2024 End: September 10, 2024 Dr. Genesis Damon MD Referring Provider Active Start: August 27, 2024 End: September 10, 2024 Dr. Cheli De Guzman MD Other Provider Active St art: August 27, 2024 End: September 10, 2024 Team Status: Inactive Member Role Status Dates Dr. Otis Pruett MD Family Provider Active Sta rt: September 24, 2024 End: September 24, 2024 Dr. Genesis Damon MD Primary Care Provider Active Start: September 24, 2024 End: September 24, 2024 Dr. Genesis Damon MD Attending Provider Active Start: September 24, 2024 End: September 24, 2024 Dr. Genesis Damon MD Referring Provider Active Start: September 24, 2024 End: September 24, 2024 Dr. Cheli De Guzman MD Other Provider Active St art: September 24, 2024 End: September 24, 2024 Team Status: Active Member Role Status Dates Dr. Genesis Damon MD Primary Care Provider Active Start: October 07, 2024 Dr. Genesis Damon MD Attending Provider Active Start: October 07, 2024 Dr. Genesis Damon MD Referring Provider Active Start: October 07, 2024 Team Status: Inactive Member Role Status Dates Dr. Genesis Damon MD Primary Care Provider Active Start: October 07, 2024 End: October 07, 2024 Dr. Genesis Damon MD Attending Provider Active Start: October 07, 2024 End: October 07, 2024 Dr. Genesis Damon MD Referring Provider Active Start: October 07, 2024 End: October 07, 2024 Travel Agency Manager Relationship Specialty Start Date End Date Genesis Damon MD [address] [place] [address] [place] [address] PCP - General Internal Medicine 10/18/24 Travel Agency Manager Relationship Specialty Start Date End Date Genesis Damon MD [address] [place] [address] [place] [address] PCP - General Internal Medicine 10/18/24 Team Status: Inactive Member Role Status Dates Dr. Genesis Damon MD Primary Care Provider Active Start: October 14, 2024 End: October 14, 2024 Dr. Genesis Damon MD Attending Provider Active Start: October 14, 2024 End: October 14, 2024 Team Status: Inactive Member Role Status Dates Dr. Genesis Damon MD Primary Care Provider Active Start: October 15, 2024 End: October 15, 2024 Dr. Omid Ahumada MD Attending Provider Active S tart: October 15, 2024 End: October 15, 2024 Team Status: Inactive Member Role Status Dates Dr. Otis Pruett MD Family Provider Active Sta rt: October 26, 2024 End: November 10, 2024 Dr. Genesis Damon MD Primary Care Provider Active Start: October 26, 2024 End: November 10, 2024 Dr. Genesis Damon MD Attending Provider Active Start: October 26, 2024 End: November 10, 2024 Dr. Genesis Damon MD Referring Provider Active Start: October 26, 2024 End: November 10, 2024 Dr. Cheli De Guzman MD Other Provider Active St art: October 26, 2024 End: November 10, 2024 Team Status: Inactive Member Role Status Dates Dr. Otis Pruett MD Family Provider Active Sta rt: November 25, 2024 End: November 25, 2024 Dr. Genesis Damon MD Primary Care Provider Active Start: November 25, 2024 End: November 25, 2024 Dr. Genesis Damon MD Attending Provider Active Start: November 25, 2024 End: November 25, 2024 Dr. Genesis Damon MD Referring Provider Active Start: November 25, 2024 End: November 25, 2024 Dr. Cheli De Guzman MD Other Provider Active St art: November 25, 2024 End: November 25, 2024 Team Status: Active Member Role/Relationship Status Dates Dr. Otis Pruett MD Family Provider Active Dr. Genesis Damon MD Primary Care Provider Active Team Status: Inactive Member Role/Relationship Status Dates Dr. Otis Pruett MD Family Provider Active Sta rt: September 24, 2024 End: September 24, 2024 Dr. Genesis Damon MD Primary Care Provider Active Start: September 24, 2024 End: September 24, 2024 Dr. Genesis Damon MD Attending Provider Active Start: September 24, 2024 End: September 24, 2024 Dr. Genesis Damon MD Referring Provider Active Start: September 24, 2024 End: September 24, 2024 Dr. Cheli De Guzman MD Other Provider Active St art: September 24, 2024 End: September 24, 2024 Team Status: Inactive Member Role/Relationship Status Dates Dr. Genesis Damon MD Primary Care Provider Active Start: October 07, 2024 End: October 07, 2024 Dr. Genesis Damon MD Attending Provider Active Start: October 07, 2024 End: October 07, 2024 Dr. Genesis Damon MD Referring Provider Active Start: October 07, 2024 End: October 07, 2024 Team Status: Inactive Member Role/Relationship Status Dates Dr. Genesis Damon MD Primary Care Provider Active Start: October 14, 2024 End: October 14, 2024 Dr. Genesis Damon MD Attending Provider Active Start: October 14, 2024 End: October 14, 2024 Team Status: Inactive Member Role/Relationship Status Dates Dr. Genesis Damon MD Primary Care Provider Active Start: October 15, 2024 End: October 15, 2024 Dr. Omid Ahumada MD Attending Provider Active S tart: October 15, 2024 End: October 15, 2024 Team Status: Inactive Member Role/Relationship Status Dates Dr. Otis Pruett MD Family Provider Active Sta rt: October 26, 2024 End: November 10, 2024 Dr. Genesis Damon MD Primary Care Provider Active Start: October 26, 2024 End: November 10, 2024 Dr. Genesis Damon MD Attending Provider Active Start: October 26, 2024 End: November 10, 2024 Dr. Genesis Damon MD Referring Provider Active Start: October 26, 2024 End: November 10, 2024 Dr. Cheli De Guzman MD Other Provider Active St art: October 26, 2024 End: November 10, 2024 Team Status: Inactive Member Role/Relationship Status Dates Dr. Otis Pruett MD Family Provider Active Sta rt: November 25, 2024 End: November 25, 2024 Dr. Genesis Damon MD Primary Care Provider Active Start: November 25, 2024 End: November 25, 2024 Dr. Genesis Damon MD Attending Provider Active Start: November 25, 2024 End: November 25, 2024 Dr. Genesis Damon MD Referring Provider Active Start: November 25, 2024 End: November 25, 2024 Dr. Cheli De Guzman MD Other Provider Active St art: November 25, 2024 End: November 25, 2024 Team Status: Inactive Member Role/Relationship Status Dates Dr. Otis Pruett MD Family Provider Active Sta rt: December 23, 2024 End: December 23, 2024 Dr. Genesis Damon MD Primary Care Provider Active Start: December 23, 2024 End: December 23, 2024 Dr. Genesis Damon MD Attending Provider Active Start: December 23, 2024 End: December 23, 2024 Dr. Genesis Damon MD Referring Provider Active Start: December 23, 2024 End: December 23, 2024 Dr. Cheli De Guzman MD Other Provider Active St art: December 23, 2024 End: December 23, 2024 Team Status: Inactive Member Role/Relationship Status Dates Dr. Genesis Damon MD Primary Care Provider Active Start: October 14, 2024 End: October 14, 2024 Dr. Genesis Damon MD Attending Provider Active Start: October 14, 2024 End: October 14, 2024 Team Status: Inactive Member Role/Relationship Status Dates Dr. Genesis Damon MD Primary Care Provider Active Start: October 15, 2024 End: October 15, 2024 Dr. Omid Ahumada MD Attending Provider Active S tart: October 15, 2024 End: October 15, 2024 Team Status: Inactive Member Role/Relationship Status Dates Dr. Otis Pruett MD Family Provider Active Sta rt: October 26, 2024 End: November 10, 2024 Dr. Genesis Damon MD Primary Care Provider Active Start: October 26, 2024 End: November 10, 2024 Dr. Genesis Damon MD Attending Provider Active Start: October 26, 2024 End: November 10, 2024 Dr. Genesis Damon MD Referring Provider Active Start: October 26, 2024 End: November 10, 2024 Dr. Cheli De Guzman MD Other Provider Active St art: October 26, 2024 End: November 10, 2024 Team Status: Inactive Member Role/Relationship Status Dates Dr. Otis Pruett MD Family Provider Active Sta rt: November 25, 2024 End: November 25, 2024 Dr. Genesis Damon MD Primary Care Provider Active Start: November 25, 2024 End: November 25, 2024 Dr. Genesis Damon MD Attending Provider Active Start: November 25, 2024 End: November 25, 2024 Dr. Genesis Damon MD Referring Provider Active Start: November 25, 2024 End: November 25, 2024 Dr. Cheli De Guzman MD Other Provider Active St art: November 25, 2024 End: November 25, 2024 Team Status: Inactive Member Role/Relationship Status Dates Dr. Otis Pruett MD Family Provider Active Sta rt: December 23, 2024 End: December 23, 2024 Dr. Genesis Damon MD Primary Care Provider Active Start: December 23, 2024 End: December 23, 2024 Dr. Genesis Damon MD Attending Provider Active Start: December 23, 2024 End: December 23, 2024 Dr. Genesis Damon MD Referring Provider Active Start: December 23, 2024 End: December 23, 2024 Dr. Cheli De Guzman MD Other Provider Active St art: December 23, 2024 End: December 23, 2024 Team Status: Inactive Member Role/Relationship Status Dates Dr. Otis Pruett MD Family Provider Active Sta rt: January 25, 2025 End: February 10, 2025 Dr. Genesis Damon MD Primary Care Provider Active Start: January 25, 2025 End: February 10, 2025 Dr. Genesis Damon MD Attending Provider Active Start: January 25, 2025 End: February 10, 2025 Dr. Genesis Damon MD Referring Provider Active Start: January 25, 2025 End: February 10, 2025 Dr. Cheli De Guzman MD Other Provider Active St art: January 25, 2025 End: February 10, 2025 Team Status: Inactive Member Role/Relationship Status Dates Dr. Otis Pruett MD Family Provider Active Sta rt: November 25, 2024 End: November 25, 2024 Dr. Genesis Damon MD Primary Care Provider Active Start: November 25, 2024 End: November 25, 2024 Dr. Genesis Damon MD Attending Provider Active Start: November 25, 2024 End: November 25, 2024 Dr. Genesis Damon MD Referring Provider Active Start: November 25, 2024 End: November 25, 2024 Dr. Cheli De Guzman MD Other Provider Active St art: November 25, 2024 End: November 25, 2024 Team Status: Inactive Member Role/Relationship Status Dates Dr. Otis Pruett MD Family Provider Active Sta rt: December 23, 2024 End: December 23, 2024 Dr. Genesis Damon MD Primary Care Provider Active Start: December 23, 2024 End: December 23, 2024 Dr. Genesis Damon MD Attending Provider Active Start: December 23, 2024 End: December 23, 2024 Dr. Genesis Damon MD Referring Provider Active Start: December 23, 2024 End: December 23, 2024 Dr. Cheli De Guzman MD Other Provider Active St art: December 23, 2024 End: December 23, 2024 Team Status: Inactive Member Role/Relationship Status Dates Dr. Otis Pruett MD Family Provider Active Sta rt: January 25, 2025 End: February 10, 2025 Dr. Genesis Damon MD Primary Care Provider Active Start: January 25, 2025 End: February 10, 2025 Dr. Genesis Damon MD Attending Provider Active Start: January 25, 2025 End: February 10, 2025 Dr. Genesis Damon MD Referring Provider Active Start: January 25, 2025 End: February 10, 2025 Dr. Cheli De Guzman MD Other Provider Active St art: January 25, 2025 End: February 10, 2025 Team Status: Inactive Member Role/Relationship Status Dates Dr. Genesis Damon MD Primary Care Provider Active Start: February 24, 2025 End: February 24, 2025 Dr. Genesis Damon MD Attending Provider Active Start: February 24, 2025 End: February 24, 2025 Dr. Genesis Damon MD Referring Provider Active Start: February 24, 2025 End: February 24, 2025 Team Status: Active Member Role/Relationship Status Dates Dr. Otis Pruett MD Family Provider Active Sta rt: February 24, 2025 Dr. Genesis Damon MD Primary Care Provider Active Start: February 24, 2025 Dr. Genesis Damon MD Attending Provider Active Start: February 24, 2025 Dr. Genesis Damon MD Referring Provider Active Start: February 24, 2025 Dr. Cheli De Guzman MD Other Provider Active St art: February 24, 2025 Team Status: Active Member Role/Relationship Status Dates Dr. Genesis Damon MD Primary Care Provider Active Start: February 24, 2025 Dr. Álvaro Jett MD Attending Provider Active S tart: February 24, 2025 Team Status: Inactive Member Role/Relationship Status Dates Dr. Otis Pruett MD Family Provider Active Sta rt: February 24, 2025 End: February 24, 2025 Dr. Genesis Damon MD Primary Care Provider Active Start: February 24, 2025 End: February 24, 2025 Dr. Genesis Damon MD Attending Provider Active Start: February 24, 2025 End: February 24, 2025 Dr. Genesis Damon MD Referring Provider Active Start: February 24, 2025 End: February 24, 2025 Dr. Cheli De Guzman MD Other Provider Active St art: February 24, 2025 End: February 24, 2025 Reason for Visit (unrecogniz ed section and content) Reason Comments Pain Specialty Diagnoses / Procedures Referred By Contboubacar t Referred To Contact Sports Medicine Diagnoses Left knee pain, unspecified chronicity Genesis Damon MD [address] [place] [address] Dorys Mahmood MD [address] [place] [address] Phone: tel: fax: Referral ID Status Reason Start Date Expiration Date Visits Re quested Visits Authorized [id number] Closed 10/18/2024 10/18/2025 1 1 (unrecognized sect ion and content) No Status Records FoundNo Status Records FoundNo Status Records Found INFORMATION SOURCE (unrecogn ized section and content) DATE CREATED AUTHOR 11/20/2024 [facility] DATE CREATED AUTHOR AUTHOR'S ORGANIZ ATION 11/25/2024 [facility] DATE CREATED AUTHOR AUTHOR'S ORGANIZ ATION 04/02/2025 [facility] FOR RECORDS PERTAINING TO PATIENTS WHO ARE OR HAVE BEEN ENROLLED IN A CHEMICAL DEPENDENCY/SUBSTANCEABUSE PROGRAM, SOME INFORMATION MAY BE OMITTED. This clinical summary was aggregated from multiple sources. Caution should be exercised in using it in the provision of clinical care. This summary normalizes information from multiple sources, and as a consequence, information in this document may materially change the coding, format and clinical context of patient data. In addition, data may be omitted in some cases. CLINICAL DECISIONS SHOULD BE BASED ON THE PRIMARY CLINICAL RECORDS. [employer] [facility]. provides no warranty or guarantee of the accuracy or completeness of information in this document.
[2025-04-08 07:02] LABS: Hematocrit 46.0 % (40-54); Hemoglobin 15.4 g/dL (13.0-16.5); Immature Granulocytes Count 0.020 X10^3/uL (0.0-0.0); Mean Corp Hgb Conc 33.5 g/dL (32-36); Mean Corpuscular Volume 81.1 fL (80-94); Mean Platelet Vol. 8.9 fl (6.2-12.0); NRBC Flagged by Analyzer 0 % (0-5); Platelet Count 294 K/mm3 (150-450); RBC Distribution Width CV 13.9 % (11.6-14.6); RBC Distribution Width SD 40.9 fl (35.1-43.9); Red Blood Count 5.67 M/mm3 (4.6-6.2); White Blood Count 6.6 K/mm3 (4.4-11.0)
[2025-04-08 08:12] LABS: AST(SGOT) 23 U/L (<=37); Alanine Aminotransfer ALT/SGPT 25 U/L (<=46); Albumin, Serum 4.2 g/dL (3.4-4.8); Alkaline Phosphatase 59 U/L (40-129); Anion Gap 12 (5-15); BUN 16 mg/dL (4-19); BUN/Creat Ratio 14.9 RATIO (10-20); Calcium,Total 9.2 mg/dL (7.6-11.0); Carbon Dioxide 24.3 mmol/L (21.0-32.0); Chloride 101 mmol/L (98-108); Globulin 2.3 g/dL (2.2-4.2); Glucose 146 mg/dL (70-99); Magnesium 2.3 mg/dL (1.5-2.2); Potassium 4.1 mmol/L (3.3-5.1); Vitamin D,25 Hydroxy 31.9 ng/mL (30-100)
[2025-04-08 08:31] LABS: Cholesterol 168 mg/dL (<=200); Low Density Lipoprotein Calc. 92 mg/dL; Triglycerides 191 mg/dL; Very Low Density Lipoprotein 38 mg/dL (5-40); cholesterol:hdl ratio screen 4.47
== END | disposition home or self-care (01) ==
LOC: LAB 06:13
PROVIDERS: PCP Internal Medicine; Referring Provider Internal Medicine; Visit Provider Internal Medicine
DX: E11.65 Type 2 diabetes mellitus with hyperglycemia (principal); M17.12 Unilateral primary osteoarthritis, left knee; E66.9 Obesity, unspecified; E78.5 Hyperlipidemia, unspecified; E55.9 Vitamin D deficiency, unspecified; Z13.220 Encounter for screening for lipoid disorders; Z79.01 Long term (current) use of anticoagulants; Z98.890 Other specified postprocedural states; Z96.652 Presence of left artificial knee joint; Z86.718 Personal history of other venous thrombosis and embolism
CPT/HCPCS: 36415; 80053; 80061; 82306; 83036; 83735; 84443; 85025

== ENCOUNTER 2025-05-02 12:18 | Outpatient (RCR) | payer MEDICARE, OTHER, SELFPAY ==
[2025-05-02 12:40] LABS: INR Fingerstick 2.2
== END 2025-05-02 18:00 | disposition home or self-care (01) ==
LOC: LAB 12:18
PROVIDERS: Family Provider Family Medicine; PCP Internal Medicine; Referring Provider Internal Medicine; Visit Provider Internal Medicine
DX: Z79.01 Long term (current) use of anticoagulants (principal)
CPT/HCPCS: 36416; 85610

== ENCOUNTER → 2025-05-13 | Outpatient (CLI) | payer MEDICARE, OTHER, SELFPAY ==
--- NOTE | 2025-05-13 14:37 | MRI_ITS ---
PROCEDURE: MRI/Lower Ext/No Jt/w/o
== END | disposition home or self-care (01) ==
LOC: MRI 14:32
PROVIDERS: PCP Internal Medicine; Referring Provider Podiatrist; Visit Provider Podiatrist
DX: S90.32XA Contusion of left foot, initial encounter (principal); M79.672 Pain in left foot; X58.XXXA Exposure to other specified factors, initial encounter
CPT/HCPCS: 73718

== ENCOUNTER 2025-05-27 09:21 | Outpatient (RCR) | payer MEDICARE, OTHER, SELFPAY ==
[2025-05-27 09:29] LABS: INR Fingerstick 2.2
== END 2025-06-12 18:00 | disposition home or self-care (01) ==
LOC: LAB 09:21
PROVIDERS: Family Provider Family Medicine; PCP Internal Medicine; Referring Provider Internal Medicine; Visit Provider Internal Medicine
DX: Z79.01 Long term (current) use of anticoagulants (principal)
CPT/HCPCS: 36416; 85610

== ENCOUNTER 2025-06-30 09:32 | Outpatient (RCR) | payer MEDICARE, OTHER, SELFPAY ==
[2025-06-30 09:43] LABS: INR Fingerstick 2.3
== END 2025-06-30 18:00 | disposition home or self-care (01) ==
LOC: LAB 09:32
PROVIDERS: Family Provider Family Medicine; PCP Internal Medicine; Referring Provider Internal Medicine; Visit Provider Internal Medicine
DX: Z79.01 Long term (current) use of anticoagulants (principal)
CPT/HCPCS: 36416; 85610